=== PATIENT | female | born 1940 | race African-American/Black ===

== ENCOUNTER 2016-02-10 08:26 | Inpatient (IN) | payer OTHER ==
--- NOTE | 2016-02-10 08:34 | ED.PDOC ---
General ED Provider: Dr. LEATHA COFFMAN Chief Complaint: Shortness of Air Stated Complaint: shortness of breath Time Seen by Physician: 08:31 (history through pt and ) Information Source: Patient Exam Limitations: No limitations [facility] Documentation Reviewed and Agree: Yes (smokes 2 cigarrets/ day) Respiratory Complaint Exam - Respiratory Complaint/Exam Onset/Duration: short of air x1 hour coughing x 2 days Symptoms Are: Still present Timing: Constant Initial Severity: Moderate Current Severity: Mild Location: Throat, Chest Character: Reports: Non-productive cough Aggravating: Reports: None Alleviating: Reports: Bronchodilators Associated Signs and Symptoms: Reports: Nasal congestion, Sore throat Related History: Reports: Similar episode History of Healthcare-Acquired Pneumonia: No Related Surgical History: Reports: None Pulmonary Embolism Risk Factors: Bedrest Cardiac Risk Factors: Reports: CAD, Hypertension, CHF Pseudomonas Risk Factors: Reports: Chronic Lung Disease Tuberculosis Risk Factors: Reports: Chronic Resp. Faliure Home Oxygen Use: No Recent Stress Test: No Recent Echo/LV Function: No Current Antibiotic Use: No Respiratory Distress: None Inadequate Respiratory Effort: No Dysphagia Present: No Stridor Present: No JVD Present: No Accessory Muscle Use: No Retractions: Not Present Diminished Breath Sounds: No Prolonged Respiration: Expiratory phase Sinus Tenderness: None Grunting Respirations: No Kussmaul Respirations: No Differential Diagnoses: CHF, COPD Exacerbation, Pneumonia, Bronchitis Review of Systems - Review Of Systems Constitutional: Reports: Malaise, Weakness Eyes: Reports: No symptoms Ears, Nose, Mouth, Throat: Reports: No symptoms Respiratory: Reports: Cough, Short of air, Wheezing Cardiac: Reports: No symptoms GI: Reports: No symptoms : Reports: No symptoms Musculoskeletal: Reports: No symptoms Skin: Reports: No symptoms Neurological: Reports: No symptoms Endocrine: Reports: No symptoms Hematologic/Lymphatic: Reports: No symptoms All Other Systems: Reviewed and Negative Past Medical History - Past Medical History Previously Healthy: Yes Endocrine: Reports: None Cardiovascular: Reports: Hypertension Respiratory: Reports: Pneumonia Hematological: Reports: None Gastrointestinal: Reports: None Genitourinary: Reports: None Neuro/Psych: Reports: None Musculoskeletal: Reports: Arthritis, Joint Pain, Other (Sciatica ) Cancer: Reports: None - Surgical History General Surgical History: Reports: Hysterectomy, Appendectomy, Orthopedic (Knee replacement on the left 7 weeks ago. ) - Family History Family History: Reports: Unknown - Social History Smoking Status: Current every day smoker, Light tobacco smoker Hx Substance Use: No Alcohol Screening: None Physical Exam - Physical Exam Appearance: Ill-appearing Ill-appearing: Moderate Pain Distress: Moderate Eyes: POLA, EOMI, Conjunctiva clear ENT: Ears normal, Nose normal, Oropharynx normal Respiratory: Wheezes Cardiovascular: RRR, Pulses normal, No rub, No murmur GI/: Soft, Nontender, No masses, Bowel sounds normal, No Organomegaly Musculoskeletal: Normal strength, ROM intact, No edema, No calf tenderness Skin: Warm, Dry, Normal color Neurological: Sensation intact, Motor intact, Reflexes intact, Cranial nerves intact, Alert, Oriented Psychiatric: Affect appropriate, Mood appropriate Physician Notification - Case Discussed Physician Notified: trinh Time of Notification: 10:46 Admit To: Inpatient Critical Care Note - Critical Care Note Total Time (mins): 0 Course - Course Hematology/Chemistry: 02/10/16 08:50 02/10/16 08:50 Orders, Labs, Meds: Lab Review 02/10/16 02/10/16 02/10/16 08:45 08:50 09:03 WBC 8.83 RBC 4.01 L Hgb 11.2 L Hct 36.3 L MCV 90.5 MCH 27.9 MCHC 30.9 L RDW Coeff of Jade 15.1 H Plt Count 339 Immature Gran % (Auto) 0.2 Neut % (Auto) 37.6 Lymph % (Auto) 42.7 Curry % (Auto) 11.6 H Eos % (Auto) 7.2 H Baso % (Auto) 0.7 Immature Gran # (Auto) 0.0 Neut # 3.3 Lymph # 3.8 H Curry # 1.0 Eos # 0.6 Baso # 0.1 D-Dimer 1.63 Puncture Site Rradial O2 Saturation 91.0 L ABG pH 7.408 ABG pCO2 37.6 ABG pO2 60.0 L ABG HCO3 23.7 ABG Total CO2 25 ABG Base Excess -1 Ja Test + FiO2 % 21.0 Sodium 140 Potassium 3.2 L Chloride 107 Carbon Dioxide 25 Anion Gap 11.2 BUN 10 Creatinine 0.88 Estimated GFR (MDRD) 76.00 BUN/Creatinine Ratio 11.36 Glucose 138 H Lactic Acid 12.0 Calcium 8.6 Total Bilirubin 0.34 AST 26 ALT 13 Alkaline Phosphatase 101 Total Creatine Kinase 49 Troponin I 0.0150 B-Natriuretic Peptide 534 H Total Protein 7.2 Albumin 2.3 L Globulin 4.9 Albumin/Globulin Ratio 0.47 Influenza A (Rapid) Negative Influenza B (Rapid) Negative Orders Category Date Time Status ADMIT PATIENT INPATIENT .TO [facility] (MONITORED BED) ADMISSION 02/10/16 10: 39 Ordered ABG DRAW REQUEST DAILY@0600 CARDIO 02/11/16 06:00 Ordered ABG DRAW REQUEST Stat CARDIO 02/10/16 08:36 Completed EKG-(ED ONLY) Stat CARDIO 02/10/16 08:36 Completed EKG-(IP & OP ONLY) DAILY CARDIO 02/11/16 06:00 Ordered EKG-(IP & OP ONLY) DAILY CARDIO 02/12/16 06:00 Ordered EKG-(IP & OP ONLY) DAILY CARDIO 02/13/16 06:00 Ordered NEBULIZER TREATMENT Stat CARDIO 02/10/16 08:37 Completed NEBULIZER TREATMENT Stat CARDIO 02/10/16 10:43 Ordered OXYGEN Routine CARDIO 02/10/16 10:41 Ordered ACTIVITY .Complete BR CARE 02/10/16 10:39 Ordered INTAKE & OUTPUT Q8HR CARE 02/10/16 10:39 Ordered TELEMETRY MONITORING TELE CARE 02/10/16 10:40 Ordered VITAL SIGNS Q8HR CARE 02/10/16 10:39 Ordered CARDIAC DIET DIETARY 02/10/16 Lunch Ordered ED IV/MEDIPORT/POWERPORT .ONCE EMERGENCY 02/10/16 08:35 Active ABG Stat LAB 02/10/16 08:45 Completed ABG Stat LAB 02/10/16 10:43 Ordered B-TYPE NATRIURETIC PEPTIDE Stat LAB 02/10/16 08:50 Completed BLOOD CULTURE Stat LAB 02/10/16 08:50 Received CBC W/ AUTO DIFF DAILY@0600 LAB 02/11/16 06:00 Ordered CBC W/ AUTO DIFF DAILY@0600 LAB 02/12/16 06:00 Ordered CBC W/ AUTO DIFF DAILY@0600 LAB 02/13/16 06:00 Ordered CBC W/ AUTO DIFF DAILY@0600 LAB 02/14/16 06:00 Ordered CBC W/ AUTO DIFF DAILY@0600 LAB 02/15/16 06:00 Ordered CBC W/ AUTO DIFF DAILY@0600 LAB 02/16/16 06:00 Ordered CBC W/ AUTO DIFF DAILY@0600 LAB 02/17/16 06:00 Ordered CBC W/ AUTO DIFF DAILY@0600 LAB 02/18/16 06:00 Ordered CBC W/ AUTO DIFF DAILY@0600 LAB 02/19/16 06:00 Ordered CBC W/ AUTO DIFF DAILY@0600 LAB 02/20/16 06:00 Ordered CBC W/ AUTO DIFF DAILY@0600 LAB 02/21/16 06:00 Ordered CBC W/ AUTO DIFF DAILY@0600 LAB 02/22/16 06:00 Ordered CBC W/ AUTO DIFF DAILY@0600 LAB 02/23/16 06:00 Ordered CBC W/ AUTO DIFF DAILY@0600 LAB 02/24/16 06:00 Ordered CBC W/ AUTO DIFF DAILY@0600 LAB 02/25/16 06:00 Ordered CBC W/ AUTO DIFF DAILY@0600 LAB 02/26/16 06:00 Ordered CBC W/ AUTO DIFF DAILY@0600 LAB 02/27/16 06:00 Ordered CBC W/ AUTO DIFF DAILY@0600 LAB 02/28/16 06:00 Ordered CBC W/ AUTO DIFF DAILY@0600 LAB 02/29/16 06:00 Ordered CBC W/ AUTO DIFF DAILY@0600 LAB 03/01/16 06:00 Ordered CBC W/ AUTO DIFF Stat LAB 02/10/16 08:50 Completed COMPREHENSIVE METABOLIC PANEL DAILY@0600 LAB 02/11/16 06:00 Ordered COMPREHENSIVE METABOLIC PANEL DAILY@0600 LAB 02/12/16 06:00 Ordered COMPREHENSIVE METABOLIC PANEL DAILY@0600 LAB 02/13/16 06:00 Ordered COMPREHENSIVE METABOLIC PANEL DAILY@0600 LAB 02/14/16 06:00 Ordered COMPREHENSIVE METABOLIC PANEL DAILY@0600 LAB 02/15/16 06:00 Ordered COMPREHENSIVE METABOLIC PANEL DAILY@0600 LAB 02/16/16 06:00 Ordered COMPREHENSIVE METABOLIC PANEL DAILY@0600 LAB 02/17/16 06:00 Ordered COMPREHENSIVE METABOLIC PANEL DAILY@0600 LAB 02/18/16 06:00 Ordered COMPREHENSIVE METABOLIC PANEL DAILY@0600 LAB 02/19/16 06:00 Ordered COMPREHENSIVE METABOLIC PANEL DAILY@0600 LAB 02/20/16 06:00 Ordered COMPREHENSIVE METABOLIC PANEL DAILY@0600 LAB 02/21/16 06:00 Ordered COMPREHENSIVE METABOLIC PANEL DAILY@0600 LAB 02/22/16 06:00 Ordered COMPREHENSIVE METABOLIC PANEL DAILY@0600 LAB 02/23/16 06:00 Ordered COMPREHENSIVE METABOLIC PANEL DAILY@0600 LAB 02/24/16 06:00 Ordered COMPREHENSIVE METABOLIC PANEL DAILY@0600 LAB 02/25/16 06:00 Ordered COMPREHENSIVE METABOLIC PANEL DAILY@0600 LAB 02/26/16 06:00 Ordered COMPREHENSIVE METABOLIC PANEL DAILY@0600 LAB 02/27/16 06:00 Ordered COMPREHENSIVE METABOLIC PANEL DAILY@0600 LAB 02/28/16 06:00 Ordered COMPREHENSIVE METABOLIC PANEL DAILY@0600 LAB 02/29/16 06:00 Ordered COMPREHENSIVE METABOLIC PANEL DAILY@0600 LAB 03/01/16 06:00 Ordered COMPREHENSIVE METABOLIC PANEL Stat LAB 02/10/16 08:50 Completed CREATINE KINASE Q8H LAB 02/10/16 16:45 Ordered CREATINE KINASE Q8H LAB 02/11/16 00:45 Ordered CREATINE KINASE Stat LAB 02/10/16 08:50 Completed D-DIMER Stat LAB 02/10/16 08:50 Completed LACTIC ACID Stat LAB 02/10/16 08:50 Completed MOLECULAR GROUP A STREP Stat LAB 02/10/16 09:03 Results RAPID FLU A/B Stat LAB 02/10/16 09:03 Completed STREP SCREEN Stat LAB 02/10/16 09:03 Results TROPONIN I Q8H LAB 02/10/16 16:45 Ordered TROPONIN I Q8H LAB 02/11/16 00:45 Ordered TROPONIN I Stat LAB 02/10/16 08:50 Completed 0.9 % Sodium Chloride [Saline Flush] MEDS 02/10/16 08:36 Active 1 syr IVF PRN PRN Aspirin [Aspirin Chewable] MEDS 02/11/16 08:00 Ordered 81 mg PO DAILYWM Ceftriaxone Sodium [Rocephin] 1 gm MEDS 02/11/16 09:00 Ordered 0.9 % Sodium Chloride [Sodium Chloride] 50 ml IV DAILY Furosemide [Lasix Tab] MEDS 02/11/16 09:00 Ordered 40 mg PO DAILY Furosemide [Lasix] MEDS 02/10/16 10:39 Stat 40 mg IVP ONCE STA Ipratropium/Albuterol Neb [Duoneb] MEDS 02/10/16 08:37 Discontinued 1 vial NEB ONCE STA Ipratropium/Albuterol Neb [Duoneb] MEDS 02/10/16 12:00 Ordered 1 vial NEB RTQ6H Isosorbide Mononitrate [Imdur] MEDS 02/11/16 09:00 Ordered 30 mg PO DAILY Lisinopril [Zestril] MEDS 02/11/16 09:00 Ordered 2.5 mg PO DAILY Methylprednisolone Sod Succ/Pf [Solu-Medrol 125 mg] MEDS 02/10/16 08:37 Discontinued 125 mg IVP ONCE STA Methylprednisolone Sod Succ/Pf [Solu-Medrol 40 mg] MEDS 02/10/16 13:00 Ordered 60 mg IVP Q8HR Nitroglycerin [Nitrostat] MEDS 02/10/16 10:44 Ordered 0.4 mg SL Q5MIN X 3 DOSES PRN Sodium Chloride 0.9% [Sodium Chloride] 500 ml MEDS 02/10/16 08:38 Active IV 125 mls/hr Spironolactone [Aldactone] MEDS 02/11/16 09:00 Ordered 25 mg PO DAILY CHEST, 1V AP ONLY DAILY RADS 02/12/16 06:00 Ordered CHEST, 1V AP ONLY Stat RADS 02/10/16 08:35 Completed Medications Generic Name Dose Route Start Last Admin Trade Name Freq PRN Reason Stop Dose Admin Albuterol/Ipratropium 1 vial 02/10/16 12:00 Duoneb NEB RTQ6H RANJEET Aspirin 81 mg 02/11/16 08:00 Aspirin Chewable PO DAILYWM RANJEET Furosemide 40 mg 02/11/16 09:00 Lasix Tab PO DAILY RANJEET Sodium Chloride 500 mls @ 125 mls/hr 02/10/16 08:38 02/10/16 09:47 Sodium Chloride IV 02/10/16 12:37 125 mls/hr .Q4H STA Administration Ceftriaxone Sodium 1 gm/ 50 mls @ 75 mls/hr 02/11/16 09:00 Sodium Chloride IV DAILY RANJEET Isosorbide Mononitrate 30 mg 02/11/16 09:00 Imdur PO DAILY RANJEET Lisinopril 2.5 mg 02/11/16 09:00 Zestril PO DAILY RANJEET Methylprednisolone Sodium Succinate 60 mg 02/10/16 13:00 Solu-Medrol 40 Mg IVP Q8HR RANJEET Nitroglycerin 0.4 mg 02/10/16 10:44 Nitrostat SL Q5MIN X 3 DOSES PRN Angina Sodium Chloride 1 syr 02/10/16 08:36 02/10/16 09:48 Saline Flush IVF 1 syr PRN PRN Administration To flush IV Spironolactone 25 mg 02/11/16 09:00 Aldactone PO DAILY RANJEET Discontinued Medications Generic Name Dose Route Start Last Admin Trade Name Alireza PRN Reason Stop Dose Admin Albuterol/Ipratropium 1 vial 02/10/16 08:37 02/10/16 08:55 Duoneb NEB 02/10/16 08:38 1 vial ONCE STA Administration Furosemide 40 mg 02/10/16 10:39 Lasix IVP 02/10/16 10:40 ONCE STA Methylprednisolone Sodium Succinate 125 mg 02/10/16 08:37 02/10/16 09:46 Solu-Medrol 125 Mg IVP 02/10/16 08:38 125 mg ONCE STA Administration Vital Signs: Temp Pulse Resp BP Pulse Ox 02/10/16 08:27 97.9 F 116 H 38 H 227/127 H 89 L Departure - Departure Time of Disposition: 10:46 Disposition: ADMITTED INPATIENT Discharge Problem: Shortness of breath Instructions: Dyspnea (ED) Condition: Good Pt referred to PMD for follow-up: Yes (admitt) Allergies/Adverse Reactions: Allergies No Known Allergies Allergy (Verified 02/10/16 08:36) Home Medications: Ambulatory Orders Lisinopril 2.5 mg PO DAILY #30 tab-cap 08/25/15 Aspirin [Aspirin Chewable] 81 mg PO DAILYWM 02/10/16 Bupropion HCl 75 mg PO DAILY 02/10/16 Furosemide 40 mg PO DAILY 02/10/16 Isosorbide Mononitrate [Imdur] 30 mg PO DAILY 02/10/16 Nitroglycerin [Nitrostat] 0.4 mg SL Q5MIN X 3 DOSES PRN 02/10/16 Spironolactone 25 mg PO DAILY 02/10/16 Disposition Discussed With: Patient, Family
[2016-02-10] MEDS ORDERED: SOLU-MEDROL 125 MG IVP STA (08:37)
[2016-02-10] MEDS ORDERED: DUONEB NEB STA (08:37)
[2016-02-10] MEDS ORDERED: SODIUM CHLORIDE 500 ML IV STA (08:38)
[2016-02-10 08:50] LABS: ABG PCO2 37.6 mmHg (35-45); ABG PH 7.408 (7.35-7.45)
[2016-02-10 08:51] LABS: ABG BASE EXCESS -1 (-2.0-2.0)
[2016-02-10 08:52] LABS: ABG HCO3 23.7 (22.0-26.0); ABG TCO2 25 (22.0-28.0)
[2016-02-10 09:02] LABS: BASOPHILS # (AUTO) 0.1 K/uL (0-0.2); BASOPHILS % (AUTO) 0.7 % (0.0-3.0); EOSINOPHILS # (AUTO) 0.6 K/ul (0.0-0.7); EOSINOPHILS % (AUTO) 7.2 % (0.0-7.0); HEMATOCRIT 36.3 % (37.0-47.0); HEMOGLOBIN 11.2 g/dl (12.0-16.0); IMMATURE GRANULOCYTE % (AUTO) 0.2 % (0.0-5.0); LYMPHOCYTES # (AUTO) 3.8 K/uL (0.60-3.4); LYMPHOCYTES % (AUTO) 42.7 (10.0-50.0); MEAN CORPUSCULAR HEMOGLOBIN 27.9 pg (27.0-31.0); MEAN CORPUSCULAR HGB CONC 30.9 (31.8-35.4); MEAN CORPUSCULAR VOLUME 90.5 fl (81.0-99.0); MONOCYTES % (AUTO) 11.6 (0-10); NEUTROPHILS # (AUTO) 3.3 K/ul (2.0-6.9); NEUTROPHILS % (AUTO) 37.6; PLATELET COUNT 339 10^3/uL (140-440); RED BLOOD COUNT 4.01 10^6/ul (4.20-5.40); WHITE BLOOD COUNT 8.83 K/ul (4.6-10.2)
--- NOTE | 2016-02-10 09:06 | DI ---
EXAM: Chest one view HISTORY: Short of air COMPARISON: 10/29/2015 TECHNIQUE: Single view of the chest was performed FINDINGS: Bilateral interstitial and alveolar opacity appears increased. Fissural fluid suggested o n the right. There is underlying fibrosis. No pneumothorax. No visible pneumothorax. Heart is en larged and unchanged. Mediastinal contour is unchanged, noting atherosclerosis. Bones appear uncha nged. IMPRESSION: Pulmonary fibrosis. Bilateral interstitial and alveolar opacity appears increased and may represent superimposed pneumonia or edema. Fissural fluid suggested. Report faxed at time of dictation.
[2016-02-10 09:22] LABS: FLU INTERNAL QC INTERNAL QC VALID; RAPID FLU A NEGATIVE (NEGATIVE); RAPID FLU B NEGATIVE (NEGATIVE)
[2016-02-10 09:29] LABS: ALBUMIN 2.3 g/dL (3.4-5.0); ALBUMIN/GLOBULIN RATIO 0.47; ANION GAP 11.2; BILIRUBIN,TOTAL 0.34 mg/dL (0.00-1.20); BUN/CREATININE RATIO 11.36; CALCIUM 8.6 mg/dL (8.2-10.2); CREATININE 0.88 mg/dL (0.60-1.30); POTASSIUM 3.2 mmol/L (3.5-5.10); TOTAL PROTEIN 7.2 g/dL (5.8-8.1); TROPONIN I 0.015 ng/ml (0.0000-0.4000)
[2016-02-10] MEDS ORDERED: LASIX IVP STA (10:39)
[2016-02-10] MEDS ORDERED: NORCO 10-325 PO STA (11:03)
[2016-02-10] MEDS: DUONEB NEB SCH ×3 (11:44→23:13)
[2016-02-10] MEDS ORDERED: VASOTEC IV IVP STA (12:52)
[2016-02-10] MEDS ORDERED: VASOTEC IV IVP PRN (12:52)
[2016-02-10] MEDS ORDERED: SOLU-MEDROL 40 MG IVP SCH (13:00)
[2016-02-10 13:36] VITALS: BMI 28.0
[2016-02-10] MEDS: ROCEPHIN 1 GM in SODIUM CHLORIDE 50 ML IV SCH (13:57)
[2016-02-10] MEDS: SOLU-MEDROL 125 MG IVP SCH ×2 (15:00→21:13)
[2016-02-10 17:26] LABS: CREATINE KINASE 50 U/L
[2016-02-10] MEDS ORDERED: LANOXIN IVP STA (17:59)
[2016-02-10] MEDS ORDERED: LANOXIN IVP ONE (21:00)
[2016-02-10] MEDS: NORCO 5-325 PO PRN (22:57)
[2016-02-11 01:15] LABS: BASOPHILS % (AUTO) 0.1 % (0.0-3.0); HEMATOCRIT 36.2 % (37.0-47.0); HEMOGLOBIN 11.1 g/dl (12.0-16.0); IMMATURE GRANULOCYTE % (AUTO) 0.6 % (0.0-5.0); MEAN CORPUSCULAR HGB CONC 30.7 (31.8-35.4); MEAN CORPUSCULAR VOLUME 91.4 fl (81.0-99.0); MONOCYTES # (AUTO) 0.2 K/uL (0.4-2.0); MONOCYTES % (AUTO) 3.3 (0-10); NEUTROPHILS # (AUTO) 5.7 K/ul (2.0-6.9); PLATELET COUNT 334 10^3/uL (140-440); RED BLOOD COUNT 3.96 10^6/ul (4.20-5.40); WHITE BLOOD COUNT 6.93 K/ul (4.6-10.2)
[2016-02-11 01:30] LABS: ALBUMIN 2.4 g/dL (3.4-5.0); ALBUMIN/GLOBULIN RATIO 0.45; ANION GAP 12.9; BILIRUBIN,TOTAL 0.19 mg/dL (0.00-1.20); BUN/CREATININE RATIO 18.47; CREATININE 0.92 mg/dL (0.60-1.30); POTASSIUM 3.9 mmol/L (3.5-5.10); TOTAL PROTEIN 7.7 g/dL (5.8-8.1)
[2016-02-11 01:37] LABS: CREATINE KINASE 52 U/L
[2016-02-11] MEDS: LASIX TAB PO SCH (05:32)
[2016-02-11] MEDS: SOLU-MEDROL 125 MG IVP SCH ×3 (05:33→21:46)
[2016-02-11] MEDS: NORCO 5-325 PO PRN (06:19)
[2016-02-11 06:21] LABS: ABG BASE EXCESS 4 (-2.0-2.0); ABG HCO3 27.2 (22.0-26.0); ABG PCO2 34.5 mmHg (35-45); ABG PH 7.505 (7.35-7.45); ABG TCO2 28 (22.0-28.0)
[2016-02-11] MEDS: DUONEB NEB SCH ×4 (06:26→23:25)
[2016-02-11] MEDS: NITROSTAT SL PRN ×2 (08:50→09:06)
[2016-02-11] MEDS ORDERED: TORADOL IVP STA (08:51)
[2016-02-11] MEDS ORDERED: ZESTRIL PO SCH ×2 (09:00)
[2016-02-11] MEDS: ASPIRIN CHEWABLE PO SCH (09:10)
[2016-02-11] MEDS: IMDUR PO SCH (09:12)
[2016-02-11] MEDS: ALDACTONE PO SCH (09:22)
[2016-02-11] MEDS: ROCEPHIN 1 GM in SODIUM CHLORIDE 50 ML IV SCH (09:23)
[2016-02-11] MEDS ORDERED: XANAX PO STA (10:25)
[2016-02-11] MEDS ORDERED: BUPROPION HCL 75 MG PO SCH (10:30)
[2016-02-11] MEDS ORDERED: COREG PO SCH (10:30)
[2016-02-11] MEDS: WELLBUTRIN PO SCH (10:50)
[2016-02-11] MEDS: COREG PO SCH ×2 (10:53→17:48)
--- NOTE | 2016-02-11 13:04 | CONS ---
DATE OF CONSULTATION: 02/10/16 REASON FOR CONSULTATION: Shortness of air. HISTORY OF PRESENT ILLNESS: The patient is a 72 year old black female was brought to the emergency room by the because of shortness of breath with duration of 2 days. The patient gives history consistent with congestive heart failure and also with bronchitis type of symptoms for two days prior to coming to the emergency room. The patient was seen and examined in the emergency room by ER attending and was noted to have pulse of 116 irregular respiratory rate of 38 per minute and blood pressure of 227/127 with oxygen saturation of 89%. The patient arterial blood gasses on room air were po2 60, pCO2 37, pH 7.4 with 91% saturation. The patient was obviously in acute respiratory failure with acute pulmonary edema. The patient was given IV Lasix 40mg, Rocephin, IV steroids, NEBS treatment. By the time I saw the patient in the room the patient's condition had already improved and she was feeling a lot better. The patient's main complaint was lower back pain and that seems to be better now but she said that it was quite severe which she has it off and on for past several months but got worse. On examination the patient has bilateral basal crepitations with some wheezing. REVIEW OF SYSTEMS: CONSTITUTIONAL: No night sweats. Weakness and fatigue. No fever or chills. HEENT: Eyes: No visual changes. No eye pain. No eye discharge. ENT: No runny nose. No epistaxis. No sinus pain. No sore throat. No odynophagia. No ear pain. No congestion. RESPIRATORY: Mild cough with congestion yellowish sputum production. No hemoptysis. CARDIOVASCULAR: No angina symptoms. No CHF symptoms. No atypical chest pain for CAD. No palpitations. No shortness of breath. No chest pain but had orthopnea was unable to lay down for past couple of days. No PND. GASTROINTESTINAL: No abdominal pain. No nausea or vomiting. No diarrhea or constipation. No hematemesis. No hematochezia. GENITOURINARY: No urgency. No frequency. No dysuria. No hematuria. No obstructive symptoms. No discharge. No pain. No significant abnormal bleeding. MUSCULOSKELETAL: No musculoskeletal pain. No joint swelling. NEUROLOGICAL: No headache. No neck pain. No syncope. No seizures. No dizziness. PSYCHIATRIC: Not anxious. No depression. No suicidal thoughts. No homicidal thoughts. SKIN: No rash. No lesions. No wounds. ENDOCRINE: No unexplained weight loss. No weight gain. HEMATOLOGIC/LYMPHATIC: No anemia. No purpura. No petechiae. No prolonged or excessive bleeding. No palpable lymph nodes. MEDICATIONS: Lisinopril 205mg PO daily Aspirin 81mg PO daily Bupropion 75mg PO daily Lasix 40mg PO daily Isosorbide 30mg daily Nitroglycerin PRN Spironolactone 25mg PO daily ALLERGIES: None PAST MEDICAL HISTORY/PAST SURGICAL HISTORY: The patient has a history of coronary artery disease She had cardiac catheterization done a month ago and they couldn't put stent so they said that she is candidate for medical therapy. History of hypertension Congestive heart failure Chronic lung disease Smoking Generalized osteoarthritis Sciatica Hysterectomy Appendectomy Knee replacement, left 7 weeks ago SOCIAL/PERSONAL/FAMILY HISTORY: The patient is and lives with the . She smokes heavy. Alcohol socially. She does all activity of daily living, very independent. PHYSICAL EXAMINATION: GENERAL: The patient is oriented to time, place and person. VITAL SIGNS: Temperature 97.9, pulse 116, respiratory 38 and blood pressure 227 /127 the blood pressure was taken while I was in the room by the nurse and it was reported as 170/86 and pulse 89%. HEENT: Head normocephalic, atraumatic. Eyes: Extraocular muscles are intact. Pupils are equal, round and reactive to light and accommodation. Ears: No lesions. Nose appeared normal. Throat: No exudate or erythema. NECK: Supple. 2cm JVP, no carotid bruit. No lymphadenopathy or thyromegaly. LUNGS: Decreased breath sounds with mild wheeze with few crepitations at the bases. Percussion note normal. Chest symmetrical. HEART: S1, S2 somewhat irregular, no S3. No murmurs. No cyanosis or clubbing. No ascites. Pulses: Dorsalis pedis and posterior tibial pulses +1 to +2 both sides. ABDOMEN: Soft. Nontender. Bowel sounds active. No CVA tenderness. No mass felt. EXTREMITIES: Trace edema. Full range of motion of all extremities, equal. NEUROLOGIC: No focal deficit. Cranial nerves II through XII are grossly intact. No headache, no double vision or headache. SKIN: Not dry. Intact. Turgor - normal. LYMPHATIC: No palpable lymph nodes/no lymphedema. MUSCULOSKELETAL: Normal joints with no swelling. Muscle tone is normal. LABS: Hgb 11.2, hct 36, WBC 8,800 normal differential, creatinine 0.8, BUN 10, potassium 3.2, glucose 138, BNP 534, D-Dimer negative, Estimated GFR 76 cc per minute. EKG sinus rhythm multiple PEC's. ASSESSMENT: 1. Acute respiratory failure from acute pulmonary edema 2. COPD with possibility of bronchitis. 3. Smoking 4. Chronic lung disease with smoking 5. Coronary artery disease, medical management 6. Hypertension 7. Dyslipidemia PLAN: 1. Agreed with present medications. 2.. Counseling for smoking done 3. The patient had coronary angiogram done but according to the patient Dr. Canales wasn't able to put stent and she was told that she would be candidate for just medical management. 4. Blood pressure goal should be 135/85, discussed with the patient. The patient is on jayne inhibitors 5. Dash discussed for hypertension 6. IV Vasotec to be given 1.25mg for systolic blood pressure more than 150 12 hourly. 7. Do PFT 8. Will do echocardiogram to elevate LV function. 9. Continue Telemetry 10. Continue routine Telemetry order with serial cardiac markers CONDITION: Stabilizing Thanks for referral. MANAN
[2016-02-11] MEDS ORDERED: COREG PO ONE (13:20)
[2016-02-11] MEDS ORDERED: DILAUDID 1 MG/ML SYRINGE IVP STA (21:18)
[2016-02-12] MEDS: DUONEB NEB SCH ×3 (05:10→17:20)
[2016-02-12] MEDS: LASIX TAB PO SCH (05:39)
[2016-02-12] MEDS: SOLU-MEDROL 125 MG IVP SCH ×3 (05:40→20:15)
[2016-02-12 06:09] LABS: BASOPHILS % (AUTO) 0.1 % (0.0-3.0); HEMOGLOBIN 11.2 g/dl (12.0-16.0); IMMATURE GRANULOCYTE % (AUTO) 0.4 % (0.0-5.0); LYMPHOCYTES # (AUTO) 1.4 K/uL (0.60-3.4); LYMPHOCYTES % (AUTO) 11.2 (10.0-50.0); MEAN CORPUSCULAR HEMOGLOBIN 27.6 pg (27.0-31.0); MEAN CORPUSCULAR HGB CONC 30.3 (31.8-35.4); MEAN CORPUSCULAR VOLUME 91.1 fl (81.0-99.0); MONOCYTES # (AUTO) 0.5 K/uL (0.4-2.0); MONOCYTES % (AUTO) 4.3 (0-10); NEUTROPHILS # (AUTO) 10.6 K/ul (2.0-6.9); PLATELET COUNT 409 10^3/uL (140-440); RED BLOOD COUNT 4.06 10^6/ul (4.20-5.40); WHITE BLOOD COUNT 12.64 K/ul (4.6-10.2)
[2016-02-12 06:27] LABS: ALBUMIN 2.5 g/dL (3.4-5.0); ALBUMIN/GLOBULIN RATIO 0.48; ANION GAP 14.5; BILIRUBIN,TOTAL 0.24 mg/dL (0.00-1.20); BUN/CREATININE RATIO 28.08; CALCIUM 8.9 mg/dL (8.2-10.2); CREATININE 0.89 mg/dL (0.60-1.30); POTASSIUM 4.5 mmol/L (3.5-5.10); TOTAL PROTEIN 7.7 g/dL (5.8-8.1)
[2016-02-12] MEDS: NORCO 5-325 PO PRN (08:24)
[2016-02-12] MEDS ORDERED: COZAAR PO SCH (09:00)
[2016-02-12] MEDS: WELLBUTRIN PO SCH (09:17)
[2016-02-12] MEDS: ALDACTONE PO SCH (09:18)
[2016-02-12] MEDS: ROCEPHIN 1 GM in SODIUM CHLORIDE 50 ML IV SCH (09:18)
[2016-02-12] MEDS: ASPIRIN CHEWABLE PO SCH (09:18)
[2016-02-12] MEDS: IMDUR PO SCH (09:18)
[2016-02-12] MEDS ORDERED: NORVASC PO STA (09:50)
[2016-02-12] MEDS ORDERED: COZAAR PO ONE (09:53)
[2016-02-12] MEDS: COREG PO SCH ×2 (09:53→17:19)
--- NOTE | 2016-02-12 10:41 | CT ---
Exam: CT scan of the chest without contrast History: Abnormal chest x-ray. History of anemia. Comparison study dated 11/01/2015. Findings: Computed tomography of the chest was performed without use of intravenous contrast materi al with scans reviewed in the axial, coronal, and sagittal planes at 5 mm slice thickness. Lung and mediastinal window settings were reviewed. Assessment of the mediastinum and hilar structures is l imited without utilization of intravenous contrast material. Atherosclerotic calcification of the t horacic aorta is again noted. Ascending thoracic aorta is borderline aneurysmally dilated measured approximately 4.0 x 3.7 cm transversely. There is again noted to be prominence of the pulmonary out flow tract suggesting the likelihood of underlying pulmonary arterial hypertension. The lungs are severely emphysematous in appearance with an honeycombed appearance of the lungs seen in the anterior aspects of both upper lobe regions but more pronounced in the lower lobe regions, ri ght greater than left. There appears to be associated bronchiectasis in the upper and more so lower lobe regions. There is also involvement at the level of the right middle lobe and lingula. No def inite acute consolidation is seen superimposed upon the underlying emphysematous appearing lungs. T here is chronic thickening seen along the oblique fissure on the right and less so the horizontal fi ssure. This appears similar to the prior study. Advanced arthritic changes seen centering in the mid and upper thoracic spine regions with multileve l compression deformities noted. Similar changes can be appreciated on the prior study. Impression: Severely emphysematous appearing lungs with the appearance of honeycombed lungs seen in the anterior aspects of both upper lobes and more so involving the lung bases, right greater than l eft. There is a lesser degree of involvement of the right middle lobe and lingula. No definite acute changes as compared to the prior study from 11/01/2015. Stable degree of cardiac enlargement. Borderline aneurysmal dilatation of the ascending aorta. Prominence of the pulmonary outflow tract suggesting pulmonary arterial hypertension. Stable thickening seen along the oblique fissure on the right.
--- NOTE | 2016-02-12 16:26 | CT ---
EXAM: CT of the head without contrast History: Headache. Comparison: Head CT 08/04/2015, brain MRI 10/29/2015 Technique: Multiplanar CT images through the head were obtained without the administration of IV co ntrast Findings: The visualized paranasal sinuses and mastoid air cells are clear in general. No acute ca lvarial abnormalities. Intracranially there is stable atrophy. No dominant mass or midline shift. No hydrocephalous. No acute intracranial hemorrhage or abnormal extraaxial fluid collections. No change in the periventri cular and subcortical white matter hypodensities. Impression: No acute intracranial process. Stable atrophy and chronic small vessel ischemic diseas e. No change compared to the prior study.
[2016-02-12] MEDS ORDERED: LASIX IVP STA (16:32)
[2016-02-12] MEDS: COZAAR PO SCH ×2 (17:20→20:15)
[2016-02-12] MEDS: TUSSIONEX PO SCH (20:13)
[2016-02-12] MEDS: MUCINEX PO SCH (20:13)
[2016-02-12] MEDS ORDERED: COZAAR ONE ×2 (20:15)
[2016-02-12] MEDS: HYDROCHLOROTHIAZIDE PO SCH (22:48)
[2016-02-13] MEDS: DUONEB NEB SCH ×5 (00:03→23:45)
[2016-02-13] MEDS: SOLU-MEDROL 125 MG IVP SCH ×2 (04:48→13:31)
[2016-02-13] MEDS ORDERED: NORVASC PO STA (04:54)
[2016-02-13 05:18] LABS: BASOPHILS % (AUTO) 0.1 % (0.0-3.0); HEMATOCRIT 37.9 % (37.0-47.0); HEMOGLOBIN 11.5 g/dl (12.0-16.0); IMMATURE GRANULOCYTE % (AUTO) 0.5 % (0.0-5.0); LYMPHOCYTES # (AUTO) 1.5 K/uL (0.60-3.4); MEAN CORPUSCULAR HEMOGLOBIN 27.3 pg (27.0-31.0); MEAN CORPUSCULAR HGB CONC 30.3 (31.8-35.4); MONOCYTES # (AUTO) 0.5 K/uL (0.4-2.0); MONOCYTES % (AUTO) 5.3 (0-10); NEUTROPHILS # (AUTO) 6.8 K/ul (2.0-6.9); NEUTROPHILS % (AUTO) 77.1; PLATELET COUNT 409 10^3/uL (140-440); RED BLOOD COUNT 4.21 10^6/ul (4.20-5.40)
[2016-02-13] MEDS: LASIX TAB PO SCH (05:42)
[2016-02-13 05:43] LABS: ALBUMIN 2.5 g/dL (3.4-5.0); ALBUMIN/GLOBULIN RATIO 0.51; ANION GAP 14.2; BILIRUBIN,TOTAL 0.24 mg/dL (0.00-1.20); BUN/CREATININE RATIO 31.46; CALCIUM 8.9 mg/dL (8.2-10.2); CREATININE 0.89 mg/dL (0.60-1.30); POTASSIUM 4.2 mmol/L (3.5-5.10); TOTAL PROTEIN 7.4 g/dL (5.8-8.1)
[2016-02-13] MEDS ORDERED: NORVASC PO SCH (09:00)
[2016-02-13] MEDS: WELLBUTRIN PO SCH (09:41)
[2016-02-13] MEDS: ASPIRIN CHEWABLE PO SCH (09:41)
[2016-02-13] MEDS: MUCINEX PO SCH ×2 (09:42→20:23)
[2016-02-13] MEDS: COREG PO SCH ×2 (09:42→16:44)
[2016-02-13] MEDS: COZAAR PO SCH ×2 (09:42→20:23)
[2016-02-13] MEDS: IMDUR PO SCH (09:43)
[2016-02-13] MEDS: HYDROCHLOROTHIAZIDE PO SCH (09:43)
[2016-02-13] MEDS: ROCEPHIN 1 GM in SODIUM CHLORIDE 50 ML IV SCH (09:43)
[2016-02-13] MEDS: TUSSIONEX PO SCH ×2 (09:43→20:24)
[2016-02-13] MEDS: ALDACTONE PO SCH (09:43)
[2016-02-13] MEDS ORDERED: CARDIZEM ONE (20:05)
[2016-02-13] MEDS: CARDIZEM PO SCH (20:24)
[2016-02-14 05:10] LABS: BASOPHILS % (AUTO) 0.1 % (0.0-3.0); HEMATOCRIT 39.1 % (37.0-47.0); HEMOGLOBIN 12.1 g/dl (12.0-16.0); IMMATURE GRANULOCYTE % (AUTO) 0.4 % (0.0-5.0); LYMPHOCYTES # (AUTO) 2.3 K/uL (0.60-3.4); LYMPHOCYTES % (AUTO) 20.5 (10.0-50.0); MEAN CORPUSCULAR HEMOGLOBIN 27.8 pg (27.0-31.0); MEAN CORPUSCULAR HGB CONC 30.9 (31.8-35.4); MEAN CORPUSCULAR VOLUME 89.7 fl (81.0-99.0); MONOCYTES # (AUTO) 1.4 K/uL (0.4-2.0); MONOCYTES % (AUTO) 12.2 (0-10); NEUTROPHILS # (AUTO) 7.6 K/ul (2.0-6.9); NEUTROPHILS % (AUTO) 66.8; PLATELET COUNT 404 10^3/uL (140-440); RED BLOOD COUNT 4.36 10^6/ul (4.20-5.40); WHITE BLOOD COUNT 11.43 K/ul (4.6-10.2)
[2016-02-14] MEDS: DUONEB NEB SCH ×3 (05:23→23:00)
[2016-02-14 05:34] LABS: ALBUMIN 2.4 g/dL (3.4-5.0); ALBUMIN/GLOBULIN RATIO 0.5; ANION GAP 12.5; BILIRUBIN,TOTAL 0.23 mg/dL (0.00-1.20); BUN/CREATININE RATIO 29.59; CALCIUM 8.9 mg/dL (8.2-10.2); CREATININE 0.98 mg/dL (0.60-1.30); POTASSIUM 4.5 mmol/L (3.5-5.10); TOTAL PROTEIN 7.2 g/dL (5.8-8.1)
[2016-02-14] MEDS: LASIX TAB PO SCH (05:41)
[2016-02-14] MEDS: ASPIRIN CHEWABLE PO SCH (09:38)
[2016-02-14] MEDS: ROCEPHIN 1 GM in SODIUM CHLORIDE 50 ML IV SCH (09:40)
[2016-02-14] MEDS: CARDIZEM PO SCH ×2 (09:40→20:38)
[2016-02-14] MEDS: ALDACTONE PO SCH (09:41)
[2016-02-14] MEDS: COREG PO SCH ×2 (09:41→18:25)
[2016-02-14] MEDS: MUCINEX PO SCH ×2 (09:41→20:39)
[2016-02-14] MEDS: IMDUR PO SCH (09:41)
[2016-02-14] MEDS: WELLBUTRIN PO SCH (09:41)
[2016-02-14] MEDS: COZAAR PO SCH ×2 (09:42→20:39)
[2016-02-14] MEDS: TUSSIONEX PO SCH ×2 (09:48→20:38)
--- NOTE | 2016-02-14 11:49 | PN ---
DATE OF VISIT: 02/11/16 SUBJECTIVE: This patient was admitted for shortness of breath and congestive heart failure. The patient was admitted initially to Dr. Galo and was changed to my service. The patient today is complaining mostly of intermittent which she had it previously. She mentioned about the demise of her son less than a month ago. She could not forget it and the sorrow is still very very heavy. LUNGS: Rales in both lungs field somewhat more on the right side. HEART: Audible with good tones ABDOMEN: No remarkable tenderness. The headaches is mostly frontal. This patient is known to have migraine headaches. She wanted some medication and so the patient is given Dilaudid 1mg for the headache intervenously to see if this would improve this problem. VITAL SIGNS: Temperature 98.8, pulse 85, blood pressure 152/82, respiratory rate 18 and oxygen saturation 98 with 2 liters. LABS: Her blood gasses have changed to achylosis from normal. Blood sugar slightly higher 169, BNP 550 from 534 yesterday, Albumin low ranging from 2.3 to 2.5. PLAN: This patient is receiving Lasix orally daily. This probably will be discontinued and see how she is tomorrow MTDD
--- NOTE | 2016-02-14 12:46 | PN ---
DATE OF VISIT: 02/12/16 SUBJECTIVE: The patient is alert and no distress. She is still complaining of headache but intermittent. I did tell her that she had those headaches before and she acknowledged that. Because of the persistent headache that we might visit it with a CT scan of the head. We had a CT of the chest today without contrast and it is abnormal with severe emphysematous appearing lung with the appearance of honeycombed lungs seen in the anterior aspect of both upper lobes and more so involving the lung bases, right greater than left. No acute changes compared to CT scan on 11/01/15. LUNGS: Still has rales in both sides but the right side mostly lateral. It is more than the left. This patient is placed on Mucinex 1,200mg Q 12 hours and Tussionex a teaspoon twice a day for cough and discontinue [place]. Lasix 20mg IV will be instituted today. We will repeat the BNP tomorrow. MTDD
--- NOTE | 2016-02-14 13:07 | ECHO2D ---
Date of Exam: 02/11/16 Ordering Physician: NICOLÁS BERTRAND Reason for Echo: HTN, IRREGULAR HEART RHYTHM, PAC'S M-Mode Normal Adult Results LV Dimensions Normal Adult Results AoV Opening excursions >1.6 >1.6 LVEDD-base- 3.5-5.8 4.3 Ao root dimensions 2.0-3.7 3.6 LVESD-base- 3.1-4.6 L. Atrium dimensions 1.9-3.8 4.5 Post. Wall thickness 0.8-1.1 1.1 IV septum (thickness) 0.7-1.2 1.3 Post. Wall excursion 0.72-1.3 NORMAL Septal motion NORMAL Systolic motion R. Ventricular cavity 1.5-2.0 NORMAL LVEF 60% 50 TO 55% Paradoxical septal wall motion NORMAL 2-D :NORMAL VALVES--NORMAL LEFT VENTRICULAR CONTRACTILITY--NO EFFUSION, NO THROMBUS, ENLARGED LEFT ATRIAL CAVITY M-MODE: MV: NORMAL AV: NORMAL TV: NORMAL PV: CHAMBER SIZE: ENLARGED LEFT ATRIAL CAVITY WALL MOTION: NORMAL PERICARDIUM: NORMAL INTERPRETATION: 1. LEFT VENTRICULAR HYPERTROPHY WITH ENLARGED LEFT ATRIAL CAVITY 2. NORMAL LEFT VENTRICULAR CONTRACTILITY 3. NORMAL VALVES MTDD
[2016-02-14] MEDS ORDERED: NORCO 5-325 PO STA (13:39)
--- NOTE | 2016-02-14 14:26 | PN ---
DATE OF VISIT: 02/13/16 SUBJECTIVE: The patient is alert and still complaining of a headache but does not look miserable. The pupils are equal and reactive to light. They CT scan done without contrast of the head showed no remarkable abnormalities and no changes from the previous CT. I did tell her that there are no significant findings to explain her headache. The headache had been diagnosed as migraine in the past. VITAL SIGNS: Temperature 97.7, blood pressure 142/75, respiratory 18, oxygen saturation 99 at 2 liters. LUNGS: Clear to auscultation in both sides. HEART: Normal sinus rhythm ABDOMEN: Non-tender MEDICATIONS: Nitrostat PRN DUO NEB nebulizer Q 6 hours Rocephin 1 gram Q 24 hours IV piggyback Lasix 40mg daily Aspirin 81mg daily Aldactone 25mg daily Imdur 30mg daily Coreg 12.5mg twice a day Wellbutrin 75mg daily Mucinex 1,200mg twice a day Tussionex a teaspoon Q 12 hours per scheduled Hydrochlorothiazide 25mg daily Cardizem 60mg twice a day instead of Amlodipine Cozaar 50mg twice a day MTDD
--- NOTE | 2016-02-14 15:00 | CONS ---
DATE OF SERVICE: 02/11/16 CONSULT FOLLOWUP SUBJECTIVE: The patient is a 75 year old black female hospitalized with congestive heart failure. The patient was acutely short of breath and was in acute respiratory failure, the patient also had bronchitis with severe chronic lung disease. The patient is non-compliant, heavy smoker and also has history of coronary artery disease. The patient is feeling a lot better. REVIEW OF SYSTEMS: CONSTITUTIONAL: No night sweats. No fatigue, malaise, lethargy. No fever or chills. HEENT: Eyes: No visual changes. No eye pain. No eye discharge. ENT: No runny nose. No epistaxis. No sinus pain. No sore throat. No odynophagia. No ear pain. No congestion. RESPIRATORY: Cough, no congestion. No hemoptysis. CARDIOVASCULAR: No angina symptoms. No CHF symptoms. No atypical chest pain for CAD. No palpitations. Shortness of breath on walking but basically the patient doesn't have any PND or Orthopnea. GASTROINTESTINAL: No abdominal pain. No nausea or vomiting. No diarrhea or constipation. No hematemesis. No hematochezia. GENITOURINARY: No urgency. No frequency. No dysuria. No hematuria. No obstructive symptoms. No discharge. No pain. No significant abnormal bleeding. MUSCULOSKELETAL: No musculoskeletal pain. No joint swelling. No arthritis. NEUROLOGICAL: No headache. No neck pain. No syncope. No seizures. No dizziness. PSYCHIATRIC: Not anxious. No depression. No suicidal thoughts. No homicidal thoughts. SKIN: No rash. No lesions. No wounds. ENDOCRINE: No unexplained weight loss. No weight gain. HEMATOLOGIC/LYMPHATIC: No anemia. No purpura. No petechiae. No prolonged or excessive bleeding. No palpable lymph nodes. PHYSICAL EXAMINATION: GENERAL: The patient is oriented to time, place and person. VITAL SIGNS: Temperature 97.9, pulse 96, respiratory rate 20, blood pressure 150 /90 and pulse ox 98%. HEENT: Head normocephalic, atraumatic. Eyes: Extraocular muscles are intact. Pupils are equal, round and reactive to light and accommodation. Ears: No lesions. Nose appeared normal. Throat: No exudate or erythema. NECK: Supple. No JVP, no carotid bruit. No lymphadenopathy or thyromegaly. LUNGS: Decreased breath sounds but clear to auscultation. Percussion note normal. Chest symmetrical. HEART: S1, S2, no S3. No murmurs. No cyanosis or clubbing. No ascites. Pulses: Dorsalis pedis and posterior tibial pulses +1 to +2 both sides. ABDOMEN: Soft. Nontender. Bowel sounds active. No CVA tenderness. No mass felt. EXTREMITIES: No edema. Full range of motion of all extremities, equal. NEUROLOGIC: No focal deficit. Cranial nerves II through XII are grossly intact. No headache, no double vision or headache. SKIN: Not dry. Intact. Turgor - normal. LYMPHATIC: No palpable lymph nodes/no lymphedema. MUSCULOSKELETAL: Normal joints with no swelling. Muscle tone is normal. LABS: Hgb 11.1, hct 36, WBC 6,900 normal differential, creatinine 0.9, BUN 17, potassium 3.9, glucose 169, D-dimer negative and BNP on 02/11/16 is 550. ASSESSMENT: 1. Congestive heart failure which has resolved 2. Coronary artery disease 3. Severe chronic lung disease 4. Bronchitis 5. Hypertension 6. Hyperglycemia RECOMMENDATIONS: 1. Start Coreg 6.25mg PO twice a day. I gave that order to Medical Massage Therapist and last on I was called back and said that she was already on 12.5mg twice a day so I increased the Coreg to 25mg twice a day 2. Will continue to monitor patient on Telemetry 3. Education for CHF carried out 4. Counseling for smoking done 5. PFT pending. 6. Echocardiogram done with morning showed LV contractility practically normal with LV ejection fraction 50% with stiff left ventricle with borderline LVH and Enlarged LA cavity. 7. All reports discussed with the patient, sitting in the room. PROGNOSIS: Poor because the patient is non-compliant. MTDD
[2016-02-14] MEDS ORDERED: TYLENOL PO STA (20:27)
[2016-02-15 05:27] LABS: BASOPHILS % (AUTO) 0.2 % (0.0-3.0); EOSINOPHILS # (AUTO) 0.4 K/ul (0.0-0.7); EOSINOPHILS % (AUTO) 4.1 % (0.0-7.0); HEMATOCRIT 42.4 % (37.0-47.0); IMMATURE GRANULOCYTE % (AUTO) 0.4 % (0.0-5.0); LYMPHOCYTES # (AUTO) 4.5 K/uL (0.60-3.4); LYMPHOCYTES % (AUTO) 45.1 (10.0-50.0); MEAN CORPUSCULAR HEMOGLOBIN 27.7 pg (27.0-31.0); MEAN CORPUSCULAR HGB CONC 30.7 (31.8-35.4); MEAN CORPUSCULAR VOLUME 90.2 fl (81.0-99.0); MONOCYTES # (AUTO) 1.2 K/uL (0.4-2.0); MONOCYTES % (AUTO) 11.8 (0-10); NEUTROPHILS # (AUTO) 3.8 K/ul (2.0-6.9); NEUTROPHILS % (AUTO) 38.4; PLATELET COUNT 446 10^3/uL (140-440); WHITE BLOOD COUNT 9.86 K/ul (4.6-10.2)
[2016-02-15] MEDS: DUONEB NEB SCH ×4 (05:41→23:38)
[2016-02-15] MEDS: LASIX TAB PO SCH (05:48)
[2016-02-15 05:52] LABS: ALBUMIN 2.3 g/dL (3.4-5.0); ALBUMIN/GLOBULIN RATIO 0.5; ANION GAP 12.9; BILIRUBIN,TOTAL 0.34 mg/dL (0.00-1.20); BUN/CREATININE RATIO 27.17; CALCIUM 8.7 mg/dL (8.2-10.2); CREATININE 0.92 mg/dL (0.60-1.30); POTASSIUM 3.9 mmol/L (3.5-5.10); TOTAL PROTEIN 6.9 g/dL (5.8-8.1)
--- NOTE | 2016-02-15 06:56 | CONS ---
DATE OF SERVICE: 02/13/16 CONSULT FOLLOWUP SUBJECTIVE: 75-year-old black female hospitalized with acute respiratory failure, acute congestive heart failure, severe hypertension. The patient's condition has been stabilized. Her blood pressure still running on the borderline high with telemetry showing sinus rhythm with PACs. REVIEW OF SYSTEMS: CONSTITUTIONAL: No night sweats. No fatigue, malaise, lethargy. No fever or chills. HEENT: Eyes: No visual changes. No eye pain. No eye discharge. ENT: No runny nose. No epistaxis. No sinus pain. No sore throat. No odynophagia. No ear pain. No congestion. RESPIRATORY: No cough, no congestion. No hemoptysis. CARDIOVASCULAR: No angina symptoms. No CHF symptoms. No atypical chest pain for CAD. No palpitations. No shortness of breath. GASTROINTESTINAL: No abdominal pain. No nausea or vomiting. No diarrhea or constipation. No hematemesis. No hematochezia. GENITOURINARY: No urgency. No frequency. No dysuria. No hematuria. No obstructive symptoms. No discharge. No pain. No significant abnormal bleeding. MUSCULOSKELETAL: No musculoskeletal pain. No joint swelling. No arthritis. NEUROLOGICAL: No headache. No neck pain. No syncope. No seizures. No dizziness. PSYCHIATRIC: Not anxious. No depression. No suicidal thoughts. No homicidal thoughts. SKIN: No rash. No lesions. No wounds. ENDOCRINE: No unexplained weight loss. No weight gain. HEMATOLOGIC/LYMPHATIC: No anemia. No purpura. No petechiae. No prolonged or excessive bleeding. No palpable lymph nodes. PHYSICAL EXAMINATION: GENERAL: The patient is oriented to time, place and person. VITAL SIGNS: Temperature 96.4, pulse 72, respiratory rate 16, BP 154/96, pulse ox 93%. HEENT: Head normocephalic, atraumatic. Eyes: Extraocular muscles are intact. Pupils are equal, round and reactive to light and accommodation. Ears: No lesions. Nose appeared normal. Throat: No exudate or erythema. NECK: Supple. No JVD, no carotid bruit. No lymphadenopathy or thyromegaly. LUNGS: Decreased breath sounds but clear to auscultation. Percussion note normal. Chest symmetrical. HEART: S1, S2, no S3. No murmurs. No cyanosis or clubbing. No ascites. Pulses: Dorsalis pedis and posterior tibial pulses +1 to +2 both sides. ABDOMEN: Soft. Nontender. Bowel sounds active. No CVA tenderness. No mass felt. EXTREMITIES: No edema. Full range of motion of all extremities, equal. NEUROLOGIC: No focal deficit. Cranial nerves II through XII are grossly intact. No headache, no double vision or headache. SKIN: Not dry. Intact. Turgor - normal. LYMPHATIC: No palpable lymph nodes/no lymphedema. MUSCULOSKELETAL: Normal joints with no swelling. Muscle tone is normal. LAB REVIEW: Hemoglobin 11.5, hematocrit 37, WBC 8,800, normal differential. Creatinine 0.8, BUN 28, potassium 4.2, BNP 577. ABGs done 2 days ago showed oxygen saturation 94 % on room air. ASSESSMENT 1. RESPIRATORY FAILURE RESOLVED. 2. CHF UNDER CONTROL. 3. HYPERTENSION, UPPER LIMIT OF NORMAL BUT CONTROLLED. 4. NO SYMPTOMS OF CORONARY ARTERY DISEASE. THE PATIENT HAS CORONARY ARTERY DISEASE, UNABLE TO PUT STENTS SO MEDICAL MANAGEMENT WAS DECIDED AT [facility] WITH DR. VÁZQUEZ. 5. HISTORY OF SMOKING WITH COPD. THE PATIENT SAYS SHE HAS QUIT SMOKING NOW. The case discussed with the attending. The patient's frequent PAC could be treated with either Cardizem with discontinuation of Norvasc or increasing the dose of Coreg 25 twice a day. CONDITION: Stable. MTDD
--- NOTE | 2016-02-15 08:26 | CONS ---
DATE OF SERVICE: 02/12/16 CONSULT FOLLOWUP SUBJECTIVE: The patient is a 75 year old black female hospitalized with acute respiratory failure and congestive heart failure. The patient's blood pressure is under control but the patient now is going to be on Cozaar 50mg twice a day and Norvasc 5mg every morning. The patient was given 5mg Norvasc today. The patient is already on Carvedilol or Coreg 12.5mg PO twice a day. The patient is eating, having family including the and talking plainly with no shortness of breath. She is feeling better. REVIEW OF SYSTEMS: CONSTITUTIONAL: No night sweats. No fatigue, malaise, lethargy. No fever or chills. HEENT: Eyes: No visual changes. No eye pain. No eye discharge. ENT: No runny nose. No epistaxis. No sinus pain. No sore throat. No odynophagia. No ear pain. No congestion. RESPIRATORY: No cough, no congestion. No hemoptysis. CARDIOVASCULAR: No angina symptoms. No CHF symptoms. No atypical chest pain for CAD. No palpitations. No shortness of breath. No. PND. No Orthopnea. GASTROINTESTINAL: No abdominal pain. No nausea or vomiting. No diarrhea or constipation. No hematemesis. No hematochezia. GENITOURINARY: No urgency. No frequency. No dysuria. No hematuria. No obstructive symptoms. No discharge. No pain. No significant abnormal bleeding. MUSCULOSKELETAL: No musculoskeletal pain. No joint swelling. No arthritis. NEUROLOGICAL: No headache. No neck pain. No syncope. No seizures. No dizziness. PSYCHIATRIC: Not anxious. No depression. No suicidal thoughts. No homicidal thoughts. SKIN: No rash. No lesions. No wounds. ENDOCRINE: No unexplained weight loss. No weight gain. HEMATOLOGIC/LYMPHATIC: No anemia. No purpura. No petechiae. No prolonged or excessive bleeding. No palpable lymph nodes. PHYSICAL EXAMINATION: GENERAL: The patient is oriented to time, place and person. VITAL SIGNS: Temperature 98.1, pulse 85, respiratory rate 18, blood pressure 143 /78 and pulse ox 100% on room. HEENT: Head normocephalic, atraumatic. Eyes: Extraocular muscles are intact. Pupils are equal, round and reactive to light and accommodation. Ears: No lesions. Nose appeared normal. Throat: No exudate or erythema. NECK: Supple. No JVD, no carotid bruit. No lymphadenopathy or thyromegaly. LUNGS: Decreased breath sounds but clear to auscultation. Percussion note normal. Chest symmetrical. HEART: S1, S2, no S3. No murmurs. No cyanosis or clubbing. No ascites. Pulses: Dorsalis pedis and posterior tibial pulses +1 to +2 both sides. ABDOMEN: Soft. Nontender. Bowel sounds active. No CVA tenderness. No mass felt. EXTREMITIES: No edema. Full range of motion of all extremities, equal. NEUROLOGIC: No focal deficit. Cranial nerves II through XII are grossly intact. No headache, no double vision or headache. SKIN: Not dry. Intact. Turgor - normal. LYMPHATIC: No palpable lymph nodes/no lymphedema. MUSCULOSKELETAL: Normal joints with no swelling. Muscle tone is normal. LABS: Hgb 11.2, hct 37, WBC 12,000 normal differential, creatinine 0.8, BUN 25, potassium 4.5 and glucose 143. ASSESSMENT: 1. Acute CHF, resolved 2. Acute bronchitis, resolved 3. COPD 4. Coronary artery disease, unable to put stent, medical management 5. Hypertension RECOMMENDATIONS: 1. Continue medication 2. Agreed with Cozaar, Norvasc, Coreg and Diarrhetics 3. Echo showed LVH and enlarged LA cavity. Diastolic dysfunction. 4. The patient has PAC's less frequent then they were. We will see how she does and Norvasc could be switched to Cardizem 45mg twice a day depending upon the patient's heart rate. 5. BNP and chest x-ray to be done. CONDITION: Stable. MTDD
[2016-02-15] MEDS ORDERED: CARDIZEM PO SCH (08:31)
[2016-02-15] MEDS: TUSSIONEX PO SCH ×2 (09:59→20:40)
[2016-02-15] MEDS: ALDACTONE PO SCH (09:59)
[2016-02-15] MEDS: COREG PO SCH ×2 (09:59→17:03)
[2016-02-15] MEDS: ROCEPHIN 1 GM in SODIUM CHLORIDE 50 ML IV SCH (09:59)
[2016-02-15] MEDS: ASPIRIN CHEWABLE PO SCH (09:59)
[2016-02-15] MEDS: IMDUR PO SCH (09:59)
[2016-02-15] MEDS: MUCINEX PO SCH ×2 (10:00→20:40)
[2016-02-15] MEDS: COZAAR PO SCH ×2 (10:00→20:40)
[2016-02-15] MEDS: CARDIZEM PO SCH ×4 (10:00→20:40)
[2016-02-15] MEDS: WELLBUTRIN PO SCH (10:04)
--- NOTE | 2016-02-15 11:14 | CONS ---
DATE OF SERVICE: 02/14/16 CONSULT FOLLOWUP SUBJECTIVE: 75-year-old black female hospitalized with shortness of breath, cough, congestion, CHF symptoms. The patient's cardiovascular status is stable. No evidence of CHF clnically as well as symptom childers. No fever, no chills. REVIEW OF SYSTEMS: CONSTITUTIONAL: No night sweats. No fatigue, malaise, lethargy. No fever or chills. HEENT: Eyes: No visual changes. No eye pain. No eye discharge. ENT: No runny nose. No epistaxis. No sinus pain. No sore throat. No odynophagia. No ear pain. No congestion. RESPIRATORY: No cough, no congestion. No hemoptysis. CARDIOVASCULAR: No angina symptoms. No CHF symptoms. No atypical chest pain for CAD. No palpitations. No shortness of breath. GASTROINTESTINAL: No abdominal pain. No nausea or vomiting. No diarrhea or constipation. No hematemesis. No hematochezia. GENITOURINARY: No urgency. No frequency. No dysuria. No hematuria. No obstructive symptoms. No discharge. No pain. No significant abnormal bleeding. MUSCULOSKELETAL: No musculoskeletal pain. No joint swelling. No arthritis. NEUROLOGICAL: No headache. No neck pain. No syncope. No seizures. No dizziness. PSYCHIATRIC: Not anxious. No depression. No suicidal thoughts. No homicidal thoughts. SKIN: No rash. No lesions. No wounds. ENDOCRINE: No unexplained weight loss. No weight gain. HEMATOLOGIC/LYMPHATIC: No anemia. No purpura. No petechiae. No prolonged or excessive bleeding. No palpable lymph nodes. PHYSICAL EXAMINATION: GENERAL: The patient is oriented to time, place and person. VITAL SIGNS: Temperature 98, pulse 86, respiratory rate 16, BP 171/97. Pulse ox 95%. It is to be noted that the blood pressure taken after the morning one is 140/70. HEENT: Head normocephalic, atraumatic. Eyes: Extraocular muscles are intact. Pupils are equal, round and reactive to light and accommodation. Ears: No lesions. Nose appeared normal. Throat: No exudate or erythema. NECK: Supple. No JVD, no carotid bruit. No lymphadenopathy or thyromegaly. LUNGS: Decreased breath sounds but clear to auscultation. Percussion note normal. Chest symmetrical. HEART: S1, S2, no S3. No murmurs. No cyanosis or clubbing. No ascites. Pulses: Dorsalis pedis and posterior tibial pulses +1 to +2 both sides. ABDOMEN: Soft. Nontender. Bowel sounds active. No CVA tenderness. No mass felt. EXTREMITIES: No edema. Full range of motion of all extremities, equal. NEUROLOGIC: No focal deficit. Cranial nerves II through XII are grossly intact. No headache, no double vision or headache. SKIN: Not dry. Intact. Turgor - normal. LYMPHATIC: No palpable lymph nodes/no lymphedema. MUSCULOSKELETAL: Normal joints with no swelling. Muscle tone is normal. LABS: Hemoglobin 12.1, hematocrit 39, WBC 11,400, normal differential. Creatinine 0.9 , BUN 29, potassium 4.5. ASSESSMENT: 1. ACUTE RESPIRATORY FAILURE/SEVERE CHRONIC LUNG DISEASE/CHF, ALL RESOLVED. 2. HYPERTENSION. 3. CORONARY ARTERY DISEASE, STABLE. PLAN: 1. The patient has been put on Cardizem 60 mg twice a day. 2. Norvasc has been taken off. 3. The patient's condition has been stabilized. The patient has continued to be on Rocephin and nebs treatment for acute bronchitis/pneumonitis. CONDITION: STABLE MTDD
--- NOTE | 2016-02-15 11:36 | PN ---
DATE OF VISIT: 02/14/16 The patient is alert and is still complaining of headaches. I did advise her that the CT scan of the head showed no acute intracranial processes, meaning no tumor, no hemorrhage or infarction that is acute and nothing different from the previous one. HEART: Audible with good tones. LUNGS: Fairly clear to auscultation. The patient feels like she could go home tomorrow and I told her we will have to check her over and see how she is. I will have to discuss that also with Dr. Galo, Consulting Associate Vice President. The patient's CBC today showed minimal leukocytosis 11,430. Borderline anemia. BUN rising 29. GFR 67. BNP 259 from 577. The viral antibodies requested still has no results at this time. MTDD
[2016-02-15] MEDS ORDERED: TYLENOL PO STA (16:03)
[2016-02-16] MEDS: DUONEB NEB SCH ×2 (04:57→11:04)
[2016-02-16 05:26] LABS: BASOPHILS % (AUTO) 0.2 % (0.0-3.0); EOSINOPHILS # (AUTO) 0.8 K/ul (0.0-0.7); EOSINOPHILS % (AUTO) 8.4 % (0.0-7.0); HEMATOCRIT 42.9 % (37.0-47.0); HEMOGLOBIN 13.1 g/dl (12.0-16.0); IMMATURE GRANULOCYTE % (AUTO) 0.6 % (0.0-5.0); LYMPHOCYTES # (AUTO) 3.5 K/uL (0.60-3.4); LYMPHOCYTES % (AUTO) 35.6 (10.0-50.0); MEAN CORPUSCULAR HEMOGLOBIN 27.6 pg (27.0-31.0); MEAN CORPUSCULAR HGB CONC 30.5 (31.8-35.4); MEAN CORPUSCULAR VOLUME 90.5 fl (81.0-99.0); MONOCYTES # (AUTO) 1.2 K/uL (0.4-2.0); MONOCYTES % (AUTO) 11.6 (0-10); NEUTROPHILS # (AUTO) 4.3 K/ul (2.0-6.9); NEUTROPHILS % (AUTO) 43.6; PLATELET COUNT 419 10^3/uL (140-440); RED BLOOD COUNT 4.74 10^6/ul (4.20-5.40); WHITE BLOOD COUNT 9.88 K/ul (4.6-10.2)
[2016-02-16 05:55] LABS: ALBUMIN 2.3 g/dL (3.4-5.0); ALBUMIN/GLOBULIN RATIO 0.51; ANION GAP 11.2; BILIRUBIN,TOTAL 0.28 mg/dL (0.00-1.20); BUN/CREATININE RATIO 21.42; CALCIUM 8.4 mg/dL (8.2-10.2); CREATININE 0.84 mg/dL (0.60-1.30); POTASSIUM 4.2 mmol/L (3.5-5.10); TOTAL PROTEIN 6.8 g/dL (5.8-8.1)
[2016-02-16] MEDS: LASIX TAB PO SCH (06:14)
[2016-02-16] MEDS: WELLBUTRIN PO SCH (08:26)
[2016-02-16] MEDS: COREG PO SCH (08:26)
[2016-02-16] MEDS: MUCINEX PO SCH (08:26)
[2016-02-16] MEDS: TUSSIONEX PO SCH (08:26)
[2016-02-16] MEDS: IMDUR PO SCH (08:27)
[2016-02-16] MEDS: ALDACTONE PO SCH (08:27)
[2016-02-16] MEDS: COZAAR PO SCH (08:27)
[2016-02-16] MEDS: CARDIZEM PO SCH ×2 (08:27)
[2016-02-16] MEDS: ASPIRIN CHEWABLE PO SCH (08:27)
[2016-02-16] MEDS: ROCEPHIN 1 GM in SODIUM CHLORIDE 50 ML IV SCH (08:29)
--- NOTE | 2016-02-16 09:52 | CONS ---
DATE OF SERVICE: 02/15/16 CONSULT FOLLOWUP SUBJECTIVE: The patient is a 75 year old black female seen on consultation because of shortness of breath with bronchitis type of symptoms. The patient has chronic lung disease and coronary artery disease the educational manager tried to put a sten and it was unsuccessful and then she was left for medical management. The patient does not have any symptoms of coronary insufficiency. REVIEW OF SYSTEMS: CONSTITUTIONAL: No night sweats. No fatigue, malaise, lethargy. No fever or chills. HEENT: Eyes: No visual changes. No eye pain. No eye discharge. ENT: No runny nose. No epistaxis. No sinus pain. No sore throat. No odynophagia. No ear pain. No congestion. RESPIRATORY: No cough, no congestion. No hemoptysis. CARDIOVASCULAR: No angina symptoms. No CHF symptoms. No atypical chest pain for CAD. No palpitations. No shortness of breath. GASTROINTESTINAL: No abdominal pain. No nausea or vomiting. No diarrhea or constipation. No hematemesis. No hematochezia. GENITOURINARY: No urgency. No frequency. No dysuria. No hematuria. No obstructive symptoms. No discharge. No pain. No significant abnormal bleeding. MUSCULOSKELETAL: No musculoskeletal pain. No joint swelling. No arthritis. NEUROLOGICAL: No headache. No neck pain. No syncope. No seizures. No dizziness. PSYCHIATRIC: Not anxious. No depression. No suicidal thoughts. No homicidal thoughts. SKIN: No rash. No lesions. No wounds. ENDOCRINE: No unexplained weight loss. No weight gain. HEMATOLOGIC/LYMPHATIC: No anemia. No purpura. No petechiae. No prolonged or excessive bleeding. No palpable lymph nodes. PHYSICAL EXAMINATION: GENERAL: The patient is oriented to time, place and person. VITAL SIGNS: Temperature 97, pulse 80, respiratory rate 16, blood pressure 150/ 98 and pulse ox 98%. HEENT: Head normocephalic, atraumatic. Eyes: Extraocular muscles are intact. Pupils are equal, round and reactive to light and accommodation. Ears: No lesions. Nose appeared normal. Throat: No exudate or erythema. NECK: Supple. No JVD, no carotid bruit. No lymphadenopathy or thyromegaly. LUNGS: Decreased breath sounds but clear to auscultation. Percussion note normal. Chest symmetrical. HEART: S1, S2, no S3. No murmurs. No cyanosis or clubbing. No ascites. Pulses: Dorsalis pedis and posterior tibial pulses +1 to +2 both sides. ABDOMEN: Soft. Nontender. Bowel sounds active. No CVA tenderness. No mass felt. EXTREMITIES: No edema. Full range of motion of all extremities, equal. NEUROLOGIC: No focal deficit. Cranial nerves II through XII are grossly intact. No headache, no double vision or headache. SKIN: Not dry. Intact. Turgor - normal. LYMPHATIC: No palpable lymph nodes/no lymphedema. MUSCULOSKELETAL: Normal joints with no swelling. Muscle tone is normal. ASSESSMENT: 1. Acute CHF resolved 2. Chronic lung disease with bronchitis, resolved 3. Smoking, strongly advised to quit 4. Coronary artery disease 5. Hypertension RECOMMENDATIONS: 1. Increase Cardizem to 90mg twice a day 2. Continue the rest of the medications as before CONDITION: Stable The patient on Telemetry has less PAC's. Rate is around 80 at rest. MTDD
[2016-02-16 14:35] VITALS: BP 118/69; TEMP 97.4
--- NOTE | 2016-02-17 11:35 | PN ---
This patient was last seen on Consult on 02/15/16. [email or web address]
--- NOTE | 2016-02-18 15:00 | HP ---
CHIEF COMPLAINT: Short of air SOURCE OF HISTORY: The patient HISTORY OF PRESENT ILLNESS: The patient claimed to have had a productive cough with greenish sputum. The patient about several minutes prior to presentation did experience a sudden shortness of breath. She was going into the shower when it happened. She was then brought in by relatives to the emergency room. This patient was examined and treated in the emergency room and subsequently admitted. The blood pressure at the emergency room was 227/127, pulse rate 116, respiratory rate 38, O2 Sat 89% on room air, temperature was normal 97.9. PAST PERSONAL HISTORY: The patient had hypertension Depression Anxiety History of migraine History of arthritis Pneumonia The patient had previous appendectomy Tonsillectomy Hysterectomy Total knee replacement, left 05/2015 Cardiac catheterization unable to deploy stent 01/20 and was advised medical treatment for the problem. LASIK surgery History of sciatica FAMILY HISTORY: Diabetes Heart problems Father of myocardial infarction at age 51 Mother of myocardial infarction at age 84 SOCIAL HISTORY: The patient is . Current every day smoker. No alcohol use. MEDICATIONS: Lisinopril 2.5mg PO daily Imdur 30mg PO daily Wellbutrin 75mg PO daily Aspirin 81mg daily Aldactone 25mg daily Nitroglycerin 0.4mg PRN sublingual ever 5 minutes if needed x3. Lasix 40mg daily Carvedilol 12.5mg twice a day ALLERGIES: No known allergies REVIEW OF SYSTEMS: CONSTITUTIONAL: The patient had no fever or chills but does has have weakness. 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 No seizures problem or loss of consciousness. VISUAL: Denies any blurred vision, double vision or transient loss of vision. AUDITORY: Hearing is somewhat decreased, Denies any tinnitus or pain or drainage. RESPIRATORY: The patient is complaining of cough on which has been for a couple days somewhat productive. Shortness of breath with some wheezing. CARDIOVASCULAR: Denies any anterior chest pain or pressure or heaviness in the chest GASTROINTESTINAL: No nausea or orexia, diarrhea or abdominal pain. GENITOURINARY: Denies any pain, frequency or urgency of urination MUSCULOSKELETAL: The patient does have some joint pains. Had a knee replacement. INTEGUMENT: No rash or pruritus ENDOCRINE: Negative HEMATOLOGIC: No history of prolonged bleeding PSYCHIATRIC: Affect appears to be normal. The patient always has some symptomatic complaints. Most of the time headache sometimes pain. PHYSICAL EXAMINATION: GENERAL: The patient is a 75 year old black female admitted to the hospital because of sudden shortness of breath, evaluated and treated at the emergency room. The patient received Solu-Medrol 125mg initially and then 60mg, nitroglycerin 0.4mg sublingually Q 5 minutes x three doses, normal saline 125cc per hour, DUONEB Nebulizer. VITAL SIGNS: Temperature 97.9, pulse 116, blood pressure 227/127, respiratory 38 and oxygen saturation 89% at room air. HEAD: Unremarkable FACE: Symmetrical and equal with no facial weakness and no significant tenderness to palpation under pressure in the frontal maxillary sinus lalo. EYES: Pupils equal/reactive to light. About 4mm in size. Conjunctivae not pale. Sclerae not icteric. MOUTH: Unremarkable THROAT: No inflammation, tumors or exudate. NECK: No masses. No bruit. No tenderness. No rigidity. CHEST: Essentially symmetrical and equal with good expansion. LUNGS: Bilateral rales right more than left side. No wheezing. HEART: Normal sinus rhythm and good tones. No murmurs. ABDOMEN: Soft with no remarkable tenderness. No guarding. Bowel sounds active. No masses palpable. LOWER EXTREMITIES: Symmetrical and equal with no tenderness in the calf muscles and no significant ankle edema UPPER EXTREMITIES: Symmetrical and equal. LABS: Chest x-ray abnormal, pneumonia versus pulmonary edema. Arterial blood gasses moderate to severe hypoxemia. BNP 534. ASSESSMENT: 1. Congestive heart failure 2. Chronic obstructive pulmonary disease 3. History of migraine headaches 4. History of hypertension 5. History of depression 6. History of coronary artery disease, unable to deploy stent 7. History of anxiety 8. History of previous pneumonia 9. History of degenerative joint disease 10. Left knee replacement, total, May 2015 11. History of Tonsillectomy 12. Appendectomy 13. Hysterectomy 14. Cardiac catheterization, January 2016 unable to deploy stent advised medical management for the coronary artery disease. This patient was initially admitted to Dr. Galo. He was contacted with the admission instead of az. He transferred this patient to [place]. He stayed on consultation. [facility]
--- NOTE | 2016-02-22 10:59 | DS ---
PATIENT IDENTIFICATION: 75 year old black female admitted to the hospital via the emergency room because of sudden shortness of breath. Lungs had rales in both lung dow. The chest x-ray showed either infectious process or edema. The BNP was elevated at 534. Arterial blood gases showed moderate hypoxemia. PO2 60, PCO2 37.6, pH 7.408. The patient was admitted initially to Dr. Galo. He decided to transfer the patient to my services. This patient had been a patient of mine, but I had not seen her for several months. HOSPITAL COURSE: The patient on examination was alert and cheerful. LUNGS: Rales on both sides, more on the right side, but no wheezing. HEART: Audible with good tones. The patient was complaining of headache, but not anything different from what she had. She is known to have migraine headaches in the past. The patient was continued on the Lasix. She also was given Solu-Medrol IV, plus Rocephin 1 gram IV daily. The patient remained tachycardic on the first hospital day and the blood pressure remained elevated and was 164/82 at 3 o'clock in the afternoon 02/10/2016. By 6 p.m. the blood pressure was 120/88. This patient was on Amlodipine. Dr. Galo, the moving consultant, changed Amlodipine to Cardizem and she was receiving 90 mg twice a day. Her blood pressure had fluctuated to above normal for hypertensive or uncontrolled. The patient's blood pressure, however, from the 9th towards the end of discharge was much more or less within normal limits and candelario slightly above normal. A head CT because of the headache was unchanged from the previous and the CT of the chest 02/12/2016 severe emphysematous changes with the appearance of honeycombed lungs seen in the anterior aspects of both upper lobes and also the bases. Right greater than left. Prominent outflow tract suggesting pulmonary arterial hypertension. The patient had improved and the BNP on the second day had increased to 550 and on the third day to 577. It has gradually turned towards normal and the last one on 02/16/2016 was 108. The patient's viral studies showed a CMV IGG of greater than 10. CMV IGM less than 30. EBV early antigen IGG 10.3, above normal. EBV nuclear antigen 305, way above normal. Influenza A and B with no results at this time. The patient continued to improve and was feeling better. Appetite also has more or less improved. The cough was treated with Tussionex and did decrease the frequency. The patient at the time of discharge was alert, ambulatory with movement of all extremities. No significant headache. No remarkable tenderness in the frontal or maxillary sinus areas to palpation under pressure. Chest is symmetrical and equal. Neck with no bruit. Lungs with breath sounds heard in both sides with rales, slightly more on the left than right. No expiratory wheezing. Heart is audible and regular with good tones. The abdomen is soft with no remarkable tenderness and lower extremities symmetrical and equal with no significant edema. FINAL DIAGNOSES: 1. HYPERTENSION, UNCONTROLLED, IMPROVED 2. CONGESTIVE HEART FAILURE, IMPROVED 3. HISTORY OF CHRONIC OBSTRUCTIVE PULMONARY DISEASE 4. CORONARY ARTERY DISEASE, POST CARDIAC CATHETERIZATION. UNABLE TO DEPLOY STENT. ADVISED MEDICAL MANAGEMENT BY THE WELDER APPRENTICE GAS. 5. HISTORY OF HEADACHES 6. HISTORY OF DEGENERATIVE JOINT DISEASE. STATUS POST LEFT TKR PROGNOSIS: Guarded. PLAN: 1. The patient is to resume her previous medications. 2. Take the Lasix on an empty stomach first thing in the morning and she should be empty for the next hour. 3. See me in one week and before if with any problems. MANAN
--- NOTE | 2016-05-03 11:08 | PN ---
DATE OF VISIT: 02/15/16 76 year old black female who was admitted to the hospital because hypertension, uncontrolled and congestive heart failure. The patient, today, is alert and feeling better. Not dyspneic, nor tachypneic. VITAL SIGNS: Temperature 97.9, pulse 84, blood pressure 126/72, respiratory rate 20, oxygen saturation 96 at room air. LUNGS: Diminished breath sounds with no rales. HEART: Audible and regular with good tones. ABDOMEN: Soft with no remarkable tenderness. CBC showed normal hemoglobin and hematocrit. Normal WBC, which was slightly elevated on admission. Slightly elevated BUN at 25, creatinine 0.92, E GFR 73. No BNP done today. The albumin is still slightly below normal at 2.3 with the lowest normal 3.5. The patient's viral studies showed probably an Luis Carlos Vizcaino virus, acute infection. Influenza not available. CONDITION: Improved and stable. MTDD
== END 2016-02-16 17:13 | disposition home or self-care (01) | DRG 304 ==
LOC: ED 08:26 → MEDSURG A 11:32
PROVIDERS: ADMIT General Practice; ATTEND General Practice
DX: I10 Essential (primary) hypertension (principal); J96.00 Acute respiratory failure, unspecified whether with hypoxia or hypercapnia; J44.0 Chronic obstructive pulmonary disease with (acute) lower respiratory infection; I51.7 Cardiomegaly; J81.1 Chronic pulmonary edema; I50.9 Heart failure, unspecified; J20.9 Acute bronchitis, unspecified; I27.2 Other secondary pulmonary hypertension; R51 Headache; R76.8 Other specified abnormal immunological findings in serum; I25.10 Atherosclerotic heart disease of native coronary artery without angina pectoris; E78.5 Hyperlipidemia, unspecified; R73.9 Hyperglycemia, unspecified; F17.210 Nicotine dependence, cigarettes, uncomplicated; Z79.899 Other long term (current) drug therapy; Z86.69 Personal history of other diseases of the nervous system and sense organs; R06.02 Shortness of breath; R05 Cough
CPT/HCPCS: 36415; 80053; 82550; 82803; 83605; 83880; 84484; 85025; 85379; 86644; 86645; 86663; 86664; 86710; 87040; 87651; 87804; 87880; 93005; 93010; 94640; 96374; 96375; 99223; 99232; 99239; 99284

== ENCOUNTER 2016-05-13 19:02 | Emergency (ER) ==
[2016-05-13 19:06] VITALS: TEMP 97; BMI 28.5
[2016-05-13] MEDS ORDERED: MORPHINE 2 MG/ML SYRINGE IM STA (19:19)
[2016-05-13] MEDS ORDERED: ZOFRAN 4 MG/2 ML IM STA (19:19)
--- NOTE | 2016-05-13 19:22 | ED.PDOC ---
General ED Provider: Dr. MORA CORMIER Chief Complaint: Headache Stated Complaint: Been hurting in the head for couple days, has h/o migrain, light bothering me, nausea. Time Seen by Physician: 19:20 Mode of Arrival: Walk-In Information Source: Patient [facility] Nursing and Triage Documentation Reviewed and Agree: Yes Neurological Complaint Exam - Headache Complaint/Exam Onset: Gradual Symptoms Are: Still present Timing: Constant Worst Headache Ever: No Initial Severity: Severe Current Severity: Moderate Location: Right, Left, Frontal, Occipital Character: Reports: Dull, Throbbing Aggravating: Reports: Bright lights Alleviating: Reports: None Associated Signs and Symptoms: Reports: Nausea, Vomiting Related History: Reports: Similar episode Related Surgical History: Reports: None SAH Risk Factors: Reports: None Meningitis Risk Factors: Reports: None SDH Risk Factors: Reports: None Temporal Arteritis Risk Factors: Reports: None Normal Head CT Within Last 12 Months: No Papilledema Present: No Temporal Artery Tenderness: Present: None Sinus Tenderness: Present: None TMJ Tenderness: Present: None Meningeal Signs Positive: No Pain on Passive Flexion-Positive Kernig's: No ROM Limited In: No Limitiations Focal Weakness: Present: None Focal Sensory Loss: Present: None Gait: Normal Nystagmus Present: No Gag Reflex Present: Yes [id number]: Normal Findings Romberg Test Positive: No Differential Diagnoses: Migraine Review of Systems - Review Of Systems Constitutional: Reports: Weakness Eyes: Reports: No symptoms Ears, Nose, Mouth, Throat: Reports: No symptoms Respiratory: Reports: No symptoms Cardiac: Reports: No symptoms GI: Reports: No symptoms : Reports: No symptoms Musculoskeletal: Reports: No symptoms Skin: Reports: No symptoms Neurological: Reports: Headache Endocrine: Reports: No symptoms Hematologic/Lymphatic: Reports: No symptoms All Other Systems: Reviewed and Negative Past Medical History - Past Medical History Previously Healthy: Yes Endocrine: Reports: None Cardiovascular: Reports: Hypertension, CHF Respiratory: Reports: Pneumonia Hematological: Reports: None Gastrointestinal: Reports: None Genitourinary: Reports: None Neuro/Psych: Reports: Migraine Musculoskeletal: Reports: Arthritis, Joint Pain, Other (Sciatica ) Cancer: Reports: None Last Menstrual Period: n/a - Surgical History General Surgical History: Reports: Hysterectomy, Appendectomy, Orthopedic (Knee replacement on the left 7 weeks ago. ) - Family History Family History: Reports: Unknown - Social History Smoking Status: Current every day smoker, Light tobacco smoker Hx Substance Use: No Alcohol Screening: None Physical Exam - Physical Exam Appearance: Ill-appearing, Obese Pain Distress: Moderate Eyes: EOMI, Conjunctiva clear ENT: Ears normal, Nose normal, Oropharynx normal Respiratory: Airway patent, Breath sounds clear, Breath sounds equal, Respirations nonlabored Cardiovascular: RRR, Pulses normal, No rub, No murmur GI/: Soft, Nontender, No masses, Bowel sounds normal, No Organomegaly Musculoskeletal: Normal strength, ROM intact, No edema, No calf tenderness Skin: Warm, Dry, Normal color Neurological: Sensation intact, Motor intact, Reflexes intact, Cranial nerves intact, Alert, Oriented Psychiatric: Affect appropriate, Mood appropriate Interpretation - Radiology Interpretation Radiology Interpretation By: Radiologist Radiology Results: Negative Critical Care Note - Critical Care Note Total Time (mins): 0 Course - Course Orders, Labs, Meds: Orders Category Date Time Status Clonidine HCl [Catapres] MEDS 05/13/16 19:23 Discontinued 0.2 mg PO ONCE STA Morphine Sulfate [Morphine 2 mg/ml Syringe] MEDS 05/13/16 19:19 Discontinued 2 mg IM ONCE STA Ondansetron HCl/Pf [Zofran 4 mg/2 ml] MEDS 05/13/16 19:19 Discontinued 4 mg IM ONCE STA CT HEAD W/O CONTRAST Stat RADS 05/13/16 19:19 Completed Medications Discontinued Medications Generic Name Dose Route Start Last Admin Trade Name Freq PRN Reason Stop Dose Admin Clonidine 0.2 mg 05/13/16 19:23 05/13/16 19:39 Catapres PO 05/13/16 19:24 0.2 mg ONCE STA Administration Morphine Sulfate 2 mg 05/13/16 19:19 05/13/16 19:28 Morphine 2 Mg/Ml Syringe IM 05/13/16 19:20 2 mg ONCE STA Administration Ondansetron HCl 4 mg 05/13/16 19:19 05/13/16 19:27 Zofran 4 Mg/2 Ml IM 05/13/16 19:20 4 mg ONCE STA Administration Vital Signs: Temp Pulse Resp BP Pulse Ox 05/13/16 19:03 97.0 F L 94 H 16 169/102 H 94 L Departure - Departure Time of Disposition: 20:43 Disposition: HOME SELF-CARE Discharge Problem: Headache Instructions: Migraine Headache (ED) Condition: Good Pt referred to PMD for follow-up: Yes Additional Instructions: keep checking the blood pressure risk of stroke discussed. Prescriptions: Hydrocodone/Acetaminophen [Knapp 5-325 Tablet] 1 tab PO TID PRN #12 tablet PRN Reason: PAIN Allergies/Adverse Reactions: Allergies No Known Allergies Allergy (Verified 05/13/16 19:07) Home Medications: Ambulatory Orders Lisinopril 2.5 mg PO DAILY #30 tab-cap 08/25/15 Aspirin [Aspirin Chewable] 81 mg PO DAILYWM 02/10/16 Furosemide 40 mg PO DAILY 02/10/16 Isosorbide Mononitrate [Imdur] 30 mg PO DAILY 02/10/16 Nitroglycerin [Nitrostat] 0.4 mg SL Q5MIN X 3 DOSES PRN 02/10/16 Spironolactone 25 mg PO DAILY 02/10/16 Diltiazem HCl [Cardizem] 60 mg PO Q12HR #60 tablet 02/16/16 Losartan Potassium [Cozaar] 50 mg PO BID #60 tablet 02/16/16 Hydrocodone/Acetaminophen [Knapp 5-325 Tablet] 1 tab PO TID PRN #12 tablet 05/13 Disposition Discussed With: Patient
[2016-05-13] MEDS ORDERED: CATAPRES PO STA (19:23)
--- NOTE | 2016-05-13 19:49 | CT ---
EXAM: CT scan brain without contrast HISTORY: Headache COMPARISON: CT scan brain 02/12/2016 FINDINGS: Contiguous axial images obtained from the skull base to the convexities without contrast utilizing 5-mm collimation. Sagittal coronal reconstructions were imaged and reviewed. The ventric les and CSF spaces are prominent by with age appropriate atrophy. There is periventricular hypodens ity noted compatible with chronic microvascular disease. Atherosclerotic changes are seen involving the bilateral cavernous internal carotid arteries. Visualized paranasal sinuses and mastoid air ce lls are clear. IMPRESSION: Age appropriate atrophy with chronic microvascular disease. No acute findings.
[2016-05-13 20:58] VITALS: BP 112/73
== END 2016-05-13 20:58 | disposition home or self-care (01) ==
LOC: ED 19:02
DX: G43.909 Migraine, unspecified, not intractable, without status migrainosus (principal); F17.210 Nicotine dependence, cigarettes, uncomplicated
CPT/HCPCS: 96372; 99283

== ENCOUNTER 2016-06-02 06:32 | Outpatient (CLI) ==
--- NOTE | 2016-06-05 11:50 | ECHO2D ---
Date of Exam: [] Ordering Physician: [] Reason for Echo: [] Auscultation: [] Murmurs: [] M-Mode Normal Adult Results LV Dimensions Normal Adult Results AoV Opening excursions >1.6 [] LVEDD-base- 3.5-5.8 [] Ao root dimensions 2.0-3.7 [] LVESD-base- 3.1-4.6 [] L. Atrium dimensions 1.9-3.8 [] Post. Wall thickness 0.8-1.1 [] IV septum (thickness) 0.7-1.2 [] Post. Wall excursion 0.72-1.3 [] Septal motion [] Systolic motion R. Ventricular cavity 1.5-2.0 [] LVEF 60% [] Paradoxical septal wall motion [] 2-D :[] M-MODE: MV: [] AV: [] TV: [] PV: [] CHAMBER SIZE: [] WALL MOTION: [] PERICARDIUM: [] INTERPRETATION: 1. [] 2. [] 3. [] 4. [] MTDD
--- NOTE | 2016-06-05 12:36 | ECHO2D ---
Date of Exam: 06/02/16 [facility] Reason for Echo: SOB, CAD M-Mode Normal Adult Results LV Dimensions Normal Adult Results AoV Opening excursions >1.6 >1.6 LVEDD-base- 3.5-5.8 5.7 Ao root dimensions 2.0-3.7 3.7 LVESD-base- 3.1-4.6 L. Atrium dimensions 1.9-3.8 4.6 Post. Wall thickness 0.8-1.1 1.2 IV septum (thickness) 0.7-1.2 1.2 Post. Wall excursion 0.72-1.3 NORMAL Septal motion NORMAL Systolic motion R. Ventricular cavity 1.5-2.0 NORMAL LVEF 60% 50% Paradoxical septal wall motion NORMAL 2-D : ENLARGED LEFT ATRIAL CAVITY--BORDERLINE LEFT VENTRICLE CAVITY--NORMAL LEFT VENTRICULAR CONTRACTILITY--NO EFFUSION, NO THROMBUS, NORMAL VALVES DOPPLER WITH COLOR FLOW: MODERATE MITRAL REGURGITATION/TRICUSPID REGURGITATION/ MILD AORTIC REGURGITATION M-MODE: MV: NORMAL AV: NORMAL TV: NORMAL PV: CHAMBER SIZE: ENLARGED LEFT ATRIA CAVITY WALL MOTION: NORMAL PERICARDIUM: NORMAL INTERPRETATION: 1. LEFT VENTRICULAR HYPERTROPHY WITH ENLARGED LEFT ATRIAL CAVITY 2. BORDERLINE LEFT VENTRICLE SIZE 3. NORMAL LEFT VENTRICULAR CONTRACTILITY 4. MODERATE MITRAL REGURGITATION, TRICUSPID REGURGITATION AND MILD AORTIC REGURGITATION MTDD
== END 2016-06-02 06:33 | disposition home or self-care (01) ==
LOC: CAR 06:32
PROVIDERS: ATTEND Internal Medicine
DX: Z01.810 Encounter for preprocedural cardiovascular examination (principal); R06.02 Shortness of breath; I25.10 Atherosclerotic heart disease of native coronary artery without angina pectoris
CPT/HCPCS: 93005; 93010

== ENCOUNTER 2016-06-05 06:57 | Outpatient (CLI) ==
[2016-06-05] MEDS ORDERED: ATROPINE SULFATE PFS ONE (07:13)
[2016-06-05] MEDS ORDERED: DOBUTAMINE 250 ML IV ONE (07:13)
--- NOTE | 2016-06-07 13:36 | DOBSTECHO ---
Ordering Physician: NICOLÁS BERTRAND Date of Test: 06/05/16 Reason for Examination: SURG CLEARANCE, SOB, CAD Current Medications: DILTIAZEM, COZAAR, CARDIZEM, FUROSAM, Height: 66" Weight: 180 LBS Target Heart Rate: 124/146 ST Segment Stage Time HR BPM BP mmhg Rhythm +/- Up Down Comments/Symptoms Control Sitting 75 160/100 SR X NONE Dobutamine 250mg/D5W 5cmg/KG/mn 10cmg/KG/mn 3" 82 160/100 SR X NONE 15cmg/KG/mn 2" 96 186/82 SR X NONE 20cmg/KG/mn 2" 108 SR X NONE 25cmg/KG/mn :11 114 196/86 SR X NONE 30cmg/KG/mn 35cmg/KG/mn 40cmg/KG/mn Time: 4" HR B/P Time: 8" HR B/P Time: HR B/P Recovery 101 144/98 Recovery 85 146/98 Recovery Total Time: 7:11 Maximum Heart Rate Reached: 114 Interpretation: 1. NO EVIDENCE OF ISCHEMIA FROM 75/BPM AT REST TO 114/BPM WITH DOBUTAMINE INFUSION 2. NO CHEST PAIN OR DISCOMFORT 3. NORMAL LEFT VENTRICULAR CONTRACTILITY--RESTING AND WITH DOBUTAMINE INFUSION MTDD
--- NOTE | 2016-06-07 13:39 | ECHOSTRESS ---
Date of Exam: 06/05/16 Ordering Physician: CEE Reason for Echo: SURGICAL CLEARANCE, SOB, CAD, DOBUTAMINE STRESS--NO ISCHEMIA M-Mode Normal Adult Results LV Dimensions Normal Adult Results AoV Opening excursions >1.6 LVEDD-base- 3.5-5.8 Ao root dimensions 2.0-3.7 LVESD-base- 3.1-4.6 L. Atrium dimensions 1.9-3.8 Post. Wall thickness 0.8-1.1 IV septum (thickness) 0.7-1.2 Post. Wall excursion 0.72-1.3 Septal motion Systolic motion R. Ventricular cavity 1.5-2.0 LVEF 60% Paradoxical septal wall motion 2-D: NORMAL LEFT VENTRICULAR CONTRACTILITY--RESTING AND WITH DOBUTAMINE INFUSION M-MODE: MV: AV: TV: PV: CHAMBER SIZE: WALL MOTION: NORMAL LEFT VENTRICULAR CONTRACTILITY--RESTING AND WITH DOBUTAMINE INFUSION PERICARDIUM: INTERPRETATION: 1. NORMAL LEFT VENTRICULAR CONTRACTILITY--RESTING AND WITH DOBUTAMINE INFUSION MTDD
== END 2016-06-05 06:58 | disposition home or self-care (01) ==
LOC: CAR 06:57
PROVIDERS: ATTEND Internal Medicine
DX: Z01.810 Encounter for preprocedural cardiovascular examination (principal); R06.02 Shortness of breath; I25.10 Atherosclerotic heart disease of native coronary artery without angina pectoris

== ENCOUNTER 2016-06-16 09:57 | Inpatient (IN) ==
[2016-06-16] MEDS ORDERED: ULTRAM PO PRN (10:14)
[2016-06-16] MEDS ORDERED: OXYCODONE PO PRN (10:14)
[2016-06-16] MEDS ORDERED: NITROSTAT SL PRN (10:37)
[2016-06-16 11:17] VITALS: BMI 32.5
[2016-06-16] MEDS: PERCOCET 5-325 PO PRN ×3 (11:24→22:03)
--- NOTE | 2016-06-16 15:13 | RS.PTINEVL ---
Subjective - Patient information Date of Evaluation: 06/16/16 Date of Arrival on Unit: 06/16/16 Admitted From:: Facility Transfer ([facility] 06/13/16) Usual Living Arrangement: With Spouse Living Arrangement Comments: at home with spouse Home Environment: House, Stairs (few) (at entrance with 2 rails) Surgical History Comments:: Left TKA May 2015 Subjective Information/ Patient Comments:: Patient states the knee feels swollen and painful. She is hoping it is time for medication. She agrees to ambulate. States the more she walks, it will probably feel better. - Level of function Prior to this admission, the patient could do the following:: Independent Selfcare, Independent ADL's, Independent Ambulation, Drive, Participated in Social Activities Outside home Current Level of Function: Partially Dependent Current Equipment Used at Home: RW Interventions - Objective Patient Orientation: Person, Place, Time, Situation Range of Motion - ROM Right Upper Extremity AROM: WFL's Left Upper Extremity AROM: WFL's Right Lower Extremity AROM: Moderate limitation (right knee ~-15 to 70 flexion) Left Lower Extremity AROM: WFL's Muscle Strength - Muscle Strength Right Upper Extremity Strength: Normal Left Upper Extremity Strength: Normal Right Lower Extremity Strength: Mild Weakness Left Lower Extremity Strength: Normal Palpation Comments:: General tenderness throughout the right knee joint. Balance - Sitting Balance and Reactions Static Sitting Balance: Good Dynamic Sitting Balance: Good - Standing Balance and Reactions Static Standing Balance: Fair Dynamic Standing Balance: Fair Functional Mobility - Bed Mobility Supine to Sit: CGA, 1 person assist, Verbal Cues, Tactile Cues Sit to Supine: CGA, 1 person assist, Verbal Cues, Tactile Cues - Transfers Sit to Stand: CGA, Min Assist, 1 person assist, Tactile Cues Stand to Sit: CGA, 1 person assist, Verbal Cues, Tactile Cues Stand Pivot Transfers: CGA, 1 person assist, Verbal Cues, Tactile Cues - Safety Awareness Safety Awareness: Fair Ambulation - Ambulation Weight Bearing Status: FWB Assistive Device Used: Rolling Walker Distance: 200 feet Assistance needed with Ambulation: CGA, Min Assist, 1 person assist, Verbal Cues , Tactile Cues Gait Deviations: Narrow Based gait, Step-to gait, Forward posture, Short stride Ambulation Comments: Patient demonstrates minimal heel strike on the right LE and decreased right knee and hip flexion during swing phase. Factors Affecting Ambulation: Decreased Balance, Pain, Decreased ROM, Decreased Safety Treatment time - Time with patient Total treatment time: 19 (mins) Assessment - Assessment Problem List:: Decreased level of function, Requires training/education, Decreased safety/Risk of falls, Pain limits previous level of function Rehab Potential: Good Further Therapy Indicated?: Yes Short Term Goals GOAL #1: Sit to stand with supvn. Goal to be met by: 06/19/16 GOAL #2: Supine to sit/sit to supine with supvn. Goal to be met by: 06/19/16 GOAL #3: Pt to amb. with good base of support with CGA and good safety. Goal to be met by: 06/19/16 Care Home Goals GOAL #1: All bed mobility independent. Goal to be met by: 06/23/16 GOAL #2: All transfers independent with good safety. Goal to be met by: 06/23/16 GOAL #3: Pt will amb with RW household distances, Independent w/ good safety. Goal to be met by: 06/23/16 Plan Plan of Care: Therapeutic EX, Neuromuscular Re-Educ, Therapeutic Activity, Self- Care/Home Management Modalities: Cold Pack/Cryotherapy Frequency of Treatment: 1-2 X day, as tolerated Duration of Treatment: 1 Week Anticipated Discharge Destination: Home
[2016-06-16] MEDS: ASPIRIN EC PO SCH (17:00)
[2016-06-17] MEDS: PERCOCET 5-325 PO PRN ×4 (04:11→18:24)
[2016-06-17 04:39] LABS: BASOPHILS # (AUTO) 0.1 K/uL (0-0.2); BASOPHILS % (AUTO) 0.5 % (0.0-3.0); EOSINOPHILS # (AUTO) 0.7 K/ul (0.0-0.7); EOSINOPHILS % (AUTO) 7.2 % (0.0-7.0); HEMATOCRIT 31.5 % (37.0-47.0); HEMOGLOBIN 9.9 g/dl (12.0-16.0); IMMATURE GRANULOCYTE % (AUTO) 0.2 % (0.0-5.0); LYMPHOCYTES # (AUTO) 2.7 K/uL (0.60-3.4); LYMPHOCYTES % (AUTO) 28.8 (10.0-50.0); MEAN CORPUSCULAR HEMOGLOBIN 29.1 pg (27.0-31.0); MEAN CORPUSCULAR HGB CONC 31.4 (31.8-35.4); MEAN CORPUSCULAR VOLUME 92.6 fl (81.0-99.0); MONOCYTES # (AUTO) 1.5 K/uL (0.4-2.0); MONOCYTES % (AUTO) 16.2 (0-10); NEUTROPHILS # (AUTO) 4.3 K/ul (2.0-6.9); NEUTROPHILS % (AUTO) 47.1; PLATELET COUNT 278 10^3/uL (140-440); WHITE BLOOD COUNT 9.21 K/ul (4.6-10.2)
[2016-06-17 05:05] LABS: ALBUMIN 2.2 g/dL (3.4-5.0); ALBUMIN/GLOBULIN RATIO 0.49; ANION GAP 11.7; BILIRUBIN,TOTAL 0.47 mg/dL (0.00-1.20); BUN/CREATININE RATIO 25.3; CALCIUM 8.9 mg/dL (8.2-10.2); CREATININE 0.83 mg/dL (0.60-1.30); POTASSIUM 4.7 mmol/L (3.5-5.10); TOTAL PROTEIN 6.7 g/dL (5.8-8.1)
[2016-06-17] MEDS: IMDUR PO SCH (08:09)
[2016-06-17] MEDS: COLACE PO SCH (08:10)
[2016-06-17] MEDS: NON-FORMULARY MEDICATION (Bupropion Hcl [Wellbutrin Xl] 150 MG) PO SCH (08:10)
[2016-06-17] MEDS: CELEBREX PO SCH (08:10)
[2016-06-17] MEDS: ASPIRIN EC PO SCH ×2 (08:10→17:03)
[2016-06-17] MEDS: NORVASC PO SCH (18:23)
[2016-06-17] MEDS ORDERED: DILAUDID 1 MG/ML SYRINGE IM STA (20:21)
[2016-06-18] MEDS: CELEBREX PO SCH (08:06)
[2016-06-18] MEDS: COLACE PO SCH (08:06)
[2016-06-18] MEDS: ASPIRIN EC PO SCH ×2 (08:06→16:36)
[2016-06-18] MEDS: NON-FORMULARY MEDICATION (Bupropion Hcl [Wellbutrin Xl] 150 MG) PO SCH (08:07)
[2016-06-18] MEDS: IMDUR PO SCH (08:07)
[2016-06-18] MEDS: PERCOCET 5-325 PO PRN ×2 (08:11→18:05)
[2016-06-18] MEDS: NORVASC PO SCH (08:15)
[2016-06-18] MEDS: HYDROCHLOROTHIAZIDE PO SCH (15:19)
[2016-06-18 16:23] LABS: ABG BASE EXCESS 1 (-2.0-2.0); ABG HCO3 24.7 (22.0-26.0); ABG PCO2 35.2 mmHg (35-45); ABG PH 7.454 (7.35-7.45); ABG TCO2 26 (22.0-28.0)
--- NOTE | 2016-06-18 16:34 | CT ---
EXAM: CTA chest with contrast HISTORY: Shortness of air TECHNIQUE: Multi-slice transaxial helical PE protocol. Multiplanar MIP and 3D volume rendered imag es are provided. COMPARISON: 11/01/2015, 02/12/2016 FINDINGS: There are no main, lobar, or segmental pulmonary arterial filling defects.The heart is mildly enlarg ed. The ascending aorta measures up to 38 mm in diameter. Coronary artery calcifications are sugge sted. Calcified plaques are present within the thoracic aorta. Scattered mediastinal lymph nodes m easure less than 10 mm in short axis. Mildly enlarged right perihilar lymph node measures up to 1.2 cm in short axis. Borderline enlarged subcarinal lymph node measures up to 10 mm in short axis. Visualized thyroid appears unremarkable. There is no axillary adenopathy. Punctate nonobstructing right renal calculus is present. Otherwise the upper abdomen appears unremarkable. Moderate to adva nced osteoarthritis of the bilateral glenohumeral joints is present. Increased sclerosis involving the near complete vertebral bodies spanning T4 through T11 is seen. Mid thoracic mild wedge deformi ties is seen. There is severe mid thoracic disc space narrowing. Prominent posterior disc osteophy te complex at T8-T9 results in mild narrowing of the central canal. Diffuse fibrosis of the lungs with honeycombing at the lung bases is not significantly changed. The re is no focal airspace opacity, pleural effusion, or pneumothorax. IMPRESSION: 1. Negative exam for PE. 2. No significant interval change in diffuse lung fibrosis with honeycombing. 3. No focal pneumonia or pleural effusion. 4. Ascending aortic enlargement measuring up to 38 mm. 5. Mild cardiomegaly. 6. Atherosclerosis including coronary disease. 7. Mildly enlarged right perihilar and subcarinal lymph nodes which are nonspecific. 8. Punctate nonobstructing right renal calculus. 9. Severe mid thoracic disc disease with mild central canal stenosis at T8-T9.
[2016-06-18] MEDS ORDERED: DILAUDID 1 MG/ML SYRINGE IVP STA (21:33)
[2016-06-19] MEDS: HYDROCHLOROTHIAZIDE PO SCH (08:11)
[2016-06-19] MEDS: ASPIRIN EC PO SCH ×2 (08:12→16:53)
[2016-06-19] MEDS: NON-FORMULARY MEDICATION (Bupropion Hcl [Wellbutrin Xl] 150 MG) PO SCH (08:12)
[2016-06-19] MEDS: NORVASC PO SCH (08:12)
[2016-06-19] MEDS: COLACE PO SCH (08:12)
[2016-06-19] MEDS: IMDUR PO SCH (08:12)
[2016-06-19] MEDS: PERCOCET 5-325 PO PRN ×3 (08:12→20:15)
[2016-06-19] MEDS: CELEBREX PO SCH (08:12)
--- NOTE | 2016-06-19 12:14 | US ---
Exam: Urban-scale and color Doppler ultrasonographic evaluation of the lower extremity deep venous s tructures. Comparison: None available. Reason for exam: Elevated D-dimer. FINDINGS: There is spontaneous flow with adequate compression and respiratory augmentation seen within both of the common femoral, greater saphenous, profunda, superficial femoral, popliteal, peroneal, posterio r tibial, and anterior tibial veins. No urban scale evidence of occlusive thrombus is seen in any of the imaged portions of the lower extremity venous structures. Impression: No ultrasonographic evidence of deep venous thrombus is seen in either of the lower extr emities.
[2016-06-20] MEDS: PERCOCET 5-325 PO PRN ×5 (01:06→22:24)
[2016-06-20 04:49] LABS: BASOPHILS # (AUTO) 0.1 K/uL (0-0.2); BASOPHILS % (AUTO) 0.8 % (0.0-3.0); EOSINOPHILS # (AUTO) 0.6 K/ul (0.0-0.7); EOSINOPHILS % (AUTO) 7.6 % (0.0-7.0); HEMATOCRIT 35.5 % (37.0-47.0); HEMOGLOBIN 11.3 g/dl (12.0-16.0); IMMATURE GRANULOCYTE % (AUTO) 0.3 % (0.0-5.0); LYMPHOCYTES # (AUTO) 2.9 K/uL (0.60-3.4); LYMPHOCYTES % (AUTO) 37.5 (10.0-50.0); MEAN CORPUSCULAR HGB CONC 31.8 (31.8-35.4); MONOCYTES # (AUTO) 1.1 K/uL (0.4-2.0); MONOCYTES % (AUTO) 13.8 (0-10); NEUTROPHILS # (AUTO) 3.1 K/ul (2.0-6.9); PLATELET COUNT 372 10^3/uL (140-440); WHITE BLOOD COUNT 7.76 K/ul (4.6-10.2)
[2016-06-20 05:07] LABS: ALBUMIN 2.5 g/dL (3.4-5.0); ALBUMIN/GLOBULIN RATIO 0.52; ANION GAP 14.8; BILIRUBIN,TOTAL 0.56 mg/dL (0.00-1.20); BUN/CREATININE RATIO 22.09; CALCIUM 9.2 mg/dL (8.2-10.2); CREATININE 0.86 mg/dL (0.60-1.30); POTASSIUM 3.8 mmol/L (3.5-5.10); TOTAL PROTEIN 7.3 g/dL (5.8-8.1)
[2016-06-20] MEDS: CELEBREX PO SCH (07:57)
[2016-06-20] MEDS: ASPIRIN EC PO SCH ×2 (07:57→16:46)
[2016-06-20] MEDS: IMDUR PO SCH (08:48)
[2016-06-20] MEDS: NON-FORMULARY MEDICATION (Bupropion Hcl [Wellbutrin Xl] 150 MG) PO SCH (08:48)
[2016-06-20] MEDS: COLACE PO SCH (08:48)
[2016-06-20] MEDS: HYDROCHLOROTHIAZIDE PO SCH (08:49)
[2016-06-20] MEDS: NORVASC PO SCH (08:50)
--- NOTE | 2016-06-20 09:48 | PN ---
DATE OF VISIT: 06/19/16 The patient today is much more alert and does answer questions. She did eat more today. The diet was advanced to regular mechanical. Relative were gone when I got to the hospital. I would like to talk to them with regards to further care for this individual. She probably needs to go to the skilled nursing with the family engaged in helping her eat. She had hepatic encephalopathy. She has rales still in both lung dow. PROGNOSIS: Still poor. MTDD
--- NOTE | 2016-06-20 09:55 | PN ---
DATE OF VISIT: 06/19/16 The patient had right TKR. The patient had been complaining of shortness of breath. The patient had a CTA which was negative for a pulmonary emboli. She does have rales on both lung dow. The right side is more or less a Velcro type. There was less rales on the left with a better air exchange posteriorly. She does have Velcro type rales anteriorly. She asked me why she is getting short of breath at times and I told her because of the chronic lung problems that she has. The patient continued to smoke and she claimed that she stopped about a month ago. HEART: Audible with good tones. The ultrasound showed no ultrasonic evidence of DVT in both lower extremities. The patient was advised of this. No prophylactic anticoagulation is given to this patient, except the aspirin since the operative surgeon had not indicated that he wanted to continue or give this medication at that time of her discharge and transfer to this facility. MANAN
--- NOTE | 2016-06-20 11:08 | HP ---
CHIEF COMPLAINT: Rehabilitation therapy post right total knee replacement. HISTORY OF PRESENT ILLNESS: The patient was operated, [facility] by Dr. Rico, right total knee replacement. The patient tolerated the procedure well and her vital signs were stable in the next couple of days and so the patient was transferred to this facility for rehabilitation on Transitional Care admission. The patient claimed to be doing well. PAST PERSONAL HISTORY: This patient has hypertension, depression, migraines, degenerative joint disease, anxiety, previous pneumonia. The patient had total knee replacement, left 05/26/2015. She also had a previous appendectomy, tonsillectomy and total abdominal hysterectomy. She had a cardiac catheterization 01/2016 and unable to deploy a stent, so was advised to continue with medical treatment. She had Lasix surgery to the eye and history of sciatica. The patient was told that she had some irregularity in the heart recently. FAMILY HISTORY: Father had [place] and at age 56. Mother had heart problems and at age 84 with myocardial infarction. Sister has diabetes. SOCIAL HISTORY: The patient is and resides with her . She smokes every day, but a light user. She denies any alcohol use. MEDICATIONS: Prior to admission to this hospital. Imdur 30 mg daily Aspirin 81 mg daily Nitroglycerin 0.4 mg prn sublingually every 5 minutes for chest pain times three and if that relives, go to the emergency room. Wellbutrin XL 150 mg daily Hydrocodone/Tylenol 5/325 mg one tablet three times a day as needed. This was prescribed somewhere, since it was only 12 tablets. ALLERGIES: No known drug allergies. REVIEW OF SYSTEMS: CONSTITUTIONAL: The patient had no fever or chills and feels good and doing well with no fatigue. TERMITE INSPECTOR: The patient had history of headache, migraine. She does not have any headache on the day of admission. No history of seizures or ataxia or loss of consciousness. VISUAL: Denies any blurred vision, double vision or transient loss of vision. AUDITORY: Hearing is decreased. Denies any tinnitus, pain or drainage. RESPIRATORY: The patient has occasional cough, probably from smoking. CARDIOVASCULAR: Denies any anterior chest pain or oppression or heaviness. GASTROINTESTINAL: No nausea or anorexia or diarrhea or abdominal pain. GENITOURINARY: Denies any pain, frequency or urgency of urination. MUSCULOSKELETAL: The patient had degenerative joint disease and the left knee did under go total knee replacement a year ago and the right just had a recent TKR a few days ago. INTEGUMENT: Scar from the previous TKR of the left side and incision on the right anterior knee and anterior lower thigh and upper leg. No redness. ENDOCRINE: Negative. HEMATOLOGIC: No history of prolonged bleeding or easy bruising. PSYCHIATRIC: Affect appears to be normal. PHYSICAL EXAMINATION: GENERAL: We have a 76 year old black female admitted to the hospital Transitional Care unit for rehabilitation post right TKR. VITAL SIGNS: Temperature 98.1, pulse 76, blood pressure 138/72, respiratory rate 18, oxygen saturation 91 at room air. HEAD: Unremarkable. FACE: Symmetrical and equal with no facial weakness and no significant tenderness to palpation under pressure in the frontal or maxillary sinus areas. EYES: Pupils equal/reactive to light about 4 mm in size. Conjunctivae not pale. Sclerae not icteric. MOUTH: Unremarkable. THROAT: No inflammation, no tumors or exudate. NECK: No masses. No bruit. No tenderness. No rigidity. CHEST: Essentially symmetrical and equal with good expansion. LUNGS: The patient has some rales on both lung dow at the bases, left more than right, no wheezing. HEART: Audible and regular with good tones. No murmurs. ABDOMEN: Soft with no remarkable tenderness. No guarding. Bowel sounds are active. No masses palpable. LOWER EXTREMITIES: Scar on the left knee. The incision on the right anterior knee is present and no signs of any infection, but there is some edema. UPPER EXTREMITIES: Symmetrical and equal. ASSESSMENT: 1. DEGENERATIVE JOINT DISEASE KNEE, BILATERAL. LEFT STATUS POST TKR ONE YEAR AGO. RIGHT RECENT TKR, A FEW DAYS AGO 2. HYPERTENSION, CONTROLLED 3. HISTORY OF MIGRAINE 4. HISTORY OF DEPRESSION 5. HISTORY OF PNEUMONIA 6. HISTORY OF ANXIETY 7. HISTORY OF SCIATICA 8. HISTORY OF CORONARY ARTERY DISEASE DOCUMENTED BY CARDIAC CATHETERIZATION. UNABLE TO APPLY OR DEPLOY A STENT. ADVISED MEDICAL MANAGEMENT. 9. SURGICAL HISTORY CONSISTING OF APPENDECTOMY, TONSILLECTOMY, HYSTERECTOMY, BILATERAL TKR, CARDIAC CATHETERIZATION, LASIX SURGERY. NOTE: No prophylactic medication was ordered by the operating surgeon and so no such medication will be ordered since it was not ordered by the operating surgeon. MTDD
--- NOTE | 2016-06-20 11:14 | PN ---
DATE OF VISIT: 06/17/16 The patient is alert and is complaining of headache, mostly on the left side. She is known to have intermittent headaches, migraines. She will be given the pain medication, prescribed by the operating surgeon, Percocet 5/325 mg. NECK: No masses and no bruit. LUNGS: Diminished breath sounds and minimal rales. HEART: Audible and mostly regular. ABDOMEN: Soft and nontender. VITAL SIGNS: At 6 p.m. on 06/17/2016 showed a temperature of 98.6, pulse 84, blood pressure 203/95, respiratory rate 16, oxygen saturation 91 at room air. The blood pressure rise may have been due to the headache. This patient is prescribed Amlodipine 5 mg to be taken now and daily. Hydrochlorothiazide may be added if and when the blood pressure does return close to normal. MTDD
--- NOTE | 2016-06-20 11:23 | PN ---
DATE OF VISIT: 06/18/16 The patient was admitted to Transitional Care for rehabilitation post right TKR. The patient told me that she did not sleep well last night and that she was short of breath. The patient has rales in both lung dow. The rales are consisting of coarse breath sounds or harsh breath sounds, but moist. She has some sort of close to a Velcro type rales on the upper anterior chest bilaterally. I ordered a D-Dimer and arterial blood gases. The D-Dimer was elevated and so a CTA was pursued. The CTA was negative for a PE. The patient has diffuse lung fibrosis with honeycombing. No focal pneumonia or pleural effusion. Ascending aortic enlargement at 3.8 cm and mild cardiomegaly. Records on ultrasound of both lower extremities tomorrow to rule out any DVT because of the elevated D-Dimer. MTDD
[2016-06-20] MEDS ORDERED: ZOFRAN 4 MG/2 ML IVP STA (12:42)
[2016-06-20] MEDS ORDERED: DILAUDID 1 MG/ML SYRINGE IVP STA (12:42)
[2016-06-21] MEDS: PERCOCET 5-325 PO PRN ×5 (02:21→23:09)
[2016-06-21] MEDS: CELEBREX PO SCH (08:42)
[2016-06-21] MEDS: NON-FORMULARY MEDICATION (Bupropion Hcl [Wellbutrin Xl] 150 MG) PO SCH (08:42)
[2016-06-21] MEDS: ASPIRIN EC PO SCH ×2 (08:42→17:21)
[2016-06-21] MEDS: COLACE PO SCH (08:43)
[2016-06-21] MEDS: IMDUR PO SCH (08:43)
[2016-06-21] MEDS: NORVASC PO SCH (08:43)
[2016-06-21] MEDS: HYDROCHLOROTHIAZIDE PO SCH (08:44)
[2016-06-22] MEDS: ASPIRIN EC PO SCH ×2 (07:59→17:47)
[2016-06-22] MEDS: HYDROCHLOROTHIAZIDE PO SCH (08:00)
[2016-06-22] MEDS: IMDUR PO SCH (08:00)
[2016-06-22] MEDS: CELEBREX PO SCH (08:00)
[2016-06-22] MEDS: NORVASC PO SCH (08:00)
[2016-06-22] MEDS: COLACE PO SCH (08:00)
[2016-06-22] MEDS: NON-FORMULARY MEDICATION (Bupropion Hcl [Wellbutrin Xl] 150 MG) PO SCH (08:00)
[2016-06-22] MEDS: PERCOCET 5-325 PO PRN ×4 (08:07→23:58)
--- NOTE | 2016-06-22 10:03 | PN ---
DATE OF VISIT: 06/20/2016 The patient was complaining of pain, headache with nausea. She was given two Percocet on an empty stomach, which probably caused the nausea according to the . LUNGS: The patient still has rales anteriorly and posteriorly. LOWER EXTREMITIES: No remarkable swelling on difference from yesterday with regards to right leg that was operated-right TKR. VITAL SIGNS: At 5:43 p.m. showed a temperature of 98, pulse 88, blood pressure 129/74, respiratory rate 20, oxygen saturation 95 at room air. I told the patient that I will give her a shot for the headache to see if this would resolve. I did order a Dilaudid 1 mg IV. They did ask me about her lungs and I told her that the CT scan of the lung does not show any blood clots and that the ultrasound of the legs also does not show any blood clots. This was done since the test called D-Dimer was elevated. MTDD
--- NOTE | 2016-06-22 10:08 | PN ---
DATE OF VISIT: 06/22/2016 The patient is alert and oriented. LUNGS: The lungs still has rales, more on the left side. The right seemingly is fairly clear. She has Velcro type rales anteriorly. LOWER EXTREMITIES: The incision appears to be healing well with no signs of infection. We will remove the preston alternating today. I believe that she has done very well with the rehabilitation and maybe she would probably most likely go home towards the weekend. MANAN
[2016-06-22] MEDS ORDERED: DILAUDID 1 MG/ML SYRINGE IVP STA (16:42)
[2016-06-22] MEDS: BENICAR PO SCH (16:46)
[2016-06-23 04:59] LABS: BASOPHILS # (AUTO) 0.1 K/uL (0-0.2); BASOPHILS % (AUTO) 1.2 % (0.0-3.0); EOSINOPHILS # (AUTO) 0.8 K/ul (0.0-0.7); EOSINOPHILS % (AUTO) 8.3 % (0.0-7.0); HEMATOCRIT 35.6 % (37.0-47.0); IMMATURE GRANULOCYTE % (AUTO) 0.7 % (0.0-5.0); LYMPHOCYTES # (AUTO) 3.6 K/uL (0.60-3.4); LYMPHOCYTES % (AUTO) 36.9 (10.0-50.0); MEAN CORPUSCULAR HGB CONC 30.9 (31.8-35.4); MEAN CORPUSCULAR VOLUME 93.9 fl (81.0-99.0); MONOCYTES # (AUTO) 1.2 K/uL (0.4-2.0); NEUTROPHILS # (AUTO) 3.9 K/ul (2.0-6.9); NEUTROPHILS % (AUTO) 40.9; PLATELET COUNT 400 10^3/uL (140-440); RED BLOOD COUNT 3.79 10^6/ul (4.20-5.40); WHITE BLOOD COUNT 9.64 K/ul (4.6-10.2)
[2016-06-23] MEDS: PERCOCET 5-325 PO PRN ×3 (05:01→09:43)
[2016-06-23 05:21] LABS: ALBUMIN 2.7 g/dL (3.4-5.0); ALBUMIN/GLOBULIN RATIO 0.56; ANION GAP 16.5; BILIRUBIN,TOTAL 0.31 mg/dL (0.00-1.20); BUN/CREATININE RATIO 22.34; CALCIUM 9.1 mg/dL (8.2-10.2); CREATININE 0.94 mg/dL (0.60-1.30); POTASSIUM 4.5 mmol/L (3.5-5.10); TOTAL PROTEIN 7.5 g/dL (5.8-8.1)
[2016-06-23 05:36] VITALS: BP 131/77; TEMP 97.5
[2016-06-23] MEDS: IMDUR PO SCH (09:38)
[2016-06-23] MEDS: NORVASC PO SCH (09:38)
[2016-06-23] MEDS: NON-FORMULARY MEDICATION (Bupropion Hcl [Wellbutrin Xl] 150 MG) PO SCH (09:38)
[2016-06-23] MEDS: HYDROCHLOROTHIAZIDE PO SCH (09:38)
[2016-06-23] MEDS: BENICAR PO SCH (09:38)
[2016-06-23] MEDS: CELEBREX PO SCH (09:38)
[2016-06-23] MEDS: COLACE PO SCH (09:39)
[2016-06-23] MEDS: ASPIRIN EC PO SCH (09:39)
--- NOTE | 2016-06-26 14:02 | DS ---
PATIENT IDENTIFICATION: 76 year old black female admitted to the hospital on Transitional Care for physical rehabilitation after a total replacement of right knee by Dr. Rico. HOSPITAL COURSE: The medications ordered by the operating surgeon was continued. No prophylactic medications were given, except the aspirin 81 mg. Medications on admission to this facility from [facility] consisted of Imdur 30 mg daily, Aspirin 81 mg daily, Nitroglycerin 0.4 mg sublingually times three as needed and to the emergency room if not resolved, Wellbutrin XL 150 mg tablet daily, Hydrocodone/Tylenol 5/325 mg one tablet three times a day as needed. The patient has rales on both lung dow, as well as anteriorly. She had this previously. The patient on 06/18/2016 complained of some shortness of breath. She also had some pain in the left clavicular area up to the shoulder. The D- Dimer was requested and was elevated. A CTA of chest showed no pulmonary emboli. Diffuse lung fibrosis with honeycombing, ascending aortic enlargement measuring 38 mm. Atherosclerosis including the coronary vessels, mildly enlarged perihilar and subcarinal nodes, significant nonspecific right renal calculus, severe midthoracic disease and mild central canal stenosis at T8 and T9. Doppler studies of the lower extremities showed no DVT. The patient continued to do physical rehabilitation and had done well. The physical therapy department released her since she had attained the necessary goal. This patient is then discharged today. She is to resume her previous medications and to come to the office 06/28/2016 for removal of preston as indicated by Dr. Rico on discharge. The patient at the time of discharge was alert, ambulatory. LUNGS: Has better air exchange and less amount of rales on the left. No wheezing. She still has the Velcro type rales anteriorly in the upper chest. HEART: Normal sinus rhythm. She still mentions some discomfort intermittently, but not accompanied by diaphoresis or nausea or weakness in the left clavicular area towards the left shoulder. FINAL DIAGNOSES: 1. DEGENERATIVE JOINT DISEASE RIGHT KNEE, STATUS POST TKR 2. PHYSICAL REHABILITATION GOAL ATTAINED 3. HISTORY OF HYPERTENSION, CONTROLLED. PLAN: 1. The patient was prescribed Amlodipine 5 mg daily for the hypertension, Hydrochlorothiazide 12.5 mg daily and Benicar 20 mg daily. 2. She is to continue her previous medications at discharge. 3. Again, she should see me at the office for removal of the preston on 2016. 4. She was further advised to present to Dr. Rico if she has any questions with regards to the knee. MANAN
== END 2016-06-23 14:15 | disposition home or self-care (01) | DRG 561 ==
LOC: MEDSURG B 09:57
PROVIDERS: ADMIT General Practice; ATTEND General Practice
DX: Z47.1 Aftercare following joint replacement surgery (principal); Z96.651 Presence of right artificial knee joint; M17.11 Unilateral primary osteoarthritis, right knee; I10 Essential (primary) hypertension; I77.89 Other specified disorders of arteries and arterioles; R79.1 Abnormal coagulation profile; R06.02 Shortness of breath; M25.512 Pain in left shoulder; R09.89 Other specified symptoms and signs involving the circulatory and respiratory systems; R11.0 Nausea; R51 Headache; J84.10 Pulmonary fibrosis, unspecified; I25.10 Atherosclerotic heart disease of native coronary artery without angina pectoris; R59.0 Localized enlarged lymph nodes; N20.0 Calculus of kidney; M48.04 Spinal stenosis, thoracic region; Z72.0 Tobacco use; Z79.899 Other long term (current) drug therapy
CPT/HCPCS: 36415; 80053; 82803; 85025; 85379; 87081; 97802; 99306; 99307; 99308; 99316

== ENCOUNTER 2016-06-30 13:00 | Outpatient (RCR) ==
--- NOTE | 2016-06-26 16:13 | RS.CSNOTE ---
PT Case Note Date of Note: 06/26/16 Title of document: Patient Status Note: Mrs. Hooks was here today for a Physical Therapy evaluation. She reports being out of pain medication. Reports significant right knee pain. She was able to perform all exercises and demonstrates knee flexion to 95 degrees actively.
--- NOTE | 2016-06-27 16:37 | RS.OPPTEV2 ---
Date of Note: 06/26/16 Visit #: 1 Date of Evaluation: 06/26/16 Payer Source: MEDICARE Surgery Performed?: Yes (right TKA 06/13/16) Treatment Diagnosis: Right knee pain, right knee stiffness, gait abnormality History of Condition/Mechanism of Injury:: Patient had Right TKA on 06/13/16 at [facility]. She transferred to [facility] for therapy in the Transitional Care program. She was discharged home on 06/23/16. Prior Level of Function.....Patient was independent with: ADL's, Self Care, Caregiving, Ambulation/Mobility, Community Integration/Access Functional Limitations: Sleep, Self Care, ADL's, Reaching, Pushing, Pulling, Lifting, Carrying, Sitting, Standing, Bending, Squatting, Ambulation, Community Access/Integration Current Subjective/complaints:: Patient reports right knee pain. States she is out of pain medication. She has been icing the knee. Reports pain in the back of the knee joint. She is planning to call Dr. Rico's office to get a refill of her pain medication. Treatment Side (optional): Right Medical History Surgical History Comments:: Left TKA May 2015 Smoking Status: Current every day smoker Hx Home Medications: Out of pain medication Patient's Goals: Her goal is to get relief of knee pain and return to her previous level of function. Pain Assessment - Pain Description Pain Location: right knee Pain Description: Throbbing, Aching, Acute Current Pain Intensity: 9/10 Worst Pain Intensity: not rated Functional Outcome Measure LE Functional Scale: 8 (8/80=90% impairment) - G Codes & Severity Modifier G Codes & Modifier: Mobility current CM. Mobility goal CJ Source of G Code score: LE functional scale Observation - Observation Inspection: Right knee presents with 8 inch incision along the right anterior knee joint. [place] are out, steri-strips in place. No drainage noted. Girth Measurement Lower: Right LE: malleoli 24 cm, inferior incision 39 cm Gait - Gait Pattern Gait Comments: Patient ambulates with a slow gait with a rollator. She demonstrates decreased right hip and knee flexion during swing phase. Decreased stance on right LE. - Left Knee ROM Left Knee Extension: full extension Left Knee Flexion: 130 (degrees AROM) - Right Knee ROM Right Knee Extension: -4 from full extension Right Knee Flexion: 95 (degrees AROM) Knee ROM Limitations: Soft Tissue Tightness, Pain - Left Knee Strength Left Knee Extension: 4+ Good + Left Knee Flexion: 4+ Good + - Right Knee Strength Right Knee Extension: 4 Good Right Knee Flexion: 4 Good Palpation Comments:: Patient reports tenderness throughout the right knee joint. Reports tenderness more in the posterior aspect of the knee. Sensation - Sensation Right Lower Extremity: Intact/Normal Left Lower Extremity: Intact/Normal Interventions - Exercise/Activities/Manual Therapy Exercises/Activities: Patient assisted with right knee flexion and extension. Reviewed exercises for home that she was given while in the hospital: AP's, Quad sets, SLR's, heel slides, hip abduction/adduction. She reports pain with all exercises. Manual Therapy: NA - Charges Total Direct Minutes: 40 mins Total Treatment Time: 40 mins Procedures billed for this date of service:: KADE Ceron Assessment Assessment: Patient presents two weeks s/p right TKA. She presents with significant right knee pain due to recent surgery and being out of pain medication. She exhibits limited right knee ROM and strength. She requires a rollator/rolling walker at this time due to pain and swelling. Reports decreased overall level of function with selfcare and ADL's due to limited ROM and pain. She demonstrates great potential to benefit from therapeutic exercises to regain functional AROM to regain prior level of independence with all activities. Patient Education: Education of diagnosis, Body/Joint mechanics, Education of Plan of Care Rehab Potential: Good Short Term Goals Goal #1: Patient independent in basic HEP. Goal to be met by: 07/11/16 Goal #2: Right LE to demo. full knee extension Goal to be met by: 07/11/16 Goal #3: Right knee flexion actively to 110 degrees. Goal to be met by: 07/11/16 Longterm Goals Goal #1: Pt knows HEP and to continue ex's to maintain functional level at D/C. Goal to be met by: 08/06/16 Goal #2: Score on LE functional scale improved to <39% impairment. Goal to be met by: 08/06/16 Goal #3: Pt to amb. without an assistive device, independently with min. gait dev. Goal to be met by: 08/06/16 Goal #4: Right knee AROM WFL's to perform all selfcare and ADL's. Goal to be met by: 08/06/16 Plan - Treatment to be Provided Procedures: Therapeutic Exercises, Therapeutic Activity, Manual Therapy, Patient Education Modalities: Electrical Stimulation, Cryotherapy - Treatment Plan Frequency: 3 X week Duration: 4 weeks ORDER # VISITS AND/OR THROUGH DATE: 08/06/16 - Treatment Code (1) Knee pain Qualifiers: Laterality: right Chronicity: acute Qualified Description: Acute pain of right knee Qualifier Code(s): (M25.561) Pain in right knee (2) Knee stiffness Qualifiers: Laterality: right Qualified Description: Knee stiffness, right Qualifier Code(s): (M25.661) Stiffness of right knee, not elsewhere classified (3) Aftercare following joint replacement surgery Qualifiers: Joint replacement surgery site: knee Laterality: right Qualified Description: Aftercare following right knee joint replacement surgery Qualifier Code(s): (Z47.1) Aftercare following joint replacement surgery, ( Z96.651) Presence of right artificial knee joint
--- NOTE | 2016-06-28 14:44 | RS.CXNS ---
Date of scheduled appointment: 06/28/16 Type: No Show
--- NOTE | 2016-06-30 15:01 | RS.OPPTDN ---
Subjective Date of Note: 06/30/16 Visit #: 2 Date of Evaluation: 06/26/16 Payer Source: MEDICARE Treatment Diagnosis: Right knee pain, right knee stiffness, gait abnormality Current Subjective/complaints:: Patient states she now has pain medication, but she forgot to take it before coming to therapy today. States she is icing the knee in the evening. She is using a straight cane for most walking. Her states he encourages her to use it, because she wants to walk around the house without anything. Pain Assessment - Pain Description Pain Location: right knee Pain Description: Throbbing, Aching, Acute Current Pain Intensity: not rated, but appears to be less than last visit Interventions - Exercise/Activities/Manual Therapy Exercises/Activities: Patient assisted with right knee flexion and extension. Performs QS, SAQ's, HS curls with red theraband and ankle DF with red theraband , 2 sets of 8 reps each. SLR with assistance, 2 sets of 8 reps. Heel slides 3 sets of 10 reps. Patient active flexion to 110 degrees. Demonstrates full knee extension. Explained proper use of cane in the opposite hand as her surgical LE. Practiced ambulating with cane in left hand and then in right hand for patient to understand and feel the difference. Patient advised to elevate and ice her right knee 3-4 times a day to help decrease her swelling. Total minutes of Exercise: X 24 mins Manual Therapy: X 11 mins directional massage to decrease swelling of right foot and ankle. - Objective Findings Observations,measurements,etc.: Patient presents wtih moderate swelling on the dorsum of the foot and lower leg. - Charges Total Direct Minutes: 35 mins Total Treatment Time: 35 mins Procedures billed for this date of service:: EX2, manual therapy Assessment: Patient presents today ambulating with straight cane on the ipsilateral side. She exhibits moderate swelling in the left foot and ankle. Patient demonstrates compliance with HEP?: Yes Short Term Goals Goal #1: Patient independent in basic HEP. Goal to be met by: 07/11/16 Progress towards Goal:: Progressing Goal #2: Right LE to demo. full knee extension Goal to be met by: 07/11/16 Progress towards Goal:: Met Goal #3: Right knee flexion actively to 110 degrees. Goal to be met by: 07/11/16 Progress towards Goal:: Met Director Instructional Material Goals Goal #1: Pt knows HEP and to continue ex's to maintain functional level at D/C. Goal to be met by: 08/06/16 Progress towards goal: Progressing Goal #2: Score on LE functional scale improved to <39% impairment. Goal to be met by: 08/06/16 Goal #3: Pt to amb. without an assistive device, independently with min. gait dev. Goal to be met by: 08/06/16 Progress towards goal: Progressing Goal #4: Right knee AROM WFL's to perform all selfcare and ADL's. Goal to be met by: 08/06/16 Plan PLAN OF CARE EXPIRES ON:: 08/06/16 ORDER # VISITS AND/OR THROUGH DATE: 08/06/16 PLAN: Progress Exercises
--- NOTE | 2016-07-04 16:23 | RS.CXNS ---
Date of scheduled appointment: 07/04/16 Type: No Show
--- NOTE | 2016-07-05 14:45 | RS.CXNS ---
Date of scheduled appointment: 07/05/16 Type: No Show Reason for Cancel/NS: Unknown
== END 2016-07-05 ==
PROVIDERS: ATTEND General Practice
DX: Z96.651 Presence of right artificial knee joint (principal)

== ENCOUNTER 2016-12-24 09:12 | Inpatient (IN) ==
[2016-12-24] MEDS ORDERED: DUONEB NEB STA ×2 (09:21→10:05)
[2016-12-24] MEDS ORDERED: SOLU-MEDROL 125 MG IVP STA ×2 (09:22→10:05)
[2016-12-24] MEDS ORDERED: LASIX IVP STA (09:23)
[2016-12-24 09:27] LABS: ABG BASE EXCESS -8 (-2.0-2.0); ABG HCO3 17.6 (22.0-26.0); ABG PCO2 33.4 mmHg (35-45); ABG PH 7.333 (7.35-7.45); ABG TCO2 19 (22.0-28.0)
[2016-12-24 09:31] LABS: BASOPHILS # (AUTO) 0.1 K/uL (0-0.2); BASOPHILS % (AUTO) 0.6 % (0.0-3.0); EOSINOPHILS # (AUTO) 1.1 K/ul (0.0-0.7); EOSINOPHILS % (AUTO) 10.3 % (0.0-7.0); HEMOGLOBIN 12.3 g/dl (12.0-16.0); IMMATURE GRANULOCYTE % (AUTO) 0.3 % (0.0-5.0); LYMPHOCYTES # (AUTO) 5.1 K/uL (0.60-3.4); LYMPHOCYTES % (AUTO) 46.8 (10.0-50.0); MEAN CORPUSCULAR HEMOGLOBIN 29.1 pg (27.0-31.0); MEAN CORPUSCULAR HGB CONC 32.4 (31.8-35.4); MEAN CORPUSCULAR VOLUME 89.8 fl (81.0-99.0); MONOCYTES # (AUTO) 0.9 K/uL (0.4-2.0); MONOCYTES % (AUTO) 8.6 (0-10); NEUTROPHILS # (AUTO) 3.6 K/ul (2.0-6.9); NEUTROPHILS % (AUTO) 33.4; PLATELET COUNT 344 10^3/uL (140-440); RED BLOOD COUNT 4.23 10^6/ul (4.20-5.40); WHITE BLOOD COUNT 10.83 K/ul (4.6-10.2)
--- NOTE | 2016-12-24 09:40 | ED.PDOC ---
General ED Provider: Dr. AUDIE MICHAELS Chief Complaint: Shortness of Air Stated Complaint: Patient is a 76 year old who has a history of COPD has smoked for 50 years x 1/2 pd. Was admitted two weeks ago for 4 days for pneumoina. Has been getting progressively short of breath since discharge and worse this morning. Time Seen by Physician: 09:15 Mode of Arrival: Wheelchair Information Source: Patient, Family Primary Care Provider: NICOLÁS BERTRAND Nursing and Triage Documentation Reviewed and Agree: Yes Review of Systems - Review Of Systems Constitutional: Reports: Weakness Eyes: Reports: No symptoms Ears, Nose, Mouth, Throat: Reports: No symptoms Respiratory: Reports: Short of air, Wheezing Cardiac: Reports: Chest pain GI: Reports: No symptoms : Reports: No symptoms Musculoskeletal: Reports: No symptoms Skin: Reports: No symptoms Neurological: Reports: Anxiety Endocrine: Reports: No symptoms Hematologic/Lymphatic: Reports: No symptoms All Other Systems: Reviewed and Negative Past Medical History - Past Medical History Previously Healthy: Yes Endocrine: Reports: None Cardiovascular: Reports: Hypertension, CHF Respiratory: Reports: COPD, Pneumonia Hematological: Reports: None Gastrointestinal: Reports: None Genitourinary: Reports: None Neuro/Psych: Reports: Migraine Musculoskeletal: Reports: Arthritis, Joint Pain, Other (Sciatica ) Cancer: Reports: None Last Menstrual Period: menopause - Surgical History General Surgical History: Reports: Hysterectomy, Appendectomy, Orthopedic (Knee replacement on the left 7 weeks ago. ) - Family History Family History: Reports: Unknown - Social History Smoking Status: Current every day smoker (50 pk year history of smoking. ), Light tobacco smoker Hx Substance Use: No Alcohol Screening: None Lives: With family - Immunizations Influenza Vaccine within 12 Months: Yes Physical Exam - Physical Exam Appearance: Ill-appearing, Obese Ill-appearing: Severe Pain Distress: Mild Neck: Supple Respiratory: Breath sounds diminished, Rhonchi, Wheezes Cardiovascular: Tachycardia GI/: Soft Musculoskeletal: Normal strength, ROM intact, No edema, No calf tenderness Skin: Warm, Dry, Normal color Neurological: Sensation intact, Motor intact, Alert, Oriented Psychiatric: Anxious Interpretation - Radiology Interpretation Radiology Interpretation By: ED Physician Radiology Results: Positive (CHF vs bilateral lower lobe infiltrates) Exam Interpreted: Portable CXR - EKG Interpretation Rate: Normal Rhythm: Sinus Ectopy: PVCs [place]: Left ST Segment: Other (lateral ischemia possible due to st- t change abnomality) Re-Evaluation - Re-Evaluation Time of Re-Evaluation: 10:10 Status: Improved Lungs: Other (RHochi with scattared wheezing.) - Re-Evaluation Time of Re-Evaluation: 12:02 Status: Improved Vital Signs Stable: Yes Appearance: NAD Skin: Warm and Dry Neuro: Alert and Oriented X3 CV: RRR Critical Care Note - Critical Care Note Total Time (mins): 40 Course - Course Hematology/Chemistry: 12/24/16 09:25 12/24/16 09:25 Orders, Labs, Meds: Lab Review 12/24/16 12/24/16 12/24/16 09:21 09:25 09:25 WBC 10.83 H RBC 4.23 Hgb 12.3 Hct 38.0 MCV 89.8 MCH 29.1 MCHC 32.4 RDW Coeff of Jade 14.1 Plt Count 344 Immature Gran % (Auto) 0.3 Neut % (Auto) 33.4 Lymph % (Auto) 46.8 Simpson % (Auto) 8.6 Eos % (Auto) 10.3 H Baso % (Auto) 0.6 Immature Gran # (Auto) 0.0 Neut # 3.6 Lymph # 5.1 H Simpson # 0.9 Eos # 1.1 H Baso # 0.1 Puncture Site Rr O2 Saturation 91.0 L ABG pH 7.333 L ABG pCO2 33.4 L ABG pO2 64.0 L ABG HCO3 17.6 L ABG Total CO2 19 L ABG Base Excess -8 L Ja Test + FiO2 % 21.0 Sodium 140 Potassium 3.6 Chloride 108 H Carbon Dioxide 18 L Anion Gap 17.6 BUN 9 Creatinine 0.87 Estimated GFR (MDRD) 77.00 BUN/Creatinine Ratio 10.34 Glucose 165 H Lactic Acid Calcium 9.5 Total Bilirubin 0.29 AST 32 ALT 15 Alkaline Phosphatase 93 Total Creatine Kinase 90 Troponin I 0.0230 B-Natriuretic Peptide Total Protein 8.1 Albumin 2.8 L Globulin 5.3 Albumin/Globulin Ratio 0.53 Procalcitonin 12/24/16 12/24/16 12/24/16 09:25 09:25 09:25 WBC RBC Hgb Hct MCV MCH MCHC RDW Coeff of Jade Plt Count Immature Gran % (Auto) Neut % (Auto) Lymph % (Auto) Simpson % (Auto) Eos % (Auto) Baso % (Auto) Immature Gran # (Auto) Neut # Lymph # Simpson # Eos # Baso # Puncture Site O2 Saturation ABG pH ABG pCO2 ABG pO2 ABG HCO3 ABG Total CO2 ABG Base Excess Ja Test FiO2 % Sodium Potassium Chloride Carbon Dioxide Anion Gap BUN Creatinine Estimated GFR (MDRD) BUN/Creatinine Ratio Glucose Lactic Acid 17.7 Calcium Total Bilirubin AST ALT Alkaline Phosphatase Total Creatine Kinase Troponin I B-Natriuretic Peptide 395 H Total Protein Albumin Globulin Albumin/Globulin Ratio Procalcitonin < 0.05 Orders Category Date Time Status ABG DRAW REQUEST Stat CARDIO 12/24/16 09:22 Completed EKG-(ED ONLY) Stat CARDIO 12/24/16 09:21 Completed NEBULIZER TREATMENT Stat CARDIO 12/24/16 09:22 Completed NEBULIZER TREATMENT Stat CARDIO 12/24/16 10:06 Completed ED APPLY O2 .ONCE EMERGENCY 12/24/16 09:21 Active ED DEVELOPMENT DIRECTOR APPLIED .ONCE EMERGENCY 12/24/16 09:21 Active ED IV/MEDIPORT/POWERPORT .ONCE EMERGENCY 12/24/16 09:21 Active ABG Stat LAB 12/24/16 09:21 Completed B-TYPE NATRIURETIC PEPTIDE Stat LAB 12/24/16 09:25 Completed BLOOD CULTURE Stat LAB 12/24/16 09:40 Received CBC W/ AUTO DIFF Stat LAB 12/24/16 09:25 Completed COMPREHENSIVE METABOLIC PANEL Stat LAB 12/24/16 09:25 Completed CREATINE KINASE Stat LAB 12/24/16 09:25 Completed LACTIC ACID Stat LAB 12/24/16 09:25 Completed PROCALCITONIN Stat LAB 12/24/16 09:25 Completed TROPONIN I Stat LAB 12/24/16 09:25 Completed 0.9 % Sodium Chloride [Saline Flush] MEDS 12/24/16 09:21 Active 1 syr IVF PRN PRN Furosemide [Lasix] MEDS 12/24/16 09:23 Discontinued 20 mg IVP ONCE STA Ipratropium/Albuterol Neb [Duoneb] MEDS 12/24/16 09:21 Discontinued 1 vial NEB ONCE STA Ipratropium/Albuterol Neb [Duoneb] MEDS 12/24/16 10:05 Discontinued 1 vial NEB ONCE STA Methylprednisolone Sod Succ/Pf [Solu-Medrol 125 mg] MEDS 12/24/16 09:22 Discontinued 125 mg IVP ONCE STA Morphine Sulfate [Morphine 2 mg/ml Syringe] MEDS 12/24/16 10:05 Discontinued 4 mg IVP ONCE STA Ondansetron HCl/Pf [Zofran 4 mg/2 ml] MEDS 12/24/16 10:09 Discontinued 4 mg IVP ONCE STA Piperacillin Sodium/Tazobactam [Zosyn 3.375 gm] 3.375 MEDS 12/24/16 10:22 Discontinued gm 0.9 % Sodium Chloride [Sodium Chloride] 100 ml IV ONCE Vancomycin HCl [Vancomycin] 1 gm MEDS 12/24/16 10:36 Discontinued 0.9 % Sodium Chloride [Sodium Chloride] 250 ml IV ONCE CHEST, 1V AP ONLY Stat RADS 12/24/16 09:21 Completed Medications Generic Name Dose Route Start Last Admin Trade Name Freq PRN Reason Stop Dose Admin Albuterol/Ipratropium 1 vial 12/24/16 14:00 12/24/16 14:00 Duoneb NEB 1 vial RTQID RANJEET Administration Albuterol/Ipratropium 1 vial 12/24/16 12:09 Duoneb NEB RTQ2H PRN Wheezing Alprazolam 0.25 mg 12/24/16 15:00 12/24/16 16:00 Xanax PO 0.25 mg TID RANJEET Administration Aspirin 81 mg 12/25/16 09:00 Aspirin Ec PO DAILY [facility] Clonidine 0.2 mg 12/24/16 21:00 Catapres PO BID RANJEET Enoxaparin Sodium 40 mg 12/25/16 09:00 Lovenox SUBCUT DAILY RANJEET Enoxaparin Sodium 40 mg 12/24/16 18:15 Lovenox SUBCUT 12/24/16 18:16 ONCE STA Furosemide 40 mg 12/24/16 17:00 12/24/16 17:37 Lasix IVP Not Given BIDAC RANJEET Piperacillin Sod/Tazobactam 100 mls @ 100 mls/hr 12/24/16 18:00 Sod 3.375 gm/ Sodium Chloride IV Q6HR RANJEET Vancomycin HCl 1 gm/ Sodium 250 mls @ 125 mls/hr 12/24/16 21:00 Chloride IV Q12HR RANJEET Methylprednisolone Sodium Succinate 125 mg 12/24/16 13:00 12/24/16 15:22 Solu-Medrol 125 Mg IVP 125 mg Q8HR RANJEET Administration Morphine Sulfate 2 mg 12/24/16 12:09 12/24/16 15:27 Morphine 2 Mg/Ml Syringe IVP 2 mg Q4H PRN Administration Severe Pain Nitroglycerin 0.4 mg 12/24/16 12:19 Nitrostat SL Q5MIN X 3 DOSES PRN chest pain Non-Formulary Medication 150 mg 12/25/16 09:00 Bupropion Hcl [Wellbutrin Xl] PO DAILY RANJEET Non-Formulary Medication 25 mg 12/24/16 21:00 Carvedilol [Coreg] PO BID RANJEET Non-Formulary Medication 90 mg 12/24/16 21:00 Diltiazem Hcl [Diltiazem Hcl] PO BID RANJEET Non-Formulary Medication 5 mg 12/24/16 21:00 Minoxidil [Minoxidil] PO BID [facility] Olmesartan 40 mg 12/25/16 09:00 Benicar PO DAILY [facility] Ondansetron HCl 4 mg 12/24/16 12:09 Zofran 4 Mg/2 Ml IVP Q6H PRN Nausea / Vomiting Sodium Chloride 1 syr 12/24/16 09:21 12/24/16 09:41 Saline Flush IVF 1 syr PRN PRN Administration To flush IV Spironolactone 25 mg 12/25/16 09:00 Aldactone PO DAILY [facility] Discontinued Medications Generic Name Dose Route Start Last Admin Trade Name Freq PRN Reason Stop Dose Admin Albuterol/Ipratropium 1 vial 12/24/16 09:21 12/24/16 09:33 Duoneb NEB 12/24/16 09:22 1 vial ONCE STA Administration Albuterol/Ipratropium 1 vial 12/24/16 10:05 12/24/16 10:13 Duoneb NEB 12/24/16 10:06 1 vial ONCE STA Administration Alprazolam 0.25 mg 12/24/16 12:21 12/24/16 12:27 Xanax PO 12/24/16 12:22 0.25 mg ONCE STA Administration Furosemide 20 mg 12/24/16 09:23 12/24/16 09:47 Lasix IVP 12/24/16 09:24 20 mg ONCE STA Administration Piperacillin Sod/Tazobactam 100 mls @ 100 mls/hr 12/24/16 10:22 12/24/16 10: 57 Sod 3.375 gm/ Sodium Chloride IV 12/24/16 11:21 100 mls/hr ONCE STA Administration Vancomycin HCl 1 gm/ Sodium 250 mls @ 125 mls/hr 12/24/16 10:36 12/24/16 13: 29 Chloride IV 12/24/16 12:35 125 mls/hr ONCE STA Administration Methylprednisolone Sodium Succinate 125 mg 12/24/16 09:22 12/24/16 09:47 Solu-Medrol 125 Mg IVP 12/24/16 09:23 125 mg ONCE STA Administration Morphine Sulfate 4 mg 12/24/16 10:05 12/24/16 10:21 Morphine 2 Mg/Ml Syringe IVP 12/24/16 10:06 4 mg ONCE STA Administration Ondansetron HCl 4 mg 12/24/16 10:09 12/24/16 10:21 Zofran 4 Mg/2 Ml IVP 12/24/16 10:10 4 mg ONCE STA Administration Vital Signs: Temp Pulse Resp BP Pulse Ox 12/24/16 09:17 96.8 F L 101 H 32 H 169/79 H 95 Departure - Departure Time of Disposition: 12:02 Disposition: TSF SHORT-TRM HOSP Discharge Problem: COPD exacerbation, Pulmonary edema cardiac cause CHF (congestive heart failure) Qualifiers: Congestive heart failure type: systolic Congestive heart failure chronicity: acute Qualified Code(s): I50.21 - Acute systolic (congestive) heart failure Respiratory failure Qualifiers: Chronicity: acute on chronic Respiratory failure complication: hypoxia Qualified Code(s): J96.21 - Acute and chronic respiratory failure with hypoxia Condition: Fair Pt referred to PMD for follow-up: No Allergies/Adverse Reactions: Allergies No Known Allergies Allergy (Verified 12/24/16 09:24) Home Medications: Ambulatory Orders Nitroglycerin [Nitrostat] 0.4 mg SL Q5MIN X 3 DOSES PRN 02/10/16 Aspirin [Aspir 81] 81 mg PO DAILY 06/26/16 Albuterol Sulfate [Proair Hfa] 2 puff IH Q6H 12/01/16 Carvedilol [Coreg] 25 mg PO BID 12/01/16 Diltiazem HCl 90 mg PO BID 12/01/16 Furosemide [Lasix Tab] 40 mg PO QDAC 12/01/16 Spironolactone [Aldactone] 25 mg PO DAILY 12/01/16 Clonidine HCl [Catapres] 0.2 mg PO BID #60 tablet 12/07/16 Minoxidil 5 mg PO BID #60 tablet 12/07/16 Olmesartan Medoxomil [Benicar] 40 mg PO DAILY #30 tablet 12/07/16
--- NOTE | 2016-12-24 09:50 | DI ---
EXAM: Chest one view. CLINICAL INDICATION: Shortness of breath. COMPARISON: 12/04/2016. FINDINGS: A single AP radiograph of the thorax is provided. There is interval development of pulmonary edema. There is some bibasilar atelectatic changes which appear superimposed on chronic underlying pulmonary parenchymal changes. The remainder of the pulmon sai parenchyma is clear and there is no pleural abnormality. The cardiomediastinal silhouette and vi sualized bony structures are unchanged, with mild left glenohumeral secondary degenerative osteoarthr itic changes. IMPRESSION: Pulmonary edema superimposed on chronic underlying pulmonary parenchymal changes.
[2016-12-24 09:58] LABS: ALBUMIN 2.8 g/dL (3.4-5.0); ALBUMIN/GLOBULIN RATIO 0.53; ANION GAP 17.6; BILIRUBIN,TOTAL 0.29 mg/dL (0.00-1.20); BUN/CREATININE RATIO 10.34; CALCIUM 9.5 mg/dL (8.2-10.2); CREATININE 0.87 mg/dL (0.60-1.30); POTASSIUM 3.6 mmol/L (3.5-5.10); TOTAL PROTEIN 8.1 g/dL (5.8-8.1); TROPONIN I 0.023 ng/ml (0.0000-0.4000)
[2016-12-24] MEDS ORDERED: MORPHINE 2 MG/ML SYRINGE IVP STA (10:05)
[2016-12-24] MEDS ORDERED: ZOFRAN 4 MG/2 ML IVP STA (10:09)
[2016-12-24] MEDS ORDERED: VANCOMYCIN 1 GM in SODIUM CHLORIDE 250 ML IV STA ×2 (10:22→10:36)
[2016-12-24] MEDS ORDERED: ZOSYN 3.375 GM 3.375 GM in SODIUM CHLORIDE 100 ML IV STA (10:22)
[2016-12-24] MEDS ORDERED: ZOFRAN 4 MG/2 ML IVP PRN (12:09)
[2016-12-24] MEDS ORDERED: DUONEB NEB PRN (12:09)
[2016-12-24] MEDS ORDERED: NITROSTAT SL PRN (12:19)
[2016-12-24] MEDS ORDERED: XANAX PO STA (12:21)
[2016-12-24 13:12] VITALS: BMI 31.8
[2016-12-24] MEDS: DUONEB NEB SCH ×2 (14:00→20:05)
[2016-12-24] MEDS: SOLU-MEDROL 125 MG IVP SCH ×2 (15:22→21:22)
[2016-12-24] MEDS: MORPHINE 2 MG/ML SYRINGE IVP PRN ×2 (15:27→22:25)
[2016-12-24] MEDS: XANAX PO SCH ×2 (16:00→21:23)
[2016-12-24] MEDS ORDERED: LASIX ONE (17:25)
[2016-12-24] MEDS: LASIX IVP SCH (17:37)
[2016-12-24] MEDS: ZOSYN 3.375 GM 3.375 GM in SODIUM CHLORIDE 100 ML IV SCH (18:00)
[2016-12-24] MEDS ORDERED: LOVENOX SUBCUT STA (18:15)
[2016-12-24 18:25] LABS: TROPONIN I 0.044 ng/ml (0.0000-0.4000)
[2016-12-24] MEDS: LOVENOX SUBCUT SCH (18:42)
[2016-12-24] MEDS ORDERED: MINOXIDIL 5 MG PO SCH (21:00)
[2016-12-24] MEDS ORDERED: VANCOMYCIN 1 GM in SODIUM CHLORIDE 250 ML IV SCH (21:00)
[2016-12-24] MEDS ORDERED: NON-FORMULARY MEDICATION (Carvedilol [Coreg] 25 MG) PO SCH ×22 (21:00)
[2016-12-24] MEDS ORDERED: NON-FORMULARY MEDICATION (Diltiazem Hcl [Diltiazem Hcl] 90 MG) PO SCH (21:00)
[2016-12-24] MEDS ORDERED: COREG ONE (21:17)
[2016-12-24] MEDS ORDERED: MINOXIDIL ONE (21:18)
[2016-12-24] MEDS ORDERED: CARDIZEM ONE (21:18)
[2016-12-24] MEDS: CATAPRES PO SCH (21:23)
[2016-12-25] MEDS: ZOSYN 3.375 GM 3.375 GM in SODIUM CHLORIDE 100 ML IV SCH ×5 (00:15→23:47)
[2016-12-25 02:10] LABS: BASOPHILS % (AUTO) 0.4 % (0.0-3.0); EOSINOPHILS % (AUTO) 0.1 % (0.0-7.0); IMMATURE GRANULOCYTE % (AUTO) 0.6 % (0.0-5.0); LYMPHOCYTES # (AUTO) 1.7 K/uL (0.60-3.4); LYMPHOCYTES % (AUTO) 25.6 (10.0-50.0); MEAN CORPUSCULAR HEMOGLOBIN 28.9 pg (27.0-31.0); MEAN CORPUSCULAR HGB CONC 32.4 (31.8-35.4); MEAN CORPUSCULAR VOLUME 89.5 fl (81.0-99.0); MONOCYTES # (AUTO) 0.1 K/uL (0.4-2.0); MONOCYTES % (AUTO) 1.9 (0-10); NEUTROPHILS # (AUTO) 4.8 K/ul (2.0-6.9); NEUTROPHILS % (AUTO) 71.4; PLATELET COUNT 350 10^3/uL (140-440); WHITE BLOOD COUNT 6.76 K/ul (4.6-10.2)
[2016-12-25 02:27] LABS: ANION GAP 19.7; BUN/CREATININE RATIO 10.86; CALCIUM 8.9 mg/dL (8.2-10.2); CREATININE 1.38 mg/dL (0.60-1.30); POTASSIUM 4.7 mmol/L (3.5-5.10)
[2016-12-25 02:34] LABS: TROPONIN I 0.03 ng/ml (0.0000-0.4000)
[2016-12-25] MEDS ORDERED: LASIX ONE (03:49)
[2016-12-25 04:13] LABS: ABG PCO2 33.2 mmHg (35-45); ABG PH 7.373 (7.35-7.45)
[2016-12-25 04:14] LABS: ABG BASE EXCESS -6 (-2.0-2.0); ABG HCO3 19.3 (22.0-26.0); ABG TCO2 20 (22.0-28.0)
[2016-12-25] MEDS: DUONEB NEB SCH ×4 (05:03→20:55)
[2016-12-25] MEDS: LASIX IVP SCH ×2 (06:32→19:11)
[2016-12-25] MEDS: SOLU-MEDROL 125 MG IVP SCH ×3 (06:33→20:13)
[2016-12-25] MEDS: VANCOMYCIN 500 MG in SODIUM CHLORIDE 100 ML IV SCH ×2 (08:53→20:13)
[2016-12-25] MEDS: LOVENOX SUBCUT SCH (08:58)
[2016-12-25] MEDS: ASPIRIN EC PO SCH (08:58)
[2016-12-25] MEDS: ALDACTONE PO SCH (08:59)
[2016-12-25] MEDS: CATAPRES PO SCH ×2 (08:59→20:14)
[2016-12-25] MEDS: CARDIZEM PO SCH ×4 (08:59→20:14)
[2016-12-25] MEDS: COREG PO SCH ×2 (08:59→17:12)
[2016-12-25] MEDS: XANAX PO SCH ×3 (09:00→20:13)
[2016-12-25] MEDS: MINOXIDIL PO SCH ×2 (09:00→20:14)
[2016-12-25] MEDS: BENICAR PO SCH (09:01)
[2016-12-25] MEDS: MORPHINE 2 MG/ML SYRINGE IVP PRN ×2 (09:13→20:13)
[2016-12-25] MEDS: NON-FORMULARY MEDICATION (Bupropion Hcl [Wellbutrin Xl] 150 MG) PO SCH (10:23)
--- NOTE | 2016-12-25 12:43 | PCM.PROG ---
Attending Provider: ATTENDING PROVIDER: Dr. NICOLÁS BERTRAND This patient is seen with Jasmine Vaughan, Nurse Practitioner. DATE OF SERVICE: 12/25/16 SUBJECTIVE: This 76 year old BLACK/ F was hospitalized 12/24/16. The patient is lying in bed, alert. She states shortness of breath is somewhat better. REVIEW OF SYSTEMS: CONSTITUTIONAL: No night sweats. No fatigue, malaise, lethargy. No fever or chills. HEENT: Eyes: No visual changes. No eye pain. No eye discharge. ENT: No runny nose. No epistaxis. No sinus pain. No odynophagia. No congestion. RESPIRATORY: Cough and congestion. No hemoptysis. Shortness of breath. CARDIOVASCULAR: No angina symptoms. No CHF symptoms. No atypical chest pain for CAD. No palpitations. No orthopnea.. GASTROINTESTINAL: No abdominal pain. No nausea or vomiting. No diarrhea or constipation. No hematemesis. No hematochezia. GENITOURINARY: No urgency. No frequency. No dysuria. No hematuria. No obstructive symptoms. No discharge. No pain. No significant abnormal bleeding. MUSCULOSKELETAL: No musculoskeletal pain; no joint swelling. NEUROLOGICAL: Awake, alert, oriented to time, place and person. No headache. No neck pain. No syncope. No seizures. No dizziness. PSYCHIATRIC: Not anxious. No depression. No suicidal thoughts. No homicidal thoughts. SKIN: No rash. No lesions. No wounds. ENDOCRINE: No unexplained weight loss. No weight gain. HEMATOLOGIC/LYMPHATIC: No anemia. No purpura. No petechiae. No prolonged or excessive bleeding. No palpable lymph nodes. PHYSICAL EXAMINATION: GENERAL: The patient is awake, alert and oriented, lying in bed in no distress. VITAL SIGNS: Temperature 97.7 F, Pulse 70, Respiratory Rate 17, BP 112/66, Pulse Ox 96% HEENT: Head normocephalic, atraumatic. Eyes: Extraocular muscles are intact. Pupils are equal, round and reactive to light and accommodation. Ears: No lesions. Nose appeared normal. Throat: No exudate or erythema. NECK: Supple. No JVD, no carotid bruit. No lymphadenopathy or thyromegaly. LUNGS: Severely diminished breath sounds bilaterally. Crackles left anterior. Percussion note normal. Chest symmetrical. HEART: Regular heart sounds. S1, S2, no S3. No murmurs. No cyanosis or clubbing. No ascites. Pulses: Dorsalis pedis and posterior tibial pulses +1 to +2 both sides. ABDOMEN: Soft. Non-tender. Bowel sounds active. No CVA tenderness. No mass felt. EXTREMITIES: No edema. Full range of motion of all extremities, equal. NEUROLOGIC: No focal deficit. Cranial nerves II through XII are grossly intact. No headache, no double vision or headache. SKIN: Not dry. Intact. Turgor-normal. LYMPHATIC: No palpable lymph nodes/no lymphedema. MUSCULOSKELETAL: Normal joints with no swelling. Muscle tone is normal. LAB REVIEW: 12/25/16 02:05 12/25/16 02:05 12/25/16 04:10: Puncture Site Rb, O2 Saturation 95.0, ABG pH 7.373, ABG pCO2 33.2 L, ABG pO2 75.0 L, ABG HCO3 19.3 L, ABG Total CO2 20 L, ABG Base Excess -6 L, Ja Test +, FiO2 % 21.0 12/25/16 02:05: Sodium 141, Potassium 4.7, Chloride 108 H, Carbon Dioxide 18 L, Anion Gap 19.7, BUN 15, Creatinine 1.38 H D, Estimated GFR (MDRD) 45.00, BUN/ Creatinine Ratio 10.86, Glucose 97 D, Calcium 8.9 12/25/16 02:05: WBC 6.76, RBC 3.80 L, Hgb 11.0 L, Hct 34.0 L, MCV 89.5, MCH 28.9 , MCHC 32.4, RDW Coeff of Jade 14.1, Plt Count 350, Immature Gran % (Auto) 0.6, Neut % (Auto) 71.4, Lymph % (Auto) 25.6, Iron % (Auto) 1.9, Eos % (Auto) 0.1, Baso % (Auto) 0.4, Immature Gran # (Auto) 0.0, Neut # 4.8, Lymph # 1.7, Iron # 0.1 L, Eos # 0.0, Baso # 0.0 12/25/16 02:05: Total Creatine Kinase 84, Troponin I 0.0300 12/24/16 17:55: Total Creatine Kinase 84, Troponin I 0.0440 ASSESSMENT: 1. ACUTE RESPIRATORY FAILURE IMPROVING 2. PULMONARY EDEMA 3. HISTORY OF PULMONARY FIBROSIS 4. SMOKER PLAN: 1. Continue IV Lasix 2. Continue IV steroids and nebs Plan and coordination of the patient's care discussed in the presence of Executive Chef and nurse. CONDITION: Stable SCRIBED BY: GUNNAR MCKEON Repairer General scribed while in presence of service performed by Dr. Bertrand/Jasmine Vaughan APRN on 12/25/16 ([id number])
--- NOTE | 2016-12-25 14:45 | PN ---
DATE OF SERVICE: 12/24/16 SUBJECTIVE: This patient was seen in the emergency room as she came to the emergency room with respiratory distress. The patient had metabolic acidosis on arterial blood gases with respiratory failure. The patient has PND and orthopnea with shortness of breath with cough and congestion. Chest x-ray showed interstitial pulmonary edema. The patient was doing fine until two hours prior to hospitalization. The patient was given in the emergency room 40 of Lasix, steroids and nebs treatment. Her condition improved. At the time I examined her the patient's condition was stable. PHYSICAL EXAMINATION: HEENT: Head normocephalic, atraumatic. Eyes: Extraocular muscles are intact. Pupils are equal, round and reactive to light and accommodation. Ears: No lesions. Nose appeared normal. Throat: No exudate or erythema. NECK: Supple. No JVD, no carotid bruit. No lymphadenopathy or thyromegaly. LUNGS: Decreased breath sounds with mild wheeze. Percussion note normal. Chest symmetrical. HEART: S1, S2, no S3. No murmurs. No cyanosis or clubbing. No ascites. Pulses: Dorsalis pedis and posterior tibial pulses +1 to +2 both sides. ABDOMEN: Soft. Nontender. Bowel sounds active. No CVA tenderness. No mass felt. EXTREMITIES: No edema. Full range of motion of all extremities, equal. NEUROLOGIC: No focal deficit. Cranial nerves II through XII are grossly intact. No headache, no double vision or headache. SKIN: Not dry. Intact. Turgor - normal. LYMPHATIC: No palpable lymph nodes/no lymphedema. MUSCULOSKELETAL: Normal joints with no swelling. Muscle tone is normal. ASSESSMENT: 1. Acute pulmonary edema, interstitial 2. Acute respiratory failure 3. Metabolic acidosis secondary to pulmonary edema 4. Acute bronchitis 5. Chronic lung disease 6. Smoking 7. Ischemic cardiomyopathy 8. Severe hypertension PLAN: 1. The patient is noncompliant of medications, doesn't know her medications. She mixes them up. 2. The patient has her own way of dealing with the medical conditions.She has more or less self-directed medical care. 3. Continue IV Lasix. 4. Continue nebs treatment. 5. Restart all her medications. 6. Start antibiotics and nebs treatment. 7. Counseling for smoking done. CONDITION: Stable. PROGNOSIS: Poor. TIME SPENT: More than 30 minutes. Plan and coordination of the patient's care discussed in the presence of nurse. MANAN
[2016-12-26] MEDS: MORPHINE 2 MG/ML SYRINGE IVP PRN ×2 (00:20→04:57)
[2016-12-26 04:58] LABS: BASOPHILS % (AUTO) 0.2 % (0.0-3.0); HEMATOCRIT 34.4 % (37.0-47.0); IMMATURE GRANULOCYTE % (AUTO) 0.6 % (0.0-5.0); LYMPHOCYTES # (AUTO) 1.7 K/uL (0.60-3.4); MEAN CORPUSCULAR HEMOGLOBIN 29.3 pg (27.0-31.0); MEAN CORPUSCULAR VOLUME 91.7 fl (81.0-99.0); MONOCYTES # (AUTO) 0.3 K/uL (0.4-2.0); MONOCYTES % (AUTO) 2.9 (0-10); NEUTROPHILS # (AUTO) 9.7 K/ul (2.0-6.9); NEUTROPHILS % (AUTO) 82.3; PLATELET COUNT 396 10^3/uL (140-440); RED BLOOD COUNT 3.75 10^6/ul (4.20-5.40); WHITE BLOOD COUNT 11.83 K/ul (4.6-10.2)
[2016-12-26] MEDS: SOLU-MEDROL 125 MG IVP SCH ×3 (04:58→20:23)
[2016-12-26] MEDS: DUONEB NEB SCH ×4 (05:02→19:53)
[2016-12-26 05:26] LABS: ANION GAP 17.2; BUN/CREATININE RATIO 14.16; CALCIUM 8.5 mg/dL (8.2-10.2); CREATININE 2.4 mg/dL (0.60-1.30); POTASSIUM 4.2 mmol/L (3.5-5.10)
[2016-12-26] MEDS: ZOSYN 3.375 GM 3.375 GM in SODIUM CHLORIDE 100 ML IV SCH (05:49)
[2016-12-26] MEDS: LASIX IVP SCH (05:49)
[2016-12-26] MEDS: BENICAR PO SCH (08:48)
[2016-12-26] MEDS: ASPIRIN EC PO SCH (08:48)
[2016-12-26] MEDS: MINOXIDIL PO SCH ×2 (08:48→20:22)
[2016-12-26] MEDS: VANCOMYCIN 500 MG in SODIUM CHLORIDE 100 ML IV SCH ×2 (08:48→20:23)
[2016-12-26] MEDS: LOVENOX SUBCUT SCH (08:48)
[2016-12-26] MEDS: CARDIZEM PO SCH ×4 (08:49→20:22)
[2016-12-26] MEDS: XANAX PO SCH ×3 (08:49→20:23)
[2016-12-26] MEDS: COREG PO SCH ×2 (08:49→17:00)
[2016-12-26] MEDS: CATAPRES PO SCH ×2 (08:49→20:22)
[2016-12-26] MEDS: ALDACTONE PO SCH (08:49)
[2016-12-26] MEDS: NON-FORMULARY MEDICATION (Bupropion Hcl [Wellbutrin Xl] 150 MG) PO SCH (08:50)
--- NOTE | 2016-12-26 11:22 | PCM.PROG ---
Attending Provider: ATTENDING PROVIDER: Dr. NICOLÁS BERTRAND This patient is seen with Jasmine Vaughan, Nurse Practitioner. DATE OF SERVICE: 12/26/16 SUBJECTIVE: This 76 year old BLACK/ F was hospitalized 12/24/16. The patient is lying in bed. She states she is breathing better and is improved today. REVIEW OF SYSTEMS: CONSTITUTIONAL: No night sweats. No fatigue, malaise, lethargy. No fever or chills. HEENT: Eyes: No visual changes. No eye pain. No eye discharge. ENT: No runny nose. No epistaxis. No sinus pain. No odynophagia. No congestion. RESPIRATORY: No cough, no congestion. No hemoptysis. Shortness of breath improved. CARDIOVASCULAR: No angina symptoms. No CHF symptoms. No atypical chest pain for CAD. No palpitations. No orthopnea.. GASTROINTESTINAL: No abdominal pain. No nausea or vomiting. No diarrhea or constipation. No hematemesis. No hematochezia. GENITOURINARY: No urgency. No frequency. No dysuria. No hematuria. No obstructive symptoms. No discharge. No pain. No significant abnormal bleeding. MUSCULOSKELETAL: No musculoskeletal pain; no joint swelling. NEUROLOGICAL: Awake, alert, oriented to time, place and person. No headache. No neck pain. No syncope. No seizures. No dizziness. PSYCHIATRIC: Not anxious. No depression. No suicidal thoughts. No homicidal thoughts. SKIN: No rash. No lesions. No wounds. ENDOCRINE: No unexplained weight loss. No weight gain. HEMATOLOGIC/LYMPHATIC: No anemia. No purpura. No petechiae. No prolonged or excessive bleeding. No palpable lymph nodes. PHYSICAL EXAMINATION: GENERAL: The patient is awake, alert and oriented, lying in bed in no distress. VITAL SIGNS: Temperature 97.6 F, Pulse 59, Respiratory Rate 20, BP 110/70, Pulse Ox 98% HEENT: Head normocephalic, atraumatic. Eyes: Extraocular muscles are intact. Pupils are equal, round and reactive to light and accommodation. Ears: No lesions. Nose appeared normal. Throat: No exudate or erythema. NECK: Supple. No JVD, no carotid bruit. No lymphadenopathy or thyromegaly. LUNGS: Decreased breath sounds bilaterally. No wheezing. Clear to auscultation. Percussion note normal. Chest symmetrical. HEART: S1, S2, no S3. No murmurs. No cyanosis or clubbing. No ascites. Pulses: Dorsalis pedis and posterior tibial pulses +1 to +2 both sides. ABDOMEN: Soft. Non-tender. Bowel sounds active. No CVA tenderness. No mass felt. EXTREMITIES: No edema. Full range of motion of all extremities, equal. NEUROLOGIC: No focal deficit. Cranial nerves II through XII are grossly intact. No headache, no double vision or headache. SKIN: Not dry. Intact. Turgor-normal. LYMPHATIC: No palpable lymph nodes/no lymphedema. MUSCULOSKELETAL: Normal joints with no swelling. Muscle tone is normal. LAB REVIEW: 12/26/16 04:15 12/26/16 04:15 12/26/16 04:15: Sodium 140, Potassium 4.2, Chloride 108 H, Carbon Dioxide 19 L, Anion Gap 17.2, BUN 34 H, Creatinine 2.40 H D, Estimated GFR (MDRD) 24.00, BUN/ Creatinine Ratio 14.16, Glucose 162 H, Calcium 8.5 12/26/16 04:15: WBC 11.83 H D, RBC 3.75 L, Hgb 11.0 L, Hct 34.4 L, MCV 91.7, MCH 29.3, MCHC 32.0, RDW Coeff of Jade 14.5, Plt Count 396, Immature Gran % (Auto ) 0.6, Neut % (Auto) 82.3, Lymph % (Auto) 14.0, [place] % (Auto) 2.9, Eos % (Auto) 0.0, Baso % (Auto) 0.2, Immature Gran # (Auto) 0.1, Neut # 9.7 H, Lymph # 1.7, [place] # 0.3 L, Eos # 0.0, Baso # 0.0 ASSESSMENT: 1. ACUTE RESPIRATORY FAILURE RESOLVED 2. PULMONARY EDEMA 3. HISTORY OF PULMONARY FIBROSIS 4. SMOKER PLAN: 1. D/C Morphine 2. Decrease Zosyn to 2.25 q.6hr 3. Repeat chest x-ray 4. Lasix 40 daily 5. [place] 5-325 p.r.n. 6. Smoking cessation discussed Plan and coordination of the patient's care discussed in the presence of Instructional Support Technician and nurse. CONDITION: Stable SCRIBED BY: GUNNAR MCKEON, Lifestyle Block Farmer scribed while in presence of service performed by Dr. Bertrand/Jasmine Vaughan APRN on 12/26/16 ([id number])
--- NOTE | 2016-12-26 11:59 | HP ---
DATE OF SERVICE: 12/25/16 HISTORY OF PRESENT ILLNESS: This is a 76-year-old -[place] female who presented to the emergency room with worsening shortness of breath. She has a history of pulmonary fibrosis and COPD. She has smoked for the past 50 years. She was previously admitted several weeks ago for pneumonia, pneumonitis. She has been afebrile. PAST MEDICAL HISTORY: Hypertension CHF COPD History of pneumonia Pulmonary fibrosis Migraines Osteoarthritis Sciatica Coronary artery disease Hypertension Leg edema PAST SURGICAL HISTORY: Hysterectomy Appendectomy Knee replacement REVIEW OF SYSTEMS: CONSTITUTIONAL: Positive for generalized weakness. Positive for malaise. No night sweats. No fever or chills. HEENT: Eyes: No visual changes. No eye drainage or redness. No eye discharge. ENT: No runny nose. No epistaxis. No sinus pain. No sore throat. No odynophagia. No ear pain. No congestion. RESPIRATORY: Cough and congestion with wheezing. No hemoptysis. Positive for shortness of breath. CARDIOVASCULAR: No angina symptoms. No CHF symptoms. No atypical chest pain for CAD. No palpitations. No orthopnea. GASTROINTESTINAL: No abdominal pain. No nausea or vomiting. No diarrhea or constipation. No hematemesis. No hematochezia. GENITOURINARY: No urgency. No frequency. No dysuria. No hematuria. No obstructive symptoms. No discharge. No pain. No significant abnormal bleeding. MUSCULOSKELETAL: Positive for weakness. No joint swelling or redness. NEUROLOGICAL: Alert and oriented. The patient is anxious. No headache. No neck pain. No syncope. No seizures. No dizziness. PSYCHIATRIC: Not anxious. No depression. No suicidal thoughts. No homicidal thoughts. SKIN: No rash. Intact. ENDOCRINE: No unexplained weight loss. No weight gain. HEMATOLOGIC/LYMPHATIC: No anemia. No purpura. No petechiae. No prolonged or excessive bleeding. No palpable lymph nodes. PERSONAL/FAMILY/SOCIAL HISTORY: The patient lives with her , Ezequiel. She also helps raise her two grandchildren, who also live with her. She is a current daily smoker with a 50 pack year history. She denies any alcohol or ilicit drug use. No pertinent family history. MEDICATIONS: Nitro 0.4 mg p.r.n. Aspirin 81 mg daily ProAir p.r.n. Coreg 25 mg b.i.d. Cardizem 90 mg b.i.d. Lasix 40 mg daily Aldactone 25 mg daily Clonidine 0.2 mg b.i.d. Minoxidil 5 mg b.i.d. Benicar 40 mg daily ALLERGIES: NKDA PHYSICAL EXAMINATION: GENERAL: The patient is ill-appearing but in apparent distress. HEENT: Head normocephalic, atraumatic. Eyes: Extraocular muscles are intact. Pupils are equal, round and reactive to light and accommodation. Ears: No lesions. Nose appeared normal. Throat: No exudate or erythema. NECK: Supple. No JVD, no carotid bruit. No lymphadenopathy or thyromegaly. LUNGS: Lung sounds are severely diminished bilaterally with rub anterior on the left. Bilateral expiratory wheezes. Percussion note normal. Chest symmetrical. HEART: Tachycardic. S1, S2, no S3. No murmurs. No cyanosis or clubbing. No ascites. Pulses: Dorsalis pedis and posterior tibial pulses +1 to +2 both sides. ABDOMEN: Soft. Nontender. Bowel sounds active times four quadrants. No CVA tenderness. No mass felt. EXTREMITIES: No edema. Full range of motion of all extremities, equal. No calf tenderness. Negative Dirk's sign bilaterally. NEUROLOGIC: Awake, alert and oriented times three. No focal deficit. Cranial nerves II through XII are grossly intact. No headache, no double vision or headache. SKIN: [place], warm, dry and intact. Turgor - normal. LYMPHATIC: No palpable lymph nodes/no lymphedema. MUSCULOSKELETAL: Normal joints with no swelling. Muscle tone is normal. Chest x-ray showed bilateral pulmonary edema, questionable underlying pneumonia. ABGs on room air pH 7.373, pc02 33.2, pc02 75, base excess negative 6 , bicarb 19.3, TC02 20, 02 sat 95. BNP 395. Lactic acid 17.7. Sodium 140, potassium 3.6, BUN 9, creatinine 0.87, glucose 165, total bili 0.29. AST 32, ALT 15, total protein 8.1. Alkaline phosphatase 93, white count 10.83, hemoglobin 12.3, hematocrit 38.0, platelets 344. Urine is clear. Protein +1, glucose +2, trace ketones, negative blood, negative nitrites, negative bili, +1 mucus, negative leuks. ASSESSMENT: 1. ACUTE RESPIRATORY FAILURE 2. PULMONARY EDEMA 3. CHF 4. HISTORY OF PULMONARY FIBROSIS 5. HYPERTENSION PLAN: 1. Admit to Special Care Unit 2. Oxygen p.r.n. 3. CBC, CMP daily 4. Routine telemetry orders 5. Lasix 40 mg IV b.i.d. 6. Solu-Medrol 125 mg q.8hr 7. Vancomycin q.12hr 8. Zosyn 3.375 q.6hr 9. Duoneb q.6hr 10. Continue home medications 11. Lovenox daily 12. Will follow closely TIME SPENT: More than 70 minutes. MTDD
[2016-12-26] MEDS ORDERED: SODIUM CHLORIDE IV SCH (12:00)
[2016-12-26] MEDS ORDERED: ZOSYN IV SCH (12:00)
--- NOTE | 2016-12-26 12:04 | DI ---
EXAM: CHEST FRONTAL VIEW HISTORY: Pulmonary edema, follow-up. COMPARISON: 12/24/2016 FINDINGS: Stable prominent heart size. Aortic atherosclerosis. Mild central and basilar interstiti al infiltrates with no noticeable improvement or change since previous exam. No visible pleural flui d or pneumothorax. IMPRESSION: Stable mild interstitial prominence suggesting pulmonary edema. No noticeable improvement. interstitial and basilar infiltrates Heart size and mediastinum within normal limits. Lungs are f
[2016-12-26] MEDS: ZOSYN 2.25 GM 2.25 GM in SODIUM CHLORIDE 100 ML IV SCH ×3 (12:50→23:45)
[2016-12-26] MEDS: NORCO 5-325 PO PRN ×2 (14:44→20:23)
[2016-12-27] MEDS: DUONEB NEB SCH ×4 (05:03→22:00)
[2016-12-27] MEDS: ZOSYN 2.25 GM 2.25 GM in SODIUM CHLORIDE 100 ML IV SCH (05:09)
[2016-12-27] MEDS: SOLU-MEDROL 125 MG IVP SCH (05:09)
[2016-12-27] MEDS ORDERED: LASIX TAB PO SCH (06:30)
[2016-12-27] MEDS ORDERED: LASIX IVP SCH (06:30)
[2016-12-27 08:07] LABS: BASOPHILS % (AUTO) 0.1 % (0.0-3.0); HEMATOCRIT 33.1 % (37.0-47.0); HEMOGLOBIN 10.6 g/dl (12.0-16.0); IMMATURE GRANULOCYTE % (AUTO) 1.2 % (0.0-5.0); MEAN CORPUSCULAR HEMOGLOBIN 28.8 pg (27.0-31.0); MEAN CORPUSCULAR VOLUME 89.9 fl (81.0-99.0); MONOCYTES # (AUTO) 0.2 K/uL (0.4-2.0); NEUTROPHILS % (AUTO) 85.7; PLATELET COUNT 445 10^3/uL (140-440); RED BLOOD COUNT 3.68 10^6/ul (4.20-5.40); WHITE BLOOD COUNT 9.34 K/ul (4.6-10.2)
[2016-12-27 08:28] LABS: ALBUMIN 2.6 g/dL (3.4-5.0); ALBUMIN/GLOBULIN RATIO 0.6; ANION GAP 17.2; BILIRUBIN,TOTAL 0.26 mg/dL (0.00-1.20); BUN/CREATININE RATIO 16.04; CALCIUM 8.1 mg/dL (8.2-10.2); CREATININE 3.24 mg/dL (0.60-1.30); POTASSIUM 4.2 mmol/L (3.5-5.10); TOTAL PROTEIN 6.9 g/dL (5.8-8.1)
[2016-12-27] MEDS: ALDACTONE PO SCH (09:11)
[2016-12-27] MEDS: NORCO 5-325 PO PRN ×2 (09:11→15:27)
[2016-12-27] MEDS: XANAX PO SCH ×3 (09:11→20:31)
[2016-12-27] MEDS: CARDIZEM PO SCH ×4 (09:11→20:31)
[2016-12-27] MEDS: ASPIRIN EC PO SCH (09:12)
[2016-12-27] MEDS: BENICAR PO SCH (09:12)
[2016-12-27] MEDS: CATAPRES PO SCH ×2 (09:12→20:31)
[2016-12-27] MEDS: MINOXIDIL PO SCH ×2 (09:14→20:31)
[2016-12-27] MEDS: LOVENOX SUBCUT SCH (09:14)
[2016-12-27 09:30] LABS: ABG BASE EXCESS -8 (-2.0-2.0); ABG HCO3 18.2 (22.0-26.0); ABG PCO2 35.5 mmHg (35-45); ABG PH 7.318 (7.35-7.45); ABG TCO2 19 (22.0-28.0)
[2016-12-27] MEDS ORDERED: PREDNISONE PO SCH (09:30)
[2016-12-27] MEDS: COREG PO SCH ×2 (10:19→18:01)
[2016-12-27] MEDS ORDERED: DEXTROSE 5%-1/2NS IV SOLUTION 1,000 ML IV SCH (11:00)
--- NOTE | 2016-12-27 12:32 | PCM.PROG ---
Attending Provider: ATTENDING PROVIDER: Dr. NICOLÁS BERTRAND This patient is seen with Jasmine Vaughan, Nurse Practitioner. DATE OF SERVICE: 12/27/16 SUBJECTIVE: This 76 year old BLACK/ F was hospitalized 12/24/16. The patient's shortness of breath has significantly improved. The patient clinically is much better, has been up and about without assistance. REVIEW OF SYSTEMS: CONSTITUTIONAL: No night sweats. No fatigue, malaise, lethargy. No fever or chills. HEENT: Eyes: No visual changes. No eye pain. No eye discharge. ENT: No runny nose. No epistaxis. No sinus pain. No odynophagia. No congestion. RESPIRATORY: Cough and congestion. No hemoptysis. Shortness of breath. CARDIOVASCULAR: No angina symptoms. No CHF symptoms. No atypical chest pain for CAD. No palpitations. No orthopnea.. GASTROINTESTINAL: No abdominal pain. No nausea or vomiting. No diarrhea or constipation. No hematemesis. No hematochezia. GENITOURINARY: No urgency. No frequency. No dysuria. No hematuria. No obstructive symptoms. No discharge. No pain. No significant abnormal bleeding. MUSCULOSKELETAL: No musculoskeletal pain; no joint swelling. NEUROLOGICAL: Awake, alert, oriented to time, place and person. No headache. No neck pain. No syncope. No seizures. No dizziness. PSYCHIATRIC: Not anxious. No depression. No suicidal thoughts. No homicidal thoughts. SKIN: No rash. No lesions. No wounds. ENDOCRINE: No unexplained weight loss. No weight gain. HEMATOLOGIC/LYMPHATIC: No anemia. No purpura. No petechiae. No prolonged or excessive bleeding. No palpable lymph nodes. PHYSICAL EXAMINATION: GENERAL: The patient is awake, alert and oriented, lying in bed in no distress. VITAL SIGNS: Temperature 97.5 F, Pulse 61, Respiratory Rate 20, BP 100/56, Pulse Ox 98% HEENT: Head normocephalic, atraumatic. Eyes: Extraocular muscles are intact. Pupils are equal, round and reactive to light and accommodation. Ears: No lesions. Nose appeared normal. Throat: No exudate or erythema. NECK: Supple. No JVD, no carotid bruit. No lymphadenopathy or thyromegaly. LUNGS: Diminished breath sounds equal and clear bilaterally to auscultation. Percussion note normal. Chest symmetrical. HEART: S1, S2, no S3. No murmurs. No cyanosis or clubbing. No ascites. Pulses: Dorsalis pedis and posterior tibial pulses +1 to +2 both sides. ABDOMEN: Soft. Non-tender. Bowel sounds active. No CVA tenderness. No mass felt. EXTREMITIES: No edema. Full range of motion of all extremities, equal. NEUROLOGIC: No focal deficit. Cranial nerves II through XII are grossly intact. No headache, no double vision or headache. SKIN: Not dry. Intact. Turgor-normal. LYMPHATIC: No palpable lymph nodes/no lymphedema. MUSCULOSKELETAL: Normal joints with no swelling. Muscle tone is normal. LAB REVIEW: 12/26/16 04:15 12/26/16 04:15 ASSESSMENT: 1. ACUTE RESPIRATORY FAILURE RESOLVED 2. PULMONARY EDEMA IMPROVED 3. HISTORY OF PULMONARY FIBROSIS 4. SMOKER PLAN: 1. ABGS before discharge 2. CBC/CMP before discharge 3. Three-step for 02 Plan and coordination of the patient's care discussed in the presence of Supervisor Lead Burning and nurse. CONDITION: Stable SCRIBED BY: GUNNAR MCKEON Medical Esthetician scribed while in presence of service performed by Dr. Bertrand/Jasmine Vaughan APRN on 12/27/16 ([id number])
--- NOTE | 2016-12-27 14:54 | PN ---
DATE OF SERVICE: 12/27/16 SUBJECTIVE: Betty Ambriz is a 76-year-old black female who is a very difficult patient, manipulative, has been hospitalized with acute respiratory failure and CHF. The patient's condition has improved. PHYSICAL EXAMINATION: HEENT: Head normocephalic, atraumatic. Eyes: Extraocular muscles are intact. Pupils are equal, round and reactive to light and accommodation. Ears: No lesions. Nose appeared normal. Throat: No exudate or erythema. NECK: Supple. No JVD, no carotid bruit. No lymphadenopathy or thyromegaly. LUNGS: Clear to auscultation. Percussion note normal. Chest symmetrical. HEART: S1, S2, no S3. No murmurs. No cyanosis or clubbing. No ascites. Pulses: Dorsalis pedis and posterior tibial pulses +1 to +2 both sides. ABDOMEN: Soft. Nontender. Bowel sounds active. No CVA tenderness. No mass felt. EXTREMITIES: No edema. Full range of motion of all extremities, equal. NEUROLOGIC: No focal deficit. Cranial nerves II through XII are grossly intact. No headache, no double vision or headache. SKIN: Not dry. Intact. Turgor - normal. LYMPHATIC: No palpable lymph nodes/no lymphedema. MUSCULOSKELETAL: Normal joints with no swelling. Muscle tone is normal. Chest x-ray does not correlate with the clinical findings. The patient had creatinine of 1.3, BUN 15 on admission now has gone up to 3 and 25 from aggressive diuresis. The patient has been taken off Vancomycin and Rocephin, now put on Ceftin for her bronchitis which is under control. CHF is under control. When we talked about sending her home started breathing harder. She says she does not want to go home. In any case, the patient has abnormal creatinine and BUN. She will be given slow IV fluids and CMP will be monitored. I talked to the , who doesn't know what to do with her. According to the , the patient is not taking her medicine as described. She goes out and smokes. She smokes heavy. The patient is intelligent. Counseling for smoking done again. PROGNOSIS: Poor. CONDITION: Stable TIME SPENT: More than 30 minutes. Plan and coordination of the patient's care discussed in the presence of nurse. MANAN
[2016-12-27] MEDS: WELLBUTRIN PO SCH ×2 (15:28→20:31)
[2016-12-27] MEDS: PREDNISONE PO SCH (18:01)
[2016-12-27] MEDS: CEFTIN PO SCH (20:30)
[2016-12-28] MEDS: NORCO 5-325 PO PRN ×2 (01:52→17:08)
[2016-12-28 04:54] LABS: BASOPHILS % (AUTO) 0.4 % (0.0-3.0); HEMOGLOBIN 9.8 g/dl (12.0-16.0); IMMATURE GRANULOCYTE % (AUTO) 1.3 % (0.0-5.0); LYMPHOCYTES % (AUTO) 11.8 (10.0-50.0); MEAN CORPUSCULAR HEMOGLOBIN 28.5 pg (27.0-31.0); MEAN CORPUSCULAR HGB CONC 31.6 (31.8-35.4); MEAN CORPUSCULAR VOLUME 90.1 fl (81.0-99.0); MONOCYTES # (AUTO) 0.4 K/uL (0.4-2.0); MONOCYTES % (AUTO) 4.1 (0-10); NEUTROPHILS % (AUTO) 82.4; PLATELET COUNT 429 10^3/uL (140-440); RED BLOOD COUNT 3.44 10^6/ul (4.20-5.40); WHITE BLOOD COUNT 8.49 K/ul (4.6-10.2)
[2016-12-28] MEDS: DUONEB NEB SCH ×4 (05:10→22:40)
[2016-12-28 05:28] LABS: ALBUMIN 2.4 g/dL (3.4-5.0); ALBUMIN/GLOBULIN RATIO 0.67; ANION GAP 17.1; BILIRUBIN,TOTAL 0.19 mg/dL (0.00-1.20); CALCIUM 7.5 mg/dL (8.2-10.2); POTASSIUM 4.1 mmol/L (3.5-5.10)
[2016-12-28 05:31] LABS: CREATININE 4.25 mg/dL (0.60-1.30)
[2016-12-28] MEDS ORDERED: LASIX TAB PO SCH (06:30)
[2016-12-28] MEDS: BENICAR PO SCH (08:32)
[2016-12-28] MEDS: COREG PO SCH ×3 (08:32→21:16)
[2016-12-28] MEDS: ASPIRIN EC PO SCH (08:33)
[2016-12-28] MEDS: XANAX PO SCH ×3 (08:33→21:16)
[2016-12-28] MEDS: CEFTIN PO SCH ×2 (08:33→21:16)
[2016-12-28] MEDS: CARDIZEM PO SCH ×4 (08:33→21:12)
[2016-12-28] MEDS: MINOXIDIL PO SCH ×2 (08:33→21:12)
[2016-12-28] MEDS: WELLBUTRIN PO SCH ×2 (08:33→21:17)
[2016-12-28] MEDS: CATAPRES PO SCH ×2 (08:34→21:12)
[2016-12-28] MEDS: LOVENOX SUBCUT SCH (08:34)
[2016-12-28] MEDS: PREDNISONE PO SCH ×2 (08:34→17:07)
[2016-12-28] MEDS: DEXTROSE 5%-1/2NS IV SOLUTION 1,000 ML IV SCH ×2 (08:35→12:43)
[2016-12-29] MEDS: DEXTROSE 5%-1/2NS IV SOLUTION 1,000 ML IV SCH ×2 (02:36→17:18)
[2016-12-29] MEDS: NORCO 5-325 PO PRN ×2 (02:39→21:34)
[2016-12-29] MEDS: DUONEB NEB SCH ×4 (04:50→20:10)
[2016-12-29 06:14] LABS: BASOPHILS % (AUTO) 0.1 % (0.0-3.0); HEMATOCRIT 31.1 % (37.0-47.0); IMMATURE GRANULOCYTE % (AUTO) 1.8 % (0.0-5.0); LYMPHOCYTES # (AUTO) 1.3 K/uL (0.60-3.4); LYMPHOCYTES % (AUTO) 14.5 (10.0-50.0); MEAN CORPUSCULAR HEMOGLOBIN 28.2 pg (27.0-31.0); MEAN CORPUSCULAR HGB CONC 32.2 (31.8-35.4); MEAN CORPUSCULAR VOLUME 87.6 fl (81.0-99.0); MONOCYTES % (AUTO) 10.8 (0-10); NEUTROPHILS # (AUTO) 6.5 K/ul (2.0-6.9); NEUTROPHILS % (AUTO) 72.8; PLATELET COUNT 480 10^3/uL (140-440); RED BLOOD COUNT 3.55 10^6/ul (4.20-5.40); WHITE BLOOD COUNT 8.92 K/ul (4.6-10.2)
[2016-12-29 06:40] LABS: ALBUMIN 2.5 g/dL (3.4-5.0); ALBUMIN/GLOBULIN RATIO 0.63; BILIRUBIN,TOTAL 0.17 mg/dL (0.00-1.20); BUN/CREATININE RATIO 16.52; CALCIUM 7.6 mg/dL (8.2-10.2); TOTAL PROTEIN 6.5 g/dL (5.8-8.1)
[2016-12-29 06:45] LABS: CREATININE 4.78 mg/dL (0.60-1.30)
[2016-12-29] MEDS: BENICAR PO SCH (08:06)
[2016-12-29] MEDS: WELLBUTRIN PO SCH ×2 (08:06→21:30)
[2016-12-29] MEDS: XANAX PO SCH ×3 (08:06→21:33)
[2016-12-29] MEDS: PREDNISONE PO SCH ×2 (08:06→16:39)
[2016-12-29] MEDS: COREG PO SCH ×2 (08:06→16:39)
[2016-12-29] MEDS: CEFTIN PO SCH ×2 (08:06→21:30)
[2016-12-29] MEDS: LOVENOX SUBCUT SCH (08:07)
[2016-12-29] MEDS: ASPIRIN EC PO SCH (08:07)
[2016-12-29] MEDS: CARDIZEM PO SCH ×2 (08:11→21:30)
[2016-12-29] MEDS: NON-FORMULARY MEDICATION (Bupropion Hcl [Wellbutrin Xl] 150 MG) PO SCH (09:17)
[2016-12-29] MEDS: VANCOMYCIN 500 MG in SODIUM CHLORIDE 100 ML IV SCH (09:18)
[2016-12-29 10:38] LABS: ABG BASE EXCESS -9 (-2.0-2.0); ABG PCO2 32.9 mmHg (35-45); ABG PH 7.323 (7.35-7.45); ABG TCO2 18 (22.0-28.0)
[2016-12-30] MEDS ORDERED: MYLANTA SUSP PO STA (03:17)
[2016-12-30] MEDS: NORCO 5-325 PO PRN ×3 (05:11→21:05)
[2016-12-30] MEDS: DUONEB NEB SCH ×4 (05:15→19:48)
[2016-12-30 07:04] LABS: BASOPHILS % (AUTO) 0.3 % (0.0-3.0); EOSINOPHILS % (AUTO) 0.2 % (0.0-7.0); HEMATOCRIT 32.5 % (37.0-47.0); HEMOGLOBIN 10.7 g/dl (12.0-16.0); IMMATURE GRANULOCYTE % (AUTO) 2.5 % (0.0-5.0); LYMPHOCYTES % (AUTO) 22.5 (10.0-50.0); MEAN CORPUSCULAR HEMOGLOBIN 28.5 pg (27.0-31.0); MEAN CORPUSCULAR HGB CONC 32.9 (31.8-35.4); MEAN CORPUSCULAR VOLUME 86.4 fl (81.0-99.0); MONOCYTES # (AUTO) 1.3 K/uL (0.4-2.0); MONOCYTES % (AUTO) 14.3 (0-10); NEUTROPHILS # (AUTO) 5.4 K/ul (2.0-6.9); NEUTROPHILS % (AUTO) 60.2; PLATELET COUNT 514 10^3/uL (140-440); RED BLOOD COUNT 3.76 10^6/ul (4.20-5.40); WHITE BLOOD COUNT 8.96 K/ul (4.6-10.2)
[2016-12-30 07:34] LABS: ALBUMIN 2.5 g/dL (3.4-5.0); ALBUMIN/GLOBULIN RATIO 0.6; ANION GAP 14.9; BILIRUBIN,TOTAL 0.18 mg/dL (0.00-1.20); BUN/CREATININE RATIO 19.71; CALCIUM 8.3 mg/dL (8.2-10.2); CREATININE 3.45 mg/dL (0.60-1.30); POTASSIUM 3.9 mmol/L (3.5-5.10); TOTAL PROTEIN 6.7 g/dL (5.8-8.1)
[2016-12-30] MEDS: DEXTROSE 5%-1/2NS IV SOLUTION 1,000 ML IV SCH ×2 (07:42→21:11)
[2016-12-30] MEDS: ASPIRIN EC PO SCH (08:40)
[2016-12-30] MEDS: PREDNISONE PO SCH ×2 (08:40→17:25)
[2016-12-30] MEDS: COREG PO SCH ×2 (08:40→17:25)
[2016-12-30] MEDS: CEFTIN PO SCH ×2 (08:40→21:05)
[2016-12-30] MEDS: BENICAR PO SCH (08:40)
[2016-12-30] MEDS: XANAX PO SCH ×3 (08:41→21:05)
[2016-12-30] MEDS: LOVENOX SUBCUT SCH (08:41)
[2016-12-30] MEDS: WELLBUTRIN PO SCH ×2 (08:41→21:05)
[2016-12-30] MEDS: CARDIZEM PO SCH ×2 (08:42→21:05)
[2016-12-30] MEDS: CATAPRES PO PRN ×2 (16:52→23:26)
[2016-12-30] MEDS ORDERED: CATAPRES PO STA (17:45)
[2016-12-30] MEDS: TORADOL IVP SCH ×2 (17:54→21:05)
[2016-12-30] MEDS ORDERED: BENICAR PO SCH (21:00)
[2016-12-31] MEDS: TORADOL IVP SCH ×3 (04:24→21:12)
[2016-12-31] MEDS: DUONEB NEB SCH ×4 (05:05→20:29)
[2016-12-31 07:52] LABS: BASOPHILS # (AUTO) 0.1 K/uL (0-0.2); BASOPHILS % (AUTO) 0.6 % (0.0-3.0); EOSINOPHILS # (AUTO) 0.1 K/ul (0.0-0.7); EOSINOPHILS % (AUTO) 1.3 % (0.0-7.0); HEMATOCRIT 34.7 % (37.0-47.0); HEMOGLOBIN 11.3 g/dl (12.0-16.0); IMMATURE GRANULOCYTE % (AUTO) 3.8 % (0.0-5.0); LYMPHOCYTES # (AUTO) 2.4 K/uL (0.60-3.4); LYMPHOCYTES % (AUTO) 24.1 (10.0-50.0); MEAN CORPUSCULAR HEMOGLOBIN 28.9 pg (27.0-31.0); MEAN CORPUSCULAR HGB CONC 32.6 (31.8-35.4); MEAN CORPUSCULAR VOLUME 88.7 fl (81.0-99.0); MONOCYTES # (AUTO) 1.3 K/uL (0.4-2.0); MONOCYTES % (AUTO) 12.9 (0-10); NEUTROPHILS # (AUTO) 5.6 K/ul (2.0-6.9); NEUTROPHILS % (AUTO) 57.3; PLATELET COUNT 415 10^3/uL (140-440); RED BLOOD COUNT 3.91 10^6/ul (4.20-5.40); WHITE BLOOD COUNT 9.75 K/ul (4.6-10.2)
[2016-12-31 08:15] LABS: ALBUMIN 2.5 g/dL (3.4-5.0); ALBUMIN/GLOBULIN RATIO 0.6; ANION GAP 15.4; BILIRUBIN,TOTAL 0.21 mg/dL (0.00-1.20); BUN/CREATININE RATIO 21.67; CALCIUM 8.5 mg/dL (8.2-10.2); POTASSIUM 4.4 mmol/L (3.5-5.10); TOTAL PROTEIN 6.7 g/dL (5.8-8.1)
[2016-12-31 08:33] LABS: CREATININE 2.03 mg/dL (0.60-1.30)
[2016-12-31] MEDS: LOVENOX SUBCUT SCH (08:54)
[2016-12-31] MEDS: CEFTIN PO SCH ×2 (08:55→21:12)
[2016-12-31] MEDS: BENICAR PO SCH (08:55)
[2016-12-31] MEDS: CARDIZEM PO SCH ×2 (08:55→21:12)
[2016-12-31] MEDS: WELLBUTRIN PO SCH ×2 (08:55→21:12)
[2016-12-31] MEDS: PREDNISONE PO SCH ×2 (08:55→16:53)
[2016-12-31] MEDS: ASPIRIN EC PO SCH (08:55)
[2016-12-31] MEDS: CATAPRES PO SCH ×2 (08:55→21:12)
[2016-12-31] MEDS: COREG PO SCH ×2 (08:56→16:53)
[2016-12-31] MEDS: XANAX PO SCH ×3 (09:00→21:12)
[2016-12-31] MEDS: DEXTROSE 5%-1/2NS IV SOLUTION 1,000 ML IV SCH (11:00)
[2016-12-31] MEDS: CATAPRES PO PRN ×3 (13:04→22:41)
[2016-12-31] MEDS: NORCO 5-325 PO PRN ×2 (15:33→23:59)
[2016-12-31] MEDS: MINOXIDIL PO SCH (17:46)
[2017-01-01] MEDS ORDERED: VASOTEC IV IVP STA (00:06)
[2017-01-01] MEDS ORDERED: CATAPRES PO STA (00:07)
[2017-01-01] MEDS: DEXTROSE 5%-1/2NS IV SOLUTION 1,000 ML IV SCH (00:18)
[2017-01-01] MEDS: TORADOL IVP SCH (04:37)
[2017-01-01] MEDS: DUONEB NEB SCH ×2 (04:52→10:37)
[2017-01-01 05:22] LABS: BASOPHILS % (AUTO) 0.4 % (0.0-3.0); EOSINOPHILS # (AUTO) 0.2 K/ul (0.0-0.7); EOSINOPHILS % (AUTO) 1.9 % (0.0-7.0); HEMATOCRIT 32.4 % (37.0-47.0); HEMOGLOBIN 10.5 g/dl (12.0-16.0); IMMATURE GRANULOCYTE % (AUTO) 2.7 % (0.0-5.0); LYMPHOCYTES # (AUTO) 2.4 K/uL (0.60-3.4); LYMPHOCYTES % (AUTO) 22.8 (10.0-50.0); MEAN CORPUSCULAR HEMOGLOBIN 28.2 pg (27.0-31.0); MEAN CORPUSCULAR HGB CONC 32.4 (31.8-35.4); MEAN CORPUSCULAR VOLUME 86.9 fl (81.0-99.0); MONOCYTES # (AUTO) 1.2 K/uL (0.4-2.0); MONOCYTES % (AUTO) 11.7 (0-10); NEUTROPHILS # (AUTO) 6.4 K/ul (2.0-6.9); NEUTROPHILS % (AUTO) 60.5; PLATELET COUNT 498 10^3/uL (140-440); RED BLOOD COUNT 3.73 10^6/ul (4.20-5.40); WHITE BLOOD COUNT 10.49 K/ul (4.6-10.2)
[2017-01-01 05:35] LABS: ALBUMIN 2.4 g/dL (3.4-5.0); ALBUMIN/GLOBULIN RATIO 0.59; ANION GAP 12.4; BILIRUBIN,TOTAL 0.21 mg/dL (0.00-1.20); BUN/CREATININE RATIO 21.33; CALCIUM 8.6 mg/dL (8.2-10.2); CREATININE 1.5 mg/dL (0.60-1.30); POTASSIUM 4.4 mmol/L (3.5-5.10); TOTAL PROTEIN 6.5 g/dL (5.8-8.1)
[2017-01-01] MEDS ORDERED: LASIX TAB PO SCH (08:00)
[2017-01-01] MEDS: COREG PO SCH (08:56)
[2017-01-01] MEDS: ASPIRIN EC PO SCH (08:56)
[2017-01-01] MEDS: XANAX PO SCH (08:56)
[2017-01-01] MEDS: MINOXIDIL PO SCH (08:57)
[2017-01-01] MEDS: BENICAR PO SCH (08:57)
[2017-01-01] MEDS: WELLBUTRIN PO SCH (08:57)
[2017-01-01] MEDS: CEFTIN PO SCH (08:58)
[2017-01-01] MEDS: PREDNISONE PO SCH (08:58)
[2017-01-01] MEDS: CARDIZEM PO SCH (08:59)
[2017-01-01] MEDS: CATAPRES PO SCH (08:59)
[2017-01-01] MEDS: LOVENOX SUBCUT SCH (09:01)
--- NOTE | 2017-01-01 09:54 | PN ---
DATE OF SERVICE: 12/25/16 SUBJECTIVE: The patient is hospitalized with congestive heart failure and acute bronchitis. The patient's cough and congestion practically has subsided. She is not breaking up any yellowish sputum anymore. No PND, no orthopnea. Blood pressure more or less well-controlled. PHYSICAL EXAMINATION: HEENT: Head normocephalic, atraumatic. Eyes: Extraocular muscles are intact. Pupils are equal, round and reactive to light and accommodation. Ears: No lesions. Nose appeared normal. Throat: No exudate or erythema. NECK: Supple. No JVD, no carotid bruit. No lymphadenopathy or thyromegaly. LUNGS: Clear to auscultation. Percussion note normal. Chest symmetrical. HEART: S1, S2, no S3. No murmurs. No cyanosis or clubbing. No ascites. Pulses: Dorsalis pedis and posterior tibial pulses +1 to +2 both sides. ABDOMEN: Soft. Nontender. Bowel sounds active. No CVA tenderness. No mass felt. EXTREMITIES: No edema. Full range of motion of all extremities, equal. NEUROLOGIC: No focal deficit. Cranial nerves II through XII are grossly intact. No headache, no double vision or headache. SKIN: Not dry. Intact. Turgor - normal. LYMPHATIC: No palpable lymph nodes/no lymphedema. MUSCULOSKELETAL: Normal joints with no swelling. Muscle tone is normal. ASSESSMENT: 1. CHF SEEMS TO HAVE RESOLVED 2. BRONCHITIS UNDER CONTROL 3. CHRONIC LUNG DISEASE 4. BLOOD PRESSURE WELL-CONTROLLED THAN LAST TIME PLAN: Again counseled about smoking. She had admitted to smoking. The patient is strongly advised to quit smoking. The patient doesn't qualify for oxygen as oxygen saturation is more than 90% on room air. Will try to exercise her and whether she becomes qualified. The patient has multiple medical problems. Strongly advised to join the cardiac rehab for lung and heart, pulmonary and cardiac - he declined. The patient was examined with the nurse practitioner and trimming caser. TIME SPENT: More than 30 minutes. Plan and coordination of the patient's care discussed in the presence of nurse. MANAN
[2017-01-01 10:25] VITALS: BP 182/82; TEMP 97.7
--- NOTE | 2017-01-01 10:34 | CM.DICTOOL ---
ADMISSION: 12/24/16 11:41 DISCHARGE: 01/01/17 DATE OF SERVICE: 01/01/17 FINAL DIAGNOSIS RESPIRATORY FAILURE, ACUTE; RESOLVED RENAL FAILURE, ACUTE; IMPROVED PULMONARY EDEMA, RESOLVED PULMONARY FIBROSIS BY HISTORY COPD HYPERTENSION CAD DYSLIPIDEMIA CKD, STAGE 4 CHRONIC ANEMIA MIGRAINE HEADACHES ANXIETY SMOKING TONSILLECTOMY APPENDECTOMY CARDIAC CATH BILATERAL TKR LAST VITALS Temp Pulse Resp BP Pulse Ox 97.9 F 61 22 156/92 H 98 01/01/17 06:00 01/01/17 06:00 01/01/17 06:00 01/01/17 06:00 01/01/17 06:00 ACTIVE MEDICATIONS Albuterol Sulfate (Proair Hfa) 2 Puffs IH Q6H Aspirin (Aspirin Ec) 81 mg PO DAILYWM [facility] Last Admin: 01/01/17 08:56 Dose: 81 mg Bupropion HCl (Wellbutrin) 150 mg PO DAILY [facility] Last Admin: 01/01/17 08:57 Dose: 75 mg Carvedilol (Coreg) 25 mg PO BIDWM [facility] Last Admin: 01/01/17 08:56 Dose: 12.5 mg Clonidine (Catapres) 0.2 mg PO BID [facility] Last Admin: 01/01/17 08:59 Dose: 0.2 mg Diltiazem HCl (Cardizem) 90 mg PO BID [facility] Last Admin: 01/01/17 08:59 Dose: 60 mg Furosemide (Lasix Tab) 40 mg PO QDAC [facility] Last Admin: 01/01/17 08:57 Dose: 40 mg Minoxidil (Minoxidil) 2.5 mg PO BID [facility] (DECREASED DOSE FROM 5 MG PO BID) Last Admin: 01/01/17 08:57 Dose: 2.5 mg Nitroglycerin (Nitrostat) 0.4 mg SL Q5MIN X 3 DOSES PRN PRN Reason: chest pain Olmesartan (Benicar) 40 mg PO DAILY [facility] Last Admin: 01/01/17 08:57 Dose: 40 mg Spironolactone (Aldactone) 25 mg PO DAILY ALLERGIES No Known Allergies Allergy (Verified 12/24/16 09:24) NEW PRESCRIPTIONS: PLEASE NOTE THE REDUCTION IN YOUR MINOXIDIL TO 2.5 MG BY MOUTH TWICE DAILY PREDNISONE 10 MG, TAKE ONE TABLET BY MOUTH DAILY WITH FOOD SMOKING: CURRENT SMOKER THE PATIENT HAS RECEIVED EDUCATION/INFORMATION REGARDING THE BENEFITS OF COMPLETE SMOKING CESSATION. SHE HAS A GOOD UNDERSTANDING OF THE INFORMATION PROVIDED AND THE EFFECTS SMOKING HAS ON HER CARDIOPULMONARY HEALTH. SHE HAS NOT VERBALIZED HER INTENT TO STOP SMOKING. SHE WILL REQUIRE FOLLOW UP ENCOURAGEMENT/TEACHING IN THE OUTPATIENT SETTING. DISEASE SPECIFIC EDUCATION: RESPIRATORY FAILURE, ACUTE ACUTE RENAL FAILURE HOME MEDICATIONS NEW MEDICATIONS JAIL EFFECTS OF STEROID USE BOTH RISKS AND BENEFITS OFFICE FOLLOW UP ACTIVITIES LAB REVIEW: 01/01/17 05:00 01/01/17 05:00 01/01/17 05:00: Sodium 140, Potassium 4.4, Chloride 111 H, Carbon Dioxide 21 L, Anion Gap 12.4, BUN 32 H, Creatinine 1.50 H D, Estimated GFR (MDRD) 41.00, BUN/ Creatinine Ratio 21.33, Glucose 159 H, Calcium 8.6, Total Bilirubin 0.21, AST 24 , ALT 24, Alkaline Phosphatase 88, Total Protein 6.5, Albumin 2.4 L, Globulin 4.1, Albumin/Globulin Ratio 0.59 01/01/17 05:00: WBC 10.49 H, RBC 3.73 L, Hgb 10.5 L, Hct 32.4 L, MCV 86.9, MCH 28.2, MCHC 32.4, RDW Coeff of Jade 14.5, Plt Count 498 H, Immature Gran % (Auto) 2.7, Neut % (Auto) 60.5, Lymph % (Auto) 22.8, [place] % (Auto) 11.7 H, Eos % (Auto ) 1.9, Baso % (Auto) 0.4, Immature Gran # (Auto) 0.3, Neut # 6.4, Lymph # 2.4, [place] # 1.2, Eos # 0.2, Baso # 0.0 PLAN: DISCHARGE HOME TODAY RETURN TO SEE DR. BERTRAND IN 5-7 DAYS. PLEASE PHONE THE OFFICE TO SCHEDULE YOUR FOLLOW UP APPOINTMENT ([phone]) MARSHALLESE TOA BAJA PATIENT/[facility] WILL PHONE YOU TO ARRANGE AN OVERNIGHT PULSE- OXIMETRY RECORDING TO DETERMINE IF YOU NEED OXYGEN AT NIGHT. ([phone]) RESUME YOUR HOME MEDICATIONS PER LIST PROVIDED BY THE NURSING STAFF PLEASE NOTE THE REDUCTION IN YOUR MINOXIDIL TO 2.5 MG BY MOUTH TWICE DAILY NEW PRESCRIPTIONS PREDNISONE 10 MG, TAKE ONE TABLET BY MOUTH DAILY WITH FOOD ACTIVITY GET PLENTY OF REST AT HOME. GRADUALLY INCREASE YOUR ACTIVITY LEVEL ACCORDING TO YOUR TOLERATION DIET HEALTHY HEART SUMMARY THE PATIENT IS ALERT AND ORIENTED X3. SHE CURRENTLY RESIDES AT HOME WITH HER SPOUSE. SHE IS INDEPENDENT WITH ADL'S. SHE HAS A ROLLING WALKER AND A SHOWER CHAIR AT HOME BUT IS NOT REQUIRED TO USE THESE. SHE HAS NO HOME HEALTH OR HOMEMAKING SERVICES AT HOME. SHE DESIRES TO RETURN TO HER HOME AT DISCHARGE. CURRENT CODE STATUS: DO NOT INTUBATE, CPR ONLY CLAUDIA FUNES, LACTATION SPECIALIST NICOLÁS BERTRAND M.D.
--- NOTE | 2017-01-01 11:14 | PCM.PROG ---
Attending Provider: ATTENDING PROVIDER: Dr. NICOLÁS BERTRAND This patient is seen with Jasmine Vaughan, Nurse Practitioner. DATE OF SERVICE: 01/01/17 SUBJECTIVE: This 76 year old BLACK/ F was hospitalized 12/24/16. The patient is alert, lying in bed. Shortness of breath improved. Kidney function significantly improved. REVIEW OF SYSTEMS: CONSTITUTIONAL: No night sweats. No fatigue, malaise, lethargy. No fever or chills. HEENT: Eyes: No visual changes. No eye pain. No eye discharge. ENT: No runny nose. No epistaxis. No sinus pain. No odynophagia. No congestion. RESPIRATORY: No cough, no congestion. No hemoptysis. Shortness of breath improved. CARDIOVASCULAR: No angina symptoms. No CHF symptoms. No atypical chest pain for CAD. No palpitations. No orthopnea.. GASTROINTESTINAL: No abdominal pain. No nausea or vomiting. No diarrhea or constipation. No hematemesis. No hematochezia. GENITOURINARY: No urgency. No frequency. No dysuria. No hematuria. No obstructive symptoms. No discharge. No pain. No significant abnormal bleeding. MUSCULOSKELETAL: Mild leg edema. No musculoskeletal pain. NEUROLOGICAL: Awake, alert, oriented to time, place and person. No headache. No neck pain. No syncope. No seizures. No dizziness. PSYCHIATRIC: Not anxious. No depression. No suicidal thoughts. No homicidal thoughts. SKIN: No rash. No lesions. No wounds. ENDOCRINE: No unexplained weight loss. No weight gain. HEMATOLOGIC/LYMPHATIC: No anemia. No purpura. No petechiae. No prolonged or excessive bleeding. No palpable lymph nodes. PHYSICAL EXAMINATION: GENERAL: The patient is awake, alert and oriented, lying in bed in no distress. VITAL SIGNS: Temperature 97.9 F, Pulse 61, Respiratory Rate 22, BP 156/92, Pulse Ox 98% HEENT: Head normocephalic, atraumatic. Eyes: Extraocular muscles are intact. Pupils are equal, round and reactive to light and accommodation. Ears: No lesions. Nose appeared normal. Throat: No exudate or erythema. NECK: Supple. No JVD, no carotid bruit. No lymphadenopathy or thyromegaly. LUNGS: Diminished breath sounds bilaterally. Clear to auscultation. Percussion note normal. Chest symmetrical. HEART: S1, S2, no S3. No murmurs. No cyanosis or clubbing. No ascites. Pulses: Dorsalis pedis and posterior tibial pulses +1 to +2 both sides. ABDOMEN: Soft. Non-tender. Bowel sounds active. No CVA tenderness. No mass felt. EXTREMITIES: Trace to +1 bilateral lower extremity edema. Full range of motion of all extremities, equal. NEUROLOGIC: No focal deficit. Cranial nerves II through XII are grossly intact. No headache, no double vision or headache. SKIN: Not dry. Intact. Turgor-normal. LYMPHATIC: No palpable lymph nodes/no lymphedema. MUSCULOSKELETAL: Normal joints with no swelling. Muscle tone is normal. LAB REVIEW: 01/01/17 05:00 01/01/17 05:00 01/01/17 05:00: Sodium 140, Potassium 4.4, Chloride 111 H, Carbon Dioxide 21 L, Anion Gap 12.4, BUN 32 H, Creatinine 1.50 H D, Estimated GFR (MDRD) 41.00, BUN/ Creatinine Ratio 21.33, Glucose 159 H, Calcium 8.6, Total Bilirubin 0.21, AST 24 , ALT 24, Alkaline Phosphatase 88, Total Protein 6.5, Albumin 2.4 L, Globulin 4.1, Albumin/Globulin Ratio 0.59 01/01/17 05:00: WBC 10.49 H, RBC 3.73 L, Hgb 10.5 L, Hct 32.4 L, MCV 86.9, MCH 28.2, MCHC 32.4, RDW Coeff of Jade 14.5, Plt Count 498 H, Immature Gran % (Auto) 2.7, Neut % (Auto) 60.5, Lymph % (Auto) 22.8, [place] % (Auto) 11.7 H, Eos % (Auto ) 1.9, Baso % (Auto) 0.4, Immature Gran # (Auto) 0.3, Neut # 6.4, Lymph # 2.4, [place] # 1.2, Eos # 0.2, Baso # 0.0 12/31/16 07:25: Sodium 141, Potassium 4.4, Chloride 115 H, Carbon Dioxide 15 L, Anion Gap 15.4, BUN 44 H, Creatinine 2.03 H D, Estimated GFR (MDRD) 29.00, BUN/ Creatinine Ratio 21.67, Glucose 123 H, Calcium 8.5, Total Bilirubin 0.21, AST 32 , ALT 25, Alkaline Phosphatase 89, Total Protein 6.7, Albumin 2.5 L, Globulin 4.2, Albumin/Globulin Ratio 0.60 12/31/16 07:25: WBC 9.75, RBC 3.91 L, Hgb 11.3 L, Hct 34.7 L, MCV 88.7, MCH 28.9 , MCHC 32.6, RDW Coeff of Jade 14.7, Plt Count 415, Immature Gran % (Auto) 3.8, Neut % (Auto) 57.3, Lymph % (Auto) 24.1, [place] % (Auto) 12.9 H, Eos % (Auto) 1.3 , Baso % (Auto) 0.6, Immature Gran # (Auto) 0.4, Neut # 5.6, Lymph # 2.4, [place] # 1.3, Eos # 0.1, Baso # 0.1 ASSESSMENT: 1. ACUTE RESPIRATORY FAILURE RESOLVED 2. PULMONARY EDEMA IMPROVED 3. HISTORY OF PULMONARY FIBROSIS 4. SMOKER 5. HYPERTENSION 6. ACUTE ON CHRONIC RENAL FAILURE IMPROVING PLAN: 1. Discharge home 2. Minoxidil 5 mg 3. Restart Lasix 40 mg daily 5. D/C IV fluids Plan and coordination of the patient's care discussed in the presence of Customer Advocacy Manager and nurse. CONDITION: Stable SCRIBED BY: GUNNAR MCKEON Marine Mammal Trainer scribed while in presence of service performed by Dr. Bertrand/Jasmine Vaughan APRN on 01/01/17 ([id number])
--- NOTE | 2017-01-02 10:27 | PN ---
DATE OF SERVICE: 12/31/16 SUBJECTIVE: 76 year old black female hospitalized with acute respiratory failure, acute pulmonary edema, acute bronchitis. The patient was aggressively treated with diuretic and antibiotics that effected her kidneys and she became hypotensive. She was on a lot of blood pressure medications which she needed them. The patient's anti-hypertensive medications were practically stopped and she was IV fluid hydration. She didn't have her creatinine and BUN are improving remarkably. She is feeling better she has metabolic acidosis. She had declined any further evaluation by manager business intelligence or any other inside sales consultant. She would like to be staying in [facility] under me. The patient is DNR. REVIEW OF SYSTEMS: CONSTITUTIONAL: No night sweats. No fatigue, malaise, lethargy. No fever or chills. HEENT: Eyes: No visual changes. No eye pain. No eye discharge. ENT: No runny nose. No epistaxis. No sinus pain. No sore throat. No odynophagia. No congestion. RESPIRATORY: No cough, no congestion. No hemoptysis. No shortness of breath. CARDIOVASCULAR: No angina symptoms. No CHF symptoms. No atypical chest pain for CAD. No palpitations. No orthopnea. GASTROINTESTINAL: No abdominal pain. No nausea or vomiting. No diarrhea or constipation. No hematemesis. No hematochezia. GENITOURINARY: No urgency. No frequency. No dysuria. No hematuria. No obstructive symptoms. No discharge. No pain. No significant abnormal bleeding. MUSCULOSKELETAL: No musculoskeletal pain; no joint swelling. NEUROLOGICAL: No headache. No neck pain. No syncope. No seizures. No dizziness. PSYCHIATRIC: Not anxious. No depression. No suicidal thoughts. No homicidal thoughts. SKIN: No rash. No lesions. No wounds. ENDOCRINE: No unexplained weight loss. No weight gain. HEMATOLOGIC/LYMPHATIC: No anemia. No purpura. No petechiae. No prolonged or excessive bleeding. No palpable lymph nodes. PHYSICAL EXAMINATION: VITAL SIGNS: Temperature 97.7, pulse 64, respiratory rate 16, blood pressure 147/92 and pulse ox 100%. HEENT: Head normocephalic, atraumatic. Eyes: Extraocular muscles are intact. Pupils are equal, round and reactive to light and accommodation. Ears: No lesions. Nose appeared normal. Throat: No exudate or erythema. NECK: Supple. No JVD, no carotid bruit. No lymphadenopathy or thyromegaly. LUNGS: Decreased breath sounds but clear to auscultation. Percussion note normal. Chest symmetrical. HEART: S1, S2, no S3. No murmurs. No cyanosis or clubbing. No ascites. Pulses: Dorsalis pedis and posterior tibial pulses +1 to +2 both sides. ABDOMEN: Soft. Nontender. Bowel sounds active. No CVA tenderness. No mass felt. EXTREMITIES: No edema. Full range of motion of all extremities, equal. NEUROLOGIC: No focal deficit. Cranial nerves II through XII are grossly intact. No headache, no double vision or headache. SKIN: Not dry. Intact. Turgor - normal. LYMPHATIC: No palpable lymph nodes/no lymphedema. MUSCULOSKELETAL: Normal joints with no swelling. Muscle tone is normal. ASSESSMENT: 1. Acute bronchitis 2. Acute pulmonary edema 3. Acute respiratory failure, under control 4. Acute renal failure seems to be resolving slowly 5. Hypertension, controlled medications are readministered PLAN: 1. The patient is strongly advised to quit smoking 2. She is noncompliant, advised to take her medication on regular basis 3. CHF, Pulmonary edema, hypertension and renal failure all discussed. TIME SPENT: More than 30 minutes. Plan and coordination of the patient's care discussed in the presence of nurse. MANAN
--- NOTE | 2017-01-02 15:10 | PN ---
DATE OF SERVICE: 01/01/17 SUBJECTIVE: 76 year old black female hospitalized with acute respiratory failure. The patient also had pulmonary edema with acute bronchitis. The patient was treated aggressively with diuretic and IV antibiotics. The patient was also kept on an anti-hypertensive medication. The next thing we know was acute renal failure with creatinine close to 5 with BUN 70 with metabolic acidosis. The last two to three day after slow hydration with IV fluids the patient's renal functions have improved remarkably. She is feeling a lot better. She never felt bad. She is up and about. The patient is noncompliant and makes it very difficult to take care of her complicated multiple medical problems that she has. PHYSICAL EXAMINATION: HEENT: Head normocephalic, atraumatic. Eyes: Extraocular muscles are intact. Pupils are equal, round and reactive to light and accommodation. Ears: No lesions. Nose appeared normal. Throat: No exudate or erythema. NECK: Supple. No JVD, no carotid bruit. No lymphadenopathy or thyromegaly. LUNGS: Clear to auscultation. Percussion note normal. Chest symmetrical. HEART: S1, S2, no S3. No murmurs. No cyanosis or clubbing. No ascites. Pulses: Dorsalis pedis and posterior tibial pulses +1 to +2 both sides. ABDOMEN: Soft. Nontender. Bowel sounds active. No CVA tenderness. No mass felt. EXTREMITIES: No edema. Full range of motion of all extremities, equal. NEUROLOGIC: No focal deficit. Cranial nerves II through XII are grossly intact. No headache, no double vision or headache. SKIN: Not dry. Intact. Turgor - normal. LYMPHATIC: No palpable lymph nodes/no lymphedema. MUSCULOSKELETAL: Normal joints with no swelling. Muscle tone is normal. LABS: Creatinine 1.5, BUN 32 PLAN: 1. Again she was advised to quit smoking. 2. She was advised to continue all her medications as before except Minoxidil 2.5mg twice a day 3. The patient's blood pressure was 156/90. CONDITION: Stable. The patient was seen and examined with Nurse Practitioner and Gear Shaper. TIME SPENT: More than 30 minutes. Plan and coordination of the patient's care discussed in the presence of nurse. MANAN
--- NOTE | 2017-01-02 15:12 | PN ---
12/24/16: Level 5 12/25/16: Extensive 12/26/16: Extensive 12/27/16: Intermediate 12/28/16: Intermediate 12/29/16: Extensive 12/30/16: Intermediate 12/31/16: Intermediate 01/01/17: D as in discharge MTDD
--- NOTE | 2017-01-02 15:25 | PN ---
DATE OF SERVICE: 12/28/16 SUBJECTIVE: The patient lying in bed. She rested well last night. She is mildly short of breath with exertion but has significantly improved. Her kidney function has steadily declined due to insult from aggressive diuresis. She is currently getting IV fluids at 75 cc/hr and we are going to hold all of her blood pressure medication. REVIEW OF SYSTEMS: CONSTITUTIONAL: No night sweats. Generalized weakness. No fever or chills. HEENT: Eyes: No visual changes. No eye pain. No eye discharge. ENT: No runny nose. No epistaxis. No sinus pain. No sore throat. No odynophagia. No congestion. RESPIRATORY: Positive for cough and shortness of breath which is improving. No hemoptysis. CARDIOVASCULAR: No angina symptoms. No CHF symptoms. No atypical chest pain for CAD. No palpitations. No orthopnea. GASTROINTESTINAL: No abdominal pain. No nausea or vomiting. No diarrhea or constipation. No hematemesis. No hematochezia. GENITOURINARY: No urgency. No frequency. No dysuria. No hematuria. No obstructive symptoms. No discharge. No pain. No significant abnormal bleeding. MUSCULOSKELETAL: No musculoskeletal pain; no joint swelling. NEUROLOGICAL: No headache. No neck pain. No syncope. No seizures. No dizziness. PSYCHIATRIC: Not anxious. No depression. No suicidal thoughts. No homicidal thoughts. SKIN: No rash. No lesions. No wounds. ENDOCRINE: No unexplained weight loss. No weight gain. HEMATOLOGIC/LYMPHATIC: No anemia. No purpura. No petechiae. No prolonged or excessive bleeding. No palpable lymph nodes. PHYSICAL EXAMINATION: HEENT: Head normocephalic, atraumatic. Eyes: Extraocular muscles are intact. Pupils are equal, round and reactive to light and accommodation. Ears: No lesions. Nose appeared normal. Throat: No exudate or erythema. NECK: Supple. No JVD, no carotid bruit. No lymphadenopathy or thyromegaly. LUNGS: Clear with severely diminished breath sounds bilaterally. Mild expiratory rub on the left which is chronic for her. Percussion note normal. Chest symmetrical. HEART: S1, S2, no S3. No murmurs, clicks or rubs. No cyanosis or clubbing. No ascites. Pulses: Dorsalis pedis and posterior tibial pulses +1 to +2 both sides. ABDOMEN: Soft. Nontender. Bowel sounds active. No CVA tenderness. No mass felt. EXTREMITIES: No edema. Negative Dirk's sign. Full range of motion of all extremities, equal. NEUROLOGIC: No focal deficit. Cranial nerves II through XII are grossly intact. No headache, no double vision or headache. SKIN: Not dry. Intact. Turgor - normal. LYMPHATIC: No palpable lymph nodes/no lymphedema. MUSCULOSKELETAL: Normal joints with no swelling. Muscle tone is normal. ASSESSMENT: 1. ACUTE ON CHRONIC RENAL FAILURE 2. PULMONARY EDEMA 3. PULMONARY FIBROSIS 4. ACUTE RESPIRATORY FAILURE WHICH HAS RESOLVED PLAN: 1. Hold all blood pressure medication. Do not give unless systolic greater than 150. 2. Continue with IV fluids at 75 cc/hr. 3. Discontinue Lasix and Aldactone. 4. CBC, CMP tomorrow. 5. Will follow closely. TIME SPENT: More than 30 minutes. Plan and coordination of the patient's care discussed in the presence of nurse. MANAN
--- NOTE | 2017-01-03 11:58 | PN ---
DATE OF SERVICE: 12/30/16 SUBJECTIVE: 76 year old black female hospitalized with acute respiratory failure, pulmonary edema and acute bronchitis. The patient was aggressively treated with IV antibiotics and also IV Lasix and diuretics. The patient's kidney went into renal failure. The creatinine and BUN has improved now and it is 2.7 and 67. The highest was 74.8 and 79. The patient's appetite is better. She was never in distress. She has declined to go to Apiculturist. The patient is on slow IV hydration. The antihypertensive have been held back to some extent. REVIEW OF SYSTEMS: CONSTITUTIONAL: No night sweats. No fatigue, malaise, lethargy. No fever or chills. HEENT: Eyes: No visual changes. No eye pain. No eye discharge. ENT: No runny nose. No epistaxis. No sinus pain. No sore throat. No odynophagia. No congestion. RESPIRATORY: No cough, no congestion. No hemoptysis. No shortness of breath. CARDIOVASCULAR: No angina symptoms. No CHF symptoms. No atypical chest pain for CAD. No palpitations. No orthopnea. GASTROINTESTINAL: No abdominal pain. No nausea or vomiting. No diarrhea or constipation. No hematemesis. No hematochezia. GENITOURINARY: No urgency. No frequency. No dysuria. No hematuria. No obstructive symptoms. No discharge. No pain. No significant abnormal bleeding. Appetite has improved. MUSCULOSKELETAL: No musculoskeletal pain; no joint swelling. NEUROLOGICAL: No headache. No neck pain. No syncope. No seizures. No dizziness. PSYCHIATRIC: Not anxious. No depression. No suicidal thoughts. No homicidal thoughts. SKIN: No rash. No lesions. No wounds. ENDOCRINE: No unexplained weight loss. No weight gain. HEMATOLOGIC/LYMPHATIC: No anemia. No purpura. No petechiae. No prolonged or excessive bleeding. No palpable lymph nodes. PHYSICAL EXAMINATION: VITAL SIGNS: Temperature 98, pulse 68, respiratory rate 20, blood pressure 160/ 76 and pulse ox 98%. HEENT: Head normocephalic, atraumatic. Eyes: Extraocular muscles are intact. Pupils are equal, round and reactive to light and accommodation. Ears: No lesions. Nose appeared normal. Throat: No exudate or erythema. NECK: Supple. No JVD, no carotid bruit. No lymphadenopathy or thyromegaly. LUNGS: Decreased breath sounds but clear to auscultation. Percussion note normal. Chest symmetrical. HEART: S1, S2, no S3. No murmurs. No cyanosis or clubbing. No ascites. Pulses: Dorsalis pedis and posterior tibial pulses +1 to +2 both sides. ABDOMEN: Soft. Nontender. Bowel sounds active. No CVA tenderness. No mass felt. EXTREMITIES: No edema. Full range of motion of all extremities, equal. NEUROLOGIC: No focal deficit. Cranial nerves II through XII are grossly intact. No headache, no double vision or headache. SKIN: Not dry. Intact. Turgor - normal. Mucosa Membrane dry. LYMPHATIC: No palpable lymph nodes/no lymphedema. MUSCULOSKELETAL: Normal joints with no swelling. Muscle tone is normal. ASSESSMENT: 1. Acute renal failure 2. Acute pulmonary edema, has resolved 3. CHF, under control 4. Acute bronchitis, under control 5. Severe COPD 6. Smoking 7. History of migraine headaches for number of years. PLAN: 1. Counseling for smoking done 2. IV hydration to be continued 3. Hold back antihypertensive 4. Will give Toradol 30mg IV Q 8 hours 5. Will start her on Clonidine 0.2mg twice a day 6. Kidney functions have improved 7. Already started on Benicar 40mg Po daily TIME SPENT: More than 30 minutes. CONDITION: Stable. Plan and coordination of the patient's care discussed in the presence of nurse. MANAN
--- NOTE | 2017-01-04 09:39 | DS ---
DATE OF SERVICE: 01/01/17 FINAL DIAGNOSIS: 1. RESPIRATORY FAILURE, ACUTE, RESOLVED 2. RENAL FAILURE, ACUTE, IMPROVED 3. PULMONARY EDEMA, RESOLVED 4. PULMONARY FIBROSIS BY HISTORY 5. COPD 6. HYPERTENSION 7. CAD 8. DYSLIPIDEMIA 9. CKD, STAGE 4 10. CHRONIC ANEMIA 11. MIGRAINE HEADACHES 12. ANXIETY 13. SMOKING 14. TONSILLECTOMY 15. APPENDECTOMY 16. CARDIAC CATH 17. BILATERAL TKR DISCHARGE INSTRUCTIONS: Followup appointment: Return to see Dr. Galo in 5 to 7 days. Please phone office to schedule your followup appointment [phone]. [facility] will phone you to arrange an overnight pulse-oximetry recording to determine if you need oxygen at night. MEDICATIONS AT DISCHARGE: Albuterol Sulfate (ProAir HFA) two puffs IH q.6h Aspirin 81 mg p.o. daily with meal RANJEET Wellbutrin 150 mg p.o. daily RANJEET Coreg 25 mg p.o. b.i.d. with meal RANJEET Catapres 0.2 mg p.o. b.i.d. RANJEET Cardizem 90 mg p.o. b.i.d. RANJEET Lasix 40 mg p.o. q.d a.c. RANJEET Minoxidil 2.5 mg p.o.b .i.d. RANJEET (decreased dose from 5 mg to p.o. b.i.d.) Nitrostat 0.4 mg SL q.5 min times three doses p.r.n. Benicar 40 mg p.o. daily RANJEET Aldactone 25 mg p.o. daily NEW PRESCRIPTIONS: Please note the reduction in your Minoxidil to 2.5 mg by mouth twice daily Prednisone 10 mg take one tablet by mouth daily with food DIET INSTRUCTIONS: Healthy Heart ACTIVITY: Get plenty of rest at home. Gradually increase your activity level according to your toleration. SMOKING: Current smoker DISEASE SPECIFIC EDUCATION: Respiratory failure, acute Acute renal failure Home medications New medications exterminator helper effects of steroid use both risks and benefits Office follow up Activities HOSPITAL COURSE: This is a 76-year-old female who presented to the emergency room with worsening shortness of breath and cough. She has history of pulmonary fibrosis and is a smoker. Chest x-ray along with CT scan revealed pulmonary edema and acute respiratory failure. She was initially admitted to the Special Care Unit. She was placed on IV steroids, Solu-Medrol 125 q.8hr along with Lasix 40 mg IV b.i.d. Over the course of 24 to 36 hours her shortness of breath significantly improved. Swelling in her legs resolved however her kidneys we did have an acute insult to her kidney function at which on the her creatinine got up to 4.25. With slow IV rehydration and discontinuation of diuretics, her kidney function has significantly improved and today, on day of discharge, BUN is 32 and creatinine 1.5. The stated that she had been at home and had not been taking her medications regularly and had continued to smoke. Smoking cessation has been discussed with her in detail. Over the past several days she has tolerated being on p.o. steroids, Prednisone 10 mg daily. Today, on day of discharge, she does have trace edema in lower extremities. We will give her one dose of Lasix before she goes home. Her blood pressure has been labile. Initially it was low then returned to normal and then has been high. We decreased her Minoxidil to 2.5 mg daily due to her kidney function. For 24 hours we held her Cardizem and Coreg as well as Clonidine. Once her kidney function improved by Sunday, creatinine was down to 2.5, we slowly added back her medication. She was restarted on Cardizem 60 b.i.d. and Coreg 12.5 mg b.i.d. and again restarted on Minoxidil 2.5 daily. She will go home on Clonidine 0.2 b.i.d. as she was previously on. Repeat chest x-ray showed mild improvement in her pulmonary edema. Again, she was instructed that she needs to stop smoking and the importance of compliance with her medications. The patient is mildly short of breath with exertion which is normal for her. We will also send her home on Prednisone 10 mg daily. She has had no signs of pneumonia therefore is not on any antibiotics. We will do an overnight pulse oximetry at home to see if she is in need of oxygen. We will followup with her closely in our office. TIME SPENT: More than 60 minutes. MANAN
--- NOTE | 2017-01-04 13:32 | PN ---
DATE OF SERVICE: 12/26/16 SUBJECTIVE: The patient was seen with the Nurse Practitioner and Biology Teacher. The patient' s condition is stable. She doesn't have any symptoms of CHF or coronary insufficiency. Her CHF has resolved and her shortness of breath has resolved. She is sitting up in the chair very comfortable. Her appetite has improved and her oxygen saturation is more than 90% on room air. PHYSICAL EXAMINATION: HEENT: Head normocephalic, atraumatic. Eyes: Extraocular muscles are intact. Pupils are equal, round and reactive to light and accommodation. Ears: No lesions. Nose appeared normal. Throat: No exudate or erythema. NECK: Supple. No JVD, no carotid bruit. No lymphadenopathy or thyromegaly. LUNGS: Decreased breath sounds but Clear to auscultation no wheeze. Percussion note normal. Chest symmetrical. HEART: S1, S2, no S3. No murmurs. No cyanosis or clubbing. No ascites. Pulses: Dorsalis pedis and posterior tibial pulses +1 to +2 both sides. ABDOMEN: Soft. Nontender. Bowel sounds active. No CVA tenderness. No mass felt. EXTREMITIES: No edema. Full range of motion of all extremities, equal. NEUROLOGIC: No focal deficit. Cranial nerves II through XII are grossly intact. No headache, no double vision or headache. SKIN: Not dry. Intact. Turgor - normal. LYMPHATIC: No palpable lymph nodes/no lymphedema. MUSCULOSKELETAL: Normal joints with no swelling. Muscle tone is normal. PLAN: 1. Kidney functions have deteriorated because of aggressive diuresis. We will discontinue IV Lasix and put her on Lasix 40mg PO daily 2. The patient is noncompliant she has continued to smoke. She also has her own way of explaining things and doesn't take medications at times depending upon how she feels about that particular medicine. PROGNOSIS: Poor CONDITION: Stable. TIME SPENT: More than 30 minutes. Plan and coordination of the patient's care discussed in the presence of nurse. MANAN
== END 2017-01-01 12:00 | disposition home or self-care (01) | DRG 189 ==
LOC: ED 09:12 → SCU 11:41 → MEDSURG B 12-26 19:57
PROVIDERS: ADMIT Internal Medicine; ATTEND Internal Medicine
DX: J96.21 Acute and chronic respiratory failure with hypoxia (principal); I50.21 Acute systolic (congestive) heart failure; J44.1 Chronic obstructive pulmonary disease with (acute) exacerbation; N18.4 Chronic kidney disease, stage 4 (severe); N17.8 Other acute kidney failure; E87.2 Acidosis; N14.1 Nephropathy induced by other drugs, medicaments and biological substances; T50.2X5A Adverse effect of carbonic-anhydrase inhibitors, benzothiadiazides and other diuretics, initial encounter; R06.02 Shortness of breath; R53.1 Weakness; I25.5 Ischemic cardiomyopathy; J84.10 Pulmonary fibrosis, unspecified; R60.0 Localized edema; I10 Essential (primary) hypertension; I25.10 Atherosclerotic heart disease of native coronary artery without angina pectoris; E78.5 Hyperlipidemia, unspecified; I12.9 Hypertensive chronic kidney disease with stage 1 through stage 4 chronic kidney disease, or unspecified chronic kidney disease; D50.0 Iron deficiency anemia secondary to blood loss (chronic); G43.909 Migraine, unspecified, not intractable, without status migrainosus; F41.9 Anxiety disorder, unspecified; R07.9 Chest pain, unspecified; R00.0 Tachycardia, unspecified; F17.200 Nicotine dependence, unspecified, uncomplicated; Z87.01 Personal history of pneumonia (recurrent); Z79.899 Other long term (current) drug therapy; Z53.20 Procedure and treatment not carried out because of patient's decision for unspecified reasons
CPT/HCPCS: 36415; 80048; 80053; 80202; 82550; 82803; 83605; 83880; 84145; 84484; 85025; 87040; 87081; 93005; 93010; 94640; 96365; 96375; 99284

== ENCOUNTER 2017-04-04 20:29 | Inpatient (IN) | payer OTHER ==
[2017-04-04] MEDS ORDERED: ROCEPHIN 1 GM in SODIUM CHLORIDE 50 ML IV STA (20:42)
[2017-04-04] MEDS ORDERED: ROCEPHIN ONE (20:55)
--- NOTE | 2017-04-04 21:26 | ED.PDOC ---
General ED Provider: Dr. CRISTINA DHALIWAL-ER Chief Complaint: Shortness of Air Stated Complaint: cough, fever and sob for 2 days Time Seen by Physician: 20:35 Mode of Arrival: Wheelchair Information Source: Patient, Family Exam Limitations: No limitations Primary Care Provider: NICOLÁS TRINH Nursing and Triage Documentation Reviewed and Agree: Yes Reviewed sepsis parameters & appropriate labs ordered?: Yes System Inflammatory Response Syndrome: Temp 101F or Greater, Pulse >90 BPM, Not Applicable Sepsis Protocol: For patient's 13 years and over: Temp is 96.8 and below OR 101 and greater Pulse >90 BPM Resp >20/minute Acutely Altered Mental Status Are patient's symptoms suggestive of a new infection, such as: -Pneumonia -Skin, Soft Tissue -Endocarditis -UTI -Bone, Joint Infection -Implantable Device -Acute Abdominal Infection -Wound Infection -Meningitis -Blood Stream Catheter Infection -Unknown Respiratory Complaint Exam - Respiratory Complaint/Exam Onset/Duration: 2 days Symptoms Are: Still present Timing: Constant Initial Severity: Moderate Current Severity: Moderate Location: Chest Character: Reports: Non-productive cough Alleviating: Reports: Upright position Associated Signs and Symptoms: Reports: Fever, Chills, URI. Denies: Rapid breathing, Dyspnea, Chest pain, Pleuritic chest pain, Wheezing, Hemoptysis, Dizziness, Calf pain, Calf swelling, Edema, Nasal congestion, Hoarseness, Sinus discomfort, Vomiting, Sore throat, Weight loss, Decreased oral intake, Increased thirst, Increased appetite, Increased urination History of Healthcare-Acquired Pneumonia: No Pseudomonas Risk Factors: Reports: Chronic Lung Disease Tuberculosis Risk Factors: Reports: Chronic Resp. Faliure Status Asthmaticus Risk Factors: Reports: None Home Oxygen Use: Yes Recent Stress Test: No Recent Echo/LV Function: No Current Antibiotic Use: No Current Asthma Medication Use: No Respiratory Distress: None Inadequate Respiratory Effort: No Dysphagia Present: No Stridor Present: No JVD Present: No Accessory Muscle Use: No Retractions: Not Present Diminished Breath Sounds: Yes Sinus Tenderness: None Grunting Respirations: No Kussmaul Respirations: No Differential Diagnoses: Pulmonary Edema, COPD Exacerbation, Pneumonia, Influenza Non-Traumatic Chest Pain Syncope: EKG Performed Review of Systems - Review Of Systems Constitutional: Reports: Chills, Fever, Weakness Eyes: Reports: No symptoms Ears, Nose, Mouth, Throat: Reports: No symptoms Respiratory: Reports: Cough, Short of air Cardiac: Reports: No symptoms GI: Reports: No symptoms : Reports: No symptoms Musculoskeletal: Reports: No symptoms Skin: Reports: No symptoms Neurological: Reports: No symptoms Endocrine: Reports: No symptoms Hematologic/Lymphatic: Reports: No symptoms All Other Systems: Reviewed and Negative Past Medical History - Past Medical History Previously Healthy: Yes Endocrine: Reports: None Cardiovascular: Reports: Hypertension, CHF Respiratory: Reports: COPD, Pneumonia Hematological: Reports: None Gastrointestinal: Reports: None Genitourinary: Reports: None Neuro/Psych: Reports: Migraine Musculoskeletal: Reports: Arthritis, Joint Pain, Other (Sciatica ) Cancer: Reports: None Last Menstrual Period: na - Surgical History General Surgical History: Reports: Hysterectomy, Appendectomy, Orthopedic (Knee replacement on the left 7 weeks ago. ) - Family History Family History: Reports: Unknown - Social History Smoking Status: Former smoker Hx Substance Use: No Alcohol Screening: None Lives: With family - Immunizations Tetanus Shot up to Date: Yes Influenza Vaccine within 12 Months: Yes Physical Exam - Physical Exam Appearance: Ill-appearing Eyes: POLA, EOMI, Conjunctiva clear ENT: Ears normal, Nose normal, Oropharynx normal Neck: Supple Respiratory: Crackles, Rhonchi Cardiovascular: RRR, Pulses normal, No rub, No murmur GI/: Soft, Nontender, No masses, Bowel sounds normal, No Organomegaly Musculoskeletal: Normal strength, ROM intact, No edema, No calf tenderness Skin: Warm, Dry, Normal color Neurological: Sensation intact, Motor intact, Reflexes intact, Cranial nerves intact, Alert, Oriented Psychiatric: Affect appropriate, Mood appropriate Interpretation - Radiology Interpretation Radiology Interpretation By: Radiologist Radiology Results: Positive Exam Interpreted: CT Scan - EKG Interpretation Time of EKG #1: 21:55 Rate: Normal Rhythm: Sinus Ectopy: None Hooks: NL ST Segment: Normal Physician Notification - Case Discussed Physician Notified: dr trinh Time of Notification: 21:55 Critical Care Note - Critical Care Note Total Time (mins): 0 Course - Course Hematology/Chemistry: 04/04/17 21:06 04/04/17 21:06 Orders, Labs, Meds: Lab Review 04/04/17 04/04/17 04/04/17 20:40 20:45 21:06 WBC 15.02 H RBC 4.15 L Hgb 11.6 L Hct 36.0 L MCV 86.7 MCH 28.0 MCHC 32.2 RDW Coeff of Jade 15.0 H Plt Count 269 Immature Gran % (Auto) 0.3 Neut % (Auto) 72.1 Lymph % (Auto) 15.2 [place] % (Auto) 10.1 H Eos % (Auto) 2.0 Baso % (Auto) 0.3 Immature Gran # (Auto) 0.1 Neut # (Auto) 10.8 H Lymph # (Auto) 2.3 [place] # (Auto) 1.5 Eos # (Auto) 0.3 Baso # (Auto) 0.0 Puncture Site Lb O2 Saturation 92.0 L ABG pH 7.457 H ABG pCO2 29.6 L ABG pO2 60.0 L ABG HCO3 20.9 L ABG Total CO2 22 ABG Base Excess -3 L Ja Test + FiO2 % 21.0 Sodium Potassium Chloride Carbon Dioxide Anion Gap BUN Creatinine Estimated GFR (MDRD) BUN/Creatinine Ratio Glucose Lactic Acid Calcium Total Bilirubin AST ALT Alkaline Phosphatase Total Protein Albumin Globulin Albumin/Globulin Ratio Influ A Molecular Assay Negative by naat Influ B Molecular Assay Negative by naat 04/04/17 04/04/17 21:06 21:06 WBC RBC Hgb Hct MCV MCH MCHC RDW Coeff of Jade Plt Count Immature Gran % (Auto) Neut % (Auto) Lymph % (Auto) [place] % (Auto) Eos % (Auto) Baso % (Auto) Immature Gran # (Auto) Neut # (Auto) Lymph # (Auto) [place] # (Auto) Eos # (Auto) Baso # (Auto) Puncture Site O2 Saturation ABG pH ABG pCO2 ABG pO2 ABG HCO3 ABG Total CO2 ABG Base Excess Ja Test FiO2 % Sodium 137 Potassium 5.0 Chloride 107 Carbon Dioxide 18 L Anion Gap 17.0 BUN 23 H Creatinine 1.42 H Estimated GFR (MDRD) 44.00 BUN/Creatinine Ratio 16.19 Glucose 109 Lactic Acid 10.2 Calcium 9.2 Total Bilirubin 0.3 AST 46 H ALT 31 Alkaline Phosphatase 123 Total Protein 8.2 H Albumin 2.8 L Globulin 5.4 Albumin/Globulin Ratio 0.52 Influ A Molecular Assay Influ B Molecular Assay Orders Category Date Time Status ABG DRAW REQUEST Stat CARDIO 04/04/17 20:41 Completed EKG-(ED ONLY) Stat CARDIO 04/04/17 20:41 Completed IV [ED IV/MEDIPORT/POWERPORT] .ONCE EMERGENCY 04/04/17 20:42 Active ABG Stat LAB 04/04/17 20:40 Completed BLOOD CULTURE (ED ONLY) Stat LAB 04/04/17 21:06 Received CBC W/ AUTO DIFF Stat LAB 04/04/17 21:06 Completed COMPREHENSIVE METABOLIC PANEL Stat LAB 04/04/17 21:06 Completed FLU A/B MOLECULAR Stat LAB 04/04/17 20:45 Completed LACTIC ACID Stat LAB 04/04/17 21:06 Completed MOLECULAR GROUP A STREP Stat LAB 04/04/17 20:45 Completed PROCALCITONIN Stat LAB 04/04/17 21:06 Received URINALYSIS C & S IF INDICATED Stat LAB 04/04/17 20:40 Uncollected 0.9 % Sodium Chloride [Saline Flush] MEDS 04/04/17 20:42 Ordered 1 syr IVF PRN PRN Ceftriaxone Sodium [Rocephin] MEDS 04/04/17 20:55 Discontinued 1 gm .ROUTE .STK-MED ONE Ceftriaxone Sodium [Rocephin] 1 gm MEDS 04/04/17 20:42 Discontinued 0.9 % Sodium Chloride [Sodium Chloride] 50 ml IV ONCE Sodium Chloride 0.9% [Sodium Chloride] 1,000 ml MEDS 04/04/17 21:47 Active IV 75 mls/hr CT CHEST W/O CONTRAST Stat RADS 04/04/17 20:42 Completed Medications Generic Name Dose Route Start Last Admin Trade Name Freq PRN Reason Stop Dose Admin Sodium Chloride 1,000 mls @ 75 mls/hr 04/04/17 21:47 Sodium Chloride IV 04/05/17 11:06 .[id number] STA Sodium Chloride 1 syr 04/04/17 20:42 04/04/17 21:19 Saline Flush IVF 1 syr PRN PRN Administration To flush IV Discontinued Medications Generic Name Dose Route Start Last Admin Trade Name Freq PRN Reason Stop Dose Admin Ceftriaxone Sodium 1 gm/ 50 mls @ 75 mls/hr 04/04/17 20:42 04/04/17 21:18 Sodium Chloride IV 04/04/17 21:21 75 mls/hr ONCE STA Administration Vital Signs: Temp Pulse Resp BP Pulse Ox 04/04/17 20:53 109 H 37 H 173/88 H 88 L 04/04/17 20:33 102.3 F H 110 H 24 175/101 H 92 L Departure - Departure Time of Disposition: 21:55 Disposition: ADMITTED INPATIENT Discharge Problem: COPD exacerbation Acute respiratory failure Qualifiers: Respiratory failure complication: hypoxia Qualified Code(s): J96.01 - Acute respiratory failure with hypoxia Instructions: Pulmonary Fibrosis (ED) Condition: Stable Pt referred to PMD for follow-up: Yes IPMP verified?: No Allergies/Adverse Reactions: Allergies No Known Allergies Allergy (Verified 04/04/17 20:51) Home Medications: Ambulatory Orders Nitroglycerin [Nitrostat] 0.4 mg SL Q5MIN X 3 DOSES PRN 02/10/16 Aspirin [Aspir 81] 81 mg PO DAILY 06/26/16 Albuterol Sulfate [Proair Hfa] 2 puff IH Q6H 12/01/16 Diltiazem HCl 90 mg PO BID 12/01/16 Furosemide [Lasix Tab] 40 mg PO QDAC 12/01/16 Clonidine HCl [Catapres] 0.2 mg PO BID #60 tablet 12/07/16 Minoxidil 2.5 mg PO BID #60 tablet 01/01/17 Prednisone 10 mg PO DAILYWM #5 tablet 01/01/17 Disposition Discussed With: Patient, Family
--- NOTE | 2017-04-04 21:45 | CT ---
Exam: CT of the chest without contrast History: Cough and fever Technique: [address] of the chest without intravascular contrast FINDINGS: The lung windows show movement artifact which is technically inhibiting. There is reticul ar fibrotic coarsening in the lower lungs. No obvious superimposed infiltrative opacity. Atheroscle rotic calcification of the aorta without aneurysm. No pathologic lymph node enlargement mediastinum. No acute chest wall abnormalities. No acute findings of the upper abdomen. Impression: 1. Fibrotic lung disease without superimposed infiltrative opacity. Similar findings on 06/18/2016.
[2017-04-04] MEDS ORDERED: SODIUM CHLORIDE 1,000 ML IV STA (21:47)
[2017-04-04] MEDS ORDERED: NITROSTAT SL PRN (22:00)
[2017-04-04 22:40] VITALS: BMI 28.5
[2017-04-04] MEDS: TYLENOL PO PRN (22:53)
[2017-04-04] MEDS ORDERED: DUONEB NEB ONE ×2 (23:02→23:11)
[2017-04-04] MEDS: DUONEB NEB SCH (23:11)
[2017-04-05] MEDS ORDERED: DUONEB NEB ONE (01:51)
[2017-04-05] MEDS: DUONEB NEB SCH ×4 (05:00→19:55)
[2017-04-05] MEDS: LASIX TAB PO SCH (05:57)
[2017-04-05] MEDS ORDERED: VISTARIL INJ IM PRN (06:24)
[2017-04-05] MEDS ORDERED: ATROPINE SULFATE PFS IVP PRN (06:24)
[2017-04-05] MEDS ORDERED: TYLENOL PO PRN (06:24)
[2017-04-05] MEDS ORDERED: MORPHINE 4 MG/ML VIAL IVP PRN (06:24)
[2017-04-05] MEDS ORDERED: ASPIRIN EC PO SCH (08:00)
[2017-04-05] MEDS: DOXY-100 100 MG in SODIUM CHLORIDE 100 ML IV SCH ×2 (08:25→23:43)
[2017-04-05] MEDS: SOLU-MEDROL 40 MG IVP SCH ×3 (08:25→22:53)
[2017-04-05] MEDS: MINOXIDIL PO SCH ×2 (08:26→21:19)
[2017-04-05] MEDS: LOVENOX SUBCUT SCH ×2 (08:26→08:33)
[2017-04-05] MEDS: CATAPRES PO SCH ×2 (08:26→21:19)
[2017-04-05] MEDS: ASPIRIN EC PO SCH (08:26)
[2017-04-05] MEDS: CARDIZEM PO SCH ×2 (08:26→21:19)
[2017-04-05] MEDS ORDERED: BUPROPION HCL 75 MG PO SCH (09:00)
[2017-04-05] MEDS ORDERED: NON-FORMULARY MEDICATION (Bupropion Hcl [Wellbutrin Xl] 150 MG) PO SCH (09:00)
[2017-04-05] MEDS ORDERED: NON-FORMULARY MEDICATION (Diltiazem Hcl [Diltiazem Hcl] 90 MG) PO SCH (09:00)
[2017-04-05] MEDS: WELLBUTRIN PO SCH ×2 (09:58→21:19)
--- NOTE | 2017-04-05 11:49 | PCM.PROG ---
Attending Provider: ATTENDING PROVIDER: Dr. NICOLÁS BERTRAND DATE OF SERVICE: 04/05/17 SUBJECTIVE: This 76 year old BLACK/ F was hospitalized 04/04/17 with acute respiratory failure, acute bronchitis, and chronic lung disease. She has improved a lot since yesterday, is looking better. She is running low grade fever. The patient has quit smoking since . REVIEW OF SYSTEMS: CONSTITUTIONAL: Low grade fever. No night sweats. No fatigue, malaise, lethargy. No chills. HEENT: Eyes: No visual changes. No eye pain. No eye discharge. ENT: No runny nose. No epistaxis. No sinus pain. No odynophagia. No congestion. RESPIRATORY: No cough, no congestion. No hemoptysis. Mild shortness of breath. CARDIOVASCULAR: No angina symptoms. No CHF symptoms. No atypical chest pain for CAD. No palpitations. No orthopnea.. GASTROINTESTINAL: No abdominal pain. No nausea or vomiting. No diarrhea or constipation. No hematemesis. No hematochezia. GENITOURINARY: No urgency. No frequency. No dysuria. No hematuria. No obstructive symptoms. No discharge. No pain. No significant abnormal bleeding. MUSCULOSKELETAL: No musculoskeletal pain; no joint swelling. NEUROLOGICAL: Awake, alert, oriented to time, place and person. No headache. No neck pain. No syncope. No seizures. No dizziness. PSYCHIATRIC: Not anxious. No depression. No suicidal thoughts. No homicidal thoughts. SKIN: No rash. No lesions. No wounds. ENDOCRINE: No unexplained weight loss. No weight gain. HEMATOLOGIC/LYMPHATIC: No anemia. No purpura. No petechiae. No prolonged or excessive bleeding. No palpable lymph nodes. PHYSICAL EXAMINATION: GENERAL: The patient is awake, alert and oriented, lying in bed in no distress. VITAL SIGNS: Temperature 99.0 F, Pulse 70, Respiratory Rate 16, BP 115/64, Pulse Ox 100% HEENT: Head normocephalic, atraumatic. Eyes: Extraocular muscles are intact. Pupils are equal, round and reactive to light and accommodation. Ears: No lesions. Nose appeared normal. Throat: No exudate or erythema. NECK: Supple. No JVD, no carotid bruit. No lymphadenopathy or thyromegaly. LUNGS: Decreased breath sounds with good air entry for her. Clear to auscultation. Percussion note normal. Chest symmetrical. HEART: S1, S2, no S3. No murmurs. No cyanosis or clubbing. No ascites. Pulses: Dorsalis pedis and posterior tibial pulses +1 to +2 both sides. ABDOMEN: Soft. Non-tender. Bowel sounds active. No CVA tenderness. No mass felt. EXTREMITIES: No edema. Full range of motion of all extremities, equal. NEUROLOGIC: No focal deficit. Cranial nerves II through XII are grossly intact. No headache, no double vision or headache. SKIN: Warm and dry. Intact. Turgor-normal. LYMPHATIC: No palpable lymph nodes/no lymphedema. MUSCULOSKELETAL: Normal joints with no swelling. Muscle tone is normal. LAB REVIEW: 04/05/17 04:30 04/05/17 04:30 04/05/17 04:30: Sodium 138, Potassium 4.6, Chloride 108 H, Carbon Dioxide 20 L, Anion Gap 14.6, BUN 22 H, Creatinine 1.18, Estimated GFR (MDRD) 54.00, BUN/ Creatinine Ratio 18.64, Glucose 110, Calcium 8.7, Total Bilirubin 0.3, AST 38 H , ALT 26, Alkaline Phosphatase 89 D, Total Protein 7.1, Albumin 2.4 L, Globulin 4.7, Albumin/Globulin Ratio 0.51 04/05/17 04:30: WBC 23.00 H D, RBC 3.94 L, Hgb 11.1 L, Hct 34.7 L, MCV 88.1, MCH 28.2, MCHC 32.0, RDW Coeff of Jade 14.9 H, Plt Count 270, Immature Gran % ( Auto) 0.5, Neut % (Auto) 70.0, Lymph % (Auto) 20.1, [place] % (Auto) 8.9, Eos % ( Auto) 0.2, Baso % (Auto) 0.3, Immature Gran # (Auto) 0.1, Neut # (Auto) 16.1 H, Lymph # (Auto) 4.6 H, [place] # (Auto) 2.1 H, Eos # (Auto) 0.1, Baso # (Auto) 0.1 04/05/17 04:20: Total Creatine Kinase 44, Troponin I 0.0180 04/04/17 23:30: Urine Color Yellow, Urine Clarity Clear, Urine pH 6.0, Ur Specific [place] 1.020, Urine Protein 3+, Urine Glucose (UA) Negative, Urine Ketones Negative, Urine Blood Negative, Urine Nitrite Negative, Urine Bilirubin Negative, Urine Urobilinogen 0.2, Ur Leukocyte Esterase Negative, Urine Microscopic RBC 2-5, Urine Microscopic WBC 5-10, Ur Squamous Epith Cells 2-5, Ur Transition Epith Cell 0-2, Urine Bacteria Trace, Urine Yeast Trace ASSESSMENT: 1. ACUTE ASTHMATIC BRONCHITIS LIKELY FLU SYNDROME WITH DEHYDRATION. PLAN: 1. Continue steroids, antibiotics. 2. Continue IV fluids. 3. Continue telemetry. 4. Continue nebs treatment. Plan and coordination of the patient's care discussed in the presence of Display Carver and nurse. CONDITION: Stable SCRIBED BY: GUNNAR MCKEON Die Inspector scribed while in presence of service performed by Dr. NICOLÁS BERTRAND on 04/05/17 ([id number])
[2017-04-05] MEDS: TYLENOL PO PRN (14:42)
[2017-04-05] MEDS ORDERED: ROCEPHIN 1 GM in SODIUM CHLORIDE 50 ML IV SCH (21:00)
[2017-04-06] MEDS: DUONEB NEB SCH ×3 (04:52→14:19)
[2017-04-06] MEDS: LASIX TAB PO SCH (05:40)
[2017-04-06] MEDS: WELLBUTRIN PO SCH (08:25)
[2017-04-06] MEDS: ASPIRIN EC PO SCH (08:25)
[2017-04-06] MEDS: MINOXIDIL PO SCH (08:25)
[2017-04-06] MEDS: SOLU-MEDROL 40 MG IVP SCH (08:25)
[2017-04-06] MEDS: DOXY-100 100 MG in SODIUM CHLORIDE 100 ML IV SCH (08:25)
[2017-04-06] MEDS: CARDIZEM PO SCH (08:25)
[2017-04-06] MEDS: LOVENOX SUBCUT SCH (08:25)
[2017-04-06] MEDS: CATAPRES PO SCH (08:25)
[2017-04-06] MEDS ORDERED: MINOXIDIL PO SCH (09:01)
[2017-04-06] MEDS ORDERED: MINOXIDIL PO STA (09:29)
[2017-04-06 11:16] VITALS: BP 137/74; TEMP 98
--- NOTE | 2017-04-06 11:56 | PCM.PROG ---
Attending Provider: ATTENDING PROVIDER: Dr. NICOLÁS BERTRAND This patient is seen with Jasmine Vaughan, Nurse Practitioner. DATE OF SERVICE: 04/06/17 SUBJECTIVE: This 76 year old BLACK/ F was hospitalized 04/04/17. The patient is lying in bed, alert. She states she wants to go home. She has been up to bathroom and going to see her . Blood pressure is slightly elevated. REVIEW OF SYSTEMS: CONSTITUTIONAL: Weakness. No night sweats. No malaise, lethargy. No fever or chills. HEENT: Eyes: No visual changes. No eye pain. No eye discharge. ENT: No runny nose. No epistaxis. No sinus pain. No odynophagia. No congestion. RESPIRATORY: No cough, no congestion. No hemoptysis. Shortness of breath with exertion. CARDIOVASCULAR: No angina symptoms. No CHF symptoms. No atypical chest pain for CAD. No palpitations. No orthopnea.. GASTROINTESTINAL: No abdominal pain. No nausea or vomiting. No diarrhea or constipation. No hematemesis. No hematochezia. GENITOURINARY: No urgency. No frequency. No dysuria. No hematuria. No obstructive symptoms. No discharge. No pain. No significant abnormal bleeding. MUSCULOSKELETAL: No musculoskeletal pain; no joint swelling. NEUROLOGICAL: Awake, alert, oriented to time, place and person. No headache. No neck pain. No syncope. No seizures. No dizziness. PSYCHIATRIC: Not anxious. No depression. No suicidal thoughts. No homicidal thoughts. SKIN: No rash. No lesions. No wounds. ENDOCRINE: No unexplained weight loss. No weight gain. HEMATOLOGIC/LYMPHATIC: No anemia. No purpura. No petechiae. No prolonged or excessive bleeding. No palpable lymph nodes. PHYSICAL EXAMINATION: GENERAL: The patient is awake, alert and oriented, lying in bed in no distress. VITAL SIGNS: Temperature 98.4 F, Pulse 85, Respiratory Rate 16, BP 168/84, Pulse Ox 97% HEENT: Head normocephalic, atraumatic. Eyes: Extraocular muscles are intact. Pupils are equal, round and reactive to light and accommodation. Ears: No lesions. Nose appeared normal. Throat: No exudate or erythema. NECK: Supple. No JVD, no carotid bruit. No lymphadenopathy or thyromegaly. LUNGS: Diminished breath sounds bilaterally. Clear to auscultation. Percussion note normal. Chest symmetrical. HEART: S1, S2, no S3. No murmurs. No cyanosis or clubbing. No ascites. Pulses: Dorsalis pedis and posterior tibial pulses +1 to +2 both sides. ABDOMEN: Soft. Non-tender. Bowel sounds active. No CVA tenderness. No mass felt. EXTREMITIES: No edema. Full range of motion of all extremities, equal. NEUROLOGIC: No focal deficit. Cranial nerves II through XII are grossly intact. No headache, no double vision or headache. SKIN: Not dry. Intact. Turgor-normal. LYMPHATIC: No palpable lymph nodes/no lymphedema. MUSCULOSKELETAL: Normal joints with no swelling. Muscle tone is normal. LAB REVIEW: 04/06/17 06:15 04/06/17 06:15 04/06/17 06:15: Sodium 140, Potassium 5.0, Chloride 108 H, Carbon Dioxide 21 L, Anion Gap 16.0, BUN 21 H, Creatinine 1.16, Estimated GFR (MDRD) 55.00, BUN/ Creatinine Ratio 18.10, Glucose 170 H, Calcium 9.5, Total Bilirubin < 0.3, AST 32, ALT 27, Alkaline Phosphatase 97, Total Protein 8.2 H, Albumin 2.7 L, Globulin 5.5, Albumin/Globulin Ratio 0.49 04/06/17 06:15: WBC 11.78 H D, RBC 3.94 L, Hgb 11.0 L, Hct 34.6 L, MCV 87.8, MCH 27.9, MCHC 31.8, RDW Coeff of Jade 15.1 H, Plt Count 300, Immature Gran % ( Auto) 0.5, Neut % (Auto) 81.1, Lymph % (Auto) 16.3, [place] % (Auto) 2.0, Eos % ( Auto) 0.0, Baso % (Auto) 0.1, Immature Gran # (Auto) 0.1, Neut # (Auto) 9.6 H, Lymph # (Auto) 1.9, [place] # (Auto) 0.2 L, Eos # (Auto) 0.0, Baso # (Auto) 0.0 04/05/17 14:30: Total Creatine Kinase 56, Troponin I 0.0110 ASSESSMENT: 1. ACUTE ASTHMATIC BRONCHITIS LIKELY FLU SYNDROME WITH DEHYDRATION, RESOLVING PLAN: 1. Minoxidil 5 mg Plan and coordination of the patient's care discussed in the presence of Community Outreach Director and nurse. CONDITION: Stable SCRIBED BY: Rosa M BARBOZAist scribed while in presence of service performed by Dr. Bertrand/Jasmine Vaughan APRN on 04/06/17 ([id number])
--- NOTE | 2017-04-06 15:13 | CM.DICTOOL ---
ADMISSION: 04/04/17 22:01 DISCHARGE: 04/06/17 DATE OF SERVICE: 04/06/17 FINAL DIAGNOSIS ASTHMATIC BRONCHITIS FLU SYNDROME WITH DEHYDRATION PULMONARY FIBROSIS BY HISTORY COPD HYPERTENSION CAD DYSLIPIDEMIA CD, STAGE 4 CHRONIC ANEMIA MIGRAINE HEADACHES ANXIETY TONSILLECTOMY APPENDECTOMY CARDIAC CATH BILATERAL TOTAL KNEE ARTHROPLASTY FORMER SMOKER, NONE SINCE 12/22 PER PATIENT LAST VITALS Temp Pulse Resp BP Pulse Ox 98.0 F 73 16 137/74 99 04/06/17 10:00 04/06/17 10:00 04/06/17 06:00 04/06/17 10:00 04/06/17 10:00 ACTIVE HOME MEDICATIONS Albuterol/Ipratropium (Duoneb) 1 vial NEB RTQID [facility] Last Admin: 04/06/17 10:25 Dose: 1 vial Aspirin (Aspirin Ec) 81 mg PO DAILYWM [facility] Last Admin: 04/06/17 08:25 Dose: 81 mg Bupropion HCl (Wellbutrin) 150 mg PO DAILY [facility] Last Admin: 04/06/17 08:25 Dose: 75 mg Clonidine (Catapres) 0.2 mg PO BID [facility] Last Admin: 04/06/17 08:25 Dose: 0.2 mg Diltiazem HCl (Cardizem) 90 mg PO BID [facility] Last Admin: 04/06/17 08:25 Dose: 90 mg Furosemide (Lasix Tab) 40 mg PO QDAC [facility] Last Admin: 04/06/17 05:40 Dose: 40 mg Nitroglycerin (Nitrostat) 0.4 mg SL Q5MIN X 3 DOSES PRN PRN Reason: Chest Pain Prednisone 10 mg PO DAILYWM ALLERGIES No Known Allergies Allergy (Verified 04/04/17 20:51) NEW PRESCRIPTIONS: RESUME YOUR HOME MEDICATIONS PER LIST PROVIDED BY THE NURSING STAFF PLEASE NOTE THE CHANGE IN YOUR MINOXIDIL, SEE NEW PRESCRIPTIONS NEW PRESCRIPTIONS KEFLEX 500 MG, TAKE ONE CAPSULE BY MOUTH THREE TIMES DAILY FOR 7 DAYS MINOXIDIL 5 MG, TAKE ONE TABLET BY MOUTH TWICE DAILY SMOKING: FORMER SMOKER THE PATIENT TELLS US SHE HAS STOPPED SMOKING AND HAS NOT SMOKED SINCE 12/22. SHE HAS RECEIVED PRAISE AND STRONG ENCOURAGEMENT TO CONTINUE WITH HER COMPLETE CESSATION. SHE TELLS US SHE DOES NOT PLAN TO BEGIN SMOKING AGAIN. WE WILL CONTINUE TO MONITOR HER PROGRESS. DISEASE SPECIFIC EDUCATION: RESPIRATORY FAILURE FLU SYNDROME BRONCHITIS DEHYDRATION HOME MEDICATIONS AND CHANGES MADE NEW PRESCRIPTIONS FOLLOW UP MEDICATION COMPLIANCE LAB REVIEW: 04/06/17 06:15 04/06/17 06:15 04/06/17 06:15: Sodium 140, Potassium 5.0, Chloride 108 H, Carbon Dioxide 21 L, Anion Gap 16.0, BUN 21 H, Creatinine 1.16, Estimated GFR (MDRD) 55.00, BUN/ Creatinine Ratio 18.10, Glucose 170 H, Calcium 9.5, Total Bilirubin < 0.3, AST 32, ALT 27, Alkaline Phosphatase 97, Total Protein 8.2 H, Albumin 2.7 L, Globulin 5.5, Albumin/Globulin Ratio 0.49 04/06/17 06:15: WBC 11.78 H D, RBC 3.94 L, Hgb 11.0 L, Hct 34.6 L, MCV 87.8, MCH 27.9, MCHC 31.8, RDW Coeff of Jade 15.1 H, Plt Count 300, Immature Gran % ( Auto) 0.5, Neut % (Auto) 81.1, Lymph % (Auto) 16.3, [place] % (Auto) 2.0, Eos % ( Auto) 0.0, Baso % (Auto) 0.1, Immature Gran # (Auto) 0.1, Neut # (Auto) 9.6 H, Lymph # (Auto) 1.9, [place] # (Auto) 0.2 L, Eos # (Auto) 0.0, Baso # (Auto) 0.0 04/05/17 14:30: Total Creatine Kinase 56, Troponin I 0.0110 PLAN: DISCHARGE HOME TODAY RETURN TO SEE DR. BERTRAND IN HIS OFFICE ON 04/13/17 AT 11:30 A.M. RESUME YOUR HOME MEDICATIONS PER LIST PROVIDED BY THE NURSING STAFF PLEASE NOTE THE CHANGE IN YOUR MINOXIDIL, SEE NEW PRESCRIPTIONS NEW PRESCRIPTIONS KEFLEX 500 MG, TAKE ONE CAPSULE BY MOUTH THREE TIMES DAILY FOR 7 DAYS MINOXIDIL 5 MG, TAKE ONE TABLET BY MOUTH TWICE DAILY ACTIVITY GET PLENTY OF REST AT HOME. GRADUALLY INCREASE YOUR ACTIVITY LEVEL ACCORDING TO YOUR TOLERATION DIET HEALTHY HEART SUMMARY THE PATIENT IS ALERT AND ORIENTED X3. SHE CURRENTLY RESIDES AT HOME WITH HER SPOUSE. SHE REQUIRES SOME ASSISTANCE WITH ADL'S. AT HOME SHE HAS A ROLLING WALKER AND A SHOWER CHAIR. SHE DOES NOT UTILIZE HOME HEALTH OR HOMEMAKING SERVICES. SHE DESIRES TO RETURN HOME AT DISCHARGE. HER SKIN TURGOR IS VERY GOOD AND INTACT. SHE HAS NO DECUBITUS ULCERS. HYDRATION AND NUTRITIONAL STATUS ARE IMPROVED. MS. MACKENZIE IS AWARE AND AGREEABLE FOR TODAY'S DISCHARGE PLANS. CURRENT CODE STATUS FULL CODE CLAUDIA FUNES APRN NICOLÁS BERTRAND M.D.
--- NOTE | 2017-04-17 06:54 | PN ---
DATE OF SERVICE: 04/06/17 SUBJECTIVE: 76-year-old black female hospitalized with acute respiratory failure. The patient's condition has improved remarkably. Her oxygen saturation even without oxygen is 97%. She is up and about. Blood pressure systolic fluctuates; advised her to monitor. She is going to be followed and be seen in 3 to 4 days in the office. Her medical conditions are stable. She will be discharged on antibiotics, steroids. She is advised to continue nebs treatment. She has continued to not smoke. CONDITION: Stable. The patient was seen and examined with nurse practitioner. TIME SPENT: More than 30 minutes. Plan and coordination of the patient's care discussed in the presence of nurse. MANAN
--- NOTE | 2017-04-17 06:55 | PN ---
CODING FOR BILLING 04/04/17 LEVEL 5 04/05/17 INTERMEDIATE 04/06/17 DISCHARGE MTDD
--- NOTE | 2017-04-27 09:43 | HP ---
DATE OF SERVICE: 04/05/17 REASON FOR HOSPITALIZATION/HISTORY OF PRESENT ILLNESS: This is a 76 year old female who presented to the emergency room by her family complaining of shortness of breath, cough and fever for two days. She has a history of pulmonary fibrosis and is a smoker. PAST MEDICAL HISTORY: Obesity CHF Hypertension COPD Pulmonary fibrosis Chronic kidney disease Osteoarthritis Smoker PAST SURGICAL HISTORY: Status post hysterectomy Appendectomy Left knee replacement REVIEW OF SYSTEMS: CONSTITUTIONAL: No night sweats. No fatigue, malaise, lethargy. No fever or chills. HEENT: Eyes: No visual changes. No eye pain. No eye discharge. ENT: No runny nose. No epistaxis. No sinus pain. No sore throat. No odynophagia. No ear pain. No congestion. RESPIRATORY: Cough, no congestion. No hemoptysis. Shortness of breath. CARDIOVASCULAR: No angina symptoms. No CHF symptoms. No atypical chest pain for CAD. No palpitations. No orthopnea. GASTROINTESTINAL: No abdominal pain. No nausea or vomiting. No diarrhea or constipation. No hematemesis. No hematochezia. GENITOURINARY: No urgency. No frequency. No dysuria. No hematuria. No obstructive symptoms. No discharge. No pain. No significant abnormal bleeding. MUSCULOSKELETAL: No musculoskeletal pain. No joint swelling. No arthritis. NEUROLOGICAL: No headache. No neck pain. No syncope. No seizures. No dizziness. PSYCHIATRIC: Not anxious. No depression. No suicidal thoughts. No homicidal thoughts. SKIN: No rash. No lesions. No wounds. ENDOCRINE: No unexplained weight loss. No weight gain. HEMATOLOGIC/LYMPHATIC: No anemia. No purpura. No petechiae. No prolonged or excessive bleeding. No palpable lymph nodes. PERSONAL/FAMILY/SOCIAL HISTORY: The patient claims she has quit smoking for the past two months. She currently resides at home with her and great grandchildren. She denies any alcohol or illicit drug use. MEDICATIONS: Nitrostat 0.4mg SL Q 5 minutes x 3 doses PRN Wellbutrin XL 150mg PO daily Aspirin 81mg PO daily Diltiazem HCL 90mg PO twice a day Lasix 40mg PO daily Proair HFA 200/8.5 gm. two puff IH Q 6 hours Catapres 0.2mg PO twice a day Prednisone 10mg PO daily Minoxidil 2.5mg PO twice a day ALLERGIES: No known allergies PHYSICAL EXAMINATION: GENERAL: The patient is alert and oriented time three. VITAL SIGNS: Temperature 102, heart rate 110, respiratory rate 24, blood pressure 175/101, O2 saturation 92%. HEENT: Head normocephalic, atraumatic. Eyes: Extraocular muscles are intact. Pupils are equal, round and reactive to light and accommodation. Ears: No lesions. Nose appeared normal. Throat: No exudate or erythema. NECK: Supple. No JVD, no carotid bruit. No lymphadenopathy or thyromegaly. LUNGS: Diminished breath sounds bilaterally with bilateral rhonchi. Clear to auscultation. Percussion note normal. Chest symmetrical. HEART: S1, S2, no S3. No murmurs. No cyanosis or clubbing. No ascites. Pulses: Dorsalis pedis and posterior tibial pulses +1 to +2 both sides. ABDOMEN: Soft. Nontender. Bowel sounds active. No CVA tenderness. No mass felt. EXTREMITIES: No edema. Full range of motion of all extremities, equal. NEUROLOGIC: No focal deficit. Cranial nerves II through XII are grossly intact. No headache, no double vision or headache. SKIN: Not dry. Intact. Turgor - normal. LYMPHATIC: No palpable lymph nodes/no lymphedema. MUSCULOSKELETAL: Normal joints with no swelling. Muscle tone is normal. LABS: WBC 15.02, hgb 11.6, hct 36.0, plt count 269, sodium 137, potassium 5.0, BUN 23 , creatinine 1.42, ABG on room air O2 sat 92, pH 7.457, pCo2 29.6, pO2 60, bicarb 20.9, total Co2 22 with a base excess of -3. Negative for Flu A and B. Lactic acid 10.2, AST 46, ALT 31, Alkaline phosphatase 123. ASSESSMENT: 1. Acute respiratory failure 2. COPD with exacerbation 3. Acute bronchitis/ Pneumonitis PLAN: 1. Will admit to the floor 2. CBC and CMP daily 3. Low salt diet 4. Start on Rocephin 1 gram IV daily 5. Doxycycline 100mg IV Q 12 hours 6. Solu-Medrol 40mg Q 12 hours 7. Keep all home medications 8. O2 as needed 9. Sputum culture and blood cultures 10.Routine telemetry orders 11.CBC and CMP daily 12.Will monitor closely. TIME SPENT: More than 70 minutes. MTDD
--- NOTE | 2017-04-27 11:01 | DS ---
DATE OF SERVICE: 04/06/17 FINAL DIAGNOSIS: 1. Asthmatic bronchitis 2. Flu Syndrome with dehydration 3. Pulmonary fibrosis by history 4. COPD 5. Hypertension 6. CAD 7. 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 Chronic anemia 10.Migraine headaches 11.Anxiety 12.Tonsillectomy 13.Appendectomy 14.Cardiac cath 15.Bilateral total knee arthroplasty 16.Former smoker, none since 12/22 per patient LAST VITALS Temperature 98, pulse 73, respiratory rate 16, blood pressure 137/74 and pulse ox 99%. DISCHARGE INSTRUCTIONS: Discharge home today. Resume home medications as per list provided by the nursing staff. Please note the change in your Minoxidil, see new prescriptions. Return to see Dr. Galo in his office on 04/13/17 at 11:30am. MEDICATIONS AT DISCHARGE: DUONEBS RT four times a day Aspirin 81mg PO daily Wellbutrin 150mg PO daily Catapres 0.2mg PO twice a day Cardizem 90mg Po twice a day Lasix 40mg PO QDAC Nitrostat 0.4mg SL Q 5 minutes times 3 doses PRN Prednisone 10mg PO daily ALLERGIES: No known allergies NEW PRESCRIPTIONS: Keflex 500mg take one capsule by mouth three times daily for 7 days Minoxidil 5mg take one tablet by mouth twice daily DIET INSTRUCTIONS: Healthy heart ACTIVITY: Get plenty of rest at home. Gradually increase activity level according to toleration SMOKING: Former Smoker The patient tells us she has stopped smoking and has not smoked since 12/22. She has received praise and strong encouragement to continue with her complete cessation. She tells us she does not plan to begin smoking again. We will continue to monitor her progress. DISEASE SPECIFIC EDUCATION: Respiratory failure Flu Syndrome Bronchitis Dehydration Home medications and changes made New prescriptions Followup Medication compliance HOSPITAL COURSE: This is a 76 year old female who presented to the emergency room with cough, shortness of breath and fever. She was has a history of chronic respiratory failure due to pulmonary fibrosis and persistent smoking with underlined COPD. Chest x-ray showed no pneumonia. She was placed on Rocephin 1 gram IV daily along with Doxycycline 100mg IV Q 12 hours. She was started on Solu-Cortef 40mg IV Q 12 hours and Xopenex NEB treatment Q 6 hours. She is improved remarkably within 24 hours and today on day of discharge her oxygen saturation is 97% on room air with no oxygen. She does have oxygen at home. Her vital signs have been stable. She has a history of chronic kidney disease although her kidney function has been great in the hospital as it improved from yesterday. Today BUN 21, creatinine 1.16, sodium 140, potassium 5.0, hgb 11.0, hct 34.6, WBC 11.78. Her blood pressure her fluctuating which it is known to do. At it's high has been 182/86 with machine and taken manually it was 160/84. She does have labile hypertension. The patient claims that she has quit smoking for the past two months. For the past two days she has been up and about. Her is down the [place] in the [facility] and starting yesterday she ambulated down the hallway to visit her with no oxygen and has not been short of breath. Telemetry showed regular sinus rhythm. She states that she is ready to go home today. We will discharge her home on Keflex 500mg three times a day for the next 7 days along with Prednisone 20mg twice a day times two days and then daily times 5 days. We will followup with her in the office next week. TIME SPENT: More than 60 minutes. MANAN
== END 2017-04-06 15:55 | disposition home or self-care (01) | DRG 190 ==
LOC: ED 20:29 → MEDSURG B 22:01
PROVIDERS: ADMIT Internal Medicine; ATTEND Internal Medicine
DX: J44.0 Chronic obstructive pulmonary disease with (acute) lower respiratory infection (principal); J96.01 Acute respiratory failure with hypoxia; N18.4 Chronic kidney disease, stage 4 (severe); J44.1 Chronic obstructive pulmonary disease with (acute) exacerbation; J11.1 Influenza due to unidentified influenza virus with other respiratory manifestations; J20.9 Acute bronchitis, unspecified; E86.0 Dehydration; I10 Essential (primary) hypertension; J84.10 Pulmonary fibrosis, unspecified; I25.10 Atherosclerotic heart disease of native coronary artery without angina pectoris; R50.9 Fever, unspecified; I12.9 Hypertensive chronic kidney disease with stage 1 through stage 4 chronic kidney disease, or unspecified chronic kidney disease; D50.0 Iron deficiency anemia secondary to blood loss (chronic); G43.909 Migraine, unspecified, not intractable, without status migrainosus; F41.9 Anxiety disorder, unspecified; E78.5 Hyperlipidemia, unspecified; Z79.899 Other long term (current) drug therapy; Z98.890 Other specified postprocedural states; Z87.891 Personal history of nicotine dependence
CPT/HCPCS: 36415; 80053; 81001; 82550; 82803; 82962; 83605; 84145; 84484; 85025; 87040; 87086; 87502; 87651; 93005; 93010; 94640; 96361; 96365; 96366; 99223; 99232; 99238; 99284

== ENCOUNTER 2018-04-15 18:29 | Inpatient (IN) ==
[2018-04-15] MEDS ORDERED: LASIX IVP STA (18:47)
[2018-04-15] MEDS ORDERED: LOVENOX SUBCUT STA (18:51)
[2018-04-15] MEDS ORDERED: NITROPRESS 50 MG in DEXTROSE 5%-WATER IV SOLN 248 ML IV SCH (19:00)
[2018-04-15] MEDS ORDERED: NITROGLYCERIN 250 ML IV ONE (19:20)
[2018-04-15] MEDS: NITROGLYCERIN 25 MG in PREMIX D5W 250 ML VIAL 1 VIAL IV SCH (19:27)
[2018-04-15] MEDS ORDERED: SOLU-CORTEF 250 MG IVP STA (19:30)
[2018-04-15] MEDS ORDERED: ZOSYN 3.375 GM 3.375 GM in SODIUM CHLORIDE 50 ML IV STA (19:33)
[2018-04-15] MEDS ORDERED: VASOTEC IV IVP STA (19:33)
--- NOTE | 2018-04-15 19:36 | ED.PDOC ---
General ED Provider: Dr. LEATHA COFFMAN Chief Complaint: Shortness of Air Stated Complaint: shortness of breath Time Seen by Physician: 18:30 Mode of Arrival: Wheelchair Information Source: Patient, Family Exam Limitations: No limitations Primary Care Provider: NICOLÁS BERTRAND Nursing and Triage Documentation Reviewed and Agree: Yes Does patient meet sepsis criteria?: Yes If yes, has appropriate treatment been initiated?: Yes System Inflammatory Response Syndrome: Not Applicable Sepsis Protocol: For patient's 13 years and over: Temp is 96.8 and below OR 101 and greater Pulse >90 BPM Resp >20/minute Acutely Altered Mental Status Are patient's symptoms suggestive of a new infection, such as: -Pneumonia -Skin, Soft Tissue -Endocarditis -UTI -Bone, Joint Infection -Implantable Device -Acute Abdominal Infection -Wound Infection -Meningitis -Blood Stream Catheter Infection -Unknown Respiratory Complaint Exam - Respiratory Complaint/Exam Onset/Duration: acute severe shortness shortly P.T.A Symptoms Are: Still present Timing: Intermittent Initial Severity: Severe Current Severity: Severe Location: Chest Aggravating: Reports: Recumbent position Alleviating: Reports: Upright position, Spontaneous resolution Associated Signs and Symptoms: Denies: Rapid breathing, Dyspnea, Fever, Chills, Chest pain, Pleuritic chest pain, Wheezing, Hemoptysis, Dizziness, Calf pain, Calf swelling, Edema, URI, Nasal congestion, Hoarseness, Sinus discomfort, Vomiting, Sore throat, Weight loss, Decreased oral intake, Increased thirst, Increased appetite, Increased urination Related History: Reports: Similar episode (CHF ) History of Healthcare-Acquired Pneumonia: No Related Surgical History: Reports: None Pulmonary Embolism Risk Factors: None Cardiac Risk Factors: Reports: None Pseudomonas Risk Factors: Reports: None Tuberculosis Risk Factors: Reports: None Status Asthmaticus Risk Factors: Reports: None Home Oxygen Use: No Recent Stress Test: No Recent Echo/LV Function: No Current Antibiotic Use: No Current Asthma Medication Use: No Respiratory Distress: Severe Inadequate Respiratory Effort: Yes Dysphagia Present: No Stridor Present: No JVD Present: Yes Accessory Muscle Use: Yes Differential Diagnoses: CHF, Pulmonary Edema, Pneumonia, Bronchitis Review of Systems - Review Of Systems Constitutional: Reports: No symptoms Eyes: Reports: No symptoms Ears, Nose, Mouth, Throat: Reports: No symptoms Respiratory: Reports: Cough, Wheezing Cardiac: Reports: No symptoms GI: Reports: No symptoms : Reports: No symptoms Musculoskeletal: Reports: No symptoms Skin: Reports: No symptoms Neurological: Reports: No symptoms Endocrine: Reports: No symptoms Hematologic/Lymphatic: Reports: No symptoms All Other Systems: Reviewed and Negative Past Medical History - Past Medical History Previously Healthy: Yes Endocrine: Reports: None Cardiovascular: Reports: Hypertension, CHF Respiratory: Reports: COPD, Pneumonia Hematological: Reports: None Gastrointestinal: Reports: None Genitourinary: Reports: None Neuro/Psych: Reports: Migraine Musculoskeletal: Reports: Arthritis, Joint Pain, Other (Sciatica ) Cancer: Reports: None Last Menstrual Period: unknown - Surgical History General Surgical History: Reports: Hysterectomy, Appendectomy, Orthopedic (Knee replacement on the left 7 weeks ago. ) - Family History Family History: Reports: Unknown - Social History Smoking Status: Former smoker Hx Substance Use: No Alcohol Screening: None - Immunizations Influenza Vaccine within 12 Months: Yes Physical Exam - Physical Exam Appearance: Ill-appearing Ill-appearing: Severe Pain Distress: Severe Eyes: POLA, EOMI, Conjunctiva clear ENT: Ears normal, Nose normal, Oropharynx normal Respiratory: Breath sounds diminished, Crackles Cardiovascular: RRR, Pulses normal, No rub, No murmur GI/: Soft, Nontender, No masses, Bowel sounds normal, No Organomegaly Musculoskeletal: Normal strength, ROM intact, No edema, No calf tenderness Skin: Warm, Dry, Normal color Neurological: Sensation intact, Motor intact, Reflexes intact, Cranial nerves intact, Alert, Oriented Psychiatric: Affect appropriate, Mood appropriate Interpretation - Radiology Interpretation Radiology Interpretation By: ED Physician Radiology Results: Positive (PULMONARY EDEMA) - EKG Interpretation Rhythm: Other (AFIB WITH RVR) Re-Evaluation - Re-Evaluation Time of Re-Evaluation: 19:40 Status: Improved (MARKEDLY) Vital Signs Stable: Yes Pain Level: 0 Appearance: NAD Lungs: Clear Skin: Warm and Dry Neuro: Alert and Oriented X3 CV: RRR Additional Comments: BACK TO HER BASE LINE Physician Notification - Case Discussed Physician Notified: PMD Time of Notification: 19:38 (UNIT GIVE IV VASOTEC ) Admit/Transition Orders Entered by ED Provider: Yes Admit To: SCU Critical Care Note - Critical Care Note Total Time (mins): 60 Course - Course Hematology/Chemistry: 04/15/18 19:02 04/15/18 19:02 Orders, Labs, Meds: Lab Review 04/15/18 04/15/18 04/15/18 18:39 19:02 19:02 WBC 12.06 H RBC 4.35 Hgb 11.6 L Hct 39.7 MCV 91.3 MCH 26.7 L MCHC 29.2 L RDW Coeff of Jade 16.0 H Plt Count 318 Immature Gran % (Auto) 0.3 Neut % (Auto) 36.9 Lymph % (Auto) 49.3 [place] % (Auto) 12.6 H Eos % (Auto) 0.6 Baso % (Auto) 0.3 Immature Gran # (Auto) 0.0 Neut # (Auto) 4.4 Lymph # (Auto) 6.0 H [place] # (Auto) 1.5 Eos # (Auto) 0.1 Baso # (Auto) 0.0 Puncture Site Lrad O2 Saturation 99.0 ABG pH 7.288 L* ABG pCO2 44.9 ABG pO2 143.0 H ABG HCO3 21.5 L ABG Total CO2 23 ABG Base Excess -5 L Ja Test + O2 Delivery Device Nrb Oxygen Liter Flow 15.00 FiO2 % 100.0 Sodium 142.4 Potassium 2.89 L Chloride 109.7 H Carbon Dioxide 25.5 Anion Gap 10.09 BUN 12.3 Creatinine 1.22 Estimated GFR (MDRD) 52.00 BUN/Creatinine Ratio 10.08 Glucose 159.0 H Lactic Acid Calcium 8.28 L Total Bilirubin 0.54 AST 32.6 ALT 11.6 Alkaline Phosphatase 120.3 Total Creatine Kinase 45.5 Troponin I Pending Total Protein 7.38 Albumin 2.95 L Globulin 4.43 Albumin/Globulin Ratio 0.66 04/15/18 19:02 WBC RBC Hgb Hct MCV MCH MCHC RDW Coeff of Jade Plt Count Immature Gran % (Auto) Neut % (Auto) Lymph % (Auto) [place] % (Auto) Eos % (Auto) Baso % (Auto) Immature Gran # (Auto) Neut # (Auto) Lymph # (Auto) [place] # (Auto) Eos # (Auto) Baso # (Auto) Puncture Site O2 Saturation ABG pH ABG pCO2 ABG pO2 ABG HCO3 ABG Total CO2 ABG Base Excess Ja Test O2 Delivery Device Oxygen Liter Flow FiO2 % Sodium Potassium Chloride Carbon Dioxide Anion Gap BUN Creatinine Estimated GFR (MDRD) BUN/Creatinine Ratio Glucose Lactic Acid 2.20 H Calcium Total Bilirubin AST ALT Alkaline Phosphatase Total Creatine Kinase Troponin I Total Protein Albumin Globulin Albumin/Globulin Ratio Orders Category Date Time Status ABG DRAW REQUEST Stat CARDIO 04/15/18 18:39 Completed EKG-(ED ONLY) Stat CARDIO 04/15/18 18:40 Completed EKG-(ED ONLY) Stat CARDIO 04/15/18 19:16 Completed EKG-(IP & OP ONLY) DAILY CARDIO 04/16/18 06:00 Ordered EKG-(IP & OP ONLY) DAILY CARDIO 04/17/18 06:00 Ordered EKG-(IP & OP ONLY) DAILY CARDIO 04/18/18 06:00 Ordered NEBULIZER TREATMENT Routine CARDIO 04/15/18 19:33 Ordered BLOOD GLUCOSE MONITORING ACCUCHECK Q6H CARE 04/15/18 19:31 Active INTAKE & OUTPUT Q8HR CARE 04/15/18 19:31 Active Neuro Check [NEUROLOGICAL CHECKS] Q4HR CARE 04/15/18 19:34 Active VITAL SIGNS Q4HR CARE 04/15/18 19:31 Active CARDIAC DIET DIETARY 04/15/18 Dinner Ordered ED IV/MEDIPORT/POWERPORT .ONCE EMERGENCY 04/15/18 18:43 Active ABG Stat LAB 04/15/18 18:39 Completed BLOOD CULTURE Stat LAB 04/15/18 19:00 Received CBC W/ AUTO DIFF DAILY@0600 LAB 04/16/18 06:00 Ordered CBC W/ AUTO DIFF DAILY@0600 LAB 04/17/18 06:00 Ordered CBC W/ AUTO DIFF Stat LAB 04/15/18 19:02 Completed COMPREHENSIVE METABOLIC PANEL DAILY@0600 LAB 04/16/18 06:00 Ordered COMPREHENSIVE METABOLIC PANEL DAILY@0600 LAB 04/17/18 06:00 Ordered COMPREHENSIVE METABOLIC PANEL Stat LAB 04/15/18 19:02 Results CREATINE KINASE Q8H LAB 04/16/18 01:45 Ordered CREATINE KINASE Q8H LAB 04/16/18 09:45 Ordered CREATINE KINASE Stat LAB 04/15/18 19:02 Results FREE T4 (FREE THYROXINE) Stat LAB 04/15/18 19:02 Received LACTIC ACID Stat LAB 04/15/18 19:02 Completed PARTIAL THROMBOPLASTIN TIME Stat LAB 04/15/18 19:02 Received PROCALCITONIN Stat LAB 04/15/18 19:02 Received PT WITH INR Stat LAB 04/15/18 19:02 Received THYROID STIMULATING HORMONE Stat LAB 04/15/18 19:02 Received TROPONIN I Q8H LAB 04/16/18 01:45 Ordered TROPONIN I Q8H LAB 04/16/18 09:45 Ordered TROPONIN I Stat LAB 04/15/18 19:02 Results 0.9 % Sodium Chloride [Saline Flush] MEDS 04/15/18 18:43 Ordered 1 syr IVF PRN PRN Aspirin [Aspirin EC] MEDS 04/16/18 09:00 Ordered 81 mg PO DAILY Bupropion HCl [Wellbutrin Xl] MEDS 04/16/18 09:00 Ordered 150 mg PO DAILY Clonidine HCl [Catapres] MEDS 04/15/18 21:00 Ordered 0.2 mg PO BID Dextrose 5 % in Water [Premix D5w 250 ml Vial] 1 vial MEDS 04/15/18 19:30 Ordered Nitroglycerin/D5w [Nitroglycerin] 25 mg IV 10 mcg/min Enalaprilat Dihydrate [Vasotec IV] MEDS 04/15/18 19:33 Discontinued 1.25 mg IVP ONCE STA Enoxaparin Sodium [Lovenox] MEDS 04/15/18 18:51 Discontinued 80 mg SUBCUT ONCE STA Furosemide [Lasix Tab] MEDS 04/16/18 06:30 Ordered 40 mg PO QDAC Furosemide [Lasix] MEDS 04/15/18 18:47 Discontinued 40 mg IVP ONCE STA Hydrocortisone Sod Succ/Pf [Solu-Cortef 250 mg] MEDS 04/15/18 19:30 Discontinued 125 mg IVP ONCE STA Ipratropium/Albuterol Neb [Duoneb] MEDS 04/16/18 00:00 Ordered 1 vial NEB RTQ6H Minoxidil MEDS 04/15/18 21:00 Ordered 5 mg PO BID Nitroglycerin/D5w [Nitroglycerin] 250 ml MEDS 04/15/18 19:20 Discontinued IV .STK-MED Piperacillin Sodium/Tazobactam [Zosyn 3.375 gm] 3.375 MEDS 04/15/18 19:33 Active gm 0.9 % Sodium Chloride [Sodium Chloride] 50 ml IV ONCE Sertraline HCl [Zoloft] MEDS 04/16/18 09:00 Ordered 100 mg PO DAILY Sodium Chloride 0.9% [Sodium Chloride] 1,000 ml MEDS 04/15/18 20:00 Ordered IV 75 mls/hr CHEST, 1V AP ONLY Stat RADS 04/15/18 18:43 Taken Medications Generic Name Dose Route Start Last Admin Trade Name Alireza PRN Reason Stop Dose Admin Albuterol/Ipratropium 1 vial 04/16/18 00:00 Duoneb NEB RTQ6H RANJEET Aspirin 81 mg 04/16/18 09:00 Aspirin Ec PO DAILY RANJEET Bupropion HCl 150 mg 04/16/18 09:00 Wellbutrin Xl PO DAILY [facility] Clonidine 0.2 mg 04/15/18 21:00 Catapres PO BID RANJEET Furosemide 40 mg 04/16/18 06:30 Lasix Tab PO QDAC RANJEET Nitroglycerin/Dextrose 25 mg/ 250 mls @ 6 mls/hr 04/15/18 19:30 Dextrose/Water IV .Q24H RANJEET Protocol 10 MCG/MIN Sodium Chloride 1,000 mls @ 75 mls/hr 04/15/18 20:00 Sodium Chloride IV .[id number] [facility] Piperacillin Sod/Tazobactam 50 mls @ 50 mls/hr 04/15/18 19:33 Sod 3.375 gm/ Sodium Chloride IV 04/15/18 20:32 ONCE STA Minoxidil 5 mg 04/15/18 21:00 Minoxidil PO BID [facility] Non-Formulary Medication 100 mg 04/16/18 09:00 Sertraline Hcl [Zoloft] PO DAILY [facility] Sodium Chloride 1 syr 04/15/18 18:43 Saline Flush IVF PRN PRN To flush IV Discontinued Medications Generic Name Dose Route Start Last Admin Trade Name Alireza PRN Reason Stop Dose Admin Enalaprilat 1.25 mg 04/15/18 19:33 Vasotec Iv IVP 04/15/18 19:34 ONCE STA Enoxaparin Sodium 80 mg 04/15/18 18:51 Lovenox SUBCUT 04/15/18 18:52 ONCE STA Furosemide 40 mg 04/15/18 18:47 Lasix IVP 04/15/18 18:48 ONCE STA Hydrocortisone Sodium Succinate 125 mg 04/15/18 19:30 Solu-Cortef 250 Mg IVP 04/15/18 19:31 ONCE STA Vital Signs: Temp Pulse Resp BP Pulse Ox 04/15/18 18:29 97.5 F L 120 H 32 H 210/127 H 82 L Departure - Departure Time of Disposition: 19:38 Disposition: ADMITTED INPATIENT Discharge Problem: Hypertensive emergency Pulmonary edema Qualifiers: Chronicity: acute Qualified Code(s): J81.0 - Acute pulmonary edema Condition: Good Pt referred to PMD for follow-up: Yes (ADMITT) IPMP verified?: No Allergies/Adverse Reactions: Allergies No Known Allergies Allergy (Verified 04/15/18 18:40) Home Medications: Ambulatory Orders Nitroglycerin [Nitrostat] 0.4 mg SL Q5MIN X 3 DOSES PRN 02/10/16 Aspirin [Aspir 81] 81 mg PO DAILY 06/26/16 Furosemide [Lasix Tab] 40 mg PO QDAC 12/01/16 Clonidine HCl [Catapres] 0.2 mg PO BID #60 tablet 12/07/16 Minoxidil 5 mg PO BID #30 tablet 04/06/17 Albuterol Sulfate [Ventolin Hfa] 18 gm IH QID 04/15/18 Sertraline HCl [Zoloft] 100 mg PO DAILY 04/15/18 Tramadol HCl [Ultram] 50 mg PO DAILY PRN 04/15/18 Disposition Discussed With: Patient, Family
--- NOTE | 2018-04-15 19:42 | DI ---
EXAM: AP single view of the chest. HISTORY: Acutely short of air. FINDINGS: The bones are unremarkable. The cardiac silhouette is enlarged. The costophrenic angles a re clear. There are bilateral infiltrates. There are patchy areas of consolidation in the right santiago g. Impression: Bilateral infiltrates consistent with edema versus infection. Right lung consolidation as described consistent with atelectasis and/or pneumonia. Cardiomegaly.
[2018-04-15] MEDS ORDERED: SODIUM CHLORIDE 1,000 ML IV SCH (20:00)
[2018-04-15] MEDS ORDERED: MINOXIDIL PO SCH (21:00)
[2018-04-15] MEDS ORDERED: LASIX ONE (21:19)
[2018-04-15 23:14] VITALS: BMI 30.2
[2018-04-16] MEDS ORDERED: K-DUR PO STA (00:01)
[2018-04-16] MEDS: DUONEB NEB SCH ×5 (05:40→23:10)
[2018-04-16] MEDS ORDERED: LASIX TAB PO SCH (06:30)
[2018-04-16] MEDS: K-DUR PO SCH ×3 (08:30→16:44)
[2018-04-16] MEDS: ZITHROMAX PO SCH (08:30)
[2018-04-16] MEDS: ZOLOFT PO SCH (08:31)
[2018-04-16] MEDS: CATAPRES PO SCH ×3 (08:31→21:32)
[2018-04-16] MEDS: ASPIRIN EC PO SCH (08:32)
[2018-04-16] MEDS: DECADRON 4 MG/ML SDV IM SCH (08:32)
[2018-04-16] MEDS ORDERED: NON-FORMULARY MEDICATION (Sertraline Hcl [Zoloft] 100 MG) PO SCH (09:00)
[2018-04-16] MEDS ORDERED: WELLBUTRIN XL PO SCH (09:00)
--- NOTE | 2018-04-16 09:22 | PCM.PROG ---
Attending Provider: ATTENDING PROVIDER: Dr. NICOLÁS BERTRAND DATE OF SERVICE: 04/16/18 SUBJECTIVE: This 77 year old BLACK/ F was hospitalized 04/15/18 with acute pulmonary edema, hypertension and metabolic acidosis. She seems to be improving and in no distress. She is talking without any problems. REVIEW OF SYSTEMS: CONSTITUTIONAL: No night sweats. No fatigue, malaise, lethargy. No fever or chills. HEENT: Eyes: No visual changes. No eye pain. No eye discharge. ENT: No runny nose. No epistaxis. No sinus pain. No odynophagia. No congestion. RESPIRATORY: No cough, no congestion. No hemoptysis. No shortness of breath. CARDIOVASCULAR: No angina symptoms. No CHF symptoms. No atypical chest pain for CAD. No palpitations. No orthopnea.. GASTROINTESTINAL: No abdominal pain. No nausea or vomiting. No diarrhea or constipation. No hematemesis. No hematochezia. GENITOURINARY: No urgency. No frequency. No dysuria. No hematuria. No obstructive symptoms. No discharge. No pain. No significant abnormal bleeding. MUSCULOSKELETAL: No musculoskeletal pain; no joint swelling. NEUROLOGICAL: Awake, alert, oriented to time, place and person. No headache. No neck pain. No syncope. No seizures. No dizziness. PSYCHIATRIC: Not anxious. No depression. No suicidal thoughts. No homicidal thoughts. SKIN: No rash. No lesions. No wounds. ENDOCRINE: No unexplained weight loss. No weight gain. HEMATOLOGIC/LYMPHATIC: No anemia. No purpura. No petechiae. No prolonged or excessive bleeding. No palpable lymph nodes. PHYSICAL EXAMINATION: GENERAL: The patient is awake, alert and oriented to time, place and person, lying in bed in no distress. VITAL SIGNS: Temperature 97.7 F, Pulse 97, Respiratory Rate 20, BP 167/107, Pulse Ox 98% HEENT: Head normocephalic, atraumatic. Eyes: Extraocular muscles are intact. Pupils are equal, round and reactive to light and accommodation. Ears: No lesions. Nose appeared normal. Throat: No exudate or erythema. NECK: Supple. No JVD, no carotid bruit. No lymphadenopathy or thyromegaly. LUNGS: Decreased breath sounds, good air entry. No wheezing. Clear to auscultation. Percussion note normal. Chest symmetrical. HEART: S1, S2, no S3. No murmurs. No cyanosis or clubbing. No ascites. Pulses: Dorsalis pedis and posterior tibial pulses +1 to +2 both sides. ABDOMEN: Soft. Non-tender. Bowel sounds active. No CVA tenderness. No mass felt. EXTREMITIES: Trace to +1 pitting edema. Full range of motion of all extremities , equal. NEUROLOGIC: No focal deficit. Cranial nerves II through XII are grossly intact. No headache, no double vision or headache. SKIN: Warm and dry. Intact. Turgor-normal. LYMPHATIC: No palpable lymph nodes/no lymphedema. MUSCULOSKELETAL: Normal joints with no swelling. Muscle tone is normal. LAB REVIEW: 04/16/18 01:40 04/16/18 01:40 04/16/18 01:40: WBC 6.47 D, RBC 3.79 L, Hgb 10.3 L, Hct 34.2 L, MCV 90.2, MCH 27.2, MCHC 30.1 L, RDW Coeff of Jade 16.0 H, Plt Count 276, Immature Gran % (Auto ) 0.5, Neut % (Auto) 86.7, Lymph % (Auto) 9.9 L, [place] % (Auto) 2.6, Eos % (Auto ) 0.0, Baso % (Auto) 0.3, Immature Gran # (Auto) 0.0, Neut # (Auto) 5.6, Lymph # (Auto) 0.6, [place] # (Auto) 0.2 L, Eos # (Auto) 0.0, Baso # (Auto) 0.0 04/16/18 01:40: Sodium 143.0, Potassium 3.37 L, Chloride 109.8 H, Carbon Dioxide 27.8, Anion Gap 8.77, BUN 11.6, Creatinine 1.03, Estimated GFR (MDRD) 63.00, BUN/Creatinine Ratio 11.26, Glucose 197.5 H, Calcium 8.15 L, Total Bilirubin 0.71, AST 34.0, ALT 11.2, Alkaline Phosphatase 121.7, Total Creatine Kinase 55.5, Troponin I 0.043, Total Protein 7.25, Albumin 2.97 L, Globulin 4.28 , Albumin/Globulin Ratio 0.69 04/15/18 20:51: Puncture Site Lrad, O2 Saturation 95.0, ABG pH 7.420, ABG pCO2 40.6, ABG pO2 76.0 L, ABG HCO3 26.4 H, ABG Total CO2 28, ABG Base Excess 2, Ja Test +, O2 Delivery Device Nc, Oxygen Liter Flow 2.00, FiO2 % 28.0 04/15/18 19:02: TSH 5.410 H 04/15/18 19:02: Free T4 1.50 04/15/18 19:02: Lactic Acid 2.20 H 04/15/18 19:02: Procalcitonin < 0.05 04/15/18 19:02: Sodium 142.4, Potassium 2.89 L, Chloride 109.7 H, Carbon Dioxide 25.5, Anion Gap 10.09, BUN 12.3, Creatinine 1.22, Estimated GFR (MDRD) 52.00, BUN/Creatinine Ratio 10.08, Glucose 159.0 H, Calcium 8.28 L, Total Bilirubin 0.54, AST 32.6, ALT 11.6, Alkaline Phosphatase 120.3, Total Creatine Kinase 45.5, Troponin I 0.025, Total Protein 7.38, Albumin 2.95 L, Globulin 4.43 , Albumin/Globulin Ratio 0.66 04/15/18 19:02: PT 11.3 H, INR 1.13, APTT 25.4 04/15/18 19:02: WBC 12.06 H, RBC 4.35, Hgb 11.6 L, Hct 39.7, MCV 91.3, MCH 26.7 L, MCHC 29.2 L, RDW Coeff of Jade 16.0 H, Plt Count 318, Immature Gran % (Auto) 0.3, Neut % (Auto) 36.9, Lymph % (Auto) 49.3, [place] % (Auto) 12.6 H, Eos % (Auto ) 0.6, Baso % (Auto) 0.3, Immature Gran # (Auto) 0.0, Neut # (Auto) 4.4, Lymph # (Auto) 6.0 H, Curry # (Auto) 1.5, Eos # (Auto) 0.1, Baso # (Auto) 0.0 04/15/18 18:39: Puncture Site Lrad, O2 Saturation 99.0, ABG pH 7.288 L*, ABG pCO2 44.9, ABG pO2 143.0 H, ABG HCO3 21.5 L, ABG Total CO2 23, ABG Base Excess - 5 L, Ja Test +, O2 Delivery Device Nrb, Oxygen Liter Flow 15.00, FiO2 % 100.0 ASSESSMENT: Please see below. 1. Acute pulmonary edema, resolved. 2. Metabolic acidosis 3. Congestive heart failure improve 4. Hypertension, being treated. PLAN: 1. Continue Nitroglycerin drip 2. IV Lasix 20mg 3. DUO NEBS two times a day 4. Education about different risk factor for CHF. 5. Counseling for smoking done 6. The patient self medicates. 7. The patient is noncompliant with medication, lifestyle and followups. The is in the room and is aware of all these risk factors. continue nitro fiop Plan and coordination of the patient's care discussed in the presence of Appetizer Packer and nurse. SCRIBED BY: JJ LEAVITT Investment Analyst scribed while in presence of service performed by Dr. NICOLÁS BERTRAND on 04/16/18 ([id number])
--- NOTE | 2018-04-16 10:35 | PN ---
DATE OF SERVICE: 04/15/18 ADMIT NOTE SUBJECTIVE: 77 year old black female was brought to the emergency with fresh pulmonary edema with severe hypertension with blood pressure of 200/120. She has so far been given Nitroglycerin drip 5-10mc per minute. Blood pressure was brought down to 150 then it was discontinued. I restarted the IV Nitroglycerin drip. I saw this patient in the emergency room at approximate 9:00pm. Initially the patient was seen by Dr. Martinez in the emergency room. The patient was also given 1.5mg IV Vasotec, 20mg IV Lasix. I had given an order through the ER nurse which was declined by the patient earlier 40mg IV Lasix by Dr. Martinez was declined by the patient. The patient decided about what she wants and what she doesn't want. She is very difficult person to take care of. was in the room when I talked to the patient, she was feeling alot better. Her oxygen saturation with 2 liters was more than 94%. Arterial blood gasses to be done on 2 liters. REVIEW OF SYSTEMS: CONSTITUTIONAL: No night sweats. No fatigue, malaise, lethargy. No fever or chills. HEENT: Eyes: No visual changes. No eye pain. No eye discharge. ENT: No runny nose. No epistaxis. No sinus pain. No sore throat. No odynophagia. No congestion. RESPIRATORY: No cough, no congestion. No hemoptysis. No shortness of breath. CARDIOVASCULAR: No angina symptoms. No CHF symptoms. No atypical chest pain for CAD. No palpitations. No PND. No orthopnea. GASTROINTESTINAL: No abdominal pain. No nausea or vomiting. No diarrhea or constipation. No hematemesis. No hematochezia. GENITOURINARY: No urgency. No frequency. No dysuria. No hematuria. No obstructive symptoms. No discharge. No pain. No significant abnormal bleeding. MUSCULOSKELETAL: No musculoskeletal pain; no joint swelling. NEUROLOGICAL: No headache. No neck pain. No syncope. No seizures. No dizziness. PSYCHIATRIC: Not anxious. No depression. No suicidal thoughts. No homicidal thoughts. SKIN: No rash. No lesions. No wounds. ENDOCRINE: No unexplained weight loss. No weight gain. HEMATOLOGIC/LYMPHATIC: No anemia. No purpura. No petechiae. No prolonged or excessive bleeding. No palpable lymph nodes. PHYSICAL EXAMINATION: GENERAL: The patient is oriented to time, place and person and doesn't seem to be in distress now but still breathing at 22 per minute. VITAL SIGNS: Blood pressure 145/110, pulse 90-100 per minute and temperature 95.5. HEENT: Head normocephalic, atraumatic. Eyes: Extraocular muscles are intact. Pupils are equal, round and reactive to light and accommodation. Ears: No lesions. Nose appeared normal. Throat: No exudate or erythema. NECK: Supple. JVP 2cm., no carotid bruit. No lymphadenopathy or thyromegaly. LUNGS:Decreased breath sounds with few wheezing. Clear to auscultation. Percussion note normal. Chest symmetrical. The patient has continued to smoke. HEART: S1, S2, no S3. No murmurs. No cyanosis or clubbing. No ascites. Pulses: Dorsalis pedis and posterior tibial pulses +1 to +2 bilaterally. ABDOMEN: Soft. Nontender. Bowel sounds active. No CVA tenderness. No mass felt. EXTREMITIES: +2 pitting edema and probably +2 ascites. Full range of motion of all extremities, equal. NEUROLOGIC: No focal deficit. Cranial nerves II through XII are grossly intact. No headache, no double vision or headache. SKIN: Not dry. Intact. Turgor - normal. LYMPHATIC: No palpable lymph nodes/no lymphedema. MUSCULOSKELETAL: Normal joints with no swelling. Muscle tone is normal. ASSESSMENT: 1. Acute pulmonary edema 2. Severe Hypertension 3. Acute respiratory failure 4. Acute Metabolic acidosis 5. Severe chronic lung disease 6. Anemia 7. Liver cirrhosis with ascites from chronic congestive heart failure also from alcohol abuse in the past. 8. The patient's Potassium is 2.8, she has hypokalemia. PLAN: 1. Give IV Lasix and she agreed 20mg 2. IV Vasotec repeat the dose because the diastolic was 110 to 120 3. Start the Nitroglycerin drip a 5mic per KG per minute 4. Keep the systolic 150 5. IV Solu-Cortef 100mg given IV 6. Daily CBC and CMP 7. The patient has hypokalemia, will give Potassium supplements 8. Arterial blood gasses to be monitor 9. Routine telemetry orders to rule out acute MO or ischemia PROGNOSIS: POOR The patient is noncompliant of medications, lifestyle. She directs her own medical care. is practically frustrated and helpless. TIME SPENT: More than 30 minutes. The patient is DNR. Plan and coordination of the patient's care discussed in the presence of nurse. MANAN
--- NOTE | 2018-04-16 13:43 | HP ---
DATE OF SERVICE: 04/15/18 REASON FOR HOSPITALIZATION: Shortness of breath HISTORY OF PRESENT ILLNESS: 77 year old black female has been having problem with the breathing for past couple of weeks according to the but she ultimately decided to come to the emergency room. In the emergency room the patient was seen and examined by the ER attending and was noted to be in severe respiratory distress with blood pressure 210/127, respiratory rate of 32 with pulse of 120 and 82% oxygen saturation. The patient's arterial blood gasses showed severe metabolic acidosis with pH 7.28 with pO2 143, pCO2 44 on 100% nonbreather. The patient has -5 Base excess. The patient's CT scan of the chest showed pulmonary edema and also possibility of consolidation but patient does not have symptoms of pneumonia. PAST MEDICAL HISTORY/PAST SURGICAL HISTORY: History of depression Atrial fibrillation, one episode Noncompliance Pulmonary fibrosis Chronic bronchitis COPD with continued smoking CHF Hypertension Dyslipidemia Coronary artery disease, Dr. Canales unable to get stent Migraine headaches Left total knee replacement Generalized anxiety disorder History of extensive pulmonary fibrosis Congestive heart failure is systolic/diastolic REVIEW OF SYSTEMS: CONSTITUTIONAL: No night sweats. No fever or chills. Weakness and fatigue. HEENT: Eyes: No visual changes. No eye pain. No eye discharge. ENT: No runny nose. No epistaxis. No sinus pain. No sore throat. No odynophagia. No ear pain. No congestion. RESPIRATORY: Cough, whitish sputum forming, no congestion. No hemoptysis. Shortness of breath on minimal exertion. CARDIOVASCULAR: No angina symptoms. No CHF symptoms. No atypical chest pain for CAD. No palpitations. No PND. No orthopnea. GASTROINTESTINAL: No abdominal pain. No nausea or vomiting. No diarrhea or constipation. No hematemesis. No hematochezia. GENITOURINARY: No urgency. No frequency. No dysuria. No hematuria. No obstructive symptoms. No discharge. No pain. No significant abnormal bleeding. MUSCULOSKELETAL: No musculoskeletal pain. No joint swelling. No arthritis.Generalized aches and pain as usual. NEUROLOGICAL: No headache. No neck pain. No syncope. No seizures. No dizziness. PSYCHIATRIC: Not anxious. No depression. No suicidal thoughts. No homicidal thoughts. SKIN: No rash. No lesions. No wounds. ENDOCRINE: No unexplained weight loss. No weight gain. HEMATOLOGIC/LYMPHATIC: No anemia. No purpura. No petechiae. No prolonged or excessive bleeding. No palpable lymph nodes. PERSONAL/FAMILY/SOCIAL HISTORY: and lives with the . Smokes more than a pack a day. No alcohol abuse. The patient also tells me most of the time that she has quit smoking but according to the she sneaks around and smokes. MEDICATIONS: Nitroglycerin PRN Wellbutrin 150mg PO daily Aspirin 81mg PO daily Lasix 40mg PO daily Clonidine 0.2mg twice a day Minoxidil 5mg twice a day Albuterol four times a day Zoloft 100mg PO daily Tramadol 50mg PO daily ALLERGIES: Allergies PHYSICAL EXAMINATION: GENERAL: The patient is oriented to time, place and person, mild distress. VITAL SIGNS: On the floor: Temperature 97.5, pulse 92, respiratory rate 24, blood pressure 157/110, pulse ox 82% on room air. HEENT: Head normocephalic, atraumatic. Eyes: Extraocular muscles are intact. Pupils are equal, round and reactive to light and accommodation. FACE: Symmetrical Ears: No lesions. Nose appeared normal. Throat: No exudate or erythema. NECK: Supple. JVP 2cm, no carotid bruit. No lymphadenopathy or thyromegaly. LUNGS: Decreased breath sounds with mild expiratory wheeze. Air entry acceptable. Clear to auscultation. Percussion note normal. Chest symmetrical. HEART: S1, S2, no S3. No murmurs. No cyanosis or clubbing. Possibility of ascites. Pulses: Dorsalis pedis and posterior tibial pulses +1 to +2 bilaterally. ABDOMEN: Soft. Nontender. Bowel sounds active. No CVA tenderness. No mass felt. EXTREMITIES: +1-+2 pitting edema. Full range of motion of all extremities, equal. NEUROLOGIC: No focal deficit. Cranial nerves II through XII are grossly intact. No headache, no double vision or headache. SKIN: Not dry. Intact. Turgor - normal. LYMPHATIC: No palpable lymph nodes/no lymphedema. MUSCULOSKELETAL: Normal joints with no swelling. Muscle tone is normal. LABS: Lactic acid 2.2, Troponin negative, total proteins normal. BUN 1.2, creatinine 12. ABG pO2 143, pCO2 44, pH 7.28 with 99% saturation on 100% nonrebreather. Hgb 11.6, hct 39, WBC 12,000. Chest x-ray pulmonary edema, atelectasis, consolidation . ASSESSMENT: 1. Acute pulmonary edema 2. Acute respiratory failure 3. Acute metabolic acidosis 4. Severe chronic lung disease with smoking 5. History of congestive heart failure, systolic/diastolic 6. Coronary artery disease 7. Noncompliance with smoking and noncompliance on medications and followups. 8. Self directed care 9. Hypertension 10.Dyslipidemia 11.Depression 12.Anxiety PLAN: 1. IV Lasix 20mg, the patient refused Lasix in the emergency room as well as when I tried to give her and personally when I stood there in the emergency room she took Lasix 20mg 2. Decadron 1cc IM. 3. After the patient gets a couple doses of Solu-Medrol 100mg IV 4. Xopenex four times a day PRN 5. IV Vasotec for blood pressure over 150 6. Continue patient on Nitroglycerin drip 7. CHF education carried out 8. Counseling for smoking done CONDITION: Critical but stable. The patient's was present in the room. The patient and the both said that she does not want any resuscitation efforts. She is a DNR. TIME SPENT: More than 70 minutes. MANAN
[2018-04-17] MEDS: DUONEB NEB SCH ×4 (04:22→21:56)
[2018-04-17] MEDS: LASIX IVP SCH (05:42)
[2018-04-17] MEDS ORDERED: TORADOL IVP STA (08:12)
[2018-04-17] MEDS ORDERED: COREG PO SCH ×2 (08:30→17:30)
[2018-04-17] MEDS ORDERED: CARDIZEM PO SCH (09:00)
[2018-04-17] MEDS: ZOLOFT PO SCH (09:18)
[2018-04-17] MEDS: DECADRON 4 MG/ML SDV IM SCH (09:19)
[2018-04-17] MEDS: CATAPRES PO SCH ×2 (09:19→21:26)
[2018-04-17] MEDS: ULTRAM PO SCH ×2 (09:19→21:26)
[2018-04-17] MEDS: K-DUR PO SCH ×3 (09:19→18:13)
[2018-04-17] MEDS: ZITHROMAX PO SCH (09:19)
[2018-04-17] MEDS: ASPIRIN EC PO SCH (09:19)
[2018-04-17] MEDS: NITROGLYCERIN 25 MG in PREMIX D5W 250 ML VIAL 1 VIAL IV SCH (09:30)
[2018-04-17] MEDS: ALDACTONE PO SCH (13:43)
[2018-04-17] MEDS: XANAX PO SCH ×2 (14:46→21:25)
[2018-04-17] MEDS: TORADOL IVP PRN ×2 (14:49→23:53)
[2018-04-17] MEDS: COREG PO SCH (18:16)
[2018-04-18] MEDS: DUONEB NEB SCH ×3 (04:47→17:14)
[2018-04-18] MEDS: LASIX IVP SCH (06:08)
--- NOTE | 2018-04-18 08:59 | PN ---
DATE OF SERVICE: 04/17/18 SUBJECTIVE: 77-year-old black female hospitalized with acute pulmonary edema and severe hypertension. The patient's blood pressure seems to be under control. This morning it was 137/78, will discontinue Nitrogycerin drip and restart her on her medications, that is Coreg and Cardizem along with Lasix. She had discontinued all the medications at home on her own along with Lasix. The patient is noncompliant of medications, lifestyle. She has continued to smoke, self-directed medical care. Prognosis is poor. The is in the room. REVIEW OF SYSTEMS: CONSTITUTIONAL: No night sweats. No fatigue, malaise, lethargy. No fever or chills. HEENT: Eyes: No visual changes. No eye pain. No eye discharge. ENT: No runny nose. No epistaxis. No sinus pain. No sore throat. No odynophagia. No congestion. RESPIRATORY: No cough, no congestion. No hemoptysis. No shortness of breath. CARDIOVASCULAR: No angina symptoms. No CHF symptoms. No atypical chest pain for CAD. No palpitations. No PND. No orthopnea. GASTROINTESTINAL: No abdominal pain. No nausea or vomiting. No diarrhea or constipation. No hematemesis. No hematochezia. GENITOURINARY: No urgency. No frequency. No dysuria. No hematuria. No obstructive symptoms. No discharge. No pain. No significant abnormal bleeding. MUSCULOSKELETAL: No musculoskeletal pain; no joint swelling. NEUROLOGICAL: No headache. No neck pain. No syncope. No seizures. No dizziness. PSYCHIATRIC: Not anxious. No depression. No suicidal thoughts. No homicidal thoughts. SKIN: No rash. No lesions. No wounds. ENDOCRINE: No unexplained weight loss. No weight gain. HEMATOLOGIC/LYMPHATIC: No anemia. No purpura. No petechiae. No prolonged or excessive bleeding. No palpable lymph nodes. PHYSICAL EXAMINATION: VITAL SIGNS: Temperature 98.1, pulse 98, respiratory rate 22, BP 137/78, pulse ox 98%. HEENT: Head normocephalic, atraumatic. Eyes: Extraocular muscles are intact. Pupils are equal, round and reactive to light and accommodation. Ears: No lesions. Nose appeared normal. Throat: No exudate or erythema. NECK: Supple. No JVD, no carotid bruit. No lymphadenopathy or thyromegaly. LUNGS: Decreased breath sounds but clear to auscultation. Percussion note normal. Chest symmetrical. HEART: S1, S2, no S3. No murmurs. No cyanosis or clubbing. No ascites. Pulses: Dorsalis pedis and posterior tibial pulses +1 to +2 bilaterally. ABDOMEN: Swelling of the abdomen is much less. Soft. Nontender. Bowel sounds active. No CVA tenderness. No mass felt. EXTREMITIES: Swelling of the legs is down to trace to +1 edema. Full range of motion of all extremities, equal. NEUROLOGIC: No focal deficit. Cranial nerves II through XII are grossly intact. No headache, no double vision or headache. SKIN: Not dry. Intact. Turgor - normal. LYMPHATIC: No palpable lymph nodes/no lymphedema. MUSCULOSKELETAL: Normal joints with no swelling. Muscle tone is normal. LABS: Hemoglobin 10, hematocrit 33, WBC 7,200, normal differential. Creatinine 1.1, BUN 14, potassium 3.2. The patient is on potassium supplement. ASSESSMENT: 1. Acute pulmonary edema resolved. 2. Acute metabolic acidosis resolved. 3. Respiratory failure, chronic but much better. Hypoxemia level has improved. 4. Severe chronic lung disease, smoking. PLAN: 1. Counseling for smoking done. 2. CHF education carried out. 3. The patient is intelligent but stubborn and non compliant. 4. The patient is restarted on Coreg and Cardizem. 5. Encouraged to take her medications on a regular basis. Condition: Stable. Prognosis is poor. TIME SPENT: More than 30 minutes. Plan and coordination of the patient's care discussed in the presence of nurse. MANAN
[2018-04-18] MEDS: COREG PO SCH ×2 (09:08→16:29)
[2018-04-18] MEDS: ULTRAM PO SCH ×2 (09:08→20:28)
[2018-04-18] MEDS: XANAX PO SCH ×2 (09:08→20:28)
[2018-04-18] MEDS: ZOLOFT PO SCH (09:09)
[2018-04-18] MEDS: CATAPRES PO SCH ×2 (09:09→20:28)
[2018-04-18] MEDS: ZITHROMAX PO SCH (09:09)
[2018-04-18] MEDS: ASPIRIN EC PO SCH (09:10)
[2018-04-18] MEDS: ALDACTONE PO SCH (09:10)
[2018-04-18] MEDS: K-DUR PO SCH (09:11)
[2018-04-18] MEDS: BENICAR PO SCH (09:12)
--- NOTE | 2018-04-18 11:39 | PCM.PROG ---
Attending Provider: ATTENDING PROVIDER: Dr. NICOLÁS BERTRAND DATE OF SERVICE: 04/18/18 SUBJECTIVE: This 77 year old BLACK/ F was hospitalized 04/15/18 with CHF and severe hypertension. The patient's CHF is resolving. No symptoms or signs of CHF. No JVP. REVIEW OF SYSTEMS: CONSTITUTIONAL: No night sweats. No fatigue, malaise, lethargy. No fever or chills. HEENT: Eyes: No visual changes. No eye pain. No eye discharge. ENT: No runny nose. No epistaxis. No sinus pain. No odynophagia. No congestion. RESPIRATORY: No cough, no congestion. No hemoptysis. No shortness of breath. CARDIOVASCULAR: No angina symptoms. No CHF symptoms. No atypical chest pain for CAD. No palpitations. No orthopnea.. GASTROINTESTINAL: No abdominal pain. No nausea or vomiting. No diarrhea or constipation. No hematemesis. No hematochezia. GENITOURINARY: No urgency. No frequency. No dysuria. No hematuria. No obstructive symptoms. No discharge. No pain. No significant abnormal bleeding. MUSCULOSKELETAL: No musculoskeletal pain; no joint swelling. NEUROLOGICAL: Awake, alert, oriented to time, place and person. No headache. No neck pain. No syncope. No seizures. No dizziness. PSYCHIATRIC: Not anxious. No depression. No suicidal thoughts. No homicidal thoughts. SKIN: No rash. No lesions. No wounds. ENDOCRINE: No unexplained weight loss. No weight gain. HEMATOLOGIC/LYMPHATIC: No anemia. No purpura. No petechiae. No prolonged or excessive bleeding. No palpable lymph nodes. PHYSICAL EXAMINATION: GENERAL: The patient is awake, alert and oriented, lying in bed in no distress. VITAL SIGNS: Temperature 97.9 F, Pulse 86, Respiratory Rate 16, BP 147/97, Pulse Ox 100% HEENT: Head normocephalic, atraumatic. Eyes: Extraocular muscles are intact. Pupils are equal, round and reactive to light and accommodation. Ears: No lesions. Nose appeared normal. Throat: No exudate or erythema. NECK: Supple. No JVP, no carotid bruit. No lymphadenopathy or thyromegaly. LUNGS: Decreased breath sounds. Clear to auscultation. Percussion note normal. Chest symmetrical. HEART: S1, S2, no S3. No murmurs. No cyanosis or clubbing. No ascites. Pulses: Dorsalis pedis and posterior tibial pulses +1 to +2 both sides. ABDOMEN: Soft. Non-tender. Bowel sounds active. No CVA tenderness. No mass felt. EXTREMITIES: Edema is much less. Full range of motion of all extremities, equal. NEUROLOGIC: No focal deficit. Cranial nerves II through XII are grossly intact. No headache, no double vision or headache. SKIN: Warm and dry. Intact. Turgor-normal. LYMPHATIC: No palpable lymph nodes/no lymphedema. MUSCULOSKELETAL: Normal joints with no swelling. Muscle tone is normal. LAB REVIEW: 04/18/18 05:00 04/18/18 05:00 04/18/18 05:00: Sodium 135.6, Potassium 4.69, Chloride 105.6, Carbon Dioxide 22.8, Anion Gap 11.89, BUN 22.8 H, Creatinine 1.73 H D, Estimated GFR (MDRD) 35.00, BUN/Creatinine Ratio 13.17, Glucose 109.2 H, Calcium 8.30 L, Total Bilirubin 0.42, AST 30.6, ALT 11.5, Alkaline Phosphatase 87.9, Total Protein 7.15, Albumin 2.98 L, Globulin 4.17, Albumin/Globulin Ratio 0.71 04/18/18 05:00: WBC 7.11, RBC 4.00 L, Hgb 10.9 L, Hct 35.6 L, MCV 89.0, MCH 27.3 , MCHC 30.6 L, RDW Coeff of Jade 16.1 H, Plt Count 292, Immature Gran % (Auto) 0.3, Neut % (Auto) 67.2, Lymph % (Auto) 19.8, [place] % (Auto) 12.2 H, Eos % (Auto ) 0.4, Baso % (Auto) 0.1, Immature Gran # (Auto) 0.0, Neut # (Auto) 4.8, Lymph # (Auto) 1.4, [place] # (Auto) 0.9, Eos # (Auto) 0.0, Baso # (Auto) 0.0 ASSESSMENT: Please see below. 1. CHF, under control 3. Hypertension, improved. 3. Chronic lung disease 4. Patient has counseling for smoking and CHF, discussed in detail. The patient had echo this morning showing LVH and some RV cavity enlargement. LA Cavity enlarged. Ejection fraction 35% PLAN: 1. Continue Coreg, Cozaar, Aldactone, Zoloft and Lasix. 2. Kidney function has become abnormal, we will discontinue IV Lasix and give her PO Lasix. 3. BNP 4. Chest x-ray Plan and coordination of the patient's care discussed in the presence of Grocery Store Manager and nurse. CONDITION: Stable SCRIBED BY: Nuris GUERRA scribed while in presence of service performed by Dr. NICOLÁS BERTRAND on 04/18/18 ([id number])
--- NOTE | 2018-04-18 12:12 | DI ---
EXAM: Two views of the chest. History: Follow-up pulmonary edema. Comparison: Chest radiograph 04/15/2018 Findings: Heart remains enlarged. Persistent but improving pulmonary edema. No pneumothorax. Athe rosclerotic vascular calcifications. No acute osseous abnormalities. Impression: Cardiomegaly with persistent but improving pulmonary edema.
[2018-04-19] MEDS: DUONEB NEB SCH ×3 (00:05→11:08)
[2018-04-19] MEDS ORDERED: LASIX TAB PO SCH (06:30)
--- NOTE | 2018-04-19 08:21 | ECHO2D ---
Date of Exam: 04/18/18 Ordering Physician: DR. NICOLÁS BERTRAND Room #: [id number] Reason for Echo: CHF M-Mode Normal Adult Results LV Dimensions Normal Adult Results AoV Opening excursions >1.6 >1.6 LVEDD-base- 3.5-5.8 5.2 Ao root dimensions 2.0-3.7 3.4 LVESD-base- 3.1-4.6 L. Atrium dimensions 1.9-3.8 6.1 Post. Wall thickness 0.8-1.1 1.3 IV septum (thickness) 0.7-1.2 1.5 Post. Wall excursion 0.72-1.3 NORMAL Septal motion -- Systolic motion R. Ventricular cavity 1.5-2.0 3.5 LVEF 60% 35% Paradoxical septal wall motion MAYBE 2-D : AKINETIC SEPTUM, NORMAL LEFT VENTRICLE SIZE, ENLARGED LEFT ATRIAL SIZE, NO EFFUSION, NO THROMBOSIS COLOR FLOW: MODERATE/SEVERE TRICUSPID REGURGITATION, MODERATE MITRAL REGURGITATION M-MODE: MV: NORMAL AV: NORMAL TV: NORMAL PV: CHAMBER SIZE: ENLARGED LEFT ATRIAL AND LEFT VENTRICLE CAVITIES WALL MOTION: AKINETIC SEPTUM, MAYBE PARADOXICAL PERICARDIUM: NORMAL INTERPRETATION: 1. LEFT VENTRICULAR HYPERTROPHY (MODERATE) WITH MARKED ENLARGEMENT OF LEFT ATRIAL CAVITY 2. AKINETIC /PARADOXICAL STIFF SEPTUM: LEFT VENTRICULAR EJECTION FRACTION 35% 3. NORMAL VALVES 4. ENLARGED RIGHT VENTRICLE CAVITY 5. MODERATE MITRAL REGURGITATION AND SEVERE TRICUSPID REGURGITATION MTDD
[2018-04-19] MEDS: XANAX PO SCH (08:44)
[2018-04-19] MEDS: ASPIRIN EC PO SCH (08:44)
[2018-04-19] MEDS: ULTRAM PO SCH (08:44)
[2018-04-19] MEDS: COREG PO SCH (08:45)
[2018-04-19] MEDS: CATAPRES PO SCH (08:45)
[2018-04-19] MEDS: ZOLOFT PO SCH (08:45)
[2018-04-19] MEDS: ALDACTONE PO SCH (08:45)
[2018-04-19] MEDS: BENICAR PO SCH (08:45)
--- NOTE | 2018-04-19 13:57 | PN ---
DATE OF SERVICE: 04/19/18 SUBJECTIVE: The patient was seen this morning. The patient is a 77 year old black female hospitalized with acute respiratory failure, acute metabolic acidosis and acute pulmonary edema. The patient's condition has improved. Her respiratory failure is chronic. The acute component has resolved. Pulmonary edema has resolved. Chest x-ray shows improvement. REVIEW OF SYSTEMS: CONSTITUTIONAL: No night sweats. No fatigue, malaise, lethargy. No fever or chills. HEENT: Eyes: No visual changes. No eye pain. No eye discharge. ENT: No runny nose. No epistaxis. No sinus pain. No sore throat. No odynophagia. No congestion. RESPIRATORY: No cough, no congestion. No hemoptysis. No shortness of breath. CARDIOVASCULAR: No angina symptoms. No CHF symptoms. No atypical chest pain for CAD. No palpitations. No PND. No orthopnea. GASTROINTESTINAL: No abdominal pain. No nausea or vomiting. No diarrhea or constipation. No hematemesis. No hematochezia. GENITOURINARY: No urgency. No frequency. No dysuria. No hematuria. No obstructive symptoms. No discharge. No pain. No significant abnormal bleeding. MUSCULOSKELETAL: No musculoskeletal pain; no joint swelling. NEUROLOGICAL: No headache. No neck pain. No syncope. No seizures. No dizziness. PSYCHIATRIC: Not anxious. No depression. No suicidal thoughts. No homicidal thoughts. SKIN: No rash. No lesions. No wounds. ENDOCRINE: No unexplained weight loss. No weight gain. HEMATOLOGIC/LYMPHATIC: No anemia. No purpura. No petechiae. No prolonged or excessive bleeding. No palpable lymph nodes. PHYSICAL EXAMINATION: HEENT: Head normocephalic, atraumatic. Eyes: Extraocular muscles are intact. Pupils are equal, round and reactive to light and accommodation. Ears: No lesions. Nose appeared normal. Throat: No exudate or erythema. NECK: Supple. No JVP, no carotid bruit. No lymphadenopathy or thyromegaly. LUNGS: Decreased breath sounds but clear to auscultation. Percussion note normal. Chest symmetrical. HEART: S1, S2, no S3. No murmurs. No cyanosis or clubbing. No ascites. Pulses: Dorsalis pedis and posterior tibial pulses +1 to +2 bilaterally. ABDOMEN: Soft. Nontender. Bowel sounds active. No CVA tenderness. No mass felt. EXTREMITIES: No edema. Full range of motion of all extremities, equal. NEUROLOGIC: No focal deficit. Cranial nerves II through XII are grossly intact. No headache, no double vision or headache. SKIN: Not dry. Intact. Turgor - normal. LYMPHATIC: No palpable lymph nodes/no lymphedema. MUSCULOSKELETAL: Normal joints with no swelling. Muscle tone is normal. ASSESSMENT: 1. CHF has resolved clinically 2. Bronchitis under control 3. Kidney functions are stable with creatinine 0.1 and BUN 22 PLAN: 1. The patient's overall status has improved remarkably. The patient's problem is that she is noncompliant. She is strongly advised to take all her medications instructed and has continued to smoke. She is strongly advised to quit smoking. The patient wants DNR. Her Prognosis is poor considering her lifestyle, noncompliance of medications and followup. 2. The patient has night time oxygen. We will do a 3 step oxygen test to determine if the patient is in need of continuous oxygen due to reports of shortness of air at all times. TIME SPENT: More than 30 minutes. Plan and coordination of the patient's care discussed in the presence of nurse. MANAN
--- NOTE | 2018-04-19 14:11 | PN ---
04/15/18: Level 5 04/16/18: Extensive 04/17/18: Intermediate 04/18/18: Intermediate 04/19/18: D as in discharge MTDD
--- NOTE | 2018-04-19 14:18 | DS ---
DATE OF SERVICE: 04/19/18 FINAL DIAGNOSIS: PULMONARY EDEMA METABOLIC ACIDOSIS HYPERTENSION HYPOKALEMIA CHF COPD CONTINUED SMOKING PULMONARY FIBROSIS CKD OSTEOARTHRITIS MIGRAINE HEADACHES NON COMPLIANCE OF MEDICATIONS, LIFESTYLE AND FOLLOW-UP HEART CATH, 2016 TOTAL KNEE REPLACEMENT, BILATERAL JAN LASIK SURGERY LAST VITALS: Temp Pulse Resp BP Pulse Ox 97.3 F L 85 18 130/93 H 99 04/19/18 06:00 04/19/18 06:00 04/19/18 06:00 04/19/18 06:00 04/19/18 06:00 DISCHARGE INSTRUCTIONS: DISCHARGE HOME WITH SPOUSE. AN APPOINTMENT IS SCHEDULED FOR April AT 11:[address] BERTRAND/CLAUDIA FUNES APRN. PORTABLE OXYGEN HAS BEEN ARRANGED THRU [facility] IN [place], [place]. TAKE THESE MEDICATIONS AT HOME: Aspirin (Aspirin Ec) 81 mg PO DAILYWM [facility] Carvedilol (Coreg) 25 mg PO BIDWM [facility] Clonidine (Catapres) 0.1 mg PO BID [facility] Furosemide (Lasix Tab) 20 mg PO QDAC [facility] Olmesartan (Benicar) 20 mg PO DAILY [facility] Sertraline HCl (Zoloft) 100 mg PO DAILY [facility] Spironolactone (Aldactone) 25 mg PO DAILY [facility] Nitroglycerin 0.4mg sl prn ALLERGIES: No Known Allergies Allergy (Verified 04/15/18 18:40) DISCONTINUED MEDICATIONS: Clonidine 0.2 mg Lasix 40 mg NEW PRESCRIPTIONS: BENICAR 20 MG TAKE 1 DAILY COREG 25 MG TAKE 1 TWICE A DAY CATAPRES 0.1 MG TAKE 1 TWICE A DAY LASIX 20 MG TAKE 1 DAILY ALDACTONE 25 MG TAKE 1 DAILY SMOKING: CONTINUED SMOKING PER SPOUSE INFORMATION DISEASE SPECIFIC EDUCATION: HYPERTENSION USE OF OXYGEN NEW MEDICATIONS DIET: TOLERATED ACTIVITY: RESUME TOLERATED WITH CONTINUOUS OXYGEN ADVISED OF NO SMOKING CODE STATUS: DNR LABS: Hgb 10.9, hct 35, WBC 7,100 normal differential, creatinine 1.7, BUN 22, potassium 4.6. HOSPITAL COURSE: 77 year old black female hospitalized with acute pulmonary edema, acute metabolic acidosis and respiratory failure. The patient was treated with IV Lasix, nitroglycerin drip because of severe hypertension. The patient was restarted practically on all her medications that is Coreg and angiotensin receptor blockers along with Lasix and Potassium. The patient had stopped taking all the medication except for Clonidine for her blood pressure. She refuses to take Lasix as instructed because she has to go to the bathroom quite often. In any case she was again educated about CHF in detail. Counseling for smoking with done. At the time of discharge the patient was up and about. Lungs were clear. No JVP was noted and No S3. The chest x-ray improved. The patient strongly advised to keep her medications. Even the is very frustrated with patient's behavior. The patient's prognosis is poor. CONDITION: Stable. PROGNOSIS: Poor TIME SPENT: More than 60 minutes. MTDD
--- NOTE | 2018-04-19 15:45 | CM.DICTOOL ---
ADMISSION: 04/15/18 20:14 DISCHARGE: APRIL 19, 2018 DATE OF SERVICE: 04/19/18 FINAL DIAGNOSIS PULMONARY EDEMA METABOLIC ACIDOSIS HYPERTENSION HYPOKALEMIA CHF COPD CONTINUED SMOKING PULMONARY FIBROSIS CKD OSTEOARTHRITIS MIGRAINE HEADACHES NON COMPLIANCE OF MEDICATIONS, LIFESTYLE AND FOLLOW-UP HEART CATH, 2016 TOTAL KNEE REPLACEMENT, BILATERAL JAN LASIK SURGERY LAST VITALS Temp Pulse Resp BP Pulse Ox 97.3 F L 85 18 130/93 H 99 04/19/18 06:00 04/19/18 06:00 04/19/18 06:00 04/19/18 06:00 04/19/18 06:00 TAKE THESE MEDICATIONS AT HOME Aspirin (Aspirin Ec) 81 mg PO DAILYWM [facility] Last Admin: 04/19/18 08:44 Dose: 81 mg Carvedilol (Coreg) 25 mg PO BIDWM [facility] Last Admin: 04/19/18 08:45 Dose: 25 mg Clonidine (Catapres) 0.1 mg PO BID [facility] Last Admin: 04/19/18 08:45 Dose: 0.1 mg Furosemide (Lasix Tab) 20 mg PO QDAC [facility] Last Admin: 04/19/18 05:56 Dose: 20 mg Olmesartan (Benicar) 20 mg PO DAILY [facility] Last Admin: 04/19/18 08:45 Dose: 20 mg Sertraline HCl (Zoloft) 100 mg PO DAILY [facility] Last Admin: 04/19/18 08:45 Dose: 100 mg Spironolactone (Aldactone) 25 mg PO DAILY [facility] Last Admin: 04/19/18 08:45 Dose: 25 mg Nitroglycerin 0.4mg sl prn ALLERGIES No Known Allergies Allergy (Verified 04/15/18 18:40) DISCONTINUED MEDICATIONS Clonidine 0.2 mg Lasix 40 mg NEW PRESCRIPTIONS: BENICAR 20 MG TAKE 1 DAILY COREG 25 MG TAKE 1 TWICE A DAY CATAPRES 0.1 MG TAKE 1 TWICE A DAY LASIX 20 MG TAKE 1 DAILY ALDACTONE 25 MG TAKE 1 DAILY SMOKING: CONTINUED SMOKING PER SPOUSE INFORMATION DISEASE SPECIFIC EDUCATION: HYPERTENSION USE OF OXYGEN NEW MEDICATIONS LAB REVIEW: 04/19/18 04:55 04/19/18 04:55 04/19/18 04:55: Sodium 136.5, Potassium 4.16, Chloride 104.2, Carbon Dioxide 26.2, Anion Gap 10.26, BUN 29.8 H, Creatinine 1.74 H, Estimated GFR (MDRD) 35.00 , BUN/Creatinine Ratio 17.12, Glucose 104.1, Calcium 8.07 L, Total Bilirubin 0.37, AST 25.9, ALT 12.3, Alkaline Phosphatase 102.0, Total Protein 6.91, Albumin 2.81 L, Globulin 4.10, Albumin/Globulin Ratio 0.68 04/19/18 04:55: WBC 6.57, RBC 3.95 L, Hgb 10.7 L, Hct 35.0 L, MCV 88.6, MCH 27.1 , MCHC 30.6 L, RDW Coeff of Jade 16.1 H, Plt Count 280, Immature Gran % (Auto) 0.2, Neut % (Auto) 50.2, Lymph % (Auto) 32.0, [place] % (Auto) 14.0 H, Eos % (Auto ) 3.0, Baso % (Auto) 0.6, Immature Gran # (Auto) 0.0, Neut # (Auto) 3.3, Lymph # (Auto) 2.1, [place] # (Auto) 0.9, Eos # (Auto) 0.2, Baso # (Auto) 0.0 PLAN: DISCHARGE HOME WITH SPOUSE DIET: TOLERATED ACTIVITY: RESUME TOLERATED WITH CONTINUOUS OXYGEN ADVISED OF NO SMOKING AN APPOINTMENT IS SCHEDULED FOR April AT 11:[address] BERTRAND/CLAUDIA FUNES APRN PORTABLE OXYGEN HAS BEEN ARRANGED THRU [facility] IN [place], [place] CODE STATUS: DNR MRS. MACKENZIE IS ALERT AND ORIENTED X 3. MRS. MACKENZIE LIVES AT HOME WITH HER . THEY ARE AGREEABLE FOR DISCHARGE. SHE IS ABLE TO TRANSFER FROM THE BED TO THE CHAIR AND AMBULATE TO THE BATHROOM WITH ASSISTANCE OF 1 STAFF MEMBER. SHE IS CONTINENT OF BOWEL AND BLADDER. MRS. MACKENZIE IS ABLE TO FEED HERSELF, BUT HAS ONLY BEEN CONSUMING 25-75% OF HER MEALS. SHE USES OXYGEN AT BEDTIME ONLY, BUT HAS BEEN EVALUATED FOR THE NEED FOR CONTINUOUS OXYGEN. PORTABLE OXYGEN HAS BEEN ARRANGED AND DELIVERED BY [facility] FOR HER DISCHARGE HOME. SKIN IS INTACT AND FREE OF DECUBITUS ULCERS. NICOLÁS BERTRAND MD
[2018-04-19 16:18] VITALS: BP 108/74; TEMP 97.9
== END 2018-04-19 17:17 | disposition home or self-care (01) | DRG 304 ==
LOC: ED 18:29 → SCU 20:14
PROVIDERS: ADMIT Internal Medicine; ATTEND Internal Medicine
DX: I16.0 Hypertensive urgency (principal); J81.0 Acute pulmonary edema; J96.00 Acute respiratory failure, unspecified whether with hypoxia or hypercapnia; J81.1 Chronic pulmonary edema; E87.2 Acidosis; E87.6 Hypokalemia; J44.9 Chronic obstructive pulmonary disease, unspecified; J84.10 Pulmonary fibrosis, unspecified; J40 Bronchitis, not specified as acute or chronic; I10 Essential (primary) hypertension; I50.9 Heart failure, unspecified; I25.10 Atherosclerotic heart disease of native coronary artery without angina pectoris; N18.9 Chronic kidney disease, unspecified; M19.90 Unspecified osteoarthritis, unspecified site; G43.909 Migraine, unspecified, not intractable, without status migrainosus; K74.60 Unspecified cirrhosis of liver; F41.8 Other specified anxiety disorders; R05 Cough; R06.2 Wheezing; Z91.19 Patient's noncompliance with other medical treatment and regimen; Z72.0 Tobacco use
CPT/HCPCS: 36415; 80053; 82550; 82803; 82962; 83605; 83880; 84145; 84439; 84443; 84484; 85025; 85610; 85730; 87040; 87081; 93005; 93010; 94640; 94761; 96365; 96366; 96368; 97802; 99284; 99285

== ENCOUNTER 2018-10-04 14:27 | Outpatient (CLI) | payer OTHER | END 2018-10-04 14:28 | disposition home or self-care (01) | LOC: LAB 14:27 | PROVIDERS: ATTEND Internal Medicine | DX: R79.9 Abnormal finding of blood chemistry, unspecified (principal) | CPT/HCPCS: 36415; 84165 ==

== ENCOUNTER 2019-01-09 23:37 | Inpatient (IN) ==
--- NOTE | 2019-01-09 23:51 | ED.PDOC ---
General ED Provider: Dr. CRISTINA ANTHONY Chief Complaint: Head Injury Stated Complaint: Fell striking forehead. Pain in forehead with large Hematoma Time Seen by Physician: 23:35 Mode of Arrival: Wheelchair Information Source: Patient and Family Exam Limitations: No limitations Primary Care Provider: NICOLÁS BERTRAND Nursing and Triage Documentation Reviewed and Agree: Yes Does patient meet sepsis criteria?: No System Inflammatory Response Syndrome: Not Applicable Sepsis Protocol: For patient's 13 years and over: Temp is 96.8 and below OR 101 and greater Pulse >90 BPM Resp >20/minute Acutely Altered Mental Status Are patient's symptoms suggestive of a new infection, such as: -Pneumonia -Skin, Soft Tissue -Endocarditis -UTI -Bone, Joint Infection -Implantable Device -Acute Abdominal Infection -Wound Infection -Meningitis -Blood Stream Catheter Infection -Unknown Trauma/Injury Complaint Exam Head Injury Complaint/Exam Location of Pain: Reports Right (large hematoma size softball), Scalp and Forehead Mechanism of Injury: Reports Trauma Onset/Duration: 1 hr Symptoms Are: Still present Initial Severity: Moderate Current Severity: Moderate Character: Reports Sharp, Throbbing and Pressure Aggravating: Reports Unknown Alleviating: Reports Unknown Associated Signs and Symptoms: Reports Neck pain; Denies Confusion, Memory loss, Seizure, Epistaxis, Dental malocclusion, Nausea and Vomiting Loss of Consciousness: None SDH Risk Factors: Present None Cervical Spine Injury Risk Factors: Present None Related Surgical History: Reports None C-Collar in Place: no Backboard in Place: no Head Injury Findings: Present Normal findings Focal Weakness: Present None Focal Sensory Loss: Present None Gait: Normal Gag Reflex Present: Yes Rhomberg Test Positive: Yes Babinski Sign: Negative Right and Negative Left Heel to Toe Normal: Yes Nexus Low Risk Criteria: No post-midline CS tender Review of Systems Review Of Systems Constitutional: Reports No symptoms Eyes: Reports No symptoms Ears, Nose, Mouth, Throat: Reports No symptoms Respiratory: Reports No symptoms Cardiac: Reports No symptoms GI: Reports No symptoms : Reports No symptoms Musculoskeletal: Reports No symptoms Skin: Reports No symptoms Neurological: Reports No symptoms Endocrine: Reports No symptoms Hematologic/Lymphatic: Reports No symptoms All Other Systems: Reviewed and Negative [facility] Medical History (Updated 04/18/18 @ 11:39 by JJ LEAVITT) Chronic arthritis (~2010) Hypertension (~1989) Migraine Family History Mother Hypertension Father Hypertension Social History Smoking and tobacco status: Current every day smoker History of recent travel: No Female Reproductive History Menstrual Hx Hysterectomy: Yes Hx Tubal Ligation: No Physical Exam Physical Exam Appearance: Ill-appearing and Well-nourished Ill-appearing: Mild Pain Distress: Moderate Eyes: POLA, EOMI and Conjunctiva clear ENT: Ears normal, Nose normal and Oropharynx normal Neck: Supple Respiratory: Airway patent, Breath sounds clear and Breath sounds equal Cardiovascular: RRR, Pulses normal and Irregular rhythm GI/: Soft, Nontender and No masses Musculoskeletal: Normal strength Skin: Warm Neurological: Sensation intact, Motor intact, Cranial nerves intact, Alert, Oriented and Alert to pain Psychiatric: Affect appropriate, Mood appropriate, Anxious and Depressed Critical Care Note Critical Care Note Total Time (mins): 30 Course Course Orders, Labs, Meds: Orders Category Date Time Status CBC W/ AUTO DIFF Stat LAB 01/09/19 23:51 Ordered CMP [COMPREHENSIVE METABOLIC PANEL] Stat LAB 01/09/19 23:[address] CERVICAL SPINE W/O CONTRAST Stat RADS 01/10/19 00:[address] HEAD W/O CONTRAST Stat RADS 01/09/19 23:52 Ordered Vital Signs: Temp Pulse Resp BP Pulse Ox 01/09/19 23:40 99 F 83 20 229/109 H 98 Discharge Plan Discharge Prescriptions: No Action aspirin [Aspir-81] 81 MG tablet,delayed release (DR/EC) 81 mg PO DAILY RF: 0 nitroglycerin [Nitrostat] 0.4 MG tablet, sublingual 0.4 mg sublingual Q5MIN X 3 DOSES PRN (Reason: Chest Pain) RF: 0 losartan 50 mg Tablet 50 mg PO DAILY RF: 0 Visine Dry Eye Relief 1-0.2-0.2 % Drops 2 drp BOTHEYES 4-6XD PRN (Reason: Dry Eyes) RF: 0 sertraline [Zoloft] 100 MG tablet 100 mg PO DAILY RF: 0 albuterol sulfate [Ventolin HFA] 18 GM HFA aerosol inhaler 18 g inhalation QID PRN (Reason: SHORT OF BREATH) RF: 0 carvedilol [Coreg] 25 MG tablet 25 mg PO BID Qty: 60 RF: 0 clonidine HCl 0.1 MG tablet 0.1 mg PO BID Qty: 60 RF: 0 furosemide [Lasix] 20 MG tablet 20 mg PO DAILY Qty: 30 RF: 0 spironolactone [Aldactone] 25 MG tablet 25 mg PO DAILY Qty: 30 RF: 0 olmesartan [Benicar] 20 MG tablet 20 mg PO DAILY Qty: 30 RF: 0 ED Provider: CRISTINA ANTHOYN
[2019-01-10] MEDS ORDERED: TYLENOL PO STA (00:56)
--- NOTE | 2019-01-10 01:13 | CT ---
EXAM: CT brain without contrast HISTORY: Blunt trauma TECHNIQUE: CT of the brain without intravenous contrast FINDINGS: There is no acute hemorrhage midline shift or mass effect. No hydrocephalus or abnormal e xtra-axial fluid collection. Generalized involutional atrophy, mild. Chronic microvascular changes of the white matter tracts, moderate. The bony cranium appears normal. The visualized paranasal sin uses are clear. Left frontal scalp hematoma measuring 4.1 x 1.6 cm. IMPRESSION: 1. No acute intracranial abnormality 2. Left frontal scalp hematoma
--- NOTE | 2019-01-10 01:18 | CT ---
EXAM: CT cervical spine without contrast. HISTORY: Fall. PROCEDURE: Contiguous axial CT images of the cervical spine without contrast with coronal and sagitt al reformats. FINDINGS: The axial images are obliqued which limits the exam. There is 2 mm anterolisthesis of C2 o n C3, 3 mm anterolisthesis of C3 on C4 and 1.5 mm anterolisthesis of C4 on C5. There is normal align ment of the cervical facets. The vertebral body heights are maintained. No evidence of fracture. T here is multilevel disc space narrowing. There are posterior osteophytes at multiple levels of the c ervical spine. There is multilevel facet arthropathy. The C1-2 relationship is maintained. No prev ertebral soft tissue abnormality. Impression: No evidence of fracture. Multilevel anterolisthesis as described secondary to facet arthropathy. Degenerative changes as described.
[2019-01-10] MEDS ORDERED: CATAPRES PO STA (01:39)
--- NOTE | 2019-01-10 01:47 | ED.PDOC ---
General ED Provider: Dr. CRISTINA ANTHONY Chief Complaint: Head Injury Stated Complaint: Fell to floor and sustained forehead injury. Large hematoma noted. No bleeding. No LOC, Denies Nausea or vomiting. IS AAOX3 Time Seen by Physician: 23:50 Mode of Arrival: Wheelchair Information Source: Patient and Family Primary Care Provider: NICOLÁS BERTRAND Nursing and Triage Documentation Reviewed and Agree: Yes Does patient meet sepsis criteria?: No System Inflammatory Response Syndrome: Not Applicable Sepsis Protocol: For patient's 13 years and over: Temp is 96.8 and below OR 101 and greater Pulse >90 BPM Resp >20/minute Acutely Altered Mental Status Are patient's symptoms suggestive of a new infection, such as: -Pneumonia -Skin, Soft Tissue -Endocarditis -UTI -Bone, Joint Infection -Implantable Device -Acute Abdominal Infection -Wound Infection -Meningitis -Blood Stream Catheter Infection -Unknown Trauma/Injury Complaint Exam Head Injury Complaint/Exam Location of Pain: Reports Forehead Onset/Duration: 1 hr Symptoms Are: Still present Initial Severity: Moderate Current Severity: Moderate Character: Reports Throbbing and Pressure Associated Signs and Symptoms: Denies Confusion, Memory loss, Seizure, Epistaxis, Dental malocclusion, Neck pain, Nausea and Vomiting Loss of Consciousness: None Related History: Reports Similar episode SDH Risk Factors: Present Recent trauma Cervical Spine Injury Risk Factors: Present None Related Surgical History: Reports None C-Collar in Place: n Backboard in Place: N Head Injury Findings: Present Normal findings Focal Weakness: Present None Focal Sensory Loss: Present None Gait: Normal Gag Reflex Present: Yes Finger to Nose: Normal, Right and Left Differential Diagnoses: Strain, Trauma and Vertebral Artery Aneurysm Review of Systems Review Of Systems Constitutional: Reports Weakness All Other Systems: Reviewed and Negative [facility] Medical History Hypertension (~1989) Migraine Chronic arthritis (~2010) Family History Mother Hypertension Father Hypertension Social History Smoking and tobacco status: Current every day smoker Tobacco type: cigarettes Household members: spouse and children Housing: house Number of children: 3 Financial difficulty paying for basics: not very hard Pets and animals: No History of recent travel: No Do you think of yourself as: straight/heterosexual Current gender identity: female Seatbelt use: always Current diet type/program: low salt Water heater temperature set < 120 degrees: Yes Working smoke detector in home: Yes Fire extinguisher in home: Yes Carbon monoxide detector in home: Yes Firearms in home: Yes Firearms unloaded and locked: Yes Female Reproductive History Menstrual Hx Hysterectomy: Yes Hx Tubal Ligation: No Physical Exam Physical Exam Appearance: Ill-appearing and Well-nourished Ill-appearing: None Pain Distress: Moderate Eyes: POLA, EOMI, Conjunctiva clear, Right pupil size and Left pupil size ENT: Ears normal, Nose normal and Oropharynx normal Neck: Supple Respiratory: Airway patent, Breath sounds clear, Breath sounds equal and Breath sounds diminished Cardiovascular: RRR, Pulses normal, No rub and No murmur GI/: Soft, Nontender and No masses Musculoskeletal: Normal strength and ROM intact Skin: Warm Neurological: Sensation intact, Motor intact, Reflexes intact, Cranial nerves intact, Alert and Oriented Psychiatric: Affect appropriate and Mood appropriate Interpretation Radiology Interpretation Radiology Interpretation By: Radiologist Exam Interpreted: CT Scan (head-wnl; C spine-No evidence of fracture. ) Physician Notification Case Discussed Physician Notified: Dr Bertrand-agreed to admit Time of Notification: 02:55 Critical Care Note Critical Care Note Total Time (mins): 30 Course Course Hematology/Chemistry: 01/13/19 05:00 01/13/19 11:20 Orders, Labs, Meds: Lab Review 01/10/19 01/10/19 00:41 00:41 WBC 7.56 RBC 4.61 Hgb 12.6 Hct 41.8 MCV 90.7 MCH 27.3 MCHC 30.1 L RDW Coeff of Jade 16.7 H Plt Count 309 Immature Gran % (Auto) 0.3 Neut % (Auto) 53.2 Lymph % (Auto) 32.7 [place] % (Auto) 13.1 H Eos % (Auto) 0.3 Baso % (Auto) 0.4 Immature Gran # (Auto) 0.0 Neut # (Auto) 4.0 Lymph # (Auto) 2.5 [place] # (Auto) 1.0 Eos # (Auto) 0.0 Baso # (Auto) 0.0 Sodium 141.8 Potassium 3.29 L Chloride 108.8 H Carbon Dioxide 27.0 Anion Gap 9.29 BUN 14.1 Creatinine 1.28 Estimated GFR (MDRD) 49.00 BUN/Creatinine Ratio 11.01 Glucose 107.8 H Calcium 8.54 Total Bilirubin 0.45 AST 33.8 ALT 11.6 Alkaline Phosphatase 148.9 H Total Protein 8.77 H Albumin 3.48 L Globulin 5.29 Albumin/Globulin Ratio 0.65 Orders Category Date Time Status ADMIT PATIENT INPATIENT .TO [facility] (MONITORED BED) ADMISSION 01/10/19 02:05 Active TELEMETRY MONITORING TELE CARE 01/10/19 02:07 Active CBC W/ AUTO DIFF Stat LAB 01/09/19 00:41 Completed CMP [COMPREHENSIVE METABOLIC PANEL] Stat LAB 01/09/19 00:41 Completed Acetaminophen [Tylenol] MEDS 01/10/19 00:56 Discontinued 650 mg PO ONCE STA Clonidine HCl [Catapres] MEDS 01/10/19 01:39 Discontinued 0.1 mg PO ONCE STA CT CERVICAL SPINE W/O CONTRAST Stat RADS 01/10/19 00:[address] HEAD W/O CONTRAST Stat RADS 01/09/19 23:52 Completed Medications Discontinued Medications Generic Name Dose Route Start Last Admin Trade Name Freq PRN Reason Stop Dose Admin Acetaminophen 650 mg 01/10/19 00:56 01/10/19 01:04 Tylenol PO 01/10/19 00:57 650 mg ONCE STA Administration Acetaminophen 650 mg 01/10/19 03:54 01/12/19 16:38 Tylenol PO 650 mg Q6H PRN Administration Pain Acetaminophen/Butalbital/Caffeine 1 each 01/10/19 13:30 01/13/19 09:02 Fioricet PO 1 each QID PRN Administration HEADACHE Al Hydroxide/Mg Hydroxide 30 ml 01/10/19 04:05 01/10/19 04:31 Mylanta Susp PO 01/10/19 04:06 Not Given ONCE STA Al Hydroxide/Mg Hydroxide 15 ml 01/10/19 09:00 01/13/19 13:00 Mylanta Susp PO 15 ml PC RANJEET Administration Albuterol Sulfate 2 puff 01/10/19 02:51 Proair Hfa IH QID PRN Bronchospasm Aspirin 81 mg 01/10/19 09:00 01/10/19 08:48 Aspirin Ec PO 81 mg DAILY RANJEET Administration Aspirin 81 mg 01/10/19 09:00 01/13/19 09:02 Aspirin Ec PO 81 mg DAILYWM RANJEET Administration Atropine Sulfate 0.5 mg 01/10/19 04:06 Atropine Sulfate Pfs IVP ONCE PRN Symptomatic Bradycardia Carvedilol 25 mg 01/10/19 03:00 01/10/19 08:48 Coreg PO 25 mg BID RANJEET Administration Carvedilol 25 mg 01/10/19 17:30 01/13/19 09:02 Coreg PO 25 mg BIDWM RANJEET Administration Clonidine 0.1 mg 01/10/19 01:39 01/10/19 01:46 Catapres PO 01/10/19 01:40 0.1 mg ONCE STA Administration Clonidine 0.1 mg 01/10/19 09:00 01/13/19 09:03 Catapres PO 0.1 mg BID RANJEET Administration Clonidine 0.1 mg 01/13/19 08:09 01/13/19 09:03 Catapres PO 01/13/19 08:10 0.1 mg ONCE STA Administration Dexamethasone Sodium Phosphate 2 mg 01/10/19 13:30 01/10/19 14:00 Decadron 4 Mg/Ml Sdv IVP 01/10/19 13:31 2 mg ONCE ONE Administration Enalaprilat 1.25 mg 01/10/19 03:48 01/12/19 17:48 Vasotec Iv IVP 1.25 mg Q6H PRN Administration Hypertension Enalaprilat 1.25 mg 01/10/19 03:59 01/10/19 04:29 Vasotec Iv IVP 01/10/19 04:00 1.25 mg ONCE STA Administration Furosemide 20 mg 01/10/19 09:00 Lasix Tab PO DAILY RANJEET Furosemide 20 mg 01/10/19 06:30 01/10/19 08:48 Lasix Tab PO 20 mg DAILY RANJEET Administration Furosemide 20 mg 01/11/19 06:30 01/13/19 05:48 Lasix Tab PO 20 mg QDAC RANJEET Administration Hydroxyzine HCl 25 mg 01/10/19 04:06 Vistaril Inj IM Q4H PRN Nausea/Vomiting/Restlessness Ketorolac Tromethamine 30 mg 01/10/19 03:52 01/13/19 13:03 Toradol IVP 30 mg Q8H PRN Administration Pain Losartan Potassium 50 mg 01/10/19 09:00 01/13/19 09:02 Cozaar PO 50 mg DAILY RANJEET Administration Nitroglycerin 0.4 mg 01/10/19 02:51 Nitrostat SL Q5MIN X 3 DOSES PRN Chest Pain Pantoprazole Sodium 40 mg 01/10/19 04:05 01/10/19 04:31 Protonix PO 01/10/19 04:06 Not Given ONCE STA Potassium Chloride 20 meq 01/10/19 17:30 01/13/19 09:04 K-Dur PO Not Given TIDWM RANJEET Sertraline HCl 100 mg 01/10/19 03:00 01/13/19 09:02 Zoloft PO 100 mg DAILY RANJEET Administration Sodium Chloride 1 syr 01/10/19 02:14 01/12/19 08:36 Saline Flush IVF 1 syr PRN PRN Administration To flush IV Sodium Chloride 1 syr 01/10/19 05:00 01/13/19 13:03 Saline Flush IVF 1 syr Q8HR RANJEET Administration Spironolactone 25 mg 01/10/19 09:00 01/13/19 09:02 Aldactone PO 25 mg DAILY RANJEET Administration Vital Signs: Temp Pulse Resp BP Pulse Ox 01/09/19 23:40 99 F 83 20 229/109 H 98 Discharge Plan Discharge Patient Disposition: ADMITTED INPATIENT Discharge Problem: Injury of head, Hypertensive urgency, Cervical muscle strain, Chronic GERD Instructions: Cervical Strain (ED), Concussion (ED), Head Injury (ED) Additional Instructions: DISCHARGE HOME WITH SPOUSE DIET: RESUME TOLERATED: NO FRUIT, FRUIT JUICES, POTATOES OR OVER THE COUNTER POTASSIUM SUPPLEMENTS ACTIVITY: RESUME TOLERATED. USE CANE OR WALKER IF NEEDED FOR ADDED STABILITY (HAS BOTH) AN APPOINTMENT IS SCHEDULED WITH DR. BERTRAND/CLAUDIA FUNES APRN ON January AT 9:30 AM RESUME MEDICATIONS LISTED ON NURSING DISCHARGE INFORMATION SHEET NO PRESCRIPTIONS GIVEN YOU MAY TAKE TYLENOL 2 TABLETS TWICE A DAY FOR HEADACHE. ED Provider: CRISTINA ANTHONY Condition: Fair Discharge Date/Time: 01/10/19 02:31
[2019-01-10] MEDS ORDERED: PROAIR HFA IH PRN (02:51)
[2019-01-10] MEDS ORDERED: NITROSTAT SL PRN (02:51)
[2019-01-10 02:52] VITALS: BMI 29.8
[2019-01-10] MEDS: ZOLOFT PO SCH ×2 (03:06→08:48)
[2019-01-10] MEDS ORDERED: VASOTEC IV IVP STA (03:59)
[2019-01-10] MEDS ORDERED: PROTONIX PO STA (04:05)
[2019-01-10] MEDS ORDERED: MYLANTA SUSP PO STA (04:05)
[2019-01-10] MEDS ORDERED: ATROPINE SULFATE PFS IVP PRN (04:06)
[2019-01-10] MEDS ORDERED: VISTARIL INJ IM PRN (04:06)
[2019-01-10] MEDS: COREG PO SCH ×3 (04:29→16:43)
[2019-01-10] MEDS: TORADOL IVP PRN ×2 (04:29→12:27)
[2019-01-10] MEDS: LASIX TAB PO SCH ×2 (06:03→08:48)
[2019-01-10] MEDS: MYLANTA SUSP PO SCH ×3 (08:48→17:05)
[2019-01-10] MEDS: ALDACTONE PO SCH (08:48)
[2019-01-10] MEDS: TYLENOL PO PRN ×2 (08:48→14:21)
[2019-01-10] MEDS: ARTIFICIAL TEARS DROPS OP PRN ×2 (08:49→17:06)
[2019-01-10] MEDS: CATAPRES PO SCH ×2 (08:49→20:13)
[2019-01-10] MEDS ORDERED: ASPIRIN EC PO SCH (09:00)
[2019-01-10] MEDS ORDERED: LASIX TAB PO SCH (09:00)
[2019-01-10] MEDS ORDERED: BENICAR PO SCH (09:00)
[2019-01-10] MEDS: ASPIRIN EC PO SCH (09:19)
--- NOTE | 2019-01-10 09:47 | DI ---
EXAM: Frontal chest HISTORY: Hypertension. FINDINGS: Compared to 04/18/2018. Cardiomegaly and general mediastinal contour are stable. There i s at least mild atherosclerotic disease. Limited portable exam with superimposed soft tissues has th e suggestion of at least mild central vascular congestion and interstitial infiltrate. No lobar cons olidation is identified. No well-defined pleural fluid or pneumothorax. IMPRESSION: 1. Cardiomegaly and central vascular congestion with probable mild pulmonary interstitial edema. If symptoms persist, consider follow up with full inspiration, standing two-view chest radiography using PA and lateral technique.
[2019-01-10] MEDS: COZAAR PO SCH (11:34)
[2019-01-10] MEDS ORDERED: DECADRON 4 MG/ML SDV IVP ONE (13:30)
[2019-01-10] MEDS: FIORICET PO PRN ×2 (14:00→17:08)
[2019-01-10] MEDS: K-DUR PO SCH (16:43)
[2019-01-11] MEDS: FIORICET PO PRN ×2 (01:11→09:26)
[2019-01-11] MEDS: TORADOL IVP PRN ×3 (05:38→23:29)
[2019-01-11] MEDS: LASIX TAB PO SCH (05:40)
[2019-01-11] MEDS: COZAAR PO SCH (08:55)
[2019-01-11] MEDS: ASPIRIN EC PO SCH (08:55)
[2019-01-11] MEDS: ALDACTONE PO SCH (08:56)
[2019-01-11] MEDS: COREG PO SCH ×2 (08:56→17:07)
[2019-01-11] MEDS: K-DUR PO SCH ×3 (08:57→17:24)
[2019-01-11] MEDS: ZOLOFT PO SCH (08:57)
[2019-01-11] MEDS: CATAPRES PO SCH ×2 (08:57→20:09)
[2019-01-11] MEDS: MYLANTA SUSP PO SCH ×3 (08:58→17:08)
[2019-01-11] MEDS: VASOTEC IV IVP PRN (22:27)
[2019-01-12] MEDS: LASIX TAB PO SCH (05:47)
[2019-01-12] MEDS: CATAPRES PO SCH ×2 (08:29→20:09)
[2019-01-12] MEDS: COZAAR PO SCH (08:29)
[2019-01-12] MEDS: ASPIRIN EC PO SCH (08:29)
[2019-01-12] MEDS: ZOLOFT PO SCH (08:29)
[2019-01-12] MEDS: COREG PO SCH ×2 (08:29→16:36)
[2019-01-12] MEDS: ALDACTONE PO SCH (08:30)
[2019-01-12] MEDS: MYLANTA SUSP PO SCH ×3 (08:30→17:49)
[2019-01-12] MEDS: K-DUR PO SCH ×3 (08:30→16:36)
[2019-01-12] MEDS: TORADOL IVP PRN ×2 (08:35→17:49)
[2019-01-12] MEDS: TYLENOL PO PRN (16:38)
[2019-01-12] MEDS: VASOTEC IV IVP PRN (17:48)
[2019-01-12] MEDS: FIORICET PO PRN (22:59)
[2019-01-13] MEDS: TORADOL IVP PRN ×2 (02:15→13:03)
[2019-01-13] MEDS: LASIX TAB PO SCH (05:48)
[2019-01-13] MEDS ORDERED: CATAPRES PO STA (08:09)
[2019-01-13] MEDS: COZAAR PO SCH (09:02)
[2019-01-13] MEDS: COREG PO SCH (09:02)
[2019-01-13] MEDS: MYLANTA SUSP PO SCH ×2 (09:02→13:00)
[2019-01-13] MEDS: FIORICET PO PRN (09:02)
[2019-01-13] MEDS: ALDACTONE PO SCH (09:02)
[2019-01-13] MEDS: ZOLOFT PO SCH (09:02)
[2019-01-13] MEDS: ASPIRIN EC PO SCH (09:02)
[2019-01-13] MEDS: CATAPRES PO SCH (09:03)
[2019-01-13] MEDS: K-DUR PO SCH (09:04)
[2019-01-13 09:56] VITALS: BP 140/78; TEMP 98.3
--- NOTE | 2019-01-13 11:09 | HP ---
DATE OF SERVICE: 01/10/19 REASON FOR HOSPITALIZATION: Head injury and hypertensive urgency. HISTORY OF PRESENT ILLNESS: 78-year-old black female fell at home when she tripped over an object and hit her forehead. The patient had hematoma involving the forehead. The patient was brought to the Emergency Room where attending did CT scan. Neurological status was normal. Blood pressure in the emergency room was 229/109, temperature of 99, pulse of 83. The patient was given Clonidine and blood pressure came down to 190 but still elevated. The patient needed to be observed. Hence, the patient was hospitalized. During the initial period in the hospital, still blood pressure again went up to 220. At that point the patient was started on Vasotec 1.2 mg IV q.6hr for systolic blood pressure for more than 150 and started on Benicar and the rest of the medications she was on. PAST MEDICAL HISTORY: History of congestive heart failure Hypertension Chronic lung disease with heavy smoking Pulmonary fibrosis Chronic kidney disease Migraine headaches Generalized osteoarthritis Depression Chronic anemia PAST SURGICAL HISTORY: Total knee replacement bilaterally Total abdominal hysterectomy Heart cath 2016 [facility] surgery REVIEW OF SYSTEMS: CONSTITUTIONAL: No night sweats. No fatigue, malaise, lethargy. No fever or chills. HEENT: Eyes: No visual changes. No eye pain. No eye discharge. ENT: No runny nose. No epistaxis. No sinus pain. No sore throat. No odynophagia. No ear pain. No congestion. RESPIRATORY: No cough, no congestion. No hemoptysis. No shortness of breath. CARDIOVASCULAR: No angina symptoms. No CHF symptoms. No atypical chest pain for CAD. No palpitations. No PND. No orthopnea. GASTROINTESTINAL: No abdominal pain. No nausea or vomiting. No diarrhea or constipation. No hematemesis. No hematochezia. GENITOURINARY: No urgency. No frequency. No dysuria. No hematuria. No obstructive symptoms. No discharge. No pain. No significant abnormal bleeding. MUSCULOSKELETAL: No musculoskeletal pain. No joint swelling. No arthritis. NEUROLOGICAL: No headache. No neck pain. No syncope. No seizures. No dizziness. PSYCHIATRIC: Not anxious. No depression. No suicidal thoughts. No homicidal thoughts. SKIN: No rash. No lesions. No wounds. ENDOCRINE: No unexplained weight loss. No weight gain. HEMATOLOGIC/LYMPHATIC: No anemia. No purpura. No petechiae. No prolonged or excessive bleeding. No palpable lymph nodes. PERSONAL/FAMILY/SOCIAL HISTORY: The patient is , lives with . Smokes 1/2 pack to 1 pack a day. No alcohol abuse. Does practically all activity of daily living. Noncompliant of medications, lifestyle, followup, and recommendations. She has never truthful about any question directed to her about her compliance. is very helpful. MEDICATIONS: Nitroglycerin sublingual chest pain p.r.n. Aspirin Albuterol two puffs four times a day Zoloft 100 mg daily Coreg 25 mg twice a day Clonidine 0.1 mg twice a day Lasix 20 mg p.o. daily Aldactone 25 mg p.o. daily Losartan 50 mg p.o. daily ALLERGIES: NKDA PHYSICAL EXAMINATION: VITAL SIGNS: Temperature 98.2, pulse 61, respiratory rate 16, blood pressure 134/77, pulse ox 98%. Oriented to time, place and person. HEENT: Hematoma noted on the forehead which seems to be symmetrical. Eyes: Extraocular muscles are intact. Pupils are equal, round and reactive to light and accommodation. Ears: No lesions. Nose appeared normal. Throat: No exudate or erythema. Face is symmetrical. NECK: Supple. No JVD, no carotid bruit. No lymphadenopathy. LUNGS: Decreased breath sounds but clear to auscultation. Percussion note normal. Chest symmetrical. HEART: S1, S2, no S3. No murmur. No cyanosis or clubbing. No ascites. Pulses: Dorsalis pedis and posterior tibial pulses +1 bilaterally, feeble. ABDOMEN: Soft. Nontender. Bowel sounds active. No CVA tenderness. No mass felt. EXTREMITIES: Full range of motion of all extremities, equal. Deep tendon reflexes, motor and sensory all normal. NEUROLOGIC: No focal deficit. Cranial nerves II through XII are grossly intact. No headache, no double vision or headache. SKIN: Warm and dry. Intact. Turgor - normal. LYMPHATIC: No palpable lymph nodes/no lymphedema. MUSCULOSKELETAL: Normal joints with no swelling. Muscle tone is normal. IMAGING/LABS: CT scan of the head negative for any acute problems. C-spine no fracture. Chest x-ray no CHF, cardiomegaly. Hemoglobin 11.5, hematocrit 38, WBC 8,200, normal differential. Creatinine 1.2, BUN 14, potassium 3.2. ASSESSMENT: 1. SEVERE HYPERTENSION LIKELY CAUSE WOULD BE NONCOMPLIANCE OR COULD BE DISTRESS FROM HEAD INJURY WITH HEADACHE. 2. FALL WITH HISTORY OF HEAD INJURY WITH NEGATIVE CT SCAN INITIALLY WITH NORMAL CENTRAL NERVOUS SYSTEM EXAMINATION. 3. CHF. 4. SEVERE CHRONIC LUNG DISEASE. 5. HYPERTENSION. 6. DYSLIPIDEMIA. 7. DEPRESSION. 8. DILATED CARDIOMYOPATHY. 9. PULMONARY FIBROSIS. 10. CONTINUED SMOKING. 11. TOBACCO ABUSE. 12. MIGRAINE HEADACHES. 13. NONCOMPLIANCE OF MEDICATIONS, LIFESTYLES, FOLLOWUP, RECOMMENDATIONS. 14. HEART CATH 2016, RESULTS UNKNOWN. 15. BILATERAL TOTAL KNEE REPLACEMENT. 16. TOTAL ABDOMINAL HYSTERECTOMY. 17. LASIK SURGERY. PLAN: 1. Continue all the medications, Carvedilol, Losartan, Lasix, Clonodine, Spironalactone. 2. Will add Fiorcet for headache along with two Tylenol. 3. Toradol 30 mg IV to be given q.8 p.r.n. 4. 1/2 cc Decadron. 5. Continue Neurochecks. 6. Counseling for smoking done. CONDITION: Stable. TIME SPENT: More than 70 minutes. MTDD
--- NOTE | 2019-01-13 11:16 | PN ---
DATE OF SERVICE: 01/11/19 SUBJECTIVE: The patient was seen and examined this morning. The patient's condition has improved remarkably. The forehead hematoma is much less, practically gone. Headache is under control. Appetite has improved. REVIEW OF SYSTEMS: CONSTITUTIONAL: No night sweats. No fatigue, malaise, lethargy. No fever or chills. HEENT: Eyes: No visual changes. No eye pain. No eye discharge. ENT: No runny nose. No epistaxis. No sinus pain. No sore throat. No odynophagia. No congestion. RESPIRATORY: No cough, no congestion. No hemoptysis. No shortness of breath. CARDIOVASCULAR: No angina symptoms. No CHF symptoms. No atypical chest pain for CAD. No palpitations. No PND. No orthopnea. GASTROINTESTINAL: No abdominal pain. No nausea or vomiting. No diarrhea or constipation. No hematemesis. No hematochezia. GENITOURINARY: No urgency. No frequency. No dysuria. No hematuria. No obstructive symptoms. No discharge. No pain. No significant abnormal bleeding. MUSCULOSKELETAL: No musculoskeletal pain; no joint swelling. NEUROLOGICAL: No headache. No neck pain. No syncope. No seizures. No dizziness. PSYCHIATRIC: Not anxious. No depression. No suicidal thoughts. No homicidal thoughts. SKIN: No rash. No lesions. No wounds. ENDOCRINE: No unexplained weight loss. No weight gain. HEMATOLOGIC/LYMPHATIC: No anemia. No purpura. No petechiae. No prolonged or excessive bleeding. No palpable lymph nodes. PHYSICAL EXAMINATION: GENERAL: The patient is oriented to time, place and person. HEENT: Head normocephalic. Eyes: Extraocular muscles are intact. Pupils are equal, round and reactive to light and accommodation. Ears: No lesions. Nose appeared normal. Throat: No exudate or erythema. NECK: Supple. No JVD, no carotid bruit. No lymphadenopathy or thyromegaly. LUNGS: Decreased breath sounds but clear to auscultation. Percussion note normal. Chest symmetrical. HEART: S1, S2, no S3. No murmurs. No cyanosis or clubbing. No ascites. Pulses: Dorsalis pedis and posterior tibial pulses +1 to +2 bilaterally. ABDOMEN: Soft. Nontender. Bowel sounds active. No CVA tenderness. No mass felt. EXTREMITIES: No edema. Full range of motion of all extremities, equal. NEUROLOGIC: No focal deficit. Cranial nerves II through XII are grossly intact. No headache, no double vision or headache. SKIN: Not dry. Intact. Turgor - normal. LYMPHATIC: No palpable lymph nodes/no lymphedema. MUSCULOSKELETAL: Normal joints with no swelling. Muscle tone is normal. ASSESSMENT: 1. Closed head injury with normal neurological status with normal deep tendon reflexes. Pupils are equal and reactive to light normally. 2. Hypertension which seems to be labile with acceptable level for the patient's history. Systolic this morning was between 150 to 160. Again the patient is strongly advised to take her medications on a regular basis, not to smoke. The patient has a very poor lifestyle and she has poor compliance from medications. CONDITION: Stable for now. TIME SPENT: More than 30 minutes. Plan and coordination of the patient's care discussed in the presence of nurse. MANAN
--- NOTE | 2019-01-13 12:44 | CM.DICTOOL ---
ADMISSION: 01/10/19 02:06 DISCHARGE: JANUARY 13, 2019 DATE OF SERVICE: 01/13/19 FINAL DIAGNOSIS CLOSED HEAD INJURY CERVICAL STRAIN FALL HTN URGENCY HYPOKALEMNIA, RESOLVED H/O PULMONARY EDEMA HYPERTENSION CHF COPD PULMONARY FIBROSIS OXYGEN DEPENDENT CKD OSTEOARTHRITIS MIGRAINE HEADACHES NON COMPLIANCE SMOKER HEART CATH, 2016 TOTAL KNEE REPLACEMENT, BILATERAL JAN LASIK SURGERY LAST ECHOCARDIOGRAM: 04/2018 LVEF 35% LVH WITH MARKED ENLARGEMENT LAC MODERATE MITRAL REGURGITATION SEVERE TRICUSPID REGURGITATION NORMAL VALVES AKINETIC/PARADOXICAL STIFF SEPTUM LAST VITALS Temp Pulse Resp BP Pulse Ox 98.3 F 59 L 16 140/78 96 01/13/19 09:55 01/13/19 09:55 01/13/19 09:55 01/13/19 09:55 01/13/19 09:55 TAKE THESE MEDICATIONS AT HOME Albuterol Sulfate (Proair Hfa) 2 puff IH QID PRN PRN Reason: Bronchospasm Aspirin (Aspirin Ec) 81 mg PO DAILYWM [facility] Last Admin: 01/13/19 09:02 Dose: 81 mg Documented by: Carvedilol (Coreg) 25 mg PO BIDWM [facility] Last Admin: 01/13/19 09:02 Dose: 25 mg Documented by: Clonidine (Catapres) 0.1 mg PO BID [facility] Last Admin: 01/13/19 09:03 Dose: 0.1 mg Documented by: Furosemide (Lasix Tab) 20 mg PO QDAC [facility] Last Admin: 01/13/19 05:48 Dose: 20 mg Documented by: Losartan Potassium (Cozaar) 50 mg PO DAILY [facility] Last Admin: 01/13/19 09:02 Dose: 50 mg Documented by: Nitroglycerin (Nitrostat) 0.4 mg SL Q5MIN X 3 DOSES PRN PRN Reason: Chest Pain Sertraline HCl (Zoloft) 100 mg PO DAILY [facility] Last Admin: 01/13/19 09:02 Dose: 100 mg Documented by: Spironolactone (Aldactone) 25 mg PO DAILY [facility] Last Admin: 01/13/19 09:02 Dose: 25 mg Documented by: Visine Dry Eye Relief 2 Drops Both Eyes PRN Last Admin: ALLERGIES No Known Allergies Allergy (Verified 01/09/19 23:49) DISCONTINUED MEDICATIONS None NEW PRESCRIPTIONS: NONE MAY TAKE TYLENOL 2 TABLETS BID FOR HEADACHE (OVER THE COUNTER) SMOKING: HAS BEEN ENCOURAGED TO STOP SMOKING DISEASE SPECIFIC EDUCATION: IMPORTANCE OF TAKING ANTI HYPERTENSIVE MEDICATIONS ORDERED ACTIVITY APPOINTMENT LAB REVIEW: 01/13/19 05:00 01/13/19 05:00 01/13/19 05:00: Sodium 136.8, Potassium 5.86 H, Chloride 108.6 H, Carbon Dioxide 25.4, Anion Gap 8.66, BUN 27.9 H, Creatinine 1.50 H, Estimated GFR (MDRD) 41.00, BUN/Creatinine Ratio 18.60, Glucose 98.0, Calcium 8.28 L, Total Bilirubin 0.44, AST 31.6, ALT 11.0, Alkaline Phosphatase 125.3, Total Protein 7.72, Albumin 3.17 L, Globulin 4.55, Albumin/Globulin Ratio 0.69 01/13/19 05:00: WBC 7.01, RBC 4.13 L, Hgb 11.3 L, Hct 38.1, MCV 92.3, MCH 27.4, MCHC 29.7 L, RDW Coeff of Jade 17.0 H, Plt Count 284, Immature Gran % (Auto) 0.1, Neut % (Auto) 41.1, Lymph % (Auto) 44.7, [place] % (Auto) 13.7 H, Eos % (Auto) 0.1, Baso % (Auto) 0.3, Immature Gran # (Auto) 0.0, Neut # (Auto) 2.9, Lymph # (Auto) 3.1, [place] # (Auto) 1.0, Eos # (Auto) 0.0, Baso # (Auto) 0.0 PLAN: DISCHARGE HOME WITH SPOUSE DIET: RESUME TOLERATED: NO FRUIT, FRUIT JUICES, POTATOES OR OVER THE COUNTER POTASSIUM SUPPLEMENTS ACTIVITY: RESUME TOLERATED. USE CANE OR WALKER IF NEEDED FOR ADDED STABILITY (HAS BOTH) AN APPOINTMENT IS SCHEDULED WITH DR. BERTRAND/CLAUDIA FUNES APRN ON January AT 9:30 AM CODE STATUS: DNI RESUME MEDICATION LISTED ON NURSING DISCHARGE INFORMATION SHEET MRS. MACKENZIE IS ALERT AND ORIENTED X 4. SHE IS INDEPENDENT WITH ACTIVITIES OF DAILY LIVING. MRS. MACKENZIE LIVES AT HOME WITH HER . HER ADULT DAUGHTER AND GRANDCHILDREN ALSO LIVES IN THE HOME. MRS. MACKENZIE IS AWARE AND AGREEABLE TO PLANS FOR DISCHARGE HOME TODAY. SHE IS AMBULATORY IN THE ROOM WITH STAND BY ASSISTANCE OF 1 STAFF MEMBER TO THE BATHROOM. SHE IS ABLE TO TRANSFER FROM THE BED TO THE CHAIR WITH SBA. SHE IS IMPULSIVE AT TIMES AND OFTEN WILL NOT CALL FOR ASSISTANCE. MEAL INTAKES ARE GOOD AT 40-100%. SHE DENIES NAUSEA. MRS. MACKENZIE IS CONTINENT OF BOWEL AND BLADDER. MRS. MACKENZIE HAS A WALKER, CANE, SHOWER CHAIR AND OXYGEN FOR HER USE AT HOME. HYDRATION STATUS IS GOOD. SKIN IS INTACT. A SMALL HEMATOMA IS NOTED TO THE LEFT SIDE OF THE FOREHEAD. THE PATIENT REPORTS TENDERNESS AT THE SITE OF THE HEMATOMA, BUT REPORTS IT HAS IMPROVED. MD CLAUDIA MICHELE APRN
--- NOTE | 2019-01-17 15:00 | PN ---
DATE OF SERVICE: 01/12/19 SUBJECTIVE: 78-year-old black female hospitalized with fall and head injury. The patient had tripped over something and fallen at home. She had hematoma of the forehead which seems to have resolved. The patient also had hypertensive urgency with blood pressure ranging 200 to 220 for several hours during the stay in the hospital. The patient's blood pressure today is 139/79. She is feeling better. REVIEW OF SYSTEMS: CONSTITUTIONAL: She is still weak and tired. No night sweats. No malaise, lethargy. No fever or chills. HEENT: Eyes: No visual changes. No eye pain. No eye discharge. ENT: No runny nose. No epistaxis. No sinus pain. No sore throat. No odynophagia. No congestion. RESPIRATORY: No cough, no congestion. No hemoptysis. No shortness of breath. CARDIOVASCULAR: No angina symptoms. No CHF symptoms. No atypical chest pain for CAD. No palpitations. No PND. No orthopnea. GASTROINTESTINAL: Appettie has improved. No abdominal pain. No nausea or vomiting. No diarrhea or constipation. No hematemesis. No hematochezia. GENITOURINARY: No urgency. No frequency. No dysuria. No hematuria. No obstructive symptoms. No discharge. No pain. No significant abnormal bleeding. MUSCULOSKELETAL: No musculoskeletal pain; no joint swelling. NEUROLOGICAL: No headache. No neck pain. No syncope. No seizures. No dizziness. PSYCHIATRIC: Not anxious. No depression. No suicidal thoughts. No homicidal thoughts. SKIN: No rash. No lesions. No wounds. ENDOCRINE: No unexplained weight loss. No weight gain. HEMATOLOGIC/LYMPHATIC: No anemia. No purpura. No petechiae. No prolonged or excessive bleeding. No palpable lymph nodes. PHYSICAL EXAMINATION: VITAL SIGNS: Temperature 98.3. pulse 58, respiratory rate 18, blood pressure 140/80, pulse ox 96% on room air. HEENT: Head normocephalic, atraumatic. Eyes: Extraocular muscles are intact. Pupils are equal, round and reactive to light and accommodation. Ears: No lesions. Nose appeared normal. Throat: No exudate or erythema. NECK: Supple. No JVD, no carotid bruit. No lymphadenopathy or thyromegaly. LUNGS: Decreased breath sounds but clear to auscultation. Percussion note normal. Chest symmetrical. HEART: S1, S2, no S3. No murmurs. No cyanosis or clubbing. No ascites. Pulses: Dorsalis pedis and posterior tibial pulses +1 to +2 bilaterally. ABDOMEN: Soft. Nontender. Bowel sounds active. No CVA tenderness. No mass felt. EXTREMITIES: No edema. Full range of motion of all extremities, equal. NEUROLOGIC: No focal deficit. Cranial nerves II through XII are grossly intact. No headache, no double vision or headache. SKIN: Not dry. Intact. Turgor - normal. LYMPHATIC: No palpable lymph nodes/no lymphedema. MUSCULOSKELETAL: Normal joints with no swelling. Muscle tone is normal. LABS: The patient refused to have the lab drawn. ASSESSMENT: 1. HEAD INJURY WITH NO NEUROLOGICAL DEFICIT. THE PATIENT IS UP AND ABOUT. 2. HYPERTENSION SEEMS TO BE UNDER CONTROL. THE PROBLEM WITH HER LABILE HYPERTENSION IS BECAUSE OF NONCOMPLIANCE. 3. CHRONIC KIDNEY DISEASE, STABLE. 4. CHRONIC ANEMIA. 5. CONGESTIVE HEART FAILURE, STABLE. TIME SPENT: More than 30 minutes. Plan and coordination of the patient's care discussed in the presence of nurse. MANAN
--- NOTE | 2019-01-21 11:33 | DS ---
DATE OF SERVICE: 01/13/19 FINAL DIAGNOSIS: 1. CLOSED HEAD INJURY 2. CERVICAL STRAIN 3. FALL 4. HTN URGENCY 5. HYPOKALEMIA, RESOLVED 6. H/O PULMONARY EDEMA 7. HYPERTENSION 8. CHF 9. COPD 10. PULMONARY FIBROSIS 11. OXYGEN DEPENDENT 12. CKD 13. OSTEOARTHRITIS 14. MIGRAINE HEADACHES 15. NON COMPLIANCE 16. SMOKER 17. HEART CATH, 2016 18. TOTAL KNEE REPLACEMENT, BILATERAL 19. JAN 20. LASIK SURGERY LAST ECHOCARDIOGRAM: 04/2018 LVEF 35% LVH WITH MARKED ENLARGEMENT LAC MODERATE MITRAL REGURGITATION SEVERE TRICUSPID REGURGITATION NORMAL VALVES AKINETIC/PARADOXICAL STIFF SEPTUM LAST VITALS Temp Pulse Resp BP Pulse Ox 98.3 F 59 L 16 140/78 96 01/13/19 09:55 01/13/19 09:55 01/13/19 09:55 01/13/19 09:55 01/13/19 09:55 DISCHARGE INSTRUCTIONS: 1. DISCHARGE HOME WITH SPOUSE 2. AN APPOINTMENT IS SCHEDULED WITH DR. BERTRAND/CLAUDIA FUNES APRN ON January AT 9:30 AM MEDICATIONS AT DISCHARGE: Albuterol Sulfate (Proair Hfa) 2 puff IH QID PRN PRN Reason: Bronchospasm Aspirin (Aspirin Ec) 81 mg PO DAILYWM [facility] Last Admin: 01/13/19 09:02 Dose: 81 mg Documented by: Carvedilol (Coreg) 25 mg PO BIDWM [facility] Last Admin: 01/13/19 09:02 Dose: 25 mg Documented by: Clonidine (Catapres) 0.1 mg PO BID [facility] Last Admin: 01/13/19 09:03 Dose: 0.1 mg Documented by: Furosemide (Lasix Tab) 20 mg PO QDAC [facility] Last Admin: 01/13/19 05:48 Dose: 20 mg Documented by: Losartan Potassium (Cozaar) 50 mg PO DAILY [facility] Last Admin: 01/13/19 09:02 Dose: 50 mg Documented by: Nitroglycerin (Nitrostat) 0.4 mg SL Q5MIN X 3 DOSES PRN PRN Reason: Chest Pain Sertraline HCl (Zoloft) 100 mg PO DAILY [facility] Last Admin: 01/13/19 09:02 Dose: 100 mg Documented by: Spironolactone (Aldactone) 25 mg PO DAILY [facility] Last Admin: 01/13/19 09:02 Dose: 25 mg Documented by: Visine Dry Eye Relief 2 Drops Both Eyes PRN Last Admin: NEW PRESCRIPTIONS: NONE MAY TAKE TYLENOL 2 TABLETS BID FOR HEADACHE (OVER THE COUNTER) DISCONTINUED MEDICATIONS: NONE DIET INSTRUCTIONS: RESUME TOLERATED: NO FRUIT, FRUIT JUICES, POTATOES OR OVER THE COUNTER POTASSIUM SUPPLEMENTS ACTIVITY: RESUME TOLERATED. USE CANE OR WALKER IF NEEDED FOR ADDED STABILITY (HAS BOTH) SMOKING: HAS BEEN ENCOURAGED TO STOP SMOKING DISEASE SPECIFIC EDUCATION: IMPORTANCE OF TAKING ANTIHYPERTENSIVE MEDICATIONS ORDERED ACTIVITY APPOINTMENT HOSPITAL COURSE: The patient was hospitalized with head injury. She had tripped and fallen at home. CT scan was negative. Her neuro-checks remain normal. She was up and about. Pupils were equal and reactive to light normally. The patient's other problem was hypertension which was treated with IV Vasotec. At the time of discharge, the patient's blood pressure is more or less under control, systolic fluctuating from 130 to 170. She is advised to take Clonidine 0.1 p.r.n. two to three times a day for blood pressure over 150. The patient is noncompliant, has continued to smoke even though she declined but the says that she does. The patient is also noncompliant of followup medications. The patient wants DNR. On admission she had signed for full code. Cardiovascular status was stable. TIME SPENT: More than 60 minutes. MANAN
--- NOTE | 2019-01-21 11:36 | PN ---
BILLING 01/10/19 ADMISSION DAY LEVEL 5 01/11/19 INTERMEDIATE 01/12/19 INTERMEDIATE 01/13/19 DISCHARGE MTDD
--- NOTE | 2019-01-21 11:53 | PN ---
DATE OF SERVICE: 01/13/19 - DISCHARGE NOTE SUBJECTIVE: The patient is up and about doing well. REVIEW OF SYSTEMS: CONSTITUTIONAL: No night sweats. No fatigue, malaise, lethargy. No fever or chills. HEENT: Eyes: No visual changes. No eye pain. No eye discharge. ENT: No runny nose. No epistaxis. No sinus pain. No sore throat. No odynophagia. No congestion. RESPIRATORY: No cough, no congestion. No hemoptysis. No shortness of breath. CARDIOVASCULAR: No angina symptoms. No CHF symptoms. No atypical chest pain for CAD. No palpitations. No PND. No orthopnea. GASTROINTESTINAL: No abdominal pain. No nausea or vomiting. No diarrhea or constipation. No hematemesis. No hematochezia. GENITOURINARY: No urgency. No frequency. No dysuria. No hematuria. No obstructive symptoms. No discharge. No pain. No significant abnormal bleeding. MUSCULOSKELETAL: No musculoskeletal pain; no joint swelling. NEUROLOGICAL: No headache. No neck pain. No syncope. No seizures. No dizziness. PSYCHIATRIC: Not anxious. No depression. No suicidal thoughts. No homicidal thoughts. SKIN: No rash. No lesions. No wounds. ENDOCRINE: No unexplained weight loss. No weight gain. HEMATOLOGIC/LYMPHATIC: No anemia. No purpura. No petechiae. No prolonged or excessive bleeding. No palpable lymph nodes. PHYSICAL EXAMINATION: HEENT: Head normocephalic, atraumatic. Eyes: Extraocular muscles are intact. Pupils are equal, round and reactive to light and accommodation. Ears: No lesions. Nose appeared normal. Throat: No exudate or erythema. NECK: Supple. No JVD, no carotid bruit. No lymphadenopathy or thyromegaly. LUNGS: Clear to auscultation. Percussion note normal. Chest symmetrical. HEART: S1, S2, no S3. No murmurs. No cyanosis or clubbing. No ascites. Pulses: Dorsalis pedis and posterior tibial pulses +1 to +2 bilaterally. ABDOMEN: Soft. Nontender. Bowel sounds active. No CVA tenderness. No mass felt. EXTREMITIES: No edema. Full range of motion of all extremities, equal. NEUROLOGIC: No focal deficit. Cranial nerves II through XII are grossly intact. No headache, no double vision or headache. SKIN: Not dry. Intact. Turgor - normal. LYMPHATIC: No palpable lymph nodes/no lymphedema. MUSCULOSKELETAL: Normal joints with no swelling. Muscle tone is normal. ASSESSMENT/PLAN: The patient had hyperkalemia. The patient's potassium 5.5. She is advised not to take any potatoes or fruits. No potassium supplement to be given. She will be seen on morning. Will check CMP then. Blood pressure systolic 170. Will give 0.1 Clonidine. Also, potassium is 5.8 so will redraw potassium and put her no potassium supplements, low potassium diet. The patient is noncompliant of diet, all aspect of medical care. Counseling for smoking done. PROGNOSIS: Guarded. TIME SPENT: More than 30 minutes. Plan and coordination of the patient's care discussed in the presence of nurse. MANAN
== END 2019-01-13 14:10 | disposition home or self-care (01) ==
LOC: ED 23:37 → MEDSURG B 01-10 02:06
PROVIDERS: ADMIT Internal Medicine; ATTEND Internal Medicine

== ENCOUNTER 2019-11-03 15:55 | Inpatient (IN) ==
[2019-11-03] MEDS ORDERED: ATROPINE SULFATE PFS IVP PRN (16:08)
[2019-11-03] MEDS ORDERED: NITROSTAT SL PRN (16:08)
[2019-11-03 16:33] VITALS: BMI 34.7
[2019-11-03 16:33] LABS: BASOPHILS % (AUTO) 0.4 % (0.0-3.0); EOSINOPHILS % (AUTO) 0.3 % (0.0-7.0); HEMATOCRIT 43.4 % (37.0-47.0); IMMATURE GRANULOCYTE % (AUTO) 0.3 % (0.0-5.0); LYMPHOCYTES # (AUTO) 2.8 K/uL (0.60-3.4); LYMPHOCYTES % (AUTO) 39.3 (10.0-50.0); MEAN CORPUSCULAR VOLUME 91.9 fl (81.0-99.0); MONOCYTES % (AUTO) 13.4 (0-10); NEUTROPHILS # (AUTO) 3.3 K/ul (2.0-6.9); NEUTROPHILS % (AUTO) 46.3 % (42.2-75.2); PLATELET COUNT 250 10^3/uL (140-440); RDW COEFFICIENT OF VARIATION 15.1 % (11.6-14.8); RED BLOOD COUNT 4.72 10^6/ul (4.20-5.40); WHITE BLOOD COUNT 7.15 K/ul (4.6-10.2)
[2019-11-03] MEDS: CATAPRES PO PRN ×2 (16:48→21:58)
[2019-11-03] MEDS: LASIX IVP SCH (16:49)
[2019-11-03] MEDS: COREG PO SCH (16:49)
--- NOTE | 2019-11-03 16:53 | DI ---
EXAM: Single view of the chest. History: Short of breath Comparison: Chest radiograph 01/10/2019 Findings: Heart is enlarged. Pulmonary fibrosis is again identified. Patchy bilateral lung opaciti es. No pneumothorax. No acute osseous abnormalities. Impression: Cardiomegaly with patchy bilateral lung opacities could be related to the fibrosis but n eed to consider pulmonary edema and/or pneumonia. A high-resolution chest CT could be helpful to dif ferentiate.
[2019-11-03 16:56] LABS: ABG PCO2 43.4 mmHg (35-45); ABG PH 7.329 (7.35-7.45)
[2019-11-03 16:57] LABS: ABG BASE EXCESS -3 (-2.0-2.0); ABG HCO3 22.9 (22.0-26.0); ABG TCO2 24 (22.0-28.0)
[2019-11-03 16:58] LABS: ALANINE AMINOTRANSFERASE 11.2 U/L (0-35); ALBUMIN 3.43 g/dL (3.5-5.0); ASPARTATE AMINO TRANSFERASE 34.7 U/L (14-36); BILIRUBIN,TOTAL 0.36 mg/dL (0.2-1.3); BLOOD UREA NITROGEN 20.7 mg/dL (7-17); CALCIUM 9.08 mg/dL (8.4-10.2); CARBON DIOXIDE 22.7 mmol/L (22-30.0); CHLORIDE 106.3 mmol/L (98-107); CREATININE 1.63 mg/dL (0.60-1.30); GLUCOSE 110.7 mg/dL (74-106); SODIUM 135.3 mmol/L (134.5-145); TOTAL PROTEIN 8.17 g/dL (6.3-8.2)
[2019-11-03 18:54] LABS: BILIRUBIN,URINE Negative (NEGATIVE); CLARITY,URINE Clear (CLEAR); COLOR,URINE Yellow (YELLOW); GLUCOSE, URINE (UA) Negative (NEGATIVE); KETONES,URINE Negative (NEGATIVE); LEUKOCYTE ESTERASE ,URINE Negative (NEGATIVE); NITRITE,URINE Negative (NEGATIVE); URINE, BLOOD Negative (NEGATIVE); UROBILINOGEN,URINE 0.2 (0.2)
[2019-11-03 18:57] LABS: BACTERIA,URINE TRACE (NOT PRESENT); SQUAMOUS EPITHELIAL CELL,UR 0-2 (0-5); URINE WBC, MICROSCOPIC 0-2 (0-2)
[2019-11-03] MEDS: VENTOLIN HFA (PER PUFF-WITH SPACER) IH PRN (20:00)
[2019-11-03] MEDS: VISTARIL INJ IM PRN (20:43)
[2019-11-03] MEDS: TYLENOL PO PRN (20:44)
[2019-11-04] MEDS: VISTARIL INJ IM PRN (00:40)
[2019-11-04] MEDS: TYLENOL PO PRN (00:40)
[2019-11-04 05:06] VITALS: TEMP 97.8
[2019-11-04 05:45] LABS: BASOPHILS % (AUTO) 0.6 % (0.0-3.0); EOSINOPHILS % (AUTO) 0.3 % (0.0-7.0); HEMATOCRIT 42.3 % (37.0-47.0); HEMOGLOBIN 12.8 g/dl (12.0-16.0); IMMATURE GRANULOCYTE % (AUTO) 0.1 % (0.0-5.0); LYMPHOCYTES # (AUTO) 3.2 K/uL (0.60-3.4); LYMPHOCYTES % (AUTO) 45.8 (10.0-50.0); MEAN CORPUSCULAR HGB CONC 30.3 (31.8-35.4); MEAN CORPUSCULAR VOLUME 91.2 fl (81.0-99.0); MONOCYTES # (AUTO) 0.9 K/uL (0.4-2.0); MONOCYTES % (AUTO) 12.2 (0-10); NEUTROPHILS # (AUTO) 2.9 K/ul (2.0-6.9); PLATELET COUNT 261 10^3/uL (140-440); RED BLOOD COUNT 4.64 10^6/ul (4.20-5.40); WHITE BLOOD COUNT 7.06 K/ul (4.6-10.2)
[2019-11-04 05:59] LABS: ALANINE AMINOTRANSFERASE 11.2 U/L (0-35); ALBUMIN 3.41 g/dL (3.5-5.0); ALKALINE PHOSPHATASE 168.9 U/L (53-141); ASPARTATE AMINO TRANSFERASE 35.2 U/L (14-36); BILIRUBIN,TOTAL 0.42 mg/dL (0.2-1.3); BLOOD UREA NITROGEN 22.4 mg/dL (7-17); CALCIUM 9.12 mg/dL (8.4-10.2); CARBON DIOXIDE 27.4 mmol/L (22-30.0); CHLORIDE 105.1 mmol/L (98-107); CREATININE 1.59 mg/dL (0.60-1.30); GLUCOSE 106.6 mg/dL (74-106); TOTAL PROTEIN 8.5 g/dL (6.3-8.2)
[2019-11-04] MEDS: LASIX IVP SCH (06:10)
[2019-11-04] MEDS ORDERED: SYNTHROID PO SCH (06:30)
[2019-11-04] MEDS ORDERED: ASPIRIN EC PO SCH (08:30)
[2019-11-04] MEDS: COREG PO SCH (08:48)
[2019-11-04] MEDS ORDERED: ALDACTONE PO SCH (09:00)
[2019-11-04] MEDS ORDERED: COZAAR PO SCH (09:00)
[2019-11-04] MEDS ORDERED: MINOXIDIL PO SCH (09:00)
[2019-11-04] MEDS: VENTOLIN HFA (PER PUFF-WITH SPACER) IH PRN ×2 (09:09→14:00)
--- NOTE | 2019-11-04 09:13 | PCM.PROG ---
Attending Provider: ATTENDING PROVIDER: Dr. NICOLÁS BERTRAND This patient is seen with Jasmine Vaughan, Nurse Practitioner. DATE OF SERVICE: 11/04/19 SUBJECTIVE: This 79 year old AA/BLACK F was hospitalized 11/03/19. Shortness of breath has improved. The patient had over 1000cc out yesterday. Leg edema has improved. Blood pressure remains elevated. REVIEW OF SYSTEMS: CONSTITUTIONAL: No night sweats. No fatigue, malaise, lethargy. No fever or chills. Weakness. HEENT: Eyes: No visual changes. No eye pain. No eye discharge. ENT: No runny nose. No epistaxis. No sinus pain. No odynophagia. No congestion. RESPIRATORY:Cough, no congestion. No hemoptysis. Shortness of breath. CARDIOVASCULAR: No angina symptoms. No CHF symptoms. No atypical chest pain for CAD. No palpitations. No orthopnea.. GASTROINTESTINAL: No abdominal pain. No nausea or vomiting. No diarrhea or constipation. No hematemesis. No hematochezia. GENITOURINARY: No urgency. No frequency. No dysuria. No hematuria. No obstructive symptoms. No discharge. No pain. No significant abnormal bleeding. MUSCULOSKELETAL: No musculoskeletal pain; no joint swelling. Leg edema NEUROLOGICAL: Awake, alert, oriented to time, place and person. No headache. No neck pain. No syncope. No seizures. No dizziness. PSYCHIATRIC: Not anxious. No depression. No suicidal thoughts. No homicidal thoughts. SKIN: No rash. No lesions. No wounds. ENDOCRINE: No unexplained weight loss. No weight gain. HEMATOLOGIC/LYMPHATIC: No anemia. No purpura. No petechiae. No prolonged or excessive bleeding. No palpable lymph nodes. PHYSICAL EXAMINATION: GENERAL: The patient is awake, alert and oriented, lying in bed in no distress. VITAL SIGNS: Temperature 97.8 F, Pulse 72, Respiratory Rate 22, BP 172/86, Pulse Ox 92% HEENT: Head normocephalic, atraumatic. Eyes: Extraocular muscles are intact. Pupils are equal, round and reactive to light and accommodation. Ears: No lesions. Nose appeared normal. Throat: No exudate or erythema. NECK: Supple. No JVD, no carotid bruit. No lymphadenopathy or thyromegaly. LUNGS: Diminished breath sounds. Expiratory wheezing. Clear to auscultation. Percussion note normal. Chest symmetrical. HEART: S1, S2, no S3. No murmurs. No cyanosis or clubbing. No ascites. P ulses: Dorsalis pedis and posterior tibial pulses +1 to +2 both sides. ABDOMEN: Soft. Non-tender. Bowel sounds active. No CVA tenderness. No mass felt. EXTREMITIES: +1 bilateral lower extremity edema. Full range of motion of all extremities, equal. NEUROLOGIC: No focal deficit. Cranial nerves II through XII are grossly intact. No headache, no double vision or headache. SKIN: Not dry. Intact. Turgor-normal. LYMPHATIC: No palpable lymph nodes/no lymphedema. MUSCULOSKELETAL: Normal joints with no swelling. Muscle tone is normal. LAB REVIEW: 11/04/19 04:55 11/04/19 04:55 11/04/19 04:55: Sodium 138.0, Potassium 4.10, Chloride 105.1, Carbon Dioxide 27.4, Anion Gap 9.60, BUN 22.4 H, Creatinine 1.59 H, Estimated GFR (MDRD) 38.00, BUN/Creatinine Ratio 14.08, Glucose 106.6 H, Calcium 9.12, Total Bilirubin 0.42, AST 35.2, ALT 11.2, Alkaline Phosphatase 168.9 H, Total Protein 8.50 H, Albumin 3.41 L, Globulin 5.09, Albumin/Globulin Ratio 0.66 11/04/19 04:55: WBC 7.06, RBC 4.64, Hgb 12.8, Hct 42.3, MCV 91.2, MCH 27.6, MCHC 30.3 L, RDW Coeff of Jade 15.0 H, Plt Count 261, Immature Gran % (Auto) 0.1, Neut % (Auto) 41.0 L, Lymph % (Auto) 45.8, [place] % (Auto) 12.2 H, Eos % (Auto) 0.3, Baso % (Auto) 0.6, Neut # (Auto) 2.9, Lymph # (Auto) 3.2, [place] # (Auto) 0.9, Eos # (Auto) 0.0, Baso # (Auto) 0.0, Immature Gran # (Auto) 0.0 11/03/19 18:45: Urine Color Yellow, Urine Clarity Clear, Urine pH 6.0, Ur Specific [place] 1.025, Urine Protein 3+ H, Urine Glucose (UA) Negative, Urine Ketones Negative, Urine Blood Negative, Urine Nitrite Negative, Urine Bilirubin Negative, Urine Urobilinogen 0.2, Ur Leukocyte Esterase Negative, Urine Microscopic RBC 5-10, Urine Microscopic WBC 0-2, Ur Squamous Epith Cells 0-2, Urine Bacteria Trace 11/03/19 16:40: Puncture Site Rb, O2 Saturation 89.0 L, ABG pH 7.329 L, ABG pCO2 43.4, ABG pO2 60.0 L, ABG HCO3 22.9, ABG Total CO2 24, ABG Base Excess -3 L, O2 Delivery Device Nc, Oxygen Liter Flow 2.00 11/03/19 16:30: Sodium 135.3, Potassium 4.62, Chloride 106.3, Carbon Dioxide 22.7, Anion Gap 10.92, BUN 20.7 H, Creatinine 1.63 H, Estimated GFR (MDRD) 37.00, BUN/Creatinine Ratio 12.69, Glucose 110.7 H, Calcium 9.08, Total Bilirubin 0.36, AST 34.7, ALT 11.2, Alkaline Phosphatase 183.0 H, NT-Pro-B Natriuret Pep 1110.000 H, Total Protein 8.17, Albumin 3.43 L, Globulin 4.74, Albumin/Globulin Ratio 0.72 11/03/19 16:30: WBC 7.15, RBC 4.72, Hgb 13.0, Hct 43.4, MCV 91.9, MCH 27.5, MCHC 30.0 L, RDW Coeff of Jade 15.1 H, Plt Count 250, Immature Gran % (Auto) 0.3, Neut % (Auto) 46.3, Lymph % (Auto) 39.3, [place] % (Auto) 13.4 H, Eos % (Auto) 0.3, Baso % (Auto) 0.4, Neut # (Auto) 3.3, Lymph # (Auto) 2.8, [place] # (Auto) 1.0, Eos # (Auto) 0.0, Baso # (Auto) 0.0, Immature Gran # (Auto) 0.0 ASSESSMENT: Please see below. 1. Pulmonary edema 2. CHF 3. Severe COPD, oxygen dependent 4. Hypertension 5. Chronic kidney disease stage 3 6. Noncompliance with medication and lifestyle. PLAN: 1. Add minoxidil 2.5mg BID 2. Continue Lasix 3. Start PO Lasix tomorrow 4. 2D echo. Plan and coordination of the patient's care discussed in the presence of Television Specialist and nurse. SCRIBED BY: Nuris GUERRA scribed while in presence of service performed by Dr. Bertrand/Jasmine Vaughan APRN on 11/04/19 ([id number])
[2019-11-04] MEDS: XANAX PO SCH ×2 (09:16→09:25)
--- NOTE | 2019-11-04 13:32 | DI ---
EXAM: Radiographs, left shoulder HISTORY: Initial presentation for left shoulder pain following a fall. COMPARISON: Chest radiograph 1 day prior as well as 01/10/2019. TECHNIQUE: Three views. FINDINGS: Bone mineralization is decreased. Severe glenohumeral osteoarthritis noted. Moderate denisse nges seen at the acromioclavicular joint. This appears stable from prior chest radiographs including a well corticated ossific fragment adjacent to the glenoid. No acute fracture or dislocation is see n. Soft tissues are unremarkable. Chronic left lung opacities appear stable. IMPRESSION: Stable osteoarthritis without acute fracture.
[2019-11-04] MEDS ORDERED: EPINEPHRINE 1 MG/10 ML SYRINGE IVP STA ×2 (14:10→14:13)
[2019-11-04] MEDS ORDERED: ATIVAN IM STA (14:20)
[2019-11-04] MEDS ORDERED: ATIVAN IVP STA (14:20)
[2019-11-04] MEDS ORDERED: ATIVAN ONE (14:22)
[2019-11-04] MEDS ORDERED: DIPRIVAN 20 ML VIAL IVP ONE (14:25)
[2019-11-04] MEDS ORDERED: DIPRIVAN 1,000 MG/100 ML VIAL 1,000 MG/100 ML INFUS..BTL IV ONE (14:25)
[2019-11-04] MEDS ORDERED: DIPRIVAN 1,000 MG/100 ML VIAL 1,000 MG/100 ML INFUS..BTL IV SCH ×2 (14:30→15:00)
[2019-11-04] MEDS ORDERED: DIPRIVAN 20 ML VIAL IVP STA (14:35)
--- NOTE | 2019-11-04 14:52 | DI ---
EXAM: Single view of the chest. History: Short of breath, intubation. Comparison: Chest radiograph 11/03/2019 Findings: Heart is enlarged. Endotracheal tube tip is very near the pari and may be within the pr oximal right stem bronchus. Recommend retracting about 5 cm. Atherosclerotic vascular calcification s. No change in the bilateral interstitial infiltrates and/or fibrosis. No acute osseous abnormalit ies. Impression: 1. Endotracheal tube tip is very near the pari and may be within the proximal right brain stem bro nchus. Recommend retracting about 5 cm. 2. Cardiomegaly with no change in the bilateral interstitial infiltrates and fibrosis
[2019-11-04 15:05] LABS: ABG BASE EXCESS -5 (-2.0-2.0); ABG HCO3 23 (22.0-26.0); ABG PH 7.213 (7.35-7.45); ABG TCO2 25 (22.0-28.0)
--- NOTE | 2019-11-04 15:26 | DS ---
DATE OF SERVICE: 11/04/2019 FINAL DIAGNOSIS: 1. Acute respiratory failure 2. Severe chronic lung disease, oxygen dependant 3. Pulmonary fibrosis 4. History of congestive heart failure 5. History of pulmonary edema in the past 6. Severe hypertension 7. History of migraine headaches 8. History of smoking and patient has still continued to smoke 9. Heart cath, 2016 nonocclusive coronary artery disease 10.Chronic kidney disease 11.Total knee replacement, bilaterally 12.History of migraine headaches 13.Noncompliance of lifestyle, medications, followup and recommendations. DISCHARGE INSTRUCTIONS: [facility] MEDICATIONS AT DISCHARGE: Aspirin 81mg PO daily Carvedilol 25mg BID Clonidine 0.1mg twice a day Levothyroxine 50mcg PO daily Losartan 50mg PO daily Spironolactone 25mg PO daily Lasix 20mg PO daily Albuterol two puffs four times a day Minoxidil 2.5mg BID Xanax 0.25mg BID PRN 40mg Lasix IV yesterday and today HOSPITAL COURSE: 79 year old black female was seen in the office yesterday. The patient had evidence of congestive heart failure. The chest x-ray supported clinical findings. The patient was given IV Lasix 80mg. Pedal edema which was +2 to +3 was trace to +1 this morning. Her oxygen saturation on 2.5liters went up to 93% from 89%. The patient was feeling a lot better and her blood pressure in the morning was 150/90. The patient in the afternoon went to bathroom with assist and she collapsed with extreme shortness of breath. Code was called. The patient was intubated. The patient lost heart rhythm for few seconds within a few minutes her heart rate were 75-80 per minute with blood pressure systolic of 150. Blood gasses that were done the bagging showed pO2 443 with pCO2 of 57 with pH 7.21 with 100% saturation. The patient is now put on 40% FiO2. The patient was given Diprivan IV 15mg along with the drip to calm her down. The patient's EKG practically unchanged from one that was on admission with superoinferior wall pattern with LVH with evidence of pulmonary disease. There were no acute findings noted on the EKG done post respiratory arrest. The patient's case was discussed with the and he was explained that because of multiple patient's in the special care with [facility] the patient will have to be transferred to [facility] to which he agreed. The transfer service was called and she was accepted. The patient's echo findings done in April ejection fraction of 35% with normal LV size. The LVH and enlarged cavity. The LA cavity was 6.1cm. TIME SPENT: More than 60 minutes. MTDD
[2019-11-04] MEDS ORDERED: ZEMURON IVP STA ×2 (15:28→15:30)
[2019-11-04 15:29] LABS: ABG BASE EXCESS -4 (-2.0-2.0); ABG HCO3 22.1 (22.0-26.0); ABG PCO2 40.1 mmHg (35-45); ABG TCO2 23 (22.0-28.0)
[2019-11-04 15:31] VITALS: BP 92/64
[2019-11-05] MEDS ORDERED: LASIX TAB PO SCH (06:30)
--- NOTE | 2019-11-05 12:47 | PN ---
DATE OF SERVICE: 11/04/19 SUBJECTIVE: The patient was seen earlier on followup visit. She was up in the chair and wanted to go home. She states she is breathing a lot better, had 1000 cc urine output at night and Lasix IV that was given yesterday. The patient doesn't have any orthopnea or PND. Oxygen saturation was 93 to 94% on 2 to 3L. Condition seems to be improving. The patient was seen and examined with the nurse practitioner. TIME SPENT: More than 30 minutes. Plan and coordination of the patient's care discussed in the presence of nurse. MANAN
--- NOTE | 2019-11-05 13:11 | PN ---
BILLING 11/03/19 LEVEL 5 ADMISSION 11/04/19 CRITICAL CARE TOTAL TIME SPENT: 90 MINUTES MANAN
== END 2019-11-04 15:56 | disposition short-term general hospital (02) | DRG 189 ==
LOC: MEDSURG B 15:55
PROVIDERS: ADMIT Internal Medicine; ATTEND Internal Medicine

== ENCOUNTER 2020-06-04 14:27 | Inpatient (IN) ==
--- NOTE | 2020-06-04 14:41 | ED.PDOC ---
General ED Provider: Dr. LIBERTY LANDEROS Chief Complaint: Shortness of Air Stated Complaint: 80 year old black female with chest fullness last night and called EMS due to SOB, but now denies SOB and complains of migraine. Is usually on home 02, 4L nc. Denies, fever, chills or sweats, n,v,d, chest pains or SOB. PMH + for CHF, afib, COPD, HTN, and TKA. Time Seen by Provider: 06/04/20 14:41 Mode of Arrival: Ambulance Information Source: Patient and EMT Exam Limitations: No limitations Primary Care Provider: NICOLÁS BERTRAND Referred to ED by: Clinic Nursing and Triage Documentation Reviewed and Agree: Yes Does patient meet sepsis criteria?: No System Inflammatory Response Syndrome: Not Applicable Sepsis Protocol: For patient's 13 years and over: Temp is 96.8 and below OR 101 and greater Pulse >90 BPM Resp >20/minute Acutely Altered Mental Status Are patient's symptoms suggestive of a new infection, such as: -Pneumonia -Skin, Soft Tissue -Endocarditis -UTI -Bone, Joint Infection -Implantable Device -Acute Abdominal Infection -Wound Infection -Meningitis -Blood Stream Catheter Infection -Unknown Respiratory Complaint Exam Shortness of Air Complaint/Exam Onset/Duration: awoke at 0400 Symptoms Are: Resolved Timing: Intermittent Initial Severity: Mild Current Severity: None Character: Reports Dyspnea at rest Aggravating: Reports Movement, Deep breaths and Recumbent position Alleviating: Reports Upright position and Spontaneous resolution Associated Signs and Symptoms: Denies Cough, Wheezing, Chest pain with cough, Chest pain, Fever, Chills, Diaphoresis, Nasal congestion, Dizziness, Calf pain, Calf swelling, Edema, Rapid breathing, Labored breathing and Decreased intake Related History: Reports Similar episode Pulmonary Embolism Risk Factors: Reports Bedrest and Smoking Cardiac Risk Factors: Reports Smoking, Hypertension and CHF Pseudomonas Risk Factors: Reports None Tuberculosis Risk Factors: Reports None Home Oxygen Use: Yes Recent Stress Test: No Recent Echo/LV Function: No Respiratory Distress: None Stridor Present: No Tracheal Deviation: No Subcutaneous Emphysema: No Accessory Muscle Use: No Retractions: Not Present Diminished Breath Sounds: Yes Prolonged Expiratory Phase: Yes Unable to Speak Full Sentences: No Fatigue: Yes Leg Swelling: No Dirk's Sign Present: No Grunting Respirations: No Kussmaul Respirations: No Differential Diagnoses: CHF, COPD Exacerbation and Pneumonia Quality Indicators for AMI: EKG in 10min. Quality Indicators for Cardiac Chest Pain: EKG in 10min. Quality Indicator For Non-Traumatic Chest Pain/Syncope: EKG Performed Related Surgical History: Reports None Review of Systems Review Of Systems Constitutional: Reports Malaise Eyes: Reports No symptoms Ears, Nose, Mouth, Throat: Reports No symptoms Respiratory: Reports Short of air (resolved) Cardiac: Reports Other (chest fullness) GI: Reports No symptoms : Reports No symptoms Musculoskeletal: Reports No symptoms Skin: Reports No symptoms Neurological: Reports Headache Endocrine: Reports No symptoms Hematologic/Lymphatic: Reports No symptoms All Other Systems: Reviewed and Negative [facility] Medical History Chronic arthritis (~2010) Hypertension (~1989) Migraine Family History Mother Hypertension FATHER Hypertension Social History Smoking and tobacco status: Former smoker Tobacco: How many years used: 25 Household members: spouse and children Housing: house Number of children: 3 Financial difficulty paying for basics: not very hard Pets and animals: No History of recent travel: No Do you think of yourself as: straight/heterosexual Current gender identity: female Seatbelt use: always Current diet type/program: low salt Water heater temperature set < 120 degrees: Yes Working smoke detector in home: Yes Fire extinguisher in home: Yes Carbon monoxide detector in home: Yes Firearms in home: Yes Firearms unloaded and locked: Yes Surgical History History of joint surgery (06/13/16) Status post hysterectomy (~1989) Status post left partial knee replacement Status post tonsillectomy (~1959) Female Reproductive History Menstrual Hx Hysterectomy: Yes Hx Tubal Ligation: Yes Physical Exam Physical Exam Appearance: Reports Ill-appearing (chronically ill appearing) and Obese Ill-appearing: Mild Pain Distress: Mild Eyes: Reports POLA, EOMI and Conjunctiva clear ENT: Reports Ears normal, Nose normal and Oropharynx normal Neck: Supple Respiratory: Reports Airway patent, Breath sounds diminished and Crackles Cardiovascular: Reports Pulses normal, No rub, No murmur and Irregular rhythm GI/: Reports Soft, Nontender, No masses, Bowel sounds normal and No Organom egaly Musculoskeletal: Reports Normal strength, ROM intact, No edema and No calf tenderness Skin: Reports Warm, Dry and Normal color Neurological: Reports Sensation intact, Motor intact, Reflexes intact, Cranial nerves intact, Alert and Oriented Psychiatric: Reports Affect appropriate and Mood appropriate Interpretation Radiology Interpretation Radiology Interpretation By: Radiologist Supervisor [employer] Time of Supervisor [employer] Interpretation: 14:30 Rate: Tachy Rhythm: Sinus Ectopy: PVCs and PACs EKG Interpretation Time of EKG #1: 14:45 Rate: Tachy Rhythm: Sinus Ectopy: PVCs and PACs [place]: Left ST Segment: Other (NSSTWChanges) Interpretation: Non specif changes, looks to be undelying sinus with frequent PAC's Physician Notification Case Discussed Physician Notified: Bertrand Time of Notification: 17:28 Admit/Transition Orders Entered by ED Provider: Yes Admit To: Inpatient Critical Care Note Critical Care Note Total Critical Care Time (mins): 0 Course Course Hematology/Chemistry: 06/04/20 14:53 06/04/20 14:53 Orders, Labs, Meds: Lab Review 06/04/20 06/04/20 06/04/20 14:44 14:53 14:53 WBC 7.37 RBC 3.68 L Hgb 9.9 L Hct 32.2 L MCV 87.5 MCH 26.9 L MCHC 30.7 L RDW Coeff of Jade 14.6 Plt Count 368 Immature Gran % (Auto) 0.3 Neut % (Auto) 56.8 Lymph % (Auto) 30.8 [place] % (Auto) 9.6 Eos % (Auto) 1.8 Baso % (Auto) 0.7 Neut # (Auto) 4.2 Lymph # (Auto) 2.3 [place] # (Auto) 0.7 Eos # (Auto) 0.1 Baso # (Auto) 0.1 Immature Gran # (Auto) 0.0 Sodium 137.4 Potassium 2.65 L* Chloride 100.3 Carbon Dioxide 30.9 H Anion Gap 8.85 BUN 10.1 Creatinine 1.33 H Estimated GFR (MDRD) 47.00 BUN/Creatinine Ratio 7.59 Glucose 145.4 H Calcium 8.22 L Total Bilirubin 0.65 AST 32.7 ALT 8.2 Alkaline Phosphatase 73.4 Total Creatine Kinase 48.0 Troponin I < 0.012 NT-Pro-B Natriuret Pep 3800.000 H Total Protein 8.14 Albumin 3.40 L Globulin 4.74 Albumin/Globulin Ratio 0.71 Orders Category Date Time Status EKG-(ED ONLY) Stat CARDIO 06/04/20 14:44 Completed CBC W/ AUTO DIFF Stat LAB 06/04/20 14:53 Completed COMPREHENSIVE METABOLIC PANEL Stat LAB 06/04/20 14:53 Completed CREATINE KINASE Stat LAB 06/04/20 14:53 Completed NT-PROBNP Stat LAB 06/04/20 14:44 Completed TROPONIN I Stat LAB 06/04/20 14:53 Completed Ketorolac Tromethamine [Toradol] MEDS 06/04/20 15:48 Discontinued 15 mg IVP ONCE ONE Morphine Sulfate [Morphine 2 mg/ml Syringe] MEDS 06/04/20 16:49 Discontinued 1 mg IVP ONCE ONE Ondansetron HCl/Pf [Zofran 4 mg/2 ml] MEDS 06/04/20 15:48 Discontinued 4 mg IVP ONCE ONE Potassium Chloride [K-Dur] MEDS 06/04/20 15:25 Discontinued 40 meq PO ONCE STA Potassium Chloride [Potassium Chloride 20 Meq/100 ml MEDS 06/04/20 15:25 Discontinued Premix] 20 meq in 100 ml IV ONCE Prochlorperazine Edisylate [Compazine] MEDS 06/04/20 17:46 Discontinued 10 mg .ROUTE .STK-MED ONE Prochlorperazine Edisylate [Compazine] 10 mg MEDS 06/04/20 17:40 Discontinued 0.9 % Sodium Chloride [Sodium Chloride] 50 ml IV ONCE CHEST, 2 VIEWS PA & LAT Stat RADS 06/04/20 14:44 Completed Medications Discontinued Medications Generic Name Dose Route Start Last Admin Trade Name Freq PRN Reason Stop Dose Admin Potassium Chloride 20 meq in 100 mls @ 50 mls/hr 06/04/20 15:25 06/04/20 15:38 Potassium Chloride 20 Meq/100 Ml Premix IV 06/04/20 17:24 50 mls/hr ONCE STA Administration Prochlorperazine Edisylate 10 52 mls @ 100 mls/hr 06/04/20 17:40 06/04/20 17:51 mg/ Sodium Chloride IV 06/04/20 18:11 100 mls/hr ONCE ONE Administration Ketorolac Tromethamine 15 mg 06/04/20 15:48 06/04/20 16:14 Ketorolac Tromethamine 15 Mg/Ml Vial IVP 06/04/20 15:49 15 mg ONCE ONE Administration Morphine Sulfate 1 mg 06/04/20 16:49 06/04/20 16:56 Morphine Sulfate 2 Mg/Ml Syringe IVP 06/04/20 16:50 2 mg ONCE ONE Administration Ondansetron HCl 4 mg 06/04/20 15:48 06/04/20 16:14 Ondansetron Hcl/Pf 4 Mg/2 Ml Sdv IVP 06/04/20 15:49 4 mg ONCE ONE Administration Potassium Chloride 40 meq 06/04/20 15:25 06/04/20 15:38 Potassium Chloride 20 Meq Tab PO 06/04/20 15:26 40 meq ONCE STA Administration Vital Signs: Temp Pulse Resp BP Pulse Ox 06/04/20 14:27 97.2 F L 102 H 20 133/79 92 L Discharge Plan Discharge Patient Disposition: ADMITTED INPATIENT Discharge Problem: CHF (congestive heart failure), NYHA class II Qualifiers: Congestive heart failure type: systolic Congestive heart failure chronicity: acute on chronic Qualified Code(s): I50.23 - Acute on chronic systolic (congestive) heart failure ED Provider: LIBERTY LANDEROS Condition: Fair Physician Progress Note: 80 year old black female presents with increased chest fullness and SOB that woke at 0400. ED eval shows significant hypokalemia and mild to moderated systolic CHF. Discused with Dr. Bertrand at 1830, we will admit to telemetry
[2020-06-04 14:58] LABS: BASOPHILS # (AUTO) 0.1 K/uL (0-0.2); BASOPHILS % (AUTO) 0.7 % (0.0-3.0); EOSINOPHILS # (AUTO) 0.1 K/ul (0.0-0.7); EOSINOPHILS % (AUTO) 1.8 % (0.0-7.0); HEMATOCRIT 32.2 % (37.0-47.0); HEMOGLOBIN 9.9 g/dl (12.0-16.0); IMMATURE GRANULOCYTE % (AUTO) 0.3 % (0.0-5.0); LYMPHOCYTES # (AUTO) 2.3 K/uL (0.60-3.4); LYMPHOCYTES % (AUTO) 30.8 (10.0-50.0); MEAN CORPUSCULAR HEMOGLOBIN 26.9 pg (27.0-31.0); MEAN CORPUSCULAR HGB CONC 30.7 (31.8-35.4); MEAN CORPUSCULAR VOLUME 87.5 fl (81.0-99.0); MONOCYTES # (AUTO) 0.7 K/uL (0.4-2.0); MONOCYTES % (AUTO) 9.6 (0-10); NEUTROPHILS # (AUTO) 4.2 K/ul (2.0-6.9); NEUTROPHILS % (AUTO) 56.8 % (42.2-75.2); PLATELET COUNT 368 10^3/uL (140-440); RDW COEFFICIENT OF VARIATION 14.6 % (11.6-14.8); RED BLOOD COUNT 3.68 10^6/ul (4.20-5.40); WHITE BLOOD COUNT 7.37 K/ul (4.6-10.2)
[2020-06-04 15:10] LABS: ALANINE AMINOTRANSFERASE 8.2 U/L (0-35); ALKALINE PHOSPHATASE 73.4 U/L (53-141); ASPARTATE AMINO TRANSFERASE 32.7 U/L (14-36); BILIRUBIN,TOTAL 0.65 mg/dL (0.2-1.3); BLOOD UREA NITROGEN 10.1 mg/dL (7-17); CALCIUM 8.22 mg/dL (8.4-10.2); CARBON DIOXIDE 30.9 mmol/L (22-30.0); CHLORIDE 100.3 mmol/L (98-107); CREATININE 1.33 mg/dL (0.60-1.30); GLUCOSE 145.4 mg/dL (74-106); SODIUM 137.4 mmol/L (134.5-145); TOTAL PROTEIN 8.14 g/dL (6.3-8.2)
[2020-06-04 15:22] LABS: TROPONIN I < 0.012 ng/ml (0.0000-0.120)
--- NOTE | 2020-06-04 15:22 | DI ---
EXAM: Chest two views HISTORY: Shortness of breath COMPARISON: 11/04/2019 TECHNIQUE: Two views of the chest were performed FINDINGS: Bilateral interstitial and alveolar opacity. No large pleural effusion. Trace perifissur al fluid and/or thickening. No visible pneumothorax. Heart is enlarged. Mediastinal contour unchan ged. IMPRESSION: Cardiomegaly. Bilateral interstitial and alveolar opacity may represent edema and/or pn eumonia. There is likely a component of underlying fibrosis.
[2020-06-04 15:23] LABS: POTASSIUM 2.65 mmol/L (3.5-5.1)
[2020-06-04] MEDS ORDERED: POTASSIUM CHLORIDE 20 MEQ/100 ML PREMIX 20 MEQ/100 ML BAG IV STA (15:25)
[2020-06-04] MEDS ORDERED: K-DUR PO STA (15:25)
[2020-06-04] MEDS ORDERED: ZOFRAN 4 MG/2 ML IVP ONE (15:48)
[2020-06-04] MEDS ORDERED: TORADOL IVP ONE (15:48)
[2020-06-04] MEDS ORDERED: MORPHINE 2 MG/ML SYRINGE IVP ONE (16:49)
[2020-06-04] MEDS ORDERED: COMPAZINE ONE (17:46)
[2020-06-04] MEDS: COMPAZINE 10 MG in SODIUM CHLORIDE 50 ML IV ONE ×2 (17:47→17:51)
[2020-06-04] MEDS ORDERED: LASIX IVP STA (18:47)
[2020-06-04] MEDS ORDERED: NITROSTAT SL PRN (18:54)
[2020-06-04] MEDS ORDERED: ATROPINE SULFATE PFS IVP PRN (18:54)
[2020-06-04 19:12] LABS: BASOPHILS % (AUTO) 0.5 % (0.0-3.0); EOSINOPHILS # (AUTO) 0.2 K/ul (0.0-0.7); EOSINOPHILS % (AUTO) 2.2 % (0.0-7.0); HEMATOCRIT 30.2 % (37.0-47.0); HEMOGLOBIN 9.2 g/dl (12.0-16.0); IMMATURE GRANULOCYTE % (AUTO) 0.1 % (0.0-5.0); LYMPHOCYTES # (AUTO) 2.5 K/uL (0.60-3.4); LYMPHOCYTES % (AUTO) 33.5 (10.0-50.0); MEAN CORPUSCULAR HEMOGLOBIN 26.9 pg (27.0-31.0); MEAN CORPUSCULAR HGB CONC 30.5 (31.8-35.4); MEAN CORPUSCULAR VOLUME 88.3 fl (81.0-99.0); MONOCYTES # (AUTO) 0.8 K/uL (0.4-2.0); MONOCYTES % (AUTO) 11.4 (0-10); NEUTROPHILS # (AUTO) 3.9 K/ul (2.0-6.9); NEUTROPHILS % (AUTO) 52.3 % (42.2-75.2); PLATELET COUNT 308 10^3/uL (140-440); RDW COEFFICIENT OF VARIATION 14.6 % (11.6-14.8); RED BLOOD COUNT 3.42 10^6/ul (4.20-5.40); WHITE BLOOD COUNT 7.37 K/ul (4.6-10.2)
[2020-06-04 19:15] LABS: BORDETELLA PARAPERTUSSIS (PCR) NOT DETECTED (NOT DETECT); BORDETELLA PERTUSSIS (PCR) NOT DETECTED (NOT DETECT); CHLAMYDIA PNEUMONIAE (PCR) NOT DETECTED (NOT DETECT); CORONAVIRUS 229E (PCR) NOT DETECTED (NOT DETECT); CORONAVIRUS HKU1 (PCR) NOT DETECTED (NOT DETECT); CORONAVIRUS NL63 (PCR) NOT DETECTED (NOT DETECT); CORONAVIRUS OC43 (PCR) NOT DETECTED (NOT DETECT); HUMAN METAPNEUMOVIRUS (PCR) NOT DETECTED (NOT DETECT); HUMAN RHINOVIRUS/ENTEROV (PCR) NOT DETECTED (NOT DETECT); INFLUENZA B (PCR) NOT DETECTED (NOT DETECT); MYCOPLASMA PNEUMONIAE (PCR) NOT DETECTED (NOT DETECT); PARAINFLUENZA VIRUS 1 (PCR) NOT DETECTED (NOT DETECT); PARAINFLUENZA VIRUS 2 (PCR) NOT DETECTED (NOT DETECT); PARAINFLUENZA VIRUS 3 (PCR) NOT DETECTED (NOT DETECT); PARAINFLUENZA VIRUS 4 (PCR) NOT DETECTED (NOT DETECT); RESPIRATORY SYNCYTIAL V (PCR) NOT DETECTED (NOT DETECT); SARS_COV_2 (PCR) NOT DETECTED (NOT DETECT)
[2020-06-04 19:28] LABS: ALANINE AMINOTRANSFERASE 6.6 U/L (0-35); ALBUMIN 3.02 g/dL (3.5-5.0); ALKALINE PHOSPHATASE 68.6 U/L (53-141); ASPARTATE AMINO TRANSFERASE 39.3 U/L (14-36); BILIRUBIN,TOTAL 0.46 mg/dL (0.2-1.3); CALCIUM 7.92 mg/dL (8.4-10.2); CARBON DIOXIDE 30.9 mmol/L (22-30.0); CHLORIDE 101.9 mmol/L (98-107); CREATININE 1.42 mg/dL (0.60-1.30); GLUCOSE 98.6 mg/dL (74-106); POTASSIUM 3.2 mmol/L (3.5-5.1); SODIUM 138.2 mmol/L (134.5-145); TOTAL PROTEIN 7.42 g/dL (6.3-8.2)
[2020-06-04 19:39] LABS: TROPONIN I 0.013 ng/ml (0.0000-0.120)
[2020-06-04 19:49] LABS: ABG PH 7.43 (7.35-7.45)
[2020-06-04 19:50] LABS: BEecf 6.2 (-2.0-3.0); COHb 3.1 (0.5-1.5); HCO3 30.5 (21-28); MetHb 0.8 (0-1.5); TCO2 31.9 (19-24); sO2 83.9 % (94-98); tHb 10.2 g/dl (11.7-17.4)
[2020-06-04 19:51] LABS: ABG O2 HGB 82.5 % (95-100)
[2020-06-04 20:11] LABS: ADENOVIRUS (PCR) NOT DETECTED (NOT DETECT)
[2020-06-04] MEDS ORDERED: POTASSIUM CHLORIDE 20 MEQ VIAL- ADDITIVE ONLY IV ONE (21:00)
[2020-06-04] MEDS ORDERED: DECADRON IM ONE (21:00)
[2020-06-04] MEDS ORDERED: K-DUR PO ONE ×2 (21:00→22:38)
[2020-06-04 21:14] VITALS: BMI 31.2
[2020-06-04 21:36] LABS: BILIRUBIN,URINE Negative (NEGATIVE); CLARITY,URINE Clear (CLEAR); COLOR,URINE Yellow (YELLOW); GLUCOSE, URINE (UA) Negative (NEGATIVE); KETONES,URINE Negative (NEGATIVE); LEUKOCYTE ESTERASE ,URINE Negative (NEGATIVE); NITRITE,URINE Negative (NEGATIVE); PROTEIN,URINE 3+ (NEGATIVE); URINE, BLOOD 1+ (NEGATIVE)
[2020-06-04 21:43] LABS: HYALINE CASTS, URINE 0-2 (NOT PRESENT)
[2020-06-04] MEDS: DUONEB NEB SCH (23:38)
[2020-06-05 04:01] LABS: BASOPHILS % (AUTO) 0.4 % (0.0-3.0); HEMOGLOBIN 9.9 g/dl (12.0-16.0); IMMATURE GRANULOCYTE % (AUTO) 0.4 % (0.0-5.0); LYMPHOCYTES # (AUTO) 0.9 K/uL (0.60-3.4); LYMPHOCYTES % (AUTO) 16.7 (10.0-50.0); MEAN CORPUSCULAR HEMOGLOBIN 26.6 pg (27.0-31.0); MEAN CORPUSCULAR VOLUME 88.7 fl (81.0-99.0); MONOCYTES # (AUTO) 0.1 K/uL (0.4-2.0); MONOCYTES % (AUTO) 1.6 (0-10); NEUTROPHILS # (AUTO) 4.1 K/ul (2.0-6.9); NEUTROPHILS % (AUTO) 80.9 % (42.2-75.2); PLATELET COUNT 332 10^3/uL (140-440); RDW COEFFICIENT OF VARIATION 14.9 % (11.6-14.8); RED BLOOD COUNT 3.72 10^6/ul (4.20-5.40); WHITE BLOOD COUNT 5.09 K/ul (4.6-10.2)
[2020-06-05 04:05] LABS: ABG PH 7.46 (7.35-7.45); COHb 3.7 (0.5-1.5); HCO3 27 (21-28)
[2020-06-05 04:06] LABS: TCO2 28.2 (19-24); sO2 94.7 % (94-98)
[2020-06-05 04:07] LABS: tHb 10.3 g/dl (11.7-17.4)
[2020-06-05 04:08] LABS: ABG O2 HGB 94.2 % (95-100)
[2020-06-05 04:09] LABS: BEecf 3.2 (-2.0-3.0)
[2020-06-05 04:13] LABS: ALANINE AMINOTRANSFERASE 6.3 U/L (0-35); ALBUMIN 3.35 g/dL (3.5-5.0); ALKALINE PHOSPHATASE 75.3 U/L (53-141); ASPARTATE AMINO TRANSFERASE 33.7 U/L (14-36); BILIRUBIN,TOTAL 0.53 mg/dL (0.2-1.3); BLOOD UREA NITROGEN 10.6 mg/dL (7-17); CALCIUM 8.2 mg/dL (8.4-10.2); CHLORIDE 103.7 mmol/L (98-107); CREATININE 1.5 mg/dL (0.60-1.30); POTASSIUM 3.94 mmol/L (3.5-5.1); SODIUM 137.3 mmol/L (134.5-145); TOTAL PROTEIN 8.04 g/dL (6.3-8.2)
[2020-06-05] MEDS: DUONEB NEB SCH ×4 (05:14→23:20)
[2020-06-05] MEDS ORDERED: LASIX TAB PO SCH (06:30)
[2020-06-05] MEDS: K-DUR PO SCH ×4 (08:12→20:46)
[2020-06-05] MEDS: TYLENOL PO PRN (08:13)
[2020-06-05] MEDS ORDERED: ROSUVASTATIN 5 MG PO SCH (10:15)
[2020-06-05] MEDS ORDERED: CATAPRES-TTS 1 TD SCH (10:30)
[2020-06-05] MEDS: CRESTOR PO SCH (11:06)
[2020-06-05] MEDS: PEPCID PO SCH ×2 (11:06→17:17)
[2020-06-05] MEDS: SODIUM BICARBONATE PO SCH ×3 (11:06→20:46)
[2020-06-05] MEDS: COREG PO SCH ×2 (11:08→17:45)
[2020-06-05] MEDS: SYNTHROID PO SCH (11:08)
[2020-06-05] MEDS: ELIQUIS PO SCH ×2 (11:08→20:46)
[2020-06-05] MEDS: PROCARDIA XL PO SCH ×2 (11:08→20:46)
[2020-06-05] MEDS: PROZAC PO SCH (11:08)
[2020-06-05] MEDS: TORADOL IM PRN ×3 (12:15→23:17)
[2020-06-05] MEDS: XANAX PO PRN (17:17)
[2020-06-05] MEDS: LASIX TAB PO SCH (17:45)
[2020-06-05] MEDS: DECADRON IM SCH (17:46)
[2020-06-06] MEDS: XANAX PO PRN ×2 (01:15→20:48)
[2020-06-06] MEDS: TYLENOL PO PRN (01:15)
[2020-06-06 05:07] LABS: BASOPHILS % (AUTO) 0.1 % (0.0-3.0); HEMATOCRIT 32.1 % (37.0-47.0); HEMOGLOBIN 9.9 g/dl (12.0-16.0); IMMATURE GRANULOCYTE # (AUTO) 0.1 (0.0-1.0); IMMATURE GRANULOCYTE % (AUTO) 0.6 % (0.0-5.0); LYMPHOCYTES # (AUTO) 1.4 K/uL (0.60-3.4); LYMPHOCYTES % (AUTO) 14.9 (10.0-50.0); MEAN CORPUSCULAR HEMOGLOBIN 27.3 pg (27.0-31.0); MEAN CORPUSCULAR HGB CONC 30.8 (31.8-35.4); MEAN CORPUSCULAR VOLUME 88.4 fl (81.0-99.0); MONOCYTES # (AUTO) 0.7 K/uL (0.4-2.0); MONOCYTES % (AUTO) 7.7 (0-10); NEUTROPHILS # (AUTO) 6.9 K/ul (2.0-6.9); NEUTROPHILS % (AUTO) 76.7 % (42.2-75.2); PLATELET COUNT 333 10^3/uL (140-440); RDW COEFFICIENT OF VARIATION 15.3 % (11.6-14.8); RED BLOOD COUNT 3.63 10^6/ul (4.20-5.40); WHITE BLOOD COUNT 9.05 K/ul (4.6-10.2)
[2020-06-06 05:19] LABS: ALANINE AMINOTRANSFERASE 8.5 U/L (0-35); ALBUMIN 3.31 g/dL (3.5-5.0); ALKALINE PHOSPHATASE 68.7 U/L (53-141); ASPARTATE AMINO TRANSFERASE 26.8 U/L (14-36); BILIRUBIN,TOTAL 0.41 mg/dL (0.2-1.3); BLOOD UREA NITROGEN 23.6 mg/dL (7-17); CALCIUM 8.07 mg/dL (8.4-10.2); CHLORIDE 104.1 mmol/L (98-107); CREATININE 2.08 mg/dL (0.60-1.30); GLUCOSE 156.4 mg/dL (74-106); SODIUM 134.3 mmol/L (134.5-145); TOTAL PROTEIN 7.72 g/dL (6.3-8.2)
[2020-06-06 05:24] LABS: POTASSIUM 6.94 mmol/L (3.5-5.1)
[2020-06-06] MEDS ORDERED: KAYEXALATE SUSP PO STA (05:34)
[2020-06-06] MEDS ORDERED: HUMULIN R IVP STA (05:34)
[2020-06-06] MEDS ORDERED: DEXTROSE 50%-WATER ABBOJECT IVP STA (05:36)
[2020-06-06] MEDS: PEPCID PO SCH ×2 (05:48→17:59)
[2020-06-06] MEDS: LASIX TAB PO SCH ×2 (05:48→17:59)
[2020-06-06] MEDS: DUONEB NEB SCH ×4 (05:48→23:07)
[2020-06-06] MEDS: SYNTHROID PO SCH (06:17)
[2020-06-06 06:52] LABS: ABG O2 HGB 86.7 % (95-100); ABG PH 7.43 (7.35-7.45); BEecf 0.9 (-2.0-3.0); COHb 2.8 (0.5-1.5); HCO3 25.2 (21-28); MetHb 0.8 (0-1.5); TCO2 26.4 (19-24); tHb 10.3 g/dl (11.7-17.4)
[2020-06-06] MEDS ORDERED: KAYEXALATE SUSP PO ONE ×2 (09:00→18:00)
[2020-06-06] MEDS: PROCARDIA XL PO SCH ×2 (09:58→20:48)
[2020-06-06] MEDS: CRESTOR PO SCH (09:58)
[2020-06-06] MEDS: PROZAC PO SCH (09:58)
[2020-06-06] MEDS: SODIUM BICARBONATE PO SCH ×3 (09:58→20:48)
[2020-06-06] MEDS: DECADRON IM SCH (09:59)
[2020-06-06] MEDS: COREG PO SCH ×2 (09:59→17:59)
[2020-06-06] MEDS: ELIQUIS PO SCH ×2 (10:00→20:49)
[2020-06-06] MEDS: TORADOL IM PRN (10:42)
[2020-06-06 11:07] LABS: ABG O2 HGB 93.6 % (95-100); BEecf -1.1 (-2.0-3.0); HCO3 21.4 (21-28); MetHb 0.8 (0-1.5); TCO2 22.2 (19-24); tHb 10.2 g/dl (11.7-17.4)
[2020-06-06 11:12] LABS: ABG PH 7.54 (7.35-7.45)
[2020-06-06 11:13] LABS: ALANINE AMINOTRANSFERASE 10.4 U/L (0-35); ALBUMIN 3.2 g/dL (3.5-5.0); ASPARTATE AMINO TRANSFERASE 32.1 U/L (14-36); BILIRUBIN,TOTAL 0.34 mg/dL (0.2-1.3); BLOOD UREA NITROGEN 24.2 mg/dL (7-17); CALCIUM 8.28 mg/dL (8.4-10.2); CARBON DIOXIDE 22.3 mmol/L (22-30.0); CHLORIDE 103.1 mmol/L (98-107); CREATININE 2.14 mg/dL (0.60-1.30); GLUCOSE 252.5 mg/dL (74-106); POTASSIUM 5.73 mmol/L (3.5-5.1); SODIUM 133.5 mmol/L (134.5-145); TOTAL PROTEIN 7.45 g/dL (6.3-8.2)
[2020-06-07] MEDS: TORADOL IM PRN (00:56)
[2020-06-07] MEDS: DUONEB NEB SCH ×4 (04:47→23:40)
[2020-06-07 05:26] LABS: HEMATOCRIT 29.6 % (37.0-47.0); HEMOGLOBIN 9.1 g/dl (12.0-16.0); MEAN CORPUSCULAR HEMOGLOBIN 27.4 pg (27.0-31.0); MEAN CORPUSCULAR HGB CONC 30.7 (31.8-35.4); MEAN CORPUSCULAR VOLUME 89.2 fl (81.0-99.0); PLATELET COUNT 296 10^3/uL (140-440); RDW COEFFICIENT OF VARIATION 15.6 % (11.6-14.8); RED BLOOD COUNT 3.32 10^6/ul (4.20-5.40); WHITE BLOOD COUNT 11.07 K/ul (4.6-10.2)
[2020-06-07 05:36] LABS: ANISOCYTOSIS NOT PRESENT (NOT PRESENT)
[2020-06-07 05:38] LABS: ALANINE AMINOTRANSFERASE 10.4 U/L (0-35); ALBUMIN 3.2 g/dL (3.5-5.0); ALKALINE PHOSPHATASE 75.7 U/L (53-141); ASPARTATE AMINO TRANSFERASE 28.6 U/L (14-36); BILIRUBIN,TOTAL 0.31 mg/dL (0.2-1.3); BLOOD UREA NITROGEN 23.8 mg/dL (7-17); CALCIUM 8.2 mg/dL (8.4-10.2); CARBON DIOXIDE 29.1 mmol/L (22-30.0); CHLORIDE 101.8 mmol/L (98-107); CREATININE 1.91 mg/dL (0.60-1.30); POTASSIUM 4.43 mmol/L (3.5-5.1); SODIUM 137.1 mmol/L (134.5-145); TOTAL PROTEIN 7.4 g/dL (6.3-8.2)
[2020-06-07] MEDS: LASIX TAB PO SCH ×2 (05:42→17:22)
[2020-06-07] MEDS: PEPCID PO SCH ×2 (05:42→17:22)
[2020-06-07] MEDS: SYNTHROID PO SCH (05:49)
[2020-06-07 07:02] LABS: ABG O2 HGB 89.6 % (95-100); BEecf 6.5 (-2.0-3.0); COHb 2.4 (0.5-1.5); HCO3 29.2 (21-28); MetHb 0.8 (0-1.5); TCO2 30.3 (19-24); sO2 91.3 % (94-98); tHb 9.6 g/dl (11.7-17.4)
[2020-06-07 07:06] LABS: ABG PH 7.53 (7.35-7.45)
[2020-06-07] MEDS ORDERED: FIORICET PO PRN ×2 (08:25→15:18)
[2020-06-07] MEDS: CRESTOR PO SCH (09:25)
[2020-06-07] MEDS: SODIUM BICARBONATE PO SCH ×3 (09:26→20:28)
[2020-06-07] MEDS: COREG PO SCH ×2 (09:26→17:22)
[2020-06-07] MEDS: DECADRON IM SCH (09:26)
[2020-06-07] MEDS: PROCARDIA XL PO SCH ×2 (09:26→20:28)
[2020-06-07] MEDS: PROZAC PO SCH (09:26)
[2020-06-07] MEDS: XANAX PO PRN ×2 (09:26→20:27)
[2020-06-07] MEDS: ELIQUIS PO SCH ×2 (09:26→20:30)
--- NOTE | 2020-06-07 09:37 | PCM.PROG ---
Attending Provider: ATTENDING PROVIDER: Dr. NICOLÁS BERTRAND This patient is seen with Jasmine Vaughan, Nurse Practitioner. DATE OF SERVICE: 06/07/20 SUBJECTIVE: This 80 year old AA/BLACK F was hospitalized 06/04/20. The patient is resting comfortably in bed. She is complaining of a headache. She feels short of breath despite improving ABGs. The patient is anxious. REVIEW OF SYSTEMS: CONSTITUTIONAL: Weakness. No night sweats. No fatigue, malaise, lethargy. No fever or chills. HEENT: Eyes: No visual changes. No eye pain. No eye discharge. ENT: No runny nose. No epistaxis. No sinus pain. No odynophagia. No congestion. RESPIRATORY: Cough and shortness of breath. No hemoptysis. CARDIOVASCULAR: No angina symptoms. No CHF symptoms. No atypical chest pain for CAD. No palpitations. No orthopnea.. GASTROINTESTINAL: No abdominal pain. No nausea or vomiting. No diarrhea or const ipation. No hematemesis. No hematochezia. GENITOURINARY: No urgency. No frequency. No dysuria. No hematuria. No obstructive symptoms. No discharge. No pain. No significant abnormal bleeding. MUSCULOSKELETAL: No musculoskeletal pain; no joint swelling. NEUROLOGICAL: Awake, alert, oriented to time, place and person. No headache. No neck pain. No syncope. No seizures. No dizziness. PSYCHIATRIC: Not anxious. No depression. No suicidal thoughts. No homicidal thoughts. SKIN: No rash. No lesions. No wounds. ENDOCRINE: No unexplained weight loss. No weight gain. HEMATOLOGIC/LYMPHATIC: No anemia. No purpura. No petechiae. No prolonged or excessive bleeding. No palpable lymph nodes. PHYSICAL EXAMINATION: GENERAL: The patient is awake, alert and oriented, lying/sitting in bed in no distress. VITAL SIGNS: Temperature 98.2 F, Pulse 88, Respiratory Rate 18, BP 135/85, P ulse Ox 91% HEENT: Head normocephalic, atraumatic. Eyes: Extraocular muscles are intact. Pupils are equal, round and reactive to light and accommodation. Ears: No lesions. Nose appeared normal. Throat: No exudate or erythema. NECK: Supple. No JVD, no carotid bruit. No lymphadenopathy or thyromegaly. LUNGS: Diminished breath sounds. Clear to auscultation. Percussion note normal. Chest symmetrical. HEART: S1, S2, no S3. No murmurs. No cyanosis or clubbing. No ascites. Pulses: Dorsalis pedis and posterior tibial pulses +1 to +2 both sides. ABDOMEN: Soft. Non-tender. Bowel sounds active. No CVA tenderness. No mass felt. EXTREMITIES: No leg edema. Full range of motion of all extremities, equal. NEUROLOGIC: No focal deficit. Cranial nerves II through XII are grossly intact. No headache. No double vision. SKIN: Not dry. Intact. Turgor-normal. LYMPHATIC: No palpable lymph nodes/no lymphedema. MUSCULOSKELETAL: Normal joints with no swelling. Muscle tone is normal. LAB REVIEW: 06/07/20 05:18 06/07/20 05:18 06/07/20 06:57: Puncture Site R rad, Base Excess 6.5 H, O2 Saturation 91.3 L, ABG pH 7.53 H*, ABG pCO2 35.0, ABG pO2 54.0 L*, ABG HCO3 29.2 H, ABG Total CO2 30.3 H, Ja Test Y, Hemoglobin 0.8, Oxyhemoglobin 89.6 L, Carboxyhemoglobin 2.4 H, Total Hemoglobin 9.6 L, O2 Delivery Device Vapotherm, FiO2 % 40.0 06/07/20 05:18: Sodium 137.1, Potassium 4.43, Chloride 101.8, Carbon Dioxide 29.1, Anion Gap 10.63, BUN 23.8 H, Creatinine 1.91 H, Estimated GFR (MDRD) 31.00, BUN/Creatinine Ratio 12.46, Glucose 119.0 H D, Calcium 8.20 L, Total Bilirubin 0.31, AST 28.6, ALT 10.4, Alkaline Phosphatase 75.7, Total Protein 7.40, Albumin 3.20 L, Globulin 4.20, Albumin/Globulin Ratio 0.76 06/07/20 05:18: WBC 11.07 H, RBC 3.32 L, Hgb 9.1 L, Hct 29.6 L, MCV 89.2, MCH 27.4, MCHC 30.7 L, RDW Coeff of Jade 15.6 H, Plt Count 296, Neutrophils % (Manual) 90.0 H, Lymphocytes % (Manual) 3.0 L, Monocytes % (Manual) 7.0, Anisocytosis Not present 06/06/20 10:55: Puncture Site Lr, Base Excess -1.1, O2 Saturation 97.0, ABG pH 7.54 H*, ABG pCO2 25.0 L, ABG pO2 79.0 L, ABG HCO3 21.4, ABG Total CO2 22.2, Ja Test Y, Hemoglobin 0.8, Oxyhemoglobin 93.6 L, Carboxyhemoglobin 4.0 H, Total Hemoglobin 10.2 L, O2 Delivery Device Vapotherm, FiO2 % 40.0 06/06/20 10:30: Sodium 133.5 L, Potassium 5.73 H, Chloride 103.1, Carbon Dioxide 22.3, Anion Gap 13.83, BUN 24.2 H, Creatinine 2.14 H, Estimated GFR (MDRD) 27.00, BUN/Creatinine Ratio 11.30, Glucose 252.5 H D, Calcium 8.28 L, Total Bilirubin 0.34, AST 32.1, ALT 10.4, Alkaline Phosphatase 65.0, Total Protein 7.45, Albumin 3.20 L, Globulin 4.25, Albumin/Globulin Ratio 0.75 ASSESSMENT: Please see below. 1. Acute CHF. 2. Acute COPD exacerbation. 3. Renal azotemia. 4. Chronic anemia. 5. Noncompliance with medications and followup. PLAN: 1. Echocardiogram. 2. Fioricet. 3. Xanax this morning. 4. Wean Vapotherm. 5. D/C Toradol. Plan and coordination of the patient's care discussed in the presence of Tube Room Supervisor and nurse. CONDITION: Stable SCRIBED BY: Nuris BARBOZA scribed while in presence of service performed by Dr. Bertrand/Jasmine Vaughan APRN on 06/07/20 ([id number])
--- NOTE | 2020-06-07 14:49 | PN ---
DATE OF SERVICE: 06/06/2020 SUBJECTIVE: 80 year old black female hospitalized with respiratory failure. The patient's respiratory failure is secondary to CHF and COPD with exacerbation. Also has hypokalemia. The patient's medical condition has improved. She is feeling much better, breathing deeper. Atrial blood gasses on high flow oxygen being her saturation 95% but as soon as the oxygen is removed that patient's oxygen saturation drops to lower 80's. She is about to tolerated the lower oxygen saturation with no obvious distress. REVIEW OF SYSTEMS: CONSTITUTIONAL: No night sweats. No fatigue, malaise, lethargy. No fever or chills. HEENT: Eyes: No visual changes. No eye pain. No eye discharge. ENT: No runny nose. No epistaxis. No sinus pain. No sore throat. No odynophagia. No congestion. RESPIRATORY: No cough, no congestion. No hemoptysis. No shortness of breath. CARDIOVASCULAR: No angina symptoms. No CHF symptoms. No atypical chest pain for CAD. No palpitations. No PND. No orthopnea. GASTROINTESTINAL: No abdominal pain. No nausea or vomiting. No diarrhea or constipation. No hematemesis. No hematochezia. Appetite seems to have improved. GENITOURINARY: No urgency. No frequency. No dysuria. No hematuria. No obstructive symptoms. No discharge. No pain. No significant abnormal bleeding. MUSCULOSKELETAL: No musculoskeletal pain; no joint swelling. NEUROLOGICAL: Chronic headache as usual. No neck pain. No syncope. No seizures. No dizziness. PSYCHIATRIC: Not anxious. No depression. No suicidal thoughts. No homicidal thoughts. SKIN: No rash. No lesions. No wounds. ENDOCRINE: No unexplained weight loss. No weight gain. HEMATOLOGIC/LYMPHATIC: No anemia. No purpura. No petechiae. No prolonged or excessive bleeding. No palpable lymph nodes. PHYSICAL EXAMINATION: GENERAL: The patient is , lying/sitting in bed in no distress. VITAL SIGNS: Temperature 97.7, pulse 73, respiratory rate 16, blood pressure 106/75, pulse ox 88% on 4 liters. HEENT: Head normocephalic, atraumatic. Eyes: Extraocular muscles are intact. Pupils are equal, round and reactive to light and accommodation. Ears: No lesions. Nose appeared normal. Throat: No exudate or erythema. NECK: Supple. No JVD, no carotid bruit. No lymphadenopathy or thyromegaly. LUNGS: Decreased breath sounds but clear to auscultation. Percussion note normal. Chest symmetrical. HEART: S1, S2, no S3. No murmurs. No cyanosis or clubbing. No ascites. Pulses: Dorsalis pedis and posterior tibial pulses +1 to +2 bilaterally. ABDOMEN: Soft. Nontender. Bowel sounds active. No CVA tenderness. No mass felt. EXTREMITIES: No edema. Full range of motion of all extremities, equal. NEUROLOGIC: No focal deficit. Cranial nerves II through XII are grossly intact. No headache. No double vision. SKIN: Not dry. Intact. Turgor - normal. LYMPHATIC: No palpable lymph nodes/no lymphedema. MUSCULOSKELETAL: Normal joints with no swelling. Muscle tone is normal. LABS: Hgb 9.9, hct 32, WBC 9,000 normal differential, creatinine 2, BUN 23, potassium 6.94. ASSESSMENT: 1. Respiratory failure seems to be under control with high flow oxygen 2. CHF seems to be under control with no orthopnea, no PND. 3. COPD exacerbation seems to be getting somewhat better with practically no cough 4. Hypokalemia has resolved and the patient is into hyperkalemia from potassium supplements that were given yesterday 5. Chronic kidney disease 6. Chronic anemia PLAN: 1. The patient was given units of regular insulin with 50cc 50% glucose 2. 25 grams of Kayexalate given repeated three hours later. 3. Continue all the Potassium supplements 4. Continue Sodium bicarb 5. Discontinue if the patient is on Aldactone 6. The patient's potassium was repeated again around 12:00 which showed the Potassium had dropped to 5.7 and was within the range 7. We will give extra dose of Kayexalate at 6:00pm today CONDITION: Stable TIME SPENT: More than 30 minutes. Plan and coordination of the patient's care discussed in the presence of nurse. MANAN
[2020-06-07] MEDS ORDERED: ZOFRAN 4 MG/2 ML IVP ONE (15:25)
[2020-06-07] MEDS: TYLENOL PO PRN (20:26)
[2020-06-07] MEDS: TORADOL IVP PRN (20:27)
[2020-06-08] MEDS: TORADOL IVP PRN ×2 (02:18→19:42)
[2020-06-08] MEDS: TYLENOL PO PRN ×2 (03:15→08:47)
[2020-06-08] MEDS ORDERED: VISTARIL INJ IM ONE (03:20)
[2020-06-08] MEDS: PEPCID PO SCH ×2 (05:57→17:40)
[2020-06-08] MEDS: LASIX TAB PO SCH ×2 (05:57→17:40)
[2020-06-08] MEDS: DUONEB NEB SCH ×4 (06:00→23:15)
[2020-06-08 06:35] LABS: ABG PH 7.53 (7.35-7.45); BEecf 7.4 (-2.0-3.0); HCO3 30.1 (21-28)
[2020-06-08 06:36] LABS: ABG O2 HGB 86.1 % (95-100); MetHb 0.9 (0-1.5); TCO2 31.2 (19-24); sO2 88.8 % (94-98); tHb 9.6 g/dl (11.7-17.4)
[2020-06-08] MEDS: SYNTHROID PO SCH (07:04)
[2020-06-08 07:15] LABS: EOSINOPHILS % (AUTO) 0.3 % (0.0-7.0); HEMOGLOBIN 9.3 g/dl (12.0-16.0); IMMATURE GRANULOCYTE % (AUTO) 0.5 % (0.0-5.0); LYMPHOCYTES # (AUTO) 1.8 K/uL (0.60-3.4); LYMPHOCYTES % (AUTO) 20.3 (10.0-50.0); MEAN CORPUSCULAR HEMOGLOBIN 27.2 pg (27.0-31.0); MEAN CORPUSCULAR VOLUME 87.7 fl (81.0-99.0); MONOCYTES # (AUTO) 1.1 K/uL (0.4-2.0); MONOCYTES % (AUTO) 12.4 (0-10); NEUTROPHILS # (AUTO) 5.8 K/ul (2.0-6.9); NEUTROPHILS % (AUTO) 66.5 % (42.2-75.2); PLATELET COUNT 274 10^3/uL (140-440); RDW COEFFICIENT OF VARIATION 15.1 % (11.6-14.8); RED BLOOD COUNT 3.42 10^6/ul (4.20-5.40); WHITE BLOOD COUNT 8.64 K/ul (4.6-10.2)
[2020-06-08 07:32] LABS: ALANINE AMINOTRANSFERASE 11.7 U/L (0-35); ALBUMIN 3.32 g/dL (3.5-5.0); ALKALINE PHOSPHATASE 84.4 U/L (53-141); ASPARTATE AMINO TRANSFERASE 30.2 U/L (14-36); BILIRUBIN,TOTAL 0.36 mg/dL (0.2-1.3); BLOOD UREA NITROGEN 22.4 mg/dL (7-17); CALCIUM 8.13 mg/dL (8.4-10.2); CARBON DIOXIDE 30.5 mmol/L (22-30.0); CHLORIDE 98.6 mmol/L (98-107); CREATININE 1.63 mg/dL (0.60-1.30); POTASSIUM 4.17 mmol/L (3.5-5.1); SODIUM 134.6 mmol/L (134.5-145); TOTAL PROTEIN 7.55 g/dL (6.3-8.2)
[2020-06-08] MEDS: PROZAC PO SCH (08:47)
[2020-06-08] MEDS: PROCARDIA XL PO SCH ×2 (08:47→21:14)
[2020-06-08] MEDS: ELIQUIS PO SCH ×2 (08:48→21:14)
[2020-06-08] MEDS: CRESTOR PO SCH (08:48)
[2020-06-08] MEDS: DECADRON IM SCH (08:48)
[2020-06-08] MEDS: COREG PO SCH ×2 (08:48→17:40)
[2020-06-08] MEDS: SODIUM BICARBONATE PO SCH ×3 (08:48→21:14)
--- NOTE | 2020-06-08 09:04 | PN ---
DATE OF SERVICE: 06/04/2020 ADMIT NOTE SUBJECTIVE: 80 year old black female was brought to the emergency room with complaint of being short of breath. The patient was in respiratory failure. On further investigation in the ER the patient was noted to be in mild congestive heart failure with severe hypertension and hypokalemia. The patient has been known to have congestive heart failure with severe chronic lung disease with history of heavy smoking, severe hypertension and the patient is noncompliant of her medications, lifestyle. Periodically she smokes. REVIEW OF SYSTEMS: CONSTITUTIONAL: No night sweats. No fatigue, malaise, lethargy. No fever or chills. HEENT: Eyes: No visual changes. No eye pain. No eye discharge. ENT: No runny nose. No epistaxis. No sinus pain. No sore throat. No odynophagia. No congestion. RESPIRATORY: No cough, no congestion. No hemoptysis. No shortness of breath. CARDIOVASCULAR: No angina symptoms. No CHF symptoms. No atypical chest pain for CAD. No palpitations. No PND. No orthopnea. GASTROINTESTINAL: No abdominal pain. No nausea or vomiting. No diarrhea or constipation. No hematemesis. No hematochezia. GENITOURINARY: No urgency. No frequency. No dysuria. No hematuria. No obstructive symptoms. No discharge. No pain. No significant abnormal bleeding. MUSCULOSKELETAL: No musculoskeletal pain; no joint swelling. NEUROLOGICAL: No headache. No neck pain. No syncope. No seizures. No dizziness. PSYCHIATRIC: Not anxious. No depression. No suicidal thoughts. No homicidal thoughts. SKIN: No rash. No lesions. No wounds. ENDOCRINE: No unexplained weight loss. No weight gain. HEMATOLOGIC/LYMPHATIC: No anemia. No purpura. No petechiae. No prolonged or excessive bleeding. No palpable lymph nodes. PHYSICAL EXAMINATION: GENERAL: The patient was in maybe mild distress. VITAL SIGNS: The patient had oxygen saturation of 90% on 4 liters. Arterial blood gasses were abnormal with pO2 of 47 with pCO2 of 46. Normal pH with saturation of 95%. HEENT: Head normocephalic, atraumatic. Eyes: Extraocular muscles are intact. Pupils are equal, round and reactive to light and accommodation. Ears: No lesions. Nose appeared normal. Throat: No exudate or erythema. NECK: Supple. JVP 2cm, no carotid bruit. No lymphadenopathy or thyromegaly. LUNGS:Decreased breath sounds with crepitations at bases. Clear to auscultation. Percussion note normal. Chest symmetrical. HEART: S1, S2, questionable S3. heart beats noted. No murmurs. No cyanosis or clubbing. No ascites. Pulses: Dorsalis pedis and posterior tibial pulses +1 to +2 bilaterally. ABDOMEN: Soft. Nontender. Bowel sounds active. No CVA tenderness. No mass felt. EXTREMITIES: Trace edema. Full range of motion of all extremities, equal. NEUROLOGIC: No focal deficit. Cranial nerves II through XII are grossly intact. No headache. No double vision. SKIN: Not dry. Intact. Turgor - normal. LYMPHATIC: No palpable lymph nodes/no lymphedema. MUSCULOSKELETAL: Normal joints with no swelling. Muscle tone is normal. ASSESSMENT: 1. Acute respiratory failure secondary to COPD exacerbation 2. Congestive heart failure with severe hypertension PLAN: 1. Admit the patient 2. IV Lasix 3. Resume all the medications 4. Blood pressure was brought under control by the time she left emergency room 5. Steroids 6. NEBS treatment 7. Education carried out about CHF. The medications explained to the patient and the patient will be hospitalized with routine telemetry orders. TIME SPENT: More than 30 minutes. Plan and coordination of the patient's care discussed in the presence of nurse. ADDENDUM: The patient had severe hypokalemia with Potassium of 2.6. She was given 40 MEQ Potassium along with 80 of PO Potassium on the day of admission potassium was 3.2 by the time the patient was took to the floor. MANAN
--- NOTE | 2020-06-08 09:08 | PN ---
DATE OF SERVICE: 06/05/2020 SUBJECTIVE: 80 year old black female hospitalized with acute respiratory failure, CHF, hypokalemia and COPD exacerbation. The patient is feeling a lot better. She is on high flow oxygen. Saturation is 94%. She is feeling better. Appetite has improved. Less short of breath. The patient again was explained about all her medical conditions. REVIEW OF SYSTEMS: CONSTITUTIONAL: No night sweats. No fatigue, malaise, lethargy. No fever or chills. HEENT: Eyes: No visual changes. No eye pain. No eye discharge. ENT: No runny nose. No epistaxis. No sinus pain. No sore throat. No odynophagia. No congestion. RESPIRATORY: No cough, no congestion. No hemoptysis. No shortness of breath. CARDIOVASCULAR: No angina symptoms. No CHF symptoms. No atypical chest pain for CAD. No palpitations. No PND. No orthopnea. GASTROINTESTINAL: No abdominal pain. No nausea or vomiting. No diarrhea or constipation. No hematemesis. No hematochezia. GENITOURINARY: No urgency. No frequency. No dysuria. No hematuria. No obstructive symptoms. No discharge. No pain. No significant abnormal bleeding. MUSCULOSKELETAL: No musculoskeletal pain; no joint swelling. NEUROLOGICAL: No headache. No neck pain. No syncope. No seizures. No dizziness. PSYCHIATRIC: Not anxious. No depression. No suicidal thoughts. No homicidal thoughts. SKIN: No rash. No lesions. No wounds. ENDOCRINE: No unexplained weight loss. No weight gain. HEMATOLOGIC/LYMPHATIC: No anemia. No purpura. No petechiae. No prolonged or excessive bleeding. No palpable lymph nodes. PHYSICAL EXAMINATION: VITAL SIGNS: Temperature 98.2, pulse 94, respiratory rate 18, blood pressure 136/84 and pulse ox 100% on Vapotherm 40% high flow. HEENT: Head normocephalic, atraumatic. Eyes: Extraocular muscles are intact. Pupils are equal, round and reactive to light and accommodation. Ears: No lesions. Nose appeared normal. Throat: No exudate or erythema. NECK: Supple. No JVD, no carotid bruit. No lymphadenopathy or thyromegaly. LUNGS: Decreased breath sounds. Better air entry today. Clear to auscultation. Percussion note normal. Chest symmetrical. HEART: S1, S2, no S3. No murmurs. No cyanosis or clubbing. No ascites. Pulses: Dorsalis pedis and posterior tibial pulses +1 to +2 bilaterally. ABDOMEN: Soft. Nontender. Bowel sounds active. No CVA tenderness. No mass felt. EXTREMITIES: No edema. Full range of motion of all extremities, equal. NEUROLOGIC: No focal deficit. Cranial nerves II through XII are grossly intact. No headache. No double vision. SKIN: Not dry. Intact. Turgor - normal. LYMPHATIC: No palpable lymph nodes/no lymphedema. MUSCULOSKELETAL: Normal joints with no swelling. Muscle tone is normal. LABS: Hgb 9.9, hct 33, WBC 5,000 normal differential, creatinine 1.5, BUN 10, potassium 3.9. ASSESSMENT: 1. Respiratory failure treated with high flow oxygen, IV Lasix, steroids and NEBS. 2. Hypokalemia seems to have resolved with potassium of 3.9. CONDITION: Improving. TIME SPENT: More than 30 minutes. Plan and coordination of the patient's care discussed in the presence of nurse. MANAN
--- NOTE | 2020-06-08 09:08 | PCM.PROG ---
Attending Provider: ATTENDING PROVIDER: Dr. NICOLÁS BERTRAND This patient is seen with Jasmine Vaughan, Nurse Practitioner. DATE OF SERVICE: 06/08/20 SUBJECTIVE: This 80 year old AA/BLACK F was hospitalized 06/04/20. Lying in bed resting comfortably. The patient is off vapotherm. P02 of 49 this morning on 4L i ncreased to 4.5. Kidney function improved. REVIEW OF SYSTEMS: CONSTITUTIONAL: Weakness. No night sweats. No fatigue, malaise, lethargy. No fever or chills. HEENT: Eyes: No visual changes. No eye pain. No eye discharge. ENT: No runny nose. No epistaxis. No sinus pain. No odynophagia. No congestion. RESPIRATORY: Shortness of breath. No cough, no congestion. No hemoptysis. CARDIOVASCULAR: No angina symptoms. No CHF symptoms. No atypical chest pain for CAD. No palpitations. No orthopnea.. GASTROINTESTINAL: No abdominal pain. No nausea or vomiting. No diarrhea or con stipation. No hematemesis. No hematochezia. GENITOURINARY: No urgency. No frequency. No dysuria. No hematuria. No obstructive symptoms. No discharge. No pain. No significant abnormal bleeding. MUSCULOSKELETAL: No musculoskeletal pain; no joint swelling. NEUROLOGICAL: Awake, alert, oriented to time, place and person. No headache. No neck pain. No syncope. No seizures. No dizziness. PSYCHIATRIC: Not anxious. No depression. No suicidal thoughts. No homicidal thoughts. SKIN: No rash. No lesions. No wounds. ENDOCRINE: No unexplained weight loss. No weight gain. HEMATOLOGIC/LYMPHATIC: No anemia. No purpura. No petechiae. No prolonged or excessive bleeding. No palpable lymph nodes. PHYSICAL EXAMINATION: GENERAL: The patient is awake, alert and oriented, lying/sitting in bed in no distress. VITAL SIGNS: Temperature 97.2 F, Pulse 88, Respiratory Rate 20, BP 122/72, Pulse Ox 91% HEENT: Head normocephalic, atraumatic. Eyes: Extraocular muscles are intact. Pupils are equal, round and reactive to light and accommodation. Ears: No lesions. Nose appeared normal. Throat: No exudate or erythema. NECK: Supple. No JVD, no carotid bruit. No lymphadenopathy or thyromegaly. LUNGS: Diminished breath sounds. Clear to auscultation. Percussion note normal. Chest symmetrical. HEART: S1, S2, no S3. No murmurs. No cyanosis or clubbing. No ascites. Pulses: Dorsalis pedis and posterior tibial pulses +1 to +2 both sides. ABDOMEN: Soft. Non-tender. Bowel sounds active. No CVA tenderness. No mass felt. EXTREMITIES: No edema. Full range of motion of all extremities, equal. NEUROLOGIC: No focal deficit. Cranial nerves II through XII are grossly intact. No headache. No double vision. SKIN: Not dry. Intact. Turgor-normal. LYMPHATIC: No palpable lymph nodes/no lymphedema. MUSCULOSKELETAL: Normal joints with no swelling. Muscle tone is normal. LAB REVIEW: 06/08/20 07:08 06/08/20 07:08 06/08/20 07:08: Sodium 134.6, Potassium 4.17, Chloride 98.6, Carbon Dioxide 30.5 H, Anion Gap 9.67, BUN 22.4 H, Creatinine 1.63 H, Estimated GFR (MDRD) 37.00, BUN/Creatinine Ratio 13.74, Glucose 111.0 H, Calcium 8.13 L, Total Bilirubin 0.36, AST 30.2, ALT 11.7, Alkaline Phosphatase 84.4, Total Protein 7.55, Albumin 3.32 L, Globulin 4.23, Albumin/Globulin Ratio 0.78 06/08/20 07:08: WBC 8.64, RBC 3.42 L, Hgb 9.3 L, Hct 30.0 L, MCV 87.7, MCH 27.2, MCHC 31.0 L, RDW Coeff of Jade 15.1 H, Plt Count 274, Immature Gran % (Auto) 0.5, Neut % (Auto) 66.5, Lymph % (Auto) 20.3, [place] % (Auto) 12.4 H, Eos % (Auto) 0.3, Baso % (Auto) 0.0, Neut # (Auto) 5.8, Lymph # (Auto) 1.8, [place] # (Auto) 1.1, Eos # (Auto) 0.0, Baso # (Auto) 0.0, Immature Gran # (Auto) 0.0 06/08/20 06:00: Puncture Site Lbrach, Base Excess 7.4 H, O2 Saturation 88.8 L, ABG pH 7.53 H*, ABG pCO2 36.0, ABG pO2 49.0 L*, ABG HCO3 30.1 H, ABG Total CO2 31.2 H, Ja Test +, Hemoglobin 0.9, Oxyhemoglobin 86.1 L, Carboxyhemoglobin 3.0 H, Total Hemoglobin 9.6 L, O2 Delivery Device Nc, Oxygen Liter Flow 4.00, FiO2 % 36.0 ASSESSMENT: Please see below. 1. Acute CHF 2. Chronic kidney disease, Stage 3 3. Chronic anemia 4. Acute COPD exacerbation 5. Noncompliance PLAN: 1. Repeat chest x-ray. 2. Repeat NT pro-BNP. Plan and coordination of the patient's care discussed in the presence of Cupola Liner and nurse. CONDITION: Stable SCRIBED BY: GUNNAR MCKEON [employer] Paralegal scribed while in presence of service performed by Dr. Bertrand/Jasmine Vaughan APRN on 06/08/20 ([id number])
[2020-06-08] MEDS: XANAX PO PRN (09:58)
--- NOTE | 2020-06-08 15:30 | DI ---
EXAM: Chest two views HISTORY: Shortness of air COMPARISON: 06/04/2020 TECHNIQUE: Two views of the chest were performed FINDINGS: Heart is enlarged. Mediastinal contour unchanged, noting atherosclerosis. No visible pne umothorax. No large pleural effusion. Bilateral interstitial and alveolar opacity, similar to mildl y improved. IMPRESSION: Cardiomegaly. Bilateral interstitial and alveolar opacity, similar to mildly improved, may represent edema and/or pneumonia. There is likely a component of underlying fibrosis.
[2020-06-09] MEDS: DUONEB NEB SCH ×4 (04:50→23:10)
[2020-06-09 04:55] LABS: BASOPHILS % (AUTO) 0.1 % (0.0-3.0); EOSINOPHILS # (AUTO) 0.1 K/ul (0.0-0.7); HEMATOCRIT 32.6 % (37.0-47.0); IMMATURE GRANULOCYTE # (AUTO) 0.1 (0.0-1.0); IMMATURE GRANULOCYTE % (AUTO) 0.5 % (0.0-5.0); LYMPHOCYTES # (AUTO) 2.4 K/uL (0.60-3.4); LYMPHOCYTES % (AUTO) 25.3 (10.0-50.0); MEAN CORPUSCULAR HEMOGLOBIN 26.7 pg (27.0-31.0); MEAN CORPUSCULAR HGB CONC 30.7 (31.8-35.4); MEAN CORPUSCULAR VOLUME 87.2 fl (81.0-99.0); MONOCYTES # (AUTO) 1.2 K/uL (0.4-2.0); NEUTROPHILS # (AUTO) 5.6 K/ul (2.0-6.9); NEUTROPHILS % (AUTO) 60.1 % (42.2-75.2); PLATELET COUNT 346 10^3/uL (140-440); RDW COEFFICIENT OF VARIATION 15.1 % (11.6-14.8); RED BLOOD COUNT 3.74 10^6/ul (4.20-5.40); WHITE BLOOD COUNT 9.36 K/ul (4.6-10.2)
[2020-06-09 05:17] LABS: ALANINE AMINOTRANSFERASE 11.9 U/L (0-35); ALBUMIN 3.47 g/dL (3.5-5.0); ALKALINE PHOSPHATASE 80.9 U/L (53-141); ASPARTATE AMINO TRANSFERASE 24.4 U/L (14-36); BILIRUBIN,TOTAL 0.35 mg/dL (0.2-1.3); BLOOD UREA NITROGEN 22.1 mg/dL (7-17); CALCIUM 8.29 mg/dL (8.4-10.2); CARBON DIOXIDE 30.2 mmol/L (22-30.0); CHLORIDE 102.7 mmol/L (98-107); CREATININE 1.43 mg/dL (0.60-1.30); GLUCOSE 99.3 mg/dL (74-106); POTASSIUM 4.08 mmol/L (3.5-5.1); SODIUM 138.9 mmol/L (134.5-145); TOTAL PROTEIN 7.73 g/dL (6.3-8.2)
[2020-06-09] MEDS: PEPCID PO SCH ×2 (06:14→16:38)
[2020-06-09] MEDS: LASIX TAB PO SCH ×2 (06:14→16:38)
[2020-06-09] MEDS: SYNTHROID PO SCH (06:24)
[2020-06-09] MEDS: TORADOL IVP PRN ×3 (06:52→20:47)
[2020-06-09] MEDS: SODIUM BICARBONATE PO SCH ×3 (08:45→20:53)
[2020-06-09] MEDS: PROZAC PO SCH (08:46)
[2020-06-09] MEDS: CRESTOR PO SCH (08:46)
[2020-06-09] MEDS: COREG PO SCH ×2 (08:46→16:38)
[2020-06-09] MEDS: PROCARDIA XL PO SCH ×2 (08:46→20:53)
[2020-06-09] MEDS: DECADRON IM SCH (08:47)
[2020-06-09] MEDS: ELIQUIS PO SCH ×2 (08:48→20:53)
--- NOTE | 2020-06-09 08:54 | HP ---
DATE OF SERVICE: 06/04/20 HISTORY OF PRESENT ILLNESS: 80-year-old -[place] female who presents to the emergency room complaining of shortness of breath, has a long history of COPD. PAST MEDICAL/SURGICAL HISTORY: COPD Oxygen dependent Hypothyroidism Cervical radiculopathy History of falls Uncontrolled hypertension Chronic leg edema Ataxia Urinary urgency Anxiety/depression History of noncompliance with diet, lifestyle, medications and follow up Pulmonary fibrosis Former smoker Chronic bronchitis Right knee osteoarthritis CHF Hypertension Dyslipidemia Coronary artery disease, has seen Dr. Canales Chronic kidney disease, Stage 3 to 4 Left total knee replacement Tonsillectomy Appendectomy REVIEW OF SYSTEMS: CONSTITUTIONAL: Weakness. No night sweats. No fatigue, malaise, lethargy. No fever or chills. HEENT: Eyes: No visual changes. No eye pain. No eye discharge. ENT: No runny nose. No epistaxis. No sinus pain. No sore throat. No odynophagia. No ear pain. No congestion. RESPIRATORY: Cough, shortness of breath. No hemoptysis. No shortness of breath. CARDIOVASCULAR: No angina symptoms. No CHF symptoms. No atypical chest pain for CAD. No palpitations. No PND. No orthopnea. GASTROINTESTINAL: No abdominal pain. No nausea or vomiting. No diarrhea or constipation. No hematemesis. No hematochezia. GENITOURINARY: No urgency. No frequency. No dysuria. No hematuria. No obstructive symptoms. No discharge. No pain. No significant abnormal bleeding. MUSCULOSKELETAL: Leg edema. No musculoskeletal pain. No joint swelling. No arthritis. NEUROLOGICAL: No headache. No neck pain. No syncope. No seizures. No dizziness. PSYCHIATRIC: Not anxious. No depression. No suicidal thoughts. No homicidal thoughts. SKIN: No rash. No lesions. No wounds. ENDOCRINE: No unexplained weight loss. No weight gain. HEMATOLOGIC/LYMPHATIC: No anemia. No purpura. No petechiae. No prolonged or excessive bleeding. No palpable lymph nodes. PERSONAL/FAMILY/SOCIAL HISTORY: She lives at home with her . Again, she is a former smoker. It is unclear whether she currently smokes or not given her unreliable nature. No alcohol. The patient's did report that she has consumed some marijuana ingestible products lately. MEDICATIONS: Levothyroxine 50 mcg p.o. daily Apixaban (Eliquis) 5 mg p.o. b.i.d. Rosuvastatin (Crestor) 5 mg p.o. daily Fluoxetine 20 mg p.o. b.i.d. Famotidine 20 mg p.o. b.i.d. Sodium Bicarbonate 650 mg p.o. t.i.d. Nifedipine (Procardia XL) 60 mg p.o. daily Clonidine 0.1 mg/24 hr patch weekly; one patch transdermal weekly Carvedilol 6.25 mg p.o. b.i.d. Furosemide 20 mg p.o. b.i.d. Alprazolam (Xanax) 0.25 mg p.o. b.i.d. p.r.n. ALLERGIES: NKDA PHYSICAL EXAMINATION: HEENT: Head normocephalic, atraumatic. Eyes: Extraocular muscles are intact. Pupils are equal, round and reactive to light and accommodation. Ears: No lesions. Nose appeared normal. Throat: No exudate or erythema. NECK: Supple. No JVD, no carotid bruit. No lymphadenopathy or thyromegaly. LUNGS: Diminished breath sounds, bilateral inspiratory and expiratory wheezing. Clear to auscultation. Percussion note normal. Chest symmetrical. HEART: S1, S2, no S3. No murmur. No cyanosis or clubbing. No ascites. Pulses: Dorsalis pedis and posterior tibial pulses +1 to +2 bilaterally. ABDOMEN: Soft. Nontender. Bowel sounds active. No CVA tenderness. No mass felt. EXTREMITIES: +2 bilateral leg edema. Full range of motion of all extremities, equal. NEUROLOGIC: No focal deficit. Cranial nerves II through XII are grossly intact. No headache, no double vision or headache. SKIN: Not dry. Intact. Turgor - normal. LYMPHATIC: No palpable lymph nodes/no lymphedema. MUSCULOSKELETAL: Normal joints with no swelling. Muscle tone is normal. LABS: White count 7.37, hemoglobin 9.9, hematocrit 32.2, platelets 368. Sodium 137, potassium 2.6, BUN 10, creatinine 1.3, glucose 145. Chest x-ray shows pulmonary edema, vascular congestion. ASSESSMENT: 1. Acute CHF. 2. Chronic leg edema. 3. Acute hypokalemia. 4. Chronic kidney disease, Stage 3. 5. COPD. 6. Pulmonary fibrosis. 7. Chronic respiratory failure. PLAN: 1. We will admit. 2. Routine telemetry orders. 3. CBC, CMP daily. 4. Continue home medications. 5. Potassium 20 mEq q.i.d. p.o. 6. Lasix 40 mg IV now and then once again tomorrow. 7. Daily weights. 8. Monitor I & O. 9. ABGs on 4L which she is on at home. 10. Regular diet. 11. Will follow closely. CONDITION: Guarded TIME SPENT: More than 70 minutes. MTDD
[2020-06-09] MEDS ORDERED: CATAPRES-TTS 1 TD SCH (09:00)
[2020-06-09] MEDS: TYLENOL PO PRN (17:39)
[2020-06-09] MEDS: XANAX PO PRN (17:39)
[2020-06-10] MEDS: DUONEB NEB SCH ×4 (04:45→23:24)
[2020-06-10] MEDS: PEPCID PO SCH ×2 (06:04→16:33)
[2020-06-10] MEDS: LASIX TAB PO SCH ×2 (06:05→16:34)
[2020-06-10] MEDS: SYNTHROID PO SCH (06:05)
[2020-06-10 07:16] LABS: EOSINOPHILS # (AUTO) 0.3 K/ul (0.0-0.7); EOSINOPHILS % (AUTO) 2.2 % (0.0-7.0); HEMATOCRIT 32.6 % (37.0-47.0); HEMOGLOBIN 10.2 g/dl (12.0-16.0); IMMATURE GRANULOCYTE # (AUTO) 0.1 (0.0-1.0); IMMATURE GRANULOCYTE % (AUTO) 0.4 % (0.0-5.0); LYMPHOCYTES # (AUTO) 3.2 K/uL (0.60-3.4); LYMPHOCYTES % (AUTO) 28.2 (10.0-50.0); MEAN CORPUSCULAR HEMOGLOBIN 27.1 pg (27.0-31.0); MEAN CORPUSCULAR HGB CONC 31.3 (31.8-35.4); MEAN CORPUSCULAR VOLUME 86.7 fl (81.0-99.0); MONOCYTES # (AUTO) 1.5 K/uL (0.4-2.0); NEUTROPHILS # (AUTO) 6.3 K/ul (2.0-6.9); NEUTROPHILS % (AUTO) 56.2 % (42.2-75.2); PLATELET COUNT 341 10^3/uL (140-440); RDW COEFFICIENT OF VARIATION 15.2 % (11.6-14.8); RED BLOOD COUNT 3.76 10^6/ul (4.20-5.40); WHITE BLOOD COUNT 11.18 K/ul (4.6-10.2)
[2020-06-10 07:29] LABS: ALANINE AMINOTRANSFERASE 14.3 U/L (0-35); ALBUMIN 3.52 g/dL (3.5-5.0); ASPARTATE AMINO TRANSFERASE 35.4 U/L (14-36); BILIRUBIN,TOTAL 0.38 mg/dL (0.2-1.3); BLOOD UREA NITROGEN 19.4 mg/dL (7-17); CALCIUM 8.46 mg/dL (8.4-10.2); CHLORIDE 101.2 mmol/L (98-107); CREATININE 1.19 mg/dL (0.60-1.30); POTASSIUM 3.93 mmol/L (3.5-5.1); SODIUM 136.8 mmol/L (134.5-145); TOTAL PROTEIN 7.72 g/dL (6.3-8.2)
[2020-06-10] MEDS ORDERED: PREDNISONE PO SCH (09:00)
[2020-06-10] MEDS: PROZAC PO SCH (09:19)
[2020-06-10] MEDS: PROCARDIA XL PO SCH ×2 (09:20→20:57)
[2020-06-10] MEDS: SODIUM BICARBONATE PO SCH ×3 (09:20→20:57)
[2020-06-10] MEDS: CRESTOR PO SCH (09:20)
[2020-06-10] MEDS: COREG PO SCH ×2 (09:20→16:33)
[2020-06-10] MEDS: ELIQUIS PO SCH ×2 (09:21→20:57)
--- NOTE | 2020-06-10 10:30 | PCM.PROG ---
Attending Provider: ATTENDING PROVIDER: Dr. NICOLÁS BERTRAND This patient is seen with Jasmine Vaughan, Nurse Practitioner. DATE OF SERVICE: 06/10/20 SUBJECTIVE: This 80 year old AA/BLACK F was hospitalized 06/04/20. The patient is lying in bed resting comfortably. Shortness of breath has improved. She has been eating well. The patient is lying in bed and doesn't want to get up much. Discharge is planned for tomorrow. REVIEW OF SYSTEMS: CONSTITUTIONAL: Weakness. No night sweats. No fatigue, malaise, lethargy. No fever or chills. HEENT: Eyes: No visual changes. No eye pain. No eye discharge. ENT: No runny nose. No epistaxis. No sinus pain. No odynophagia. No congestion. RESPIRATORY: Cough. No hemoptysis. No shortness of breath. CARDIOVASCULAR: No angina symptoms. No CHF symptoms. No atypical chest pain for CAD. No palpitations. No orthopnea.. GASTROINTESTINAL: No abdominal pain. No nausea or vomiting. No diarrhea or constipation. No hematemesis. No hematochezia. GENITOURINARY: No urgency. No frequency. No dysuria. No hematuria. No obstructive symptoms. No discharge. No pain. No significant abnormal bleeding. MUSCULOSKELETAL: No musculoskeletal pain; no joint swelling. NEUROLOGICAL: Awake, alert, oriented to time, place and person. No headache. No neck pain. No syncope. No seizures. No dizziness. PSYCHIATRIC: Not anxious. No depression. No suicidal thoughts. No homicidal thoughts. SKIN: No rash. No lesions. No wounds. ENDOCRINE: No unexplained weight loss. No weight gain. HEMATOLOGIC/LYMPHATIC: No anemia. No purpura. No petechiae. No prolonged or excessive bleeding. No palpable lymph nodes. PHYSICAL EXAMINATION: GENERAL: The patient is awake, alert and oriented, lying/sitting in bed in no distress. VITAL SIGNS: Temperature 98.3 F, Pulse 68, Respiratory Rate 16, BP 143/76, Pulse Ox 99% HEENT: Head normocephalic, atraumatic. Eyes: Extraocular muscles are intact. Pupils are equal, round and reactive to light and accommodation. Ears: No lesions. Nose appeared normal. Throat: No exudate or erythema. NECK: Supple. No JVD, no carotid bruit. No lymphadenopathy or thyromegaly. LUNGS: Diminished breath sounds. Clear to auscultation. Percussion note normal. Chest symmetrical. HEART: S1, S2, no S3. No murmurs. No cyanosis or clubbing. No ascites. Pulses: Dorsalis pedis and posterior tibial pulses +1 to +2 both sides. ABDOMEN: Soft. Non-tender. Bowel sounds active. No CVA tenderness. No mass felt. EXTREMITIES: No edema. Full range of motion of all extremities, equal. NEUROLOGIC: No focal deficit. Cranial nerves II through XII are grossly intact. No headache. No double vision. SKIN: Not dry. Intact. Turgor-normal. LYMPHATIC: No palpable lymph nodes/no lymphedema. MUSCULOSKELETAL: Normal joints with no swelling. Muscle tone is normal. LAB REVIEW: 06/10/20 07:00 06/10/20 07:00 06/10/20 07:00: Sodium 136.8, Potassium 3.93, Chloride 101.2, Carbon Dioxide 29.0, Anion Gap 10.53, BUN 19.4 H, Creatinine 1.19, Estimated GFR (MDRD) 53.00, BUN/Creatinine Ratio 16.30, Glucose 97.0, Calcium 8.46, Total Bilirubin 0.38, AST 35.4, ALT 14.3, Alkaline Phosphatase 82.0, Total Protein 7.72, Albumin 3.52, Globulin 4.20, Albumin/Globulin Ratio 0.83 06/10/20 07:00: WBC 11.18 H, RBC 3.76 L, Hgb 10.2 L, Hct 32.6 L, MCV 86.7, MCH 27.1, MCHC 31.3 L, RDW Coeff of Jade 15.2 H, Plt Count 341, Immature Gran % (Auto) 0.4, Neut % (Auto) 56.2, Lymph % (Auto) 28.2, [place] % (Auto) 13.0 H, Eos % (Auto) 2.2, Baso % (Auto) 0.0, Neut # (Auto) 6.3, Lymph # (Auto) 3.2, [place] # (Auto) 1.5, Eos # (Auto) 0.3, Baso # (Auto) 0.0, Immature Gran # (Auto) 0.1 ASSESSMENT: Please see below. 1. CHF improved. 2. Hypokalemia, resolved. 3. Chronic respiratory failure. 4. COPD exacerbation. 5. Noncompliance with medications, lifestyle and followup. PLAN: 1. D/C Decadron. 2. Encourage her to get up. 3. Prednisone 10 mg daily. Plan and coordination of the patient's care discussed in the presence of Coffee Bar Attendant and nurse. CONDITION: Stable SCRIBED BY: GUNNAR MCKEON Language [employer] scribed while in presence of service performed by Dr. Bertrand/Jasmine Vaughan APRN on 06/10/20 ([id number])
--- NOTE | 2020-06-10 10:42 | PN ---
DATE OF SERVICE: 06/07/2020 SUBJECTIVE: The patient was seen and examined with the Nurse Practitioner. The patient's condition is stabilizing. She is going to be taken off high flow oxygen, 4 liters. Tried to keep oxygen saturation 88-92%. She is not O2 retainer. There is no evidence of CHF. She is waiting for echo to be done. CONDITION: Stable The patient is DNI. TIME SPENT: More than 30 minutes. Plan and coordination of the patient's care discussed in the presence of nurse. MANAN
--- NOTE | 2020-06-10 13:00 | PN ---
DATE OF SERVICE: 06/08/2020 SUBJECTIVE: The patient was seen and examined with the Nurse Practitioner. The patient's condition is stable. Cardiovascular and respiratory status is stable. Chest x- ray continued to show CHF as usual. Does not have any orthopnea. She's not in distress. Oxygen saturation is 90% with 4-5 liters. The patient's problem is at home. She is not taking care of herself. Supplementing marijuana given by her daughter according to the . Taking her medication as prescribed and still sneaking around and smoking. PROGNOSIS: Poor The patient is DNI. TIME SPENT: More than 30 minutes. Plan and coordination of the patient's care discussed in the presence of nurse. MANAN
[2020-06-10] MEDS: TORADOL IVP PRN ×2 (13:42→21:42)
[2020-06-11] MEDS: DUONEB NEB SCH ×2 (04:50→11:08)
[2020-06-11] MEDS: SYNTHROID PO SCH (05:35)
[2020-06-11] MEDS: PEPCID PO SCH (05:35)
[2020-06-11] MEDS: LASIX TAB PO SCH (05:35)
[2020-06-11 05:38] VITALS: BP 116/71; TEMP 98.1
[2020-06-11 05:41] LABS: BASOPHILS % (AUTO) 0.2 % (0.0-3.0); EOSINOPHILS # (AUTO) 0.7 K/ul (0.0-0.7); EOSINOPHILS % (AUTO) 5.2 % (0.0-7.0); HEMATOCRIT 34.4 % (37.0-47.0); HEMOGLOBIN 10.8 g/dl (12.0-16.0); IMMATURE GRANULOCYTE # (AUTO) 0.1 (0.0-1.0); IMMATURE GRANULOCYTE % (AUTO) 0.4 % (0.0-5.0); LYMPHOCYTES # (AUTO) 4.1 K/uL (0.60-3.4); LYMPHOCYTES % (AUTO) 32.4 (10.0-50.0); MEAN CORPUSCULAR HEMOGLOBIN 27.2 pg (27.0-31.0); MEAN CORPUSCULAR HGB CONC 31.4 (31.8-35.4); MEAN CORPUSCULAR VOLUME 86.6 fl (81.0-99.0); MONOCYTES # (AUTO) 1.7 K/uL (0.4-2.0); MONOCYTES % (AUTO) 13.1 (0-10); NEUTROPHILS # (AUTO) 6.2 K/ul (2.0-6.9); NEUTROPHILS % (AUTO) 48.7 % (42.2-75.2); PLATELET COUNT 379 10^3/uL (140-440); RDW COEFFICIENT OF VARIATION 15.1 % (11.6-14.8); RED BLOOD COUNT 3.97 10^6/ul (4.20-5.40); WHITE BLOOD COUNT 12.75 K/ul (4.6-10.2)
[2020-06-11 05:50] LABS: ALANINE AMINOTRANSFERASE 16.7 U/L (0-35); ALBUMIN 3.62 g/dL (3.5-5.0); ALKALINE PHOSPHATASE 85.8 U/L (53-141); ASPARTATE AMINO TRANSFERASE 31.6 U/L (14-36); BILIRUBIN,TOTAL 0.44 mg/dL (0.2-1.3); BLOOD UREA NITROGEN 28.3 mg/dL (7-17); CALCIUM 8.2 mg/dL (8.4-10.2); CARBON DIOXIDE 30.6 mmol/L (22-30.0); CHLORIDE 101.4 mmol/L (98-107); CREATININE 1.44 mg/dL (0.60-1.30); GLUCOSE 93.8 mg/dL (74-106); POTASSIUM 3.91 mmol/L (3.5-5.1); SODIUM 137.4 mmol/L (134.5-145); TOTAL PROTEIN 7.94 g/dL (6.3-8.2)
[2020-06-11] MEDS: PROZAC PO SCH (08:53)
[2020-06-11] MEDS: CRESTOR PO SCH (08:54)
[2020-06-11] MEDS: ELIQUIS PO SCH (08:54)
[2020-06-11] MEDS: COREG PO SCH (08:54)
[2020-06-11] MEDS: PROCARDIA XL PO SCH (08:54)
[2020-06-11] MEDS: SODIUM BICARBONATE PO SCH (08:54)
--- NOTE | 2020-06-11 10:49 | PCM.PROG ---
Attending Provider: ATTENDING PROVIDER: Dr. NICOLÁS BERTRAND This patient is seen with Jasmine Vaughan, Nurse Practitioner. DATE OF SERVICE: 06/11/20 SUBJECTIVE: This 80 year old AA/BLACK F was hospitalized 06/04/20. The patient is resting comfortably. The patient is ready to go home. Labs are stable. Breathing is better. No leg edema. REVIEW OF SYSTEMS: CONSTITUTIONAL: No night sweats. No fatigue, malaise, lethargy. No fever or chills. HEENT: Eyes: No visual changes. No eye pain. No eye discharge. ENT: No runny nose. No epistaxis. No sinus pain. No odynophagia. No congestion. RESPIRATORY: Cough, no congestion. No hemoptysis. No shortness of breath. CARDIOVASCULAR: No angina symptoms. No CHF symptoms. No atypical chest pain for CAD. No palpitations. No orthopnea.. GASTROINTESTINAL: No abdominal pain. No nausea or vomiting. No diarrhea or constipation. No hematemesis. No hematochezia. GENITOURINARY: No urgency. No frequency. No dysuria. No hematuria. No obstructive symptoms. No discharge. No pain. No significant abnormal bleeding. MUSCULOSKELETAL: No musculoskeletal pain; no joint swelling. NEUROLOGICAL: Awake, alert, oriented to time, place and person. No headache. No neck pain. No syncope. No seizures. No dizziness. PSYCHIATRIC: Not anxious. No depression. No suicidal thoughts. No homicidal thoughts. SKIN: No rash. No lesions. No wounds. ENDOCRINE: No unexplained weight loss. No weight gain. HEMATOLOGIC/LYMPHATIC: No anemia. No purpura. No petechiae. No prolonged or excessive bleeding. No palpable lymph nodes. PHYSICAL EXAMINATION: GENERAL: The patient is awake, alert and oriented, lying in bed in no distress. VITAL SIGNS: Temperature 98.1 F, Pulse 88, Respiratory Rate 16, BP 116/71, Pulse Ox 98% HEENT: Head normocephalic, atraumatic. Eyes: Extraocular muscles are intact. Pupils are equal, round and reactive to light and accommodation. Ears: No lesions. Nose appeared normal. Throat: No exudate or erythema. NECK: Supple. No JVD, no carotid bruit. No lymphadenopathy or thyromegaly. LUNGS: Diminished breath sounds. Clear to auscultation. Percussion note normal. Chest symmetrical. HEART: S1, S2, no S3. No murmurs. No cyanosis or clubbing. No ascites. Pulses: Dorsalis pedis and posterior tibial pulses +1 to +2 both sides. ABDOMEN: Soft. Non-tender. Bowel sounds active. No CVA tenderness. No mass felt. EXTREMITIES: No edema. Full range of motion of all extremities, equal. NEUROLOGIC: No focal deficit. Cranial nerves II through XII are grossly intact. No headache. No double vision. SKIN: Not dry. Intact. Turgor-normal. LYMPHATIC: No palpable lymph nodes/no lymphedema. MUSCULOSKELETAL: Normal joints with no swelling. Muscle tone is normal. LAB REVIEW: 06/11/20 04:50 06/11/20 04:50 06/11/20 04:50: Sodium 137.4, Potassium 3.91, Chloride 101.4, Carbon Dioxide 30.6 H, Anion Gap 9.31, BUN 28.3 H, Creatinine 1.44 H, Estimated GFR (MDRD) 43.00, BUN/Creatinine Ratio 19.65, Glucose 93.8, Calcium 8.20 L, Total Bilirubin 0.44, AST 31.6, ALT 16.7, Alkaline Phosphatase 85.8, Total Protein 7.94, Albumin 3.62, Globulin 4.32, Albumin/Globulin Ratio 0.83 06/11/20 04:50: WBC 12.75 H, RBC 3.97 L, Hgb 10.8 L, Hct 34.4 L, MCV 86.6, MCH 27.2, MCHC 31.4 L, RDW Coeff of Jade 15.1 H, Plt Count 379, Immature Gran % (Auto) 0.4, Neut % (Auto) 48.7, Lymph % (Auto) 32.4, [place] % (Auto) 13.1 H, Eos % (Auto) 5.2, Baso % (Auto) 0.2, Neut # (Auto) 6.2, Lymph # (Auto) 4.1 H, [place] # (Auto) 1.7, Eos # (Auto) 0.7, Baso # (Auto) 0.0, Immature Gran # (Auto) 0.1 ASSESSMENT: Please see below. 1. CHF improved 2. Hypokalemia, resolved 3. Chronic anemia 4. CKD stage 3 5. Noncompliance with medication, recommendations and lifestyle. PLAN: 1. Discharge home today. 2. See back in the office next week 3. Medications have remained unchanged 4. The patient is instructed to continue with Lasix at home. She tends to not want to take Lasix due to increased urination. 5. Education carried out about daily weights. Plan and coordination of the patient's care discussed in the presence of Bin Worker and nurse. PROGNOSIS: Poor given the patient non-compliance. SCRIBED BY: Nuris GUERRA scribed while in presence of service performed by Dr. Bertrand/Jasmine Vaughan APRN on 06/11/20 ([id number])
--- NOTE | 2020-06-11 11:15 | CM.DICTOOL ---
ADMISSION: 06/04/20 20:19 DISCHARGE: JUNE 11, 2020 DATE OF SERVICE: 06/11/20 FINAL DIAGNOSIS CHF HYPOKALEMIA, RESOLVED HYPERKALEMIA, RESOLVED CHRONIC RESPIRATORY FAILURE RENAL AZOTEMIA COPD, OXYGEN DEPENDENT PULMONARY FIBROSIS CAD, NON-OCCLUSIVE PER HEART CATH ATRIAL FIBRILLATION (ON ELIQUIS) CARDIOMEGALY HYPERTENSION CHRONIC KIDNEY DISEASE ANEMIA HYPOTHYROIDISM MIGRAINE HEADACHES DYSLIPIDEMIA GERD DEPRESSION ANXIETY OSTEOARTHRITIS DEGENERATIVE DISC DISEASE (CERVICAL, THORACIC AND LUMBAR SPINE PER CT) FRACTURE LEFT HUMERAL HEAD, NON-DISPLACED (2013) FORMER SMOKER NON-COMPLIANCE MEDICATIONS, FOLLOW-UP AND LIFESTYLE LEFT TKR, 2016 RIGHT TKR, 2017 LASIK SURGERY [facility] HEART CATH, 2015 ECHOCARDIOGRAM, COMPLETED 06/07/2020 LAST VITALS Temp Pulse Resp BP Pulse Ox 98.1 F 88 16 116/71 95 06/11/20 05:37 06/11/20 05:37 06/11/20 05:37 06/11/20 05:37 06/11/20 10:00 TAKE THESE MEDICATIONS AT HOME Alprazolam (Alprazolam 0.25 Mg Tablet) 0.25 mg PO BID PRN PRN Reason: Anxiety Last Admin: 06/09/20 17:39 Dose: 0.25 mg Documented by: Apixaban (Apixaban 5 Mg Tab) 5 mg PO BID [facility] Last Admin: 06/11/20 08:54 Dose: 5 mg Documented by: Carvedilol (Carvedilol 6.25 Mg Tablet) 6.25 mg PO BIDWM [facility] Last Admin: 06/11/20 08:54 Dose: 6.25 mg Documented by: Clonidine HCl (Clonidine 0.1 Mg Patch.Tdwk) 1 patch TD WEEKLY [facility] Last Admin: 06/09/20 08:55 Dose: 1 patch Documented by: Famotidine (Famotidine 20 Mg Tablet) 20 mg PO BIDAC [facility] Last Admin: 06/11/20 05:35 Dose: 20 mg Documented by: Fluoxetine HCl (Fluoxetine Hcl 20 Mg Capsule) 20 mg PO DAILY [facility] Last Admin: 06/11/20 08:53 Dose: 20 mg Documented by: Furosemide (Furosemide 20 Mg Tablet) 20 mg PO BIDAC [facility] Last Admin: 06/11/20 05:35 Dose: 20 mg Documented by: Levothyroxine Sodium (Levothyroxine Sodium 50 Mcg Tablet) 50 mcg PO 0630 [facility] Last Admin: 06/11/20 05:35 Dose: 50 mcg Documented by: Nifedipine (Nifedipine 30 Mg Tab.Er.24) 30 mg PO BID [facility] (RX) Last Admin: 06/11/20 08:54 Dose: 30 mg Documented by: Rosuvastatin Calcium (Rosuvastatin Calcium 10 Mg Tablet) 5 mg PO DAILY [facility] Last Admin: 06/11/20 08:54 Dose: 5 mg Documented by: Sodium Bicarbonate (Sodium Bicarbonate 650 Mg Tablet) 650 mg PO TID [facility] Last Admin: 06/11/20 08:54 Dose: 650 mg Documented by: : ALLERGIES No Known Allergies Allergy (Verified 01/09/19 23:49) DISCONTINUED MEDICATIONS PROCARDIA XL 60MG DAILY NEW PRESCRIPTIONS: PROCARDIA XL 30 MG BID SMOKING: ADVISED TO STOP SMOKING DISEASE SPECIFIC EDUCATION: COPD USE OF NSAIDS (AVOID WITH ELIQUIS) APPOINTMENT LAB REVIEW: 06/11/20 04:50 06/11/20 04:50 06/11/20 04:50: Sodium 137.4, Potassium 3.91, Chloride 101.4, Carbon Dioxide 30.6 H, Anion Gap 9.31, BUN 28.3 H, Creatinine 1.44 H, Estimated GFR (MDRD) 43.00, BUN/Creatinine Ratio 19.65, Glucose 93.8, Calcium 8.20 L, Total Bilirubin 0.44, AST 31.6, ALT 16.7, Alkaline Phosphatase 85.8, Total Protein 7.94, Albumin 3.62, Globulin 4.32, Albumin/Globulin Ratio 0.83 06/11/20 04:50: WBC 12.75 H, RBC 3.97 L, Hgb 10.8 L, Hct 34.4 L, MCV 86.6, MCH 27.2, MCHC 31.4 L, RDW Coeff of Jade 15.1 H, Plt Count 379, Immature Gran % (Auto) 0.4, Neut % (Auto) 48.7, Lymph % (Auto) 32.4, [place] % (Auto) 13.1 H, Eos % (Auto) 5.2, Baso % (Auto) 0.2, Neut # (Auto) 6.2, Lymph # (Auto) 4.1 H, [place] # (Auto) 1.7, Eos # (Auto) 0.7, Baso # (Auto) 0.0, Immature Gran # (Auto) 0.1 PLAN: DISCHARGE HOME WITH SPOUSE DIET: HEART HEALTHY ACTIVITY: GRADUALLY RESUME TOLERATED USE OXYGEN CONTINUOUSLY AT 4 LITERS ELEVATE LEGS ABOVE THE LEVEL OF THE HEART WHEN SITTING AND WHEN IN BED CONTINUE TO USE NEBULIZER TREATMENTS NEEDED AN APPOINTMENT IS SCHEDULED WITH DR. BERTRAND/CLAUDIA FUNES APRN ON June AT 10:15 AM CODE STATUS: CPR ONLY MRS. MACKENZIE IS ALERT AND ORIENTED X 4. MRS. MACKENZIE IS AGREEABLE TO PLANS FOR [facility]C [facility] HOME TODAY. MRS. MACKENZIE LIVES WITH HER AND ADULT DAUGHTER. THEY ARE BOTH AVAILABLE TO ASSIST IN THE HOME. SHE IS INDEPENDENT WITH ACTIVITIES OF DAILY LIVING. SHE IS ABLE TO TRANSFER FROM THE BED TO THE BSC AND TO THE CHAIR WITH [facility]BA OF NURSING. SHE REPOSITIONS HERSELF IN THE BED WITHOUT DIFFICULTY. SHE IS INDEPENDENT WITH FEEDING. MEAL INTAKES ARE GOOD AT 75-100%. MRS. MACKENZIE USES OXYGEN CONTINUOUSLY AT 4 LITERS. SHE HAS OXYGEN AVAILABLE FOR HER USE AT HOME. SHE REPORTS SHE HAS A NEBULIZER AT HOME. MRS. MACKENZIE IS CONTINENT OF BOWEL AND BLADDER. HYDRATION STATUS IS GOOD. SKIN IS INTACT, BRUISING NOTED TO UPPER EXTREMITIES. MD CLAUDIA MICHELE APRN
--- NOTE | 2020-06-14 10:30 | PN ---
DATE OF SERVICE: 06/09/2020 SUBJECTIVE: 80 year old black female hospitalized with CHF, COPD exacerbation and Respiratory failure. The patient is feeling a lot better. Her condition is improved remarkably. She says that breathing is a lot better. Her voice has opened up and coughing is much less. REVIEW OF SYSTEMS: CONSTITUTIONAL: No night sweats. No fatigue, malaise, lethargy. No fever or chills. HEENT: Eyes: No visual changes. No eye pain. No eye discharge. ENT: No runny nose. No epistaxis. No sinus pain. No sore throat. No odynophagia. No congestion. RESPIRATORY: No cough, no congestion. No hemoptysis. No shortness of breath. CARDIOVASCULAR: No angina symptoms. No CHF symptoms. No atypical chest pain for CAD. No palpitations. No PND. No orthopnea. GASTROINTESTINAL: No abdominal pain. No nausea or vomiting. No diarrhea or constipation. No hematemesis. No hematochezia. Appetite has improved. GENITOURINARY: No urgency. No frequency. No dysuria. No hematuria. No obstructive symptoms. No discharge. No pain. No significant abnormal bleeding. MUSCULOSKELETAL: No musculoskeletal pain; no joint swelling. NEUROLOGICAL: Headache as usual. No neck pain. No syncope. No seizures. No dizziness. PSYCHIATRIC: Not anxious. No depression. No suicidal thoughts. No homicidal thoughts. SKIN: No rash. No lesions. No wounds. ENDOCRINE: No unexplained weight loss. No weight gain. HEMATOLOGIC/LYMPHATIC: No anemia. No purpura. No petechiae. No prolonged or excessive bleeding. No palpable lymph nodes. PHYSICAL EXAMINATION: VITAL SIGNS: Temperature 97.7, pulse 80, respiratory rate 18, blood pressure 136/86 and pulse ox 97% on 3-4 liters. HEENT: Head normocephalic, atraumatic. Eyes: Extraocular muscles are intact. Pupils are equal, round and reactive to light and accommodation. Ears: No lesions. Nose appeared normal. Throat: No exudate or erythema. NECK: Supple. No JVD, no carotid bruit. No lymphadenopathy or thyromegaly. LUNGS: Decreased breath sounds but clear to auscultation. Percussion note normal. Chest symmetrical. HEART: S1, S2, no S3. No murmurs. No cyanosis or clubbing. No ascites. Pulses: Dorsalis pedis and posterior tibial pulses +1 to +2 bilaterally. ABDOMEN: Soft. Nontender. Bowel sounds active. No CVA tenderness. No mass felt. EXTREMITIES: No edema. Full range of motion of all extremities, equal. NEUROLOGIC: No focal deficit. Cranial nerves II through XII are grossly intact. No headache. No double vision. SKIN: Not dry. Intact. Turgor - normal. LYMPHATIC: No palpable lymph nodes/no lymphedema. MUSCULOSKELETAL: Normal joints with no swelling. Muscle tone is normal. LABS: hgb 10, hct 32, WBC 9,300 normal differential, creatinine 1.4, BUN 22, potassium 4. Echo cardiogram done which showed enlarged left atrial cavity, left ventricular contractility seems to have improved. Improvement in the ejection fraction to 45% to 50% used to 35%. Normal Valves ASSESSMENT: 1. CHF seems to be clinically resolved 2. COPD with bronchitis seems to be under control 3. Chronic kidney disease 4. Anemia 5. Chronic lung disease 6. History of smoking 7. History of marijuana use PLAN: 1. Advise the patient not to mix up medications with marijuana. 2. Take the medications regularly 3. Advised to quit smoking 4. The patient's problem is that she is non-complaint with her medications. 5. She is intelligent. She understands the consequences. 3. TIME SPENT: More than 30 minutes. Plan and coordination of the patient's care discussed in the presence of nurse. MANAN
--- NOTE | 2020-06-15 11:27 | ECHO2D ---
Date of Exam: 06/09/2020 Ordering Physician: DR. NICOLÁS BERTRAND Room #: 103 Reason for Echo: SOB, CHF, CAD M-Mode Normal Adult Results LV Dimensions Normal Adult Results AoV Opening excursions >1.6 >1.6 LVEDD-base- 3.5-5.8 4.3 Ao root dimensions 2.0-3.7 3.8 LVESD-base- 3.1-4.6 L. Atrium dimensions 1.9-3.8 6.2 Post. Wall thickness 0.8-1.1 1.2 IV septum (thickness) 0.7-1.2 1.3 Post. Wall excursion 0.72-1.3 NORMAL Septal motion NORMAL Systolic motion R. Ventricular cavity 1.5-2.0 4.0 LVEF 60% 61% Paradoxical septal wall motion NORMAL 2-D : 2-D M Mode Echocardiogram was performed using apical four chamber and left parasternal long and short axis views. Mitral, tricuspid and aortic valves appear to be normal. Contractility of the left ventricle seems to be normal, so is the cavity size. ENLARGED LEFT ATRIAL AND RIGHT VENTRICLE CAVITIES. Aortic root appears to be normal. There is no pericardial effusion. There is no thrombus noted in the left ventricle or left atrial cavity. M-MODE: MV: NORMAL AV: NORMAL TV: NORMAL PV: CHAMBER SIZE: ENLARGED LEFT ATRIAL AND RIGHT VENTRICLE CAVITIES WALL MOTION: NORMAL PERICARDIUM: NORMAL INTERPRETATION: 1. LEFT VENTRICULAR HYPERTROPHY WITH ENLARGED LEFT ATRIAL CAVITY 2. ENLARGED RIGHT VENTRICLE CAVITY 3. NORMAL LEFT VENTRICLE CONTRACTILITY 4. NORMAL LEFT VENTRICLE SIZE MTDD
--- NOTE | 2020-06-21 08:44 | DS ---
DATE OF SERVICE: 06/11/2020 FINAL DIAGNOSIS: CHF HYPOKALEMIA, RESOLVED HYPERKALEMIA, RESOLVED CHRONIC RESPIRATORY FAILURE RENAL AZOTEMIA COPD, OXYGEN DEPENDENT PULMONARY FIBROSIS CAD, NON-OCCLUSIVE PER HEART CATH ATRIAL FIBRILLATION (ON ELIQUIS) CARDIOMEGALY HYPERTENSION CHRONIC KIDNEY DISEASE ANEMIA HYPOTHYROIDISM MIGRAINE HEADACHES DYSLIPIDEMIA GERD DEPRESSION ANXIETY OSTEOARTHRITIS DEGENERATIVE DISC DISEASE (CERVICAL, THORACIC AND LUMBAR SPINE PER CT) FRACTURE LEFT HUMERAL HEAD, NON-DISPLACED (2013) FORMER SMOKER NON-COMPLIANCE MEDICATIONS, FOLLOW-UP AND LIFESTYLE LEFT TKR, 2016 RIGHT TKR, [address] [facility] HEART CATH, 2016 ECHOCARDIOGRAM, COMPLETED 06/07/2020 LAST VITALS: Temp Pulse Resp BP Pulse Ox 98.1 F 88 16 116/71 95 06/11/20 05:37 06/11/20 05:37 06/11/20 05:37 06/11/20 05:37 06/11/20 10:00 DISCHARGE INSTRUCTIONS: DISCHARGE HOME WITH SPOUSE. CONTINUE TO USE NEBULIZER TREATMENTS NEEDED. AN APPOINTMENT IS SCHEDULED WITH DR. BERTRAND/CLAUDIA FUNES APRN ON June AT 10:15 AM. CODE STATUS: CPR ONLY. TAKE THESE MEDICATIONS AT HOME: Alprazolam (Alprazolam 0.25 Mg Tablet) 0.25 mg PO BID PRN PRN Reason: Anxiety Last Admin: 06/09/20 17:39 Dose: 0.25 mg Documented by: Apixaban (Apixaban 5 Mg Tab) 5 mg PO BID [facility] Last Admin: 06/11/20 08:54 Dose: 5 mg Documented by: Carvedilol (Carvedilol 6.25 Mg Tablet) 6.25 mg PO BIDWM [facility] Last Admin: 06/11/20 08:54 Dose: 6.25 mg Documented by: Clonidine HCl (Clonidine 0.1 Mg Patch.Tdwk) 1 patch TD WEEKLY [facility] Last Admin: 06/09/20 08:55 Dose: 1 patch Documented by: Famotidine (Famotidine 20 Mg Tablet) 20 mg PO BIDAC [facility] Last Admin: 06/11/20 05:35 Dose: 20 mg Documented by: Fluoxetine HCl (Fluoxetine Hcl 20 Mg Capsule) 20 mg PO DAILY [facility] Last Admin: 06/11/20 08:53 Dose: 20 mg Documented by: Furosemide (Furosemide 20 Mg Tablet) 20 mg PO BIDAC [facility] Last Admin: 06/11/20 05:35 Dose: 20 mg Documented by: Levothyroxine Sodium (Levothyroxine Sodium 50 Mcg Tablet) 50 mcg PO 0630 [facility] Last Admin: 06/11/20 05:35 Dose: 50 mcg Documented by: Nifedipine (Nifedipine 30 Mg Tab.Er.24) 30 mg PO BID [facility] (RX) Last Admin: 06/11/20 08:54 Dose: 30 mg Documented by: Rosuvastatin Calcium (Rosuvastatin Calcium 10 Mg Tablet) 5 mg PO DAILY [facility] Last Admin: 06/11/20 08:54 Dose: 5 mg Documented by: Sodium Bicarbonate (Sodium Bicarbonate 650 Mg Tablet) 650 mg PO TID [facility] Last Admin: 06/11/20 08:54 Dose: 650 mg Documented by: ALLERGIES: No Known Allergies Allergy (Verified 01/09/19 23:49) DISCONTINUED MEDICATIONS: PROCARDIA XL 60MG DAILY NEW PRESCRIPTIONS: PROCARDIA XL 30 MG BID SMOKING: ADVISED TO STOP SMOKING DISEASE SPECIFIC EDUCATION: COPD USE OF NSAIDS (AVOID WITH ELIQUIS) APPOINTMENT LAB REVIEW: 06/11/20 04:50 06/11/20 04:50 06/11/20 04:50: Sodium 137.4, Potassium 3.91, Chloride 101.4, Carbon Dioxide 30.6 H, Anion Gap 9.31, BUN 28.3 H, Creatinine 1.44 H, Estimated GFR (MDRD) 43.00, BUN/Creatinine Ratio 19.65, Glucose 93.8, Calcium 8.20 L, Total Bilirubin 0.44, AST 31.6, ALT 16.7, Alkaline Phosphatase 85.8, Total Protein 7.94, Albumin 3.62, Globulin 4.32, Albumin/Globulin Ratio 0.83 06/11/20 04:50: WBC 12.75 H, RBC 3.97 L, Hgb 10.8 L, Hct 34.4 L, MCV 86.6, MCH 27.2, MCHC 31.4 L, RDW Coeff of Jade 15.1 H, Plt Count 379, Immature Gran % (Auto) 0.4, Neut % (Auto) 48.7, Lymph % (Auto) 32.4, [place] % (Auto) 13.1 H, Eos % (Auto) 5.2, Baso % (Auto) 0.2, Neut # (Auto) 6.2, Lymph # (Auto) 4.1 H, [place] # (Auto) 1.7, Eos # (Auto) 0.7, Baso # (Auto) 0.0, Immature Gran # (Auto) 0.1 DIET: HEART HEALTHY ACTIVITY: GRADUALLY RESUME TOLERATED USE OXYGEN CONTINUOUSLY AT 4 LITERS ELEVATE LEGS ABOVE THE LEVEL OF THE HEART WHEN SITTING AND WHEN IN BED HOSPITAL COURSE: The patient was hospitalized with shortness of breath and exacerbation of COPD. During the stay in the hospital was treated with IV Lasix because she also had evidence of congestive heart failure. Her condition improved with steroids and NEBS. Renal azotemia resolved. She had hypokalemia which was treated aggressively to the point where is become hyperkalemic which also resolved. At the time of discharge the patient's CHF was under control. Chest x-ray continued to show some vascular congestion but that is how her chest x-ray is but she had no symptoms. Her cough had subsided with practically no distress involving her respiratory system. Her appetite had improved. Her was feeling better. Her voice was clear. The patient was advised to use her oxygen as much as she could because of her chronic lung disease with pulmonary fibrosis. Also was advised to take her diuretic pill daily along with all her medications. Procardia XL 30mg was switched to Procardia XL 30mg Twice a day. The rest of the medications were continued along with Apixaban. She was strongly advised not to mix marijuana with any of her medications. Take her medications regularly and quit smoking. The patient is DNI. The patient's prognosis is poor. TIME SPENT: More than 60 minutes. MANAN
--- NOTE | 2020-06-21 08:45 | PN ---
06/04/2020: Level 5 06/05/2020: Intermediate 06/06/2020: Intermediate 06/07/2020: Intermediate 06/08/2020: Intermediate 06/09/2020: Intermediate 06/10/2020: Intermediate 06/11/2020: D as in discharge MTDD
--- NOTE | 2020-06-21 13:10 | PN ---
DATE OF SERVICE: 06/10/20 SUBJECTIVE: The patient was seen and examined with the nurse practitioner. The patient's condition is stable. She was feeling a lot better. Respiratory status has improved. CHF clinically has resolved. The patient's problem is that she was noncompliant. She also has been using marijuana and mixing with all the medications. She also sneaks around and smokes. Prognosis is poor. She is DNI. TIME SPENT: More than 30 minutes. Plan and coordination of the patient's care discussed in the presence of nurse. MANAN
--- NOTE | 2020-06-21 13:18 | PN ---
DATE OF SERVICE: 06/11/20 SUBJECTIVE: The patient is up and about doing well, feeling better, no distress. No symptoms of CHF or coronary insufficiency. The patient was seen and examined with the nurse practitioner. PHYSICAL EXAMINATION: HEENT: Head normocephalic, atraumatic. Eyes: Extraocular muscles are intact. Pupils are equal, round and reactive to light and accommodation. Ears: No lesions. Nose appeared normal. Throat: No exudate or erythema. NECK: Supple. No JVD, no carotid bruit. No lymphadenopathy or thyromegaly. LUNGS: Decreased breath sounds, few crepitations, dry at the bases. Good air entry. Percussion note normal. Chest symmetrical. HEART: S1, S2, no S3. No murmurs. No cyanosis or clubbing. No ascites. Pulses: Dorsalis pedis and posterior tibial pulses +1 to +2 bilaterally. ABDOMEN: Soft. Nontender. Bowel sounds active. No CVA tenderness. No mass felt. EXTREMITIES: No edema. Full range of motion of all extremities, equal. NEUROLOGIC: No focal deficit. Cranial nerves II through XII are grossly intact. No headache. No double vision. SKIN: Not dry. Intact. Turgor - normal. LYMPHATIC: No palpable lymph nodes/no lymphedema. MUSCULOSKELETAL: Normal joints with no swelling. Muscle tone is normal. PLAN: 1. The patient will be discharged home. 2. Medications will be continued as before. 3. The patient's problem is that she is not taking her medications as instructed. According to the , she started taking marijuana from daughter mixing up some pain medicine with it and forgetting to take her medication. She is sneaking around and also smoking. PROGNOSIS: Poor. TIME SPENT: More than 30 minutes. Plan and coordination of the patient's care discussed in the presence of nurse. MANAN
== END 2020-06-11 13:15 | disposition home or self-care (01) | DRG 189 ==
LOC: ED 14:27 → MEDSURG A 20:19
PROVIDERS: ADMIT Internal Medicine; ATTEND Internal Medicine
DX: R06.00 Dyspnea, unspecified; D64.9 Anemia, unspecified; J84.10 Pulmonary fibrosis, unspecified; R07.89 Other chest pain; G43.909 Migraine, unspecified, not intractable, without status migrainosus; Z99.81 Dependence on supplemental oxygen; E87.6 Hypokalemia; F41.3 Other mixed anxiety disorders; Z91.19 Patient's noncompliance with other medical treatment and regimen; R79.89 Other specified abnormal findings of blood chemistry; J96.10 Chronic respiratory failure, unspecified whether with hypoxia or hypercapnia; J44.1 Chronic obstructive pulmonary disease with (acute) exacerbation; R06.02 Shortness of breath; I48.91 Unspecified atrial fibrillation; I10 Essential (primary) hypertension; I25.10 Atherosclerotic heart disease of native coronary artery without angina pectoris; N18.30 Chronic kidney disease, stage 3 unspecified; M19.90 Unspecified osteoarthritis, unspecified site; R53.81 Other malaise; R60.0 Localized edema